=== PATIENT | female | born 1940 | race Caucasian/White ===

== ENCOUNTER 2016-05-20 08:58 | Inpatient (IN) | payer OTHER, MEDICARE ==
[2016-05-20 09:25] VITALS: BMI 26.4
--- NOTE | 2016-05-20 09:25 | PDOC ---
History of Present Illness - History of Present Illness Initial Comments: 05/20/16 10:02 The patient is a 76 year old female with a past medical hx of afib, who presents to the ED complaining of shortness of breath since this morning. The patient reports she went shopping when she noticed the onset of her SOB. She reports associated chest pain, non radiating, 4/10. She notes she went home and was putting her groceries on the shelf when she became short of breath again. She states she called her sister who told her to call 911. She notes one wave of nausea, but denies recent travel, back pain, and jaw pain. The patient denies vomiting, diarrhea The patient denies fever, chills The patient denies dysuria, frequency Allergies: Naproxen Social: No toxic habits reported Surgical: thyroid removed, hysterectomy, fractured femur, knee surgery. Residential Building Inspector: Dr. Moran PCP: Dr. 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) Cardiac Disorders: Yes (AFIB) CVA: No COPD: No CHF: No Dementia: No Diabetes: No GI Disorders: No HTN: No Hypercholesterolemia: No Liver Disease: No Seizures: No Thyroid Disease: Yes - Surgical History Orthopedic Surgery: Yes (CANDIE KNEE REPLACEMENT WITH FEMUR REJI LEFT) - Psycho/Social/Smoking Cessation Hx Suicidal Ideation: No Smoking History: Never smoked Information on smoking cessation initiated: No Hx Alcohol Use: No Drug/Substance Use Hx: No Substance Use Type: None <Brandi Bynum - Last Filed: 05/21/16 07:52> - Past Medical History Allergies/Adverse Reactions: Allergies Allergy/AdvReac Type Severity Reaction Status Date / Time naproxen [From Naprosyn] Allergy Intermediate Swelling Verified 05/20/16 09:23 Home Medications: Ambulatory Orders Apixaban [Eliquis] 5 mg PO BID 05/20/16 Levothyroxine [Synthroid -] 112 mcg PO DAILY 05/20/16 Metoprolol Succinate [Toprol Xl -] 12.5 mg PO DAILY 05/20/16 Review of Systems - Review of Systems Able to Perform ROS?: Yes Comments:: 05/20/16 10:03 GENERAL/CONSTITUTIONAL: No: fever, chills, weakness, loss of appetite. HEAD, EYES, EARS, NOSE AND THROAT: No: change in vision, ear pain, discharge, sore throat, throat swelling. CARDIOVASCULAR: +Chest pain. No: lightheadedness, palpitations, syncope RESPIRATORY: + Shortness of breath. No: cough, wheezing, hemoptysis, stridor. GASTROINTESTINAL: +Nausea. No: vomiting, abdominal cramping, diarrhea, rectal bleeding, constipation. GENITOURINARY: No: dysuria, hematuria, frequency, urgency, flank pain. MUSCULOSKELETAL: No: back pain, neck pain, joint pain, jaw pain, muscle swelling or pain SKIN: No: lesions, pallor, rash or easy bruising. NEUROLOGIC: No: headache, vertigo, paresthesias, weakness ENDOCRINE: No: unexplained weight gain or loss HEMATOLOGIC/LYMPHATIC: No: anemia, easy bleeding, swelling nodes <Jade Hyde - Last Filed: 05/20/16 12:51> *Physical Exam - Vital Signs Last Vital Signs Temp Pulse Resp BP Pulse Ox 98.1 F 151 H 18 115/62 96 05/20/16 09:20 05/20/16 09:38 05/20/16 09:20 05/20/16 09:38 05/20/16 09:20 - Physical Exam Comments: 05/20/16 10:03 GENERAL: The patient is in no acute distress. HEAD: Normal with no signs of trauma. EYES: PERRLA, EOMI, sclera anicteric, conjunctiva clear. ENT: Ears normal, nares patent, oropharynx clear without exudates. Moist mucous membranes. NECK: Normal range of motion, supple without lymphadenopathy, JVD, or masses. LUNGS: Breath sounds equal, clear to auscultation bilaterally. No wheezes, and no crackles. HEART +Irregularly irregular, without murmur, rub or gallop. ABDOMEN: Soft, nontender, normoactive bowel sounds. No guarding, no rebound. EXTREMITIES: Normal range of motion, no edema. No clubbing or cyanosis. No erythema, or tenderness. NEUROLOGICAL: Cranial nerves II through XII grossly intact. Normal speech. No focal neurological deficits. MUSCULOSKELETAL: Back nontender to palpation, no CVA tenderness SKIN: Warm, Dry, normal turgor, no rashes or lesions noted. <Jade Hyde - Last Filed: 05/20/16 12:51> - Vital Signs Last Vital Signs Temp Pulse Resp BP Pulse Ox 98.1 F 149 H 18 119/90 96 05/20/16 09:20 05/20/16 09:20 05/20/16 09:20 05/20/16 09:20 05/20/16 09:20 <Brandi Bynum - Last Filed: 05/21/16 07:52> Heart Score/ECG Review #1 ECG reviewed & interpreted by me at: 10:23 05/20/16 10:23 Twelve-lead EKG was performed and reviewed by me. Afib with a tachycardiac rate of 154. The axis is normal. The intervals are normal. There are no ST elevations or depression. T wave inversions noter v3-v6, II, III, aVF. <Brandi Bynum - Last Filed: 05/21/16 07:52> ED Treatment Course - LABORATORY CBC & Chemistry Diagram: 05/20/16 09:40 05/20/16 09:40 - RADIOLOGY Radiograph Interpretation: 05/20/16 12:02 Chest X-Ray A single view reveals a large heart, hiatal hernia with possible retrocardiac atelectasis or infiltrate with some pleural fluid. There is a prominent knob. The right lung is clear. There are degenerative changes. Since 07/03/2009, the left base changes have developed. The hiatal hernia appears larger. Follow-up recommended. Impression : Large heart. Hiatal hernia. Left base findings. Scoliosis. Reported By: Dilip Meyer MD 05/20/16 1103 <Jade Hyde - Last Filed: 05/20/16 12:51> - LABORATORY CBC & Chemistry Diagram: 05/20/16 09:40 05/20/16 09:40 <Brandi Bynum - Last Filed: 05/21/16 07:52> Medical Decision Making - Medical Decision Making 05/20/16 10:[address] Moran via answering machine at [phone], awaiting call back. Dr. Moran called back at 0945, patients case was discussed. Paged Dr. Girard at [phone], awaiting call back. Paged Dr. Girard for the second time at [phone], awaiting call back. 05/20/16 11:[address] Aiken via cell phone. Patients case was discussed. <CristyaprilCelyJade - Last Filed: 05/20/16 12:51> - Critical Care Time Total Critical Care Time (minutes): 35 Critical Care Statement: The care of this patient involved high complexity decision making to prevent further life threatening deterioration of the patient 's condition and/or to evalute & treat vital organ system(s) failure or risk of failure. - Medical Decision Making A portion of this note was documented by scribe services under my direction. I have reviewed the details of the note, within reason, and agree with the documentation with the following case summary and management plan written by me. Nursing documentation reviewed and incorporated into medical decision making 05/20/16 11:38 This is a 76-year-old female with a history of new-onset A. fib, started on low- dose metoprolol and Eliquis, hypertension, LVH (normal ejection fraction), tricuspid insufficiency, mitral prolapse, hypothyroidism status post thyroidectomy for thyroid cancer. Patient presents emergency department with a complaint of shortness of breath Patient states that while shopping she noted left-sided chest tightness and shortness of breath 05/20/16 11:41 05/20/16 11:41 No fevers, chills, cough. No lower extremity edema. No recent travel. Patient taking her medications as prescribed. Heart Rate 150s at triage. Patient rapidly assessed, states she would like me to contact Dr. Moran and would rather no meds be given until we speak with him Pt EKG Afib Will do: Labs, TSH, CXR will give medications EKG 05/20/16 11:43 Laboratory Tests 05/20/16 05/20/16 05/20/16 09:40 09:40 09:40 WBC 9.1 Hgb 15.9 H Hct 47.9 H Plt Count 235 Neutrophils % 82.5 Lymphocytes % 6.2 L INR 1.27 H Sodium 142 Potassium 4.3 Chloride 106 Carbon Dioxide 28 BUN 14 Creatinine 0.8 Random Glucose 106 Creatine Kinase 120 Troponin I 0.03 Pt Residential Building Inspector called back Recommends [facility] They were called Pt HR still elevated I have had a discussion with this patient re getting medications Pt agreeable to Lopressor 5mg IV Then states she would like the lowest possible dose Will start with 2.[address] Aiken Will place on Telemetry Clinical Impression: Afib RVR <Brandi Bynum - Last Filed: 05/21/16 07:52> *DC/Admit/Observation/Transfer - Attestations Scribe Attestion: 05/20/16 10:02 Documentation prepared by Jade Hyde, acting as biomedical engineering internship for Brandi Bynum MD/DO. <Jade Hyde - Last Filed: 05/20/16 12:51> - Discharge Dispostion Admit: Yes <Brandi Bynum - Last Filed: 05/21/16 07:52> Diagnosis at time of Disposition: Afib Qualifiers: Atrial fibrillation type: unspecified Qualified Code(s): I48.91 - Unspecified atrial fibrillation - Discharge Dispostion Condition at time of disposition: Good
[2016-05-20 09:54] LABS: BASOPHIL 0.9 % (0-2.0); EOSINOPHIL 4.2 % (0-4.5); MCHC 33.1 g/dl (32.0-36.0); MEAN CELL VOLUME 93.5 fl (80-96); MEAN PLT VOLUME 8.6 fl (7.5-11.1); NEUTROPHILS 82.5 % (42.8-82.8); PLATELET COUNT 235 K/MM3 (134-434); RDW 14.7 % (11.6-15.6); WHITE BLOOD COUNT 9.1 K/mm3 (4.0-10.0)
[2016-05-20 10:15] LABS: ALBUMIN 3.6 g/dl (3.4-5.0); ANION GAP 8 (8-16); CALCIUM 9.7 mg/dL (8.5-10.1); CO2 28 mmol/L (21-32); CREATININE 0.8 mg/dL (0.55-1.02); GLUCOSE,RANDOM 106 mg/dL (74-106); MAGNESIUM 1.9 mg/dL (1.8-2.4); SGOT/AST 51 U/L (15-37); SGPT/ALT 46 U/L (12-78)
[2016-05-20 10:21] LABS: ALK PHOS 100 U/L (45-117); BILIRUBIN,TOTAL 0.8 mg/dL (0.2-1.0); TOT PROT 6.4 g/dl (6.4-8.2); TROPONIN I 0.03 ng/ml (0.00-0.05)
[2016-05-20 10:46] LABS: INR 1.27 (0.82-1.09)
[2016-05-20] MEDS ORDERED: METOPROLOL TARTRATE 5 MG/5 ML VIAL IVPUSH ONE ×2 (11:14→12:14)
[2016-05-20] MEDS ORDERED: METOPROLOL TARTRATE 5 MG/5 ML VIAL ONE (11:26)
--- NOTE | 2016-05-20 12:28 | CONSULT ---
Consult Consult Specialty:: Cardiology Referred by:: Ebonie Bynum MD Reason for Consultation:: Rapid atrial fibrillation - History of Present Illness Chief Complaint: Dyspnea History of Present Illness: The patient is a 76 year old female with a past medical hx of afib, RA, hypothyroidism presented to the ED complaining of shortness of breath, chest tightness, palpitations fatigue and weakness in context of rapid afib. She denies near or true syncope, orthopnea, PND, LE edema, compliant with meds, reports intolerance to nadolol. Allergies: Naproxen Social: No toxic habits reported Surgical: thyroid removed, hysterectomy, fractured femur, knee surgery. General Road Production Manager: Dr. Moran PCP: Dr. Oliver - History Source History Provided By: Patient Limitations to Obtaining History: No Limitations - Past Medical History Cardio/Vascular: Yes: AFIB, HTN Rheumatology: Yes: Rheumatoid Arthritis Endocrine: Yes: Hypothyroidism - Alcohol/Substance Use Hx Alcohol Use: No - Smoking History Smoking history: Never smoked Home Medications - Allergies Allergies/Adverse Reactions: Allergies Allergy/AdvReac Type Severity Reaction Status Date / Time naproxen [From Naprosyn] Allergy Intermediate Swelling Verified 05/20/16 09:23 - Home Medications Home Medications: Ambulatory Orders Apixaban [Eliquis] 5 mg PO BID 05/20/16 Levothyroxine [Synthroid -] 112 mcg PO DAILY 05/20/16 Metoprolol Succinate [Toprol Xl -] 12.5 mg PO DAILY 05/20/16 Review of Systems - Review of Systems Constitutional: reports: Weakness Cardiovascular: reports: Chest Pain, Palpitations, Shortness of Breath Vital Signs: Vital Signs Temperature 98.1 F 05/20/16 09:20 Pulse Rate 122 H 05/20/16 12:20 Respiratory Rate 18 05/20/16 09:20 Blood Pressure 111/84 05/20/16 12:20 O2 Sat by Pulse Oximetry (%) 98 05/20/16 11:52 Constitutional: Yes: No Distress, Calm Neck: Yes: Supple Respiratory: Yes: Regular, CTA Bilaterally Gastrointestinal: Yes: Normal Bowel Sounds, Soft Cardiovascular: Yes: Tachycardia, Pulse Irregular JVD: No Carotid Bruit: No Heart Sounds: Yes: S1, S2 Murmur: Yes: Systolic Murmur, Grade 2 Edema: No - Other Data Labs, Other Data: INR, PTT INR 1.27 (0.82-1.09) H 05/20/16 09:40 Rapid afib @ [address]-T changes Ejection Fraction %: LVEF > or = 40 % Imaging - Results Chest X-ray: Report Reviewed (Cardiomegaly, hiatal hernia) Problem List - Problems (1) Rapid atrial fibrillation Code(s): I48.91 - UNSPECIFIED ATRIAL FIBRILLATION (2) Hypothyroidism Code(s): E03.9 - HYPOTHYROIDISM, UNSPECIFIED Qualifiers: Hypothyroidism type: unspecified Qualified Code(s): E03.9 - Hypothyroidism, unspecified (3) Left ventricular hypertrophy due to hypertensive disease Code(s): I11.9 - HYPERTENSIVE HEART DISEASE WITHOUT HEART FAILURE Qualifiers: Heart failure presence: without heart failure Qualified Code(s): I11.9 - Hypertensive heart disease without heart failure (4) Mitral valve prolapse Code(s): I34.1 - NONRHEUMATIC MITRAL (VALVE) PROLAPSE (5) Rheumatoid arthritis Code(s): M06.9 - RHEUMATOID ARTHRITIS, UNSPECIFIED Qualifiers: Rheumatoid arthritis location: unspecified site Assessment/Plan 09/17/2015 Regadenoson Sestamibi: No ischemia, normal LV size and fxn, LVEF 78% 09/16/2015 Echo: Hyperdynamic LV with mild-mod septal hypertrophy and end- systolic cavity obliteration mid LV to apex, severe LAE, mild MV prolapse, mid MR, AR, mild-mod dilated RV, severe KRYSTYNA, severe TR, tr [place], RVSP 36 mmHg 1. Persistent atrial fibrillation with RVR 2. HTN/HCVD 3. LV hypertrophy 4. Hypothyroidism 5. Rheumatoid arthritis 6. MV prolapse 7. Nadolol intolerance P:1. Rate control with IV Cardizem, Lopressor, increase Toprol XL 25 qd, continue Eliquis 5 bid, check TSH 2. Echocardiogram to assess ventricular and valve fxn 3. Patient to f/u with Dr. Moran of [facility] upon d/c
[2016-05-20] MEDS ORDERED: dilTIAZem HCL 50 MG/10 ML - 10 ML VIAL IVPUSH ONE (12:40)
[2016-05-20] MEDS ORDERED: METOPROLOL SUCCINATE 25 MG TAB.SR.24H (FP) PO SCH (12:45)
[2016-05-20] MEDS ORDERED: METOPROLOL SUCCINATE 50 MG TAB.SR.24H (FP) ONE (13:02)
[2016-05-20] MEDS ORDERED: dilTIAZem HCL 125 MG/25 ML - 25 ML VIAL ONE (13:02)
[2016-05-20] MEDS ORDERED: dilTIAZem HCL 50 MG/10 ML - 10 ML VIAL IVPUSH STA (15:15)
[2016-05-20] MEDS ORDERED: METOPROLOL SUCCINATE 25 MG TAB.SR.24H (FP) PO ONE (16:00)
--- NOTE | 2016-05-20 16:37 | EKG ---
Test Reason : Blood Pressure : / mmHG Vent. Rate : 154 BPM Atrial Rate : 150 BPM P-R Int : 000 ms QRS Dur : 082 ms QT Int : 298 ms P-R-T Axes : 000 000 257 degrees QTc Int : 477 ms ATRIAL FIBRILLATION WITH RAPID VENTRICULAR RESPONSE ABNORMAL ECG WHEN COMPARED WITH ECG OF 24-SEP-2015 06:23, ATRIAL FIBRILLATION HAS REPLACED SINUS RHYTHM VENT. RATE HAS INCREASED BY 56 BPM RSR' PATTERN IN V1 IS NO LONGER PRESENT MINIMAL CRITERIA FOR SEPTAL INFARCT ARE NO LONGER PRESENT Confirmed by CHRIS CONROY MD ([id number]) on 05/20/2016 4:36:47 PM Referred By: Confirmed By:CHRIS CONROY MD
[2016-05-20 17:55] LABS: TROPONIN I 0.09 ng/ml (0.00-0.05)
[2016-05-20] MEDS ORDERED: HEPARIN NA (PORCINE) 5,000 UNITS/ML 1ML VIAL SQ SCH (22:00)
[2016-05-20] MEDS ORDERED: APIXABAN 5 MG TABLET PO SCH (22:00)
[2016-05-20 22:19] LABS: TROPONIN I 0.08 ng/ml (0.00-0.05)
[2016-05-20] MEDS: APIXABAN 5 MG TABLET PO SCH (22:37)
[2016-05-21] MEDS: LEVOTHYROXINE NA 112 MCG TABLET (FP) PO SCH (06:29)
[2016-05-21 08:22] LABS: BASOPHIL 0.8 % (0-2.0); EOSINOPHIL 7.3 % (0-4.5); MCH 30.6 pg (25.7-33.7); MCHC 32.7 g/dl (32.0-36.0); MEAN CELL VOLUME 93.7 fl (80-96); NEUTROPHILS 68.2 % (42.8-82.8); PLATELET COUNT 229 K/MM3 (134-434); RDW 14.7 % (11.6-15.6); WHITE BLOOD COUNT 8.5 K/mm3 (4.0-10.0)
[2016-05-21 08:39] LABS: ALBUMIN 3.3 g/dl (3.4-5.0)
[2016-05-21 08:44] LABS: ALK PHOS 76 U/L (45-117); ANION GAP -2 (8-16); BILIRUBIN,TOTAL 1.1 mg/dL (0.2-1.0); CALCIUM 9.3 mg/dL (8.5-10.1); CO2 29 mmol/L (21-32); CREATININE 0.8 mg/dL (0.55-1.02); GLUCOSE,RANDOM 79 mg/dL (74-106); SGOT/AST 41 U/L (15-37); SGPT/ALT 39 U/L (12-78); TOT PROT 5.7 g/dl (6.4-8.2)
--- NOTE | 2016-05-21 09:10 | HP ---
Admitting History and Physical - Admission History of Present Illness: 76 year old female with a past medical hx of afib, who presents to the ED complaining of shortness of breath since this morning. The patient reports she went shopping when she noticed the onset of her SOB. She reports associated chest pain, non radiating, 08/23. She notes she went home and was putting her groceries on the shelf when she became short of breath again. patient jw had chest pain that was persistent associated with sob.. pt was noted to be in rapid afib This am denies any chest pain but c/o sob with minimal exertion - Past Medical History Cardiovascular: Yes: AFIB, HTN ...: No Rheumatology: Yes: Rheumatoid Arthritis Endocrine: Yes: Hypothyroidism - Past Surgical History Past Surgical History: Yes: Joint Replacement - Advance Directives Advance Directives: Yes: Health Care Proxy - Smoking History Smoking history: Never smoked - Alcohol/Substance Use Hx Alcohol Use: No Home Medications - Allergies Allergies/Adverse Reactions: Allergies Allergy/AdvReac Type Severity Reaction Status Date / Time naproxen [From Naprosyn] Allergy Intermediate Swelling Verified 05/20/16 09:23 - Home Medications Home Medications: Ambulatory Orders Apixaban [Eliquis] 5 mg PO BID 05/20/16 Levothyroxine [Synthroid -] 112 mcg PO DAILY 05/20/16 Metoprolol Succinate [Toprol Xl -] 12.5 mg PO DAILY 05/20/16 Review of Systems - Review of Systems Cardiovascular: reports: Chest Pain, Shortness of Breath. denies: Edema Respiratory: reports: SOB, SOB on Exertion Gastrointestinal: reports: No Symptoms Genitourinary: reports: No Symptoms Neurological: reports: No Symptoms Physical Examination Vital Signs: Vital Signs Temperature 98.0 F 05/21/16 06:00 Pulse Rate 74 05/21/16 06:00 Respiratory Rate 20 05/21/16 06:00 Blood Pressure 122/80 05/21/16 06:00 O2 Sat by Pulse Oximetry (%) 98 05/20/16 20:43 Neck: Yes: Supple Cardiovascular: Yes: Regular Rate and Rhythm Respiratory: Yes: Rales (at the bases>>>>left) Labs: CBC, BMP 05/21/16 06:05 05/21/16 06:05 Imaging - Results Chest X-ray: Report Reviewed EKG: Report Reviewed Problem List - Problems (1) Afib Assessment/Plan: CONTINUE WITH ELIQUIS/LOPRESSOR Code(s): I48.91 - UNSPECIFIED ATRIAL FIBRILLATION Qualifiers: Atrial fibrillation type: paroxysmal Qualified Code(s): I48.0 - Paroxysmal atrial fibrillation (2) HTN (hypertension) Assessment/Plan: CONTINUE WITH MEDS MONITOR Code(s): I10 - ESSENTIAL (PRIMARY) HYPERTENSION Qualifiers: Hypertension type: essential hypertension Qualified Code(s): I10 - Essential (primary) hypertension (3) Hypothyroidism Assessment/Plan: TSH 4 SAME DOSE Code(s): E03.9 - HYPOTHYROIDISM, UNSPECIFIED Qualifiers: Hypothyroidism type: unspecified Qualified Code(s): E03.9 - Hypothyroidism, unspecified (4) Chest pain as manifestation of blood transfusion reaction Assessment/Plan: REPEAT EKG/CE MONITOR ON TEL D/W DR HURST--PT HAD NEGATIVE STRESS TEST IN SEPTEMBER/2015 Code(s): R07.9 - CHEST PAIN, UNSPECIFIED T80.89XA - OTH COMP FOL INFUSION, TRANSFUSE AND THERAPUTC INJECT, INIT Y84.8 - OTH MEDICAL PROCEDURES CAUSE ABN REACT/COMPL, W/O MISADVNT Assessment/Plan - Problems (1) Rapid atrial fibrillation CONTINUE WIT LOPRESSOR CONTINUE WITH ELIQUIS Code(s): I48.91 - UNSPECIFIED ATRIAL FIBRILLATION (2) Hypothyroidism Code(s): E03.9 - HYPOTHYROIDISM, UNSPECIFIED Qualifiers: Hypothyroidism type: unspecified Qualified Code(s): E03.9 - Hypothyroidism, unspecified (3) Left ventricular hypertrophy due to hypertensive disease Code(s): I11.9 - HYPERTENSIVE HEART DISEASE WITHOUT HEART FAILURE Qualifiers: Heart failure presence: without heart failure Qualified Code(s): I11.9 - Hypertensive heart disease without heart failure (4) Mitral valve prolapse Code(s): I34.1 - NONRHEUMATIC MITRAL (VALVE) PROLAPSE (5) Rheumatoid arthritis Code(s): M06.9 - RHEUMATOID ARTHRITIS, UNSPECIFIED Qualifiers: Rheumatoid arthritis location: unspecified
--- NOTE | 2016-05-21 09:12 | PN ---
Progress Note, Physician Chief Complaint: Events noted Appears to be in sinus rhythm this am Generally feels better Shortness of breath improved compared to yesterday History of Present Illness: Patient was seen and examined. Awake and alert. Chart was reviewed Denies chest pain or palpitations - Current Medication List Current Medications: Active Medications Apixaban (Eliquis -) 5 mg PO BID [facility] Last Admin: 05/20/16 22:37 Dose: 5 mg Levothyroxine Sodium (Synthroid -) 112 mcg PO DAILY@0600 [facility] Last Admin: 05/21/16 06:29 Dose: 112 mcg Metoprolol Succinate (Toprol Xl -) 25 mg PO DAILY [facility] Last Admin: 05/20/16 13:09 Dose: 25 mg - Objective Vital Signs: Vital Signs Temperature 98.0 F 05/21/16 06:00 Pulse Rate 74 05/21/16 06:00 Respiratory Rate 20 05/21/16 06:00 Blood Pressure 122/80 05/21/16 06:00 O2 Sat by Pulse Oximetry (%) 98 05/20/16 20:43 Neck: Yes: Supple Cardiovascular: Yes: Regular Rate and Rhythm, S1, S2 Respiratory: Yes: CTA Bilaterally Gastrointestinal: Yes: Normal Bowel Sounds, Soft. No: Tenderness Edema: No Additional Findings/Remarks: - Review of Systems Constitutional: denies: Chills, Fever Cardiovascular: denies: Chest Pain, Palpitations, Shortness of Breath Respiratory: reports: SOB. denies: Cough, Hemoptysis, Orthopnea, PND Gastrointestinal: denies: Abdominal Pain, Constipation, Diarrhea, Melena, Nausea , Rectal Bleeding, Vomiting Genitourinary: denies: Dysuria Musculoskeletal: denies: Joint Pain Neurological: denies: Dizziness, Headache, Seizure, Syncope Labs: CBC, BMP 05/21/16 06:05 05/21/16 06:05 INR, PTT INR 1.27 (0.82-1.09) H 05/20/16 09:40 Problem List - Problems (1) Afib Code(s): I48.91 - UNSPECIFIED ATRIAL FIBRILLATION Qualifiers: Qualified Code(s): I48.0 - Paroxysmal atrial fibrillation (2) Hypothyroidism Code(s): E03.9 - HYPOTHYROIDISM, UNSPECIFIED Qualifiers: Qualified Code(s): E03.9 - Hypothyroidism, unspecified (3) Left ventricular hypertrophy due to hypertensive disease Code(s): I11.9 - HYPERTENSIVE HEART DISEASE WITHOUT HEART FAILURE Qualifiers: Qualified Code(s): I11.9 - Hypertensive heart disease without heart failure (4) Mitral valve prolapse Code(s): I34.1 - NONRHEUMATIC MITRAL (VALVE) PROLAPSE (5) HTN (hypertension) Code(s): I10 - ESSENTIAL (PRIMARY) HYPERTENSION Qualifiers: Qualified Code(s): I10 - Essential (primary) hypertension Assessment/Plan 1. Paroxysmal atrial fibrillation now in sinus rhythm 2. HTN/HCVD 3. Hypothyroidism 4. Rheumatoid arthritis 5. MV prolapse PLAN: 1. Increase Toprol XL to 50 mg QD and continue Eliquis 5 mg BID 2. Transthoracic echocardiography reveals normal left ventricular systolic function, mild MR and moderate TR 3. Nuclear stress test in September of 2015 showed no evidence of ischemia. Mild elevation of troponin likely is due to the rapid ventricular response yesterday. If she is symptom freee after ambulating, she can be discharged home and follow up with Dr. Piotr Moran of [facility] Further plans are to follow Jose De Jesus Girard MD
[2016-05-21] MEDS: METOPROLOL SUCCINATE 25 MG TAB.SR.24H (FP) PO SCH (09:25)
[2016-05-21] MEDS: APIXABAN 5 MG TABLET PO SCH ×2 (09:25→21:50)
[2016-05-21 09:45] LABS: TROPONIN I 0.05 ng/ml (0.00-0.05)
[2016-05-21] MEDS ORDERED: METOPROLOL SUCCINATE 25 MG TAB.SR.24H (FP) PO SCH (10:00)
--- NOTE | 2016-05-21 12:14 | EKG ---
Test Reason : Blood Pressure : / mmHG Vent. Rate : 063 BPM Atrial Rate : 063 BPM P-R Int : 156 ms QRS Dur : 080 ms QT Int : 464 ms P-R-T Axes : 073 009 268 degrees QTc Int : 474 ms SINUS RHYTHM WITH PREMATURE ATRIAL COMPLEXES MINIMAL VOLTAGE CRITERIA FOR LVH, MAY BE NORMAL VARIANT PROLONGED QT ABNORMAL ECG WHEN COMPARED WITH ECG OF 20-MAY-2016 09:23, SINUS RHYTHM HAS REPLACED ATRIAL FIBRILLATION VENT. RATE HAS DECREASED BY 91 BPM Confirmed by LUIS E LYONS MD ([id number]) on 05/21/2016 12:14:18 PM Referred By: DAYANARA SCHMITT DR Confirmed By:LUIS E LYONS MD
[2016-05-22 05:50] VITALS: BP 130/83; PULSE 68; TEMP 98.2
[2016-05-22] MEDS: LEVOTHYROXINE NA 112 MCG TABLET (FP) PO SCH (05:50)
--- NOTE | 2016-05-22 08:04 | PN ---
Progress Note (short form) - Note Progress Note: Chief Complaint: Events noted, notes reviewed, Denies any chest pain, dyspnea or palpitations, remains in sinus rhythm History of Present Illness: Seen and examined on telemetry. Events noted, notes reviewed, Denies any chest pain, dyspnea or palpitations, remains in sinus rhythm Echocardiography revealed normal LV size and function, mild bi-atrial dilatation , mild MR and moderate TR - Current Medication List Current Medications Apixaban (Eliquis -) 5 mg PO BID [facility] Last Admin: 05/22/16 10:32 Dose: 5 mg Levothyroxine Sodium (Synthroid -) 112 mcg PO DAILY@0600 [facility] Last Admin: 05/22/16 05:50 Dose: 112 mcg Metoprolol Succinate (Toprol Xl -) 50 mg PO DAILY [facility] Last Admin: 05/22/16 10:32 Dose: 50 mg Review of Systems Constitutional: denies: Chills Cardiovascular: As noted above Respiratory: denies: Cough or Sputum Production Gastrointestinal: denies: Nausea, Vomiting, Diarrhea, Constipation or Abdominal Pain Musculoskeletal: denies: Joint Pain Neurological: denies: Dizziness or Headache - Objective Vital Signs: Last Vital Signs Temp Pulse Resp BP Pulse Ox 98.2 F 68 20 130/83 96 05/22/16 05:47 05/22/16 05:47 05/22/16 05:47 05/22/16 05:47 05/21/16 21:00 Neck: Supple Negative JVD No bruit Cardiovascular: S1 S2 Regular Rate and Rhythm Respiratory: Clear to A&P Bilaterally Gastrointestinal: Soft Benign Normal Bowel Sounds Ext: No Edema Labs: CBC, BMP 05/21/16 06:05 05/21/16 06:05 Hepatic Panel Total Bilirubin 1.1 mg/dL (0.2-1.0) H D 05/21/16 06:05 AST 41 U/L (15-37) H 05/21/16 06:05 ALT 39 U/L (12-78) 05/21/16 06:05 Alkaline Phosphatase 76 U/L (45-117) D 05/21/16 06:05 Albumin 3.3 g/dl (3.4-5.0) L 05/21/16 06:05 INR, PTT INR 1.27 (0.82-1.09) H 05/20/16 09:40 Assessment/Plan ASSESSMENT: 1. Paroxysmal atrial fibrillation [id number] score of 4 on NOAC's, currently in sinus rhythm 2. CAD with evidence of demand ischemia in context of the above noted paroxysmal atrial fibrillation with rapid ventricular response 3. HTN/HCVD 4. MV prolapse syndrome 5. Hypothyroidism 6. History of rheumatoid arthritis PLAN: 1. Continue Toprol XL 2. Continue Eliquis considering the above noted [id number] score of 4 3. Further evaluation can be performed as outpatient with her seam closer at [facility] Dr. Piotr Moran Above was reviewed in detail with the patient Manolo Armijo MD
[2016-05-22] MEDS: METOPROLOL SUCCINATE 25 MG TAB.SR.24H (FP) PO SCH (10:32)
[2016-05-22] MEDS: APIXABAN 5 MG TABLET PO SCH (10:32)
--- NOTE | 2016-05-22 13:21 | DS ---
Physical Examination Vital Signs: Vital Signs Temperature 98.2 F 05/22/16 05:47 Pulse Rate 68 05/22/16 05:47 Respiratory Rate 20 05/22/16 05:47 Blood Pressure 130/83 05/22/16 05:47 O2 Sat by Pulse Oximetry (%) 96 05/21/16 21:00 Findings/Remarks: ANXIOUS TO GO HOME Constitutional: Yes: Calm Cardiovascular: Yes: S1, S2 Respiratory: Yes: CTA Bilaterally Gastrointestinal: Yes: Normal Bowel Sounds, Soft Edema: No Labs: CBC, BMP 05/21/16 06:05 05/21/16 06:05 Discharge Summary Reason For Visit: ATRIAL FIB Current Active Problems Afib (Acute) Chest pain as manifestation of blood transfusion reaction (Acute) HTN (hypertension) (Acute) Hypothyroidism (Acute) Left ventricular hypertrophy due to hypertensive disease (Acute) Mitral valve prolapse (Acute) Rapid atrial fibrillation (Acute) Rheumatoid arthritis (Acute) Hospital Course: (1) Afib Assessment/Plan: CONTINUE WITH ELIQUIS/BB APPRECIATE CARDIO CONSULT Code(s): I48.91 - UNSPECIFIED ATRIAL FIBRILLATION Qualifiers: Atrial fibrillation type: paroxysmal Qualified Code(s): I48.0 - Paroxysmal atrial fibrillation (2) HTN (hypertension) Assessment/Plan: CONTINUE WITH MEDS MONITOR Code(s): I10 - ESSENTIAL (PRIMARY) HYPERTENSION Qualifiers: Hypertension type: essential hypertension Qualified Code(s): I10 - Essential (primary) hypertension (3) Hypothyroidism Assessment/Plan: TSH 4 SAME DOSE Code(s): E03.9 - HYPOTHYROIDISM, UNSPECIFIED Qualifiers: Hypothyroidism type: unspecified Qualified Code(s): E03.9 - Hypothyroidism, unspecified (4) Chest pain as manifestation of blood transfusion reaction Assessment/Plan: D/W DR HURST--PT HAD NEGATIVE STRESS TEST IN SEPTEMBER/2015 Code(s): R07.9 - CHEST PAIN, UNSPECIFIED T80.89XA - OTH COMP FOL INFUSION, TRANSFUSE AND THERAPUTC INJECT, INIT Y84.8 - OTH MEDICAL PROCEDURES CAUSE ABN REACT/COMPL, W/O MISADVNT (5) Left ventricular hypertrophy due to hypertensive disease Code(s): I11.9 - HYPERTENSIVE HEART DISEASE WITHOUT HEART FAILURE Qualifiers: Heart failure presence: without heart failure Qualified Code(s): I11.9 - Hypertensive heart disease without heart failure (6) Mitral valve prolapse Code(s): I34.1 - NONRHEUMATIC MITRAL (VALVE) PROLAPSE (7) Rheumatoid arthritis Code(s): M06.9 - RHEUMATOID ARTHRITIS, UNSPECIFIED Qualifiers: Rheumatoid arthritis location: unspecified 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
== END 2016-05-22 14:28 | disposition home or self-care (01) | DRG 310 ==
LOC: JER 08:58 → JERBED 11:48 → OBSVTOIN 12:39 → J4W 15:06
PROVIDERS: ADMIT Family Medicine; ATTEND Family Medicine
DX: I48.0 Paroxysmal atrial fibrillation (principal); I11.9 Hypertensive heart disease without heart failure; M06.80 Other specified rheumatoid arthritis, unspecified site; I34.1 Nonrheumatic mitral (valve) prolapse; E03.9 Hypothyroidism, unspecified; Z96.653 Presence of artificial knee joint, bilateral; Z85.850 Personal history of malignant neoplasm of thyroid; Z85.43 Personal history of malignant neoplasm of ovary
CPT/HCPCS: 36415; 71010-TC; 71020-TC; 80053; 82550; 83735; 84443; 84484; 85025; 85379; 85610; 93005; 93010; 93306-TC; 99284-25; G0378

== ENCOUNTER 2017-07-09 11:59 | Inpatient (IN) | payer OTHER, MEDICARE ==
--- NOTE | 2017-07-09 12:03 | PDOC ---
History of Present Illness - General Chief Complaint: Shortness of Breath Stated Complaint: DIFFICULTY BREATHING Time Seen by Provider: 07/09/17 12:02 History Source: Patient Exam Limitations: No Limitations - History of Present Illness Initial Comments: 07/09/17 12:28 77F with pmh of A-fib and htn on Eliquis, hypothyroidism (2/2 to resection) and RA, presents to the ED after a 20min episode of shortness of breath after coming out of the shower this morning. She lives alone but her nieces live 2 blocks away from her and called 911 for her. Patient describes a similar episode last year where she was admitted for paroxysmal atrial fibrillation by Dr. Weathers. Normal heart is supposed to be controlled in the 70-80's. Patient presently asymptomatic. 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) Cardiac Disorders: Yes (AFIB) CVA: No COPD: No CHF: No Dementia: No Diabetes: No GI Disorders: No HTN: No Hypercholesterolemia: No Liver Disease: No Seizures: No Thyroid Disease: Yes - Surgical History Orthopedic Surgery: Yes (CANDIE KNEE REPLACEMENT WITH FEMUR REJI LEFT) - Suicide/Smoking/Psychosocial Hx Smoking History: Never smoked Hx Alcohol Use: No Drug/Substance Use Hx: No Substance Use Type: None Review of Systems - Review of Systems Able to Perform ROS?: Yes Is the patient limited Mongolian proficient: No Constitutional: Yes: Weakness HEENTM: No: Symptoms Reported Respiratory: Yes: Shortness of Breath Cardiac (ROS): No: Symptoms Reported ABD/GI: No: Symptoms Reported : No: Symptoms Reported Musculoskeletal: No: Symptoms Reported Integumentary: No: Symptoms Reported Neurological: No: Symptoms reported All Other Systems: Reviewed and Negative *Physical Exam - Physical Exam General Appearance: Yes: Nourished, Appropriately Dressed. No: Apparent Distress HEENT: positive: EOMI, ORTEGA, Normal ENT Inspection Neck: positive: Trachea midline. negative: Tender Respiratory/Chest: positive: Lungs Clear, Normal Breath Sounds. negative: Chest Tender, Respiratory Distress Cardiovascular: positive: Regular Rhythm, Regular Rate, S1, S2 Gastrointestinal/Abdominal: positive: Normal Bowel Sounds, Flat, Soft. negative : Tender Musculoskeletal: positive: Normal Inspection, CVA Tenderness Extremity: positive: Normal Capillary Refill, Normal Inspection, Normal Range of Motion Integumentary: positive: Normal Color, Dry, Warm Neurologic: positive: Fully Oriented, Alert, Normal Mood/Affect ED Treatment Course - LABORATORY CBC & Chemistry Diagram: 07/09/17 13:00 07/09/17 13:00 Medical Decision Making - Medical Decision Making 07/09/17 12:38 EKG: Atrial flutter with 2:1 AV conduction Septal infarct, age undertermined. ST amd T wave abnormality, consider inferolateral ischemia basic labs, cardiac enzymes, UA pending 07/09/17 14:[address] Armijo. UTi treated with Keflex 07/09/17 15:07 Gave patient Cardizem per Dr. Espitia to control HR 07/09/17 15:09 TSH elevated, will re-adjust levothyroxine will be admitted for tele obs as per dr. Espitia 07/09/17 16:29 *DC/Admit/Observation/Transfer Diagnosis at time of Disposition: AF (paroxysmal atrial fibrillation) - Discharge Dispostion Condition at time of disposition: Stable Admit: Yes - Referrals Referrals: Cory López [Primary Care Provider] - - Patient Instructions - Post Discharge Activity
--- NOTE | 2017-07-09 12:16 | PDOC ---
Attending Attestation - Resident Resident Name: Justin Dawkins - HPI HPI: 07/09/17 17:18 77 y/o female c/o 20 min of feeling dizzy after coming out of the shower today lasted about 20 min, pt reports similar incident occurring yesterday lasting only about 5 min. 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 In Ed pt in atrial flutter, labs, ekg, cbc, cmp, trop, tsh noted. Pt seen in ED by cardiology who recommended observation admission, pt agreed to admission. Pt in stable condition at time of this note. 07/09/17 17:24
[2017-07-09 13:09] LABS: BASO % 0.7 % (0-2.0); EOS % 0.8 % (0-4.5); HEMATOCRIT 42.3 % (32.4-45.2); HEMOGLOBIN 13.6 GM/dL (10.7-15.3); LYMPH % 4.7 % (8-40); MCH 29.3 pg (25.7-33.7); MCHC 32.2 g/dl (32.0-36.0); MEAN PLT VOLUME 7.2 fl (7.5-11.1); MONO % 5.2 % (3.8-10.2); NEUT % 88.6 % (42.8-82.8); PLATELET COUNT 351 K/MM3 (134-434); RBC 4.65 M/mm3 (3.60-5.2); RDW 15.2 % (11.6-15.6); WHITE BLOOD COUNT 9.3 K/mm3 (4.0-10.0)
[2017-07-09 13:18] LABS: INR 1.83 (0.82-1.09); PROTHROMBIN TIME (PATIENT) 20.7 SEC (9.98-11.88); URINE APPEARANCE SLCLOUDY; URINE BILIRUBIN NEGATIVE (NEGATIVE); URINE BLOOD NEGATIVE (NEGATIVE); URINE COLOR YELLOW; URINE GLUCOSE (UA) NEGATIVE (NEGATIVE); URINE KETONE NEGATIVE (NEGATIVE); URINE NITRITE POSITIVE (NEGATIVE); URINE PROTEIN NEGATIVE (NEGATIVE); URINE UROBILINOGEN NEGATIVE mg/dL (0.2-1.0)
[2017-07-09 13:25] LABS: URINE LEUK ESTERASE 2+ (NEGATIVE)
[2017-07-09 13:26] LABS: EPI CELLS RARE /HPF (FEW); URINE BACTERIA FEW /hpf (NONE SEEN); URINE HYALINE CAST 14 /lpf; URINE MUCUS RARE
[2017-07-09 13:31] LABS: ALBUMIN 3.1 g/dl (3.4-5.0); ANION GAP 11 (8-16); BLOOD UREA NITROGEN 16 mg/dL (7-18); CALCIUM 10.3 mg/dL (8.5-10.1); CHLORIDE 107 mmol/L (98-107); CO2 26 mmol/L (21-32); CREATININE 0.9 mg/dL (0.55-1.02); GLUCOSE,RANDOM 113 mg/dL (74-106); POTASSIUM 4.8 mmol/L (3.5-5.1); SGOT/AST 26 U/L (15-37); SGPT/ALT 33 U/L (12-78); SODIUM 144 mmol/L (136-145)
[2017-07-09] MEDS ORDERED: CEPHALEXIN MONOHYDRATE 500 MG CAPSULE (UD) PO ONE (13:31)
[2017-07-09 13:35] LABS: ALK PHOS 102 U/L (45-117); BILIRUBIN,TOTAL 0.4 mg/dL (0.2-1.0); TOT PROT 6.1 g/dl (6.4-8.2)
[2017-07-09] MEDS ORDERED: CEPHALEXIN MONOHYDRATE 250 MG CAPSULE (FP) ONE (13:42)
[2017-07-09] MEDS ORDERED: dilTIAZem HCL 30 MG TABLET (FP) PO ONE (14:18)
--- NOTE | 2017-07-09 14:46 | CON.CARD ---
Consult Consult Specialty:: Cardiology Referred by:: Emergency Medicine Reason for Consultation:: PAF - History of Present Illness Chief Complaint: Dyspnea, palpitations History of Present Illness: The patient is a 77 year old female with a past medical hx of paroxysmal afib, RA, hypothyroidism presented to the ED complaining of shortness of breath, chest tightness, palpitations fatigue and weakness in context of rapid afib. She denies near or true syncope, orthopnea, PND, LE edema, compliant with meds, reports Toprol makes her tired and causes digital numbness in cold climates. Allergies: Naproxen Social: No toxic habits reported Surgical: thyroid removed, hysterectomy, fractured femur, knee surgery. English Instructor: Dr. Moran PCP: Dr. Oliver - History Source History Provided By: Patient Limitations to Obtaining History: No Limitations - Past Medical History Cardio/Vascular: Yes: AFIB, HTN Rheumatology: Yes: Rheumatoid Arthritis Endocrine: Yes: Hypothyroidism - Past Surgical History Past Surgical History: Yes: Joint Replacement - Alcohol/Substance Use Hx Alcohol Use: No - Smoking History Smoking history: Never smoked Have you smoked in the past 12 months: No Home Medications - Allergies Allergies/Adverse Reactions: Allergies Allergy/AdvReac Type Severity Reaction Status Date / Time naproxen [From Naprosyn] Allergy Intermediate Swelling Verified 07/09/17 12:21 - Home Medications Home Medications: Ambulatory Orders Apixaban [Eliquis] 5 mg PO BID 05/20/16 Levothyroxine [Synthroid -] 112 mcg PO DAILY 05/20/16 Metoprolol Succinate [Toprol XL -] 50 mg PO DAILY #60 tab.sr.24h 05/22/16 Review of Systems - Review of Systems Cardiovascular: reports: Palpitations Respiratory: reports: SOB Vital Signs: Vital Signs Temperature 97.8 F 07/09/17 12:13 Pulse Rate 113 H 07/09/17 12:13 Respiratory Rate 18 07/09/17 12:13 Blood Pressure 115/83 07/09/17 12:13 O2 Sat by Pulse Oximetry (%) 98 07/09/17 12:13 Constitutional: Yes: No Distress, Calm Neck: Yes: Supple Respiratory: Yes: Regular, Diminished Gastrointestinal: Yes: Normal Bowel Sounds, Soft Cardiovascular: Yes: Tachycardia, Pulse Irregular JVD: No Carotid Bruit: No Heart Sounds: Yes: S1, S2 Murmur: Yes: Systolic Murmur, Grade 1 Edema: No - Other Data Labs, Other Data: CBC, BMP 07/09/17 13:00 07/09/17 13:00 INR, PTT INR 1.83 (0.82-1.09) H D 07/09/17 13:00 Troponin, BNP 07/09/17 13:00 Troponin I 0.02 Troponin, BNP 07/09/17 13:00 Troponin I 0.02 Afib @ 113 Ejection Fraction %: LVEF > or = 40 % Problem List - Problems (1) Raynauds phenomenon Code(s): I73.00 - RAYNAUD'S SYNDROME WITHOUT GANGRENE Qualifiers: Raynaud?s-associated gangrene presence: without gangrene Qualified Code(s) : I73.00 - Raynaud's syndrome without gangrene (2) HTN (hypertension) Code(s): I10 - ESSENTIAL (PRIMARY) HYPERTENSION Qualifiers: Hypertension type: essential hypertension Qualified Code(s): I10 - Essential (primary) hypertension (3) Hypothyroidism Code(s): E03.9 - HYPOTHYROIDISM, UNSPECIFIED Qualifiers: Hypothyroidism type: unspecified Qualified Code(s): E03.9 - Hypothyroidism , unspecified (4) Left ventricular hypertrophy due to hypertensive disease Code(s): I11.9 - HYPERTENSIVE HEART DISEASE WITHOUT HEART FAILURE Qualifiers: Heart failure presence: without heart failure Qualified Code(s): I11.9 - Hypertensive heart disease without heart failure (5) Mitral valve prolapse Code(s): I34.1 - NONRHEUMATIC MITRAL (VALVE) PROLAPSE (6) Rapid atrial fibrillation Code(s): I48.91 - UNSPECIFIED ATRIAL FIBRILLATION (7) Rheumatoid arthritis Code(s): M06.9 - RHEUMATOID ARTHRITIS, UNSPECIFIED Qualifiers: Rheumatoid arthritis location: unspecified site Assessment/Plan 05/21/2016 Echocardiography revealed normal LV size and function, mild bi-atrial dilatation, mild MR and moderate TR 1. Paroxysmal atrial fibrillation [id number] score of 4 on NOAC's 2. CAD with h/o demand ischemia in context of previous paroxysmal atrial fibrillation with rapid ventricular response 3. HTN/HCVD 4. MV prolapse syndrome 5. Hypothyroidism 6. History of rheumatoid arthritis, possible Raynauds phenomenon 7. Fatigue referable to metoprolol vs PAF PLAN: 1. Change Toprol XL to Cardizem 30 q6 and eventual long-acting formulation, hopefully will spontaneously convert with rate-control 2. Continue Eliquis 5 bid considering elevated [id number] score of 4 3. Further evaluation can be performed as outpatient with her aquatics specialist at [facility] Dr. Piotr Moran 4. Thank you for consultative opportunity, uptitrate Synthroid 125 qd per TSH requires branded formulation
[2017-07-09] MEDS ORDERED: dilTIAZem HCL 30 MG TABLET (FP) ONE (14:48)
[2017-07-09] MEDS ORDERED: dilTIAZem HCL 50 MG/10 ML - 10 ML VIAL IVPUSH ONE (14:58)
--- NOTE | 2017-07-09 16:44 | HP ---
Admitting History and Physical - Admission Chief Complaint: breathlessless History of Present Illness: HPI This is a 77 year old female with his of HTN, PAF, thyroid ca, thyroidectomy hypothyroidism, uterine cancer s/p TAA, femur fx w kishore replacement, b/l knee replacement, vein ligation in both legs, presented to the ED with increased breathlessness, no chest pain, fatigue and palpitations. The patient reported having a brief episode of breathlessness at rest yesterday and then today while doing small activities such as dishes started to feeling breathless for a longer time. When she ascended the stairs her niece called and noted she sounded short of breath on the phone and she told her niece she should go to hospital. Currently, she reports feeling tired, however denies sob or palpitations, chest pain, abdominal pain, n/v, changes in bowel or urinary habits, fever, chills. 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 Moran PCP: Dr. Oliver History Source: Patient Limitations to Obtaining History: No Limitations - Past Medical History Cardiovascular: Yes: AFIB, HTN Rheumatology: Yes: Rheumatoid Arthritis Endocrine: Yes: Hypothyroidism - Past Surgical History Past Surgical History: Yes: Hysterectomy, Joint Replacement, Vein Stripping/ Ligation - Smoking History Smoking history: Never smoked Have you smoked in the past 12 months: No - Alcohol/Substance Use Hx Alcohol Use: No - Social History Usual Living Arrangement: Yes: Alone ADL: Independent Home Medications - Allergies Allergies/Adverse Reactions: Allergies Allergy/AdvReac Type Severity Reaction Status Date / Time naproxen [From Naprosyn] Allergy Intermediate Swelling Verified 07/09/17 12:21 - Home Medications Home Medications: Ambulatory Orders Apixaban [Eliquis] 5 mg PO BID 05/20/16 Levothyroxine [Synthroid -] 112 mcg PO DAILY 05/20/16 Metoprolol Succinate [Toprol XL -] 50 mg PO DAILY #60 tab.sr.24h 05/22/16 Review of Systems - Review of Systems Constitutional: reports: No Symptoms Eyes: reports: No Symptoms HENT: reports: No Symptoms Neck: reports: No Symptoms Cardiovascular: reports: Shortness of Breath Respiratory: reports: SOB, SOB on Exertion Gastrointestinal: reports: No Symptoms Genitourinary: reports: No Symptoms Musculoskeletal: reports: No Symptoms Integumentary: reports: No Symptoms Neurological: reports: No Symptoms Endocrine: reports: No Symptoms Hematology/Lymphatic: reports: No Symptoms Psychiatric: reports: No Symptoms Physical Examination Vital Signs: Vital Signs Temperature 97.8 F 07/09/17 12:13 Pulse Rate 113 H 07/09/17 12:13 Respiratory Rate 18 07/09/17 12:13 Blood Pressure 115/83 07/09/17 12:13 O2 Sat by Pulse Oximetry (%) 98 07/09/17 12:13 Constitutional: Yes: No Distress Eyes: Yes: Conjunctiva Clear HENT: Yes: Atraumatic Neck: Yes: Supple Cardiovascular: Yes: Tachycardia, S1, S2 Respiratory: Yes: Regular, CTA Bilaterally Gastrointestinal: Yes: Normal Bowel Sounds, Soft Renal/: Yes: WNL Musculoskeletal: Yes: WNL Edema: LLE: Trace, RLE: Trace Neurological: Yes: Alert, Oriented, Cran Nerves II-XII Intact Psychiatric: Yes: Alert, Oriented Labs: CBC, BMP 07/09/17 13:00 07/09/17 13:00 Problem List - Problems (1) AF (paroxysmal atrial fibrillation) Code(s): I48.0 - PAROXYSMAL ATRIAL FIBRILLATION (2) Afib Code(s): I48.91 - UNSPECIFIED ATRIAL FIBRILLATION Qualifiers: Atrial fibrillation type: paroxysmal Qualified Code(s): I48.0 - Paroxysmal atrial fibrillation (3) HTN (hypertension) Code(s): I10 - ESSENTIAL (PRIMARY) HYPERTENSION Qualifiers: Hypertension type: essential hypertension Qualified Code(s): I10 - Essential (primary) hypertension (4) Hypothyroidism Code(s): E03.9 - HYPOTHYROIDISM, UNSPECIFIED Qualifiers: Hypothyroidism type: unspecified Qualified Code(s): E03.9 - Hypothyroidism , unspecified (5) Rapid atrial fibrillation Code(s): I48.91 - UNSPECIFIED ATRIAL FIBRILLATION Assessment/Plan Assessment: 77 year old female admitted with PAF Plan: 1. PAF - Telemetry monitoring - Continue eliquis 5mg BID - Change toprol xl to cardizem 30mg q6 for rate control - ECHO 05/21/16 normal LV size and function, mild bi-atrial dilatation, mild MR and moderate TR - Appreciate cardiology assistance 2. Hypothyroid - TSH noted - Increased synthroid to 125mcg, will need tsh rechecked in 6 weeks 3. HTN - On cardizem 4. UTI - Started keflex in ED - Continue 500mg BID x5 days - Send urine cx 5. DVT - on eliquis Visit type - Emergency Visit Emergency Visit: Yes Care time: The patient presented to the Emergency Department on the above date and was hospitalized for further evaluation of their emergent condition. - New Patient This patient is new to me today: Yes Date on this admission: 07/09/17 - Critical Care Critical Care patient: No Hospitalist Screening - Colonoscopy Questionnaire Colonoscopy Questionnaire: Colonoscopy Questionnaire - Patient: 50 - 75 years old and never had a screening colonoscopy: Unknown History of colon or rectal polyps, or CA: Unknown History of IBD, Crohn's disease or UC: Unknown History of abdominal radiation therapy as a child: Unknown - Relative: 1 with colon or rectal CA, or polyps at age 60 or younger: Unknown Colon or rectal CA diagnosed at age 45 or younger: Unknown Multiple relatives with colon or rectal CA: Unknown - Outcome: Screening Result: Negative Screen
[2017-07-09 20:18] VITALS: BMI 23.6
[2017-07-09] MEDS ORDERED: PT OWN MED DRAWER 7, Y5N ONE (21:17)
[2017-07-09] MEDS: APIXABAN 5 MG TABLET PO SCH (21:19)
[2017-07-09] MEDS: CEPHALEXIN MONOHYDRATE 500 MG CAPSULE (UD) PO SCH (21:19)
--- NOTE | 2017-07-09 22:35 | EKG ---
Test Reason : Blood Pressure : / mmHG Vent. Rate : 113 BPM Atrial Rate : 226 BPM P-R Int : 000 ms QRS Dur : 080 ms QT Int : 348 ms P-R-T Axes : 216 -12 265 degrees QTc Int : 477 ms ATRIAL FLUTTER WITH 2:1 A-V CONDUCTION ABNORMAL ECG WHEN COMPARED WITH ECG OF 21-MAY-2016 10:27, ATRIAL FLUTTER HAS REPLACED SINUS RHYTHM VENT. RATE HAS INCREASED BY 50 BPM SEPTAL INFARCT IS NOW PRESENT Confirmed by MD GARETH, RISA ([id number]) on 07/09/2017 10:34:39 PM Referred By: Confirmed By:RISA SERVIN MD
[2017-07-10] MEDS: dilTIAZem HCL 30 MG TABLET (FP) PO SCH ×2 (00:20→06:33)
[2017-07-10] MEDS: LEVOTHYROXINE NA 125 MCG TABLET (FP) PO SCH (06:33)
[2017-07-10 06:37] LABS: BASO % 0.9 % (0-2.0); EOS % 6.6 % (0-4.5); HEMATOCRIT 41.5 % (32.4-45.2); HEMOGLOBIN 13.9 GM/dL (10.7-15.3); LYMPH % 8.4 % (8-40); MCH 29.9 pg (25.7-33.7); MCHC 33.4 g/dl (32.0-36.0); MEAN CELL VOLUME 89.4 fl (80-96); MEAN PLT VOLUME 7.7 fl (7.5-11.1); MONO % 10.6 % (3.8-10.2); NEUT % 73.5 % (42.8-82.8); PLATELET COUNT 354 K/MM3 (134-434); RBC 4.65 M/mm3 (3.60-5.2); RDW 15.7 % (11.6-15.6); WHITE BLOOD COUNT 8.1 K/mm3 (4.0-10.0)
[2017-07-10 06:47] LABS: ALBUMIN 2.8 g/dl (3.4-5.0); ANION GAP 10 (8-16); BLOOD UREA NITROGEN 17 mg/dL (7-18); CALCIUM 9.1 mg/dL (8.5-10.1); CHLORIDE 106 mmol/L (98-107); CO2 27 mmol/L (21-32); GLUCOSE,RANDOM 85 mg/dL (74-106); POTASSIUM 4.1 mmol/L (3.5-5.1); SGOT/AST 25 U/L (15-37); SGPT/ALT 31 U/L (12-78); SODIUM 143 mmol/L (136-145)
[2017-07-10 06:50] LABS: ALK PHOS 88 U/L (45-117); BILIRUBIN,TOTAL 0.7 mg/dL (0.2-1.0); CREATININE 0.9 mg/dL (0.55-1.02); TOT PROT 5.3 g/dl (6.4-8.2)
[2017-07-10] MEDS ORDERED: dilTIAZem HCL 50 MG/10 ML - 10 ML VIAL IVPUSH ONE (08:38)
[2017-07-10] MEDS: predniSONE 5 MG TABLET (UD) PO SCH (09:05)
[2017-07-10] MEDS: APIXABAN 5 MG TABLET PO SCH ×2 (09:06→21:26)
[2017-07-10] MEDS: CEPHALEXIN MONOHYDRATE 500 MG CAPSULE (UD) PO SCH ×2 (09:06→21:26)
--- NOTE | 2017-07-10 09:55 | PN ---
Physical Exam: SUBJECTIVE: Patient seen and examined. She is oob, she denies breathlessness, cp , palpitations. OBJECTIVE: Vital Signs Period Temp Pulse Resp BP Sys/[place] Pulse Ox Last 24 Hr 97.6 F-98.7 F 88-114 17-20 112-128/65-84 95-99 PE Neuro: alert, awake, cn 2-12intact Pulm: CTAB CV: s1 s2 irregular rate and rhythm Abd: s nt nd +s Ext: Warm, no le edema Laboratory Results - last 24 hr 07/09/17 07/09/17 07/10/17 13:00 13:25 05:05 WBC 8.1 RBC 4.65 Hgb 13.9 Hct 41.5 MCV 89.4 MCH 29.9 MCHC 33.4 RDW 15.7 H Plt Count 354 MPV 7.7 Neutrophils % 73.5 Lymphocytes % 8.4 D Monocytes % 10.6 H D Eosinophils % 6.6 H D Basophils % 0.9 PT with INR INR Sodium 144 Potassium 4.8 Chloride 107 Carbon Dioxide 26 Anion Gap 11 BUN 16 Creatinine 0.9 Creat Clearance w eGFR > 60 Random Glucose 113 H Calcium 10.3 H Magnesium Total Bilirubin 0.4 D AST 26 ALT 33 Alkaline Phosphatase 102 Creatine Kinase 45 Troponin I 0.02 Total Protein 6.1 L Albumin 3.1 L TSH 7.03 H Cancelled Urine Color Urine Appearance Urine pH Ur Specific [place] Urine Protein Urine Glucose (UA) Urine Ketones Urine Blood Urine Nitrite Urine Bilirubin Urine Urobilinogen Ur Leukocyte Esterase Urine WBC (Auto) Urine RBC (Auto) Ur Epithelial Cells Urine Bacteria Hyaline Casts Urine Mucus 07/10/17 05:05 WBC RBC Hgb Hct MCV MCH MCHC RDW Plt Count MPV Neutrophils % Lymphocytes % Monocytes % Eosinophils % Basophils % PT with INR INR Sodium 143 Potassium 4.1 Chloride 106 Carbon Dioxide 27 Anion Gap 10 BUN 17 Creatinine 0.9 Creat Clearance w eGFR > 60 Random Glucose 85 Calcium 9.1 Magnesium 2.0 Total Bilirubin 0.7 D AST 25 ALT 31 Alkaline Phosphatase 88 Creatine Kinase Troponin I Total Protein 5.3 L Albumin 2.8 L TSH Urine Color Urine Appearance Urine pH Ur Specific [place] Urine Protein Urine Glucose (UA) Urine Ketones Urine Blood Urine Nitrite Urine Bilirubin Urine Urobilinogen Ur Leukocyte Esterase Urine WBC (Auto) Urine RBC (Auto) Ur Epithelial Cells Urine Bacteria Hyaline Casts Urine Mucus Active Medications Generic Name Dose Route Start Last Admin Trade Name Freq PRN Reason Stop Dose Admin Acetaminophen 650 mg 07/10/17 00:45 Tylenol - PO Q6H PRN PAIN LEVEL 1 - 3 Apixaban 5 mg 07/09/17 22:00 07/10/17 09:06 Eliquis - PO 5 mg BID ALIE Administration Cephalexin HCl 500 mg 07/09/17 22:00 07/10/17 09:06 Keflex - PO 500 mg BID ALIE Administration Diltiazem HCl 60 mg 07/10/17 12:00 Cardizem - PO Q6HPO ALIE Levothyroxine Sodium 125 mcg 07/10/17 07:00 07/10/17 06:33 Synthroid - PO 125 mcg DAILY@0700 ALIE Administration Prednisone 5 mg 07/10/17 10:00 07/10/17 09:05 Deltasone - PO 5 mg DAILY ALIE Administration Imaging: - ECHO 05/21/16 normal LV size and function, mild bi-atrial dilatation, mild MR and moderate TR Assessment: 77 year old female admitted with PAF Plan: 1. Rapid A flutter; 3:1 conduction - Cardizem 10mg IVP given, with appropriate rate response - Increase cardizem 60mg qh for rate controll - Eliquis 5mg BID - Keep NPO tonight for tentative cardioversion in AM - Note, discontinuation of toprol, pt reports numbness and fatigue 2. Hypothyroid - TSH noted - Increased synthroid to 125mcg, will need tsh rechecked in 6 weeks - Will follow up with out[facility] in [facility] 3. HTN - Controlled - Cardizem 4. UTI - Continue 500mg BID x5 days (Day 2) - Send urine cx 5. OA - Daily prednisone 5mg 6. DVT - on eliquis Problem List - Problems (1) AF (paroxysmal atrial fibrillation) Code(s): I48.0 - PAROXYSMAL ATRIAL FIBRILLATION (2) Afib Code(s): I48.91 - UNSPECIFIED ATRIAL FIBRILLATION Qualifiers: Atrial fibrillation type: paroxysmal Qualified Code(s): I48.0 - Paroxysmal atrial fibrillation (3) HTN (hypertension) Code(s): I10 - ESSENTIAL (PRIMARY) HYPERTENSION Qualifiers: Hypertension type: essential hypertension Qualified Code(s): I10 - Essential (primary) hypertension (4) Hypothyroidism Code(s): E03.9 - HYPOTHYROIDISM, UNSPECIFIED Qualifiers: Hypothyroidism type: unspecified Qualified Code(s): E03.9 - Hypothyroidism , unspecified (5) Rapid atrial fibrillation Code(s): I48.91 - UNSPECIFIED ATRIAL FIBRILLATION Visit type - Emergency Visit Emergency Visit: Yes ED Registration Date: 07/09/17 Care time: The patient presented to the Emergency Department on the above date and was hospitalized for further evaluation of their emergent condition. - New Patient This patient is new to me today: No - Critical Care Critical Care patient: No
[2017-07-10] MEDS: dilTIAZem HCL 60 MG TABLET (FP) PO SCH ×2 (11:36→17:06)
--- NOTE | 2017-07-10 13:43 | PN ---
Progress Note, Physician History of Present Illness: Shortness of breath, chest tightness, palpitations fatigue and weakness improved with rate-control. - Current Medication List Current Medications: Active Medications Acetaminophen (Tylenol -) 650 mg PO Q6H PRN PRN Reason: PAIN LEVEL 1 - 3 Apixaban (Eliquis -) 5 mg PO BID [facility] Last Admin: 07/10/17 09:06 Dose: 5 mg Cephalexin HCl (Keflex -) 500 mg PO BID [facility] Last Admin: 07/10/17 09:06 Dose: 500 mg Diltiazem HCl (Cardizem -) 60 mg PO Q6HPO [facility] Last Admin: 07/10/17 11:36 Dose: 60 mg Levothyroxine Sodium (Synthroid -) 125 mcg PO DAILY@0700 [facility] Last Admin: 07/10/17 06:33 Dose: 125 mcg Prednisone (Deltasone -) 5 mg PO DAILY [facility] Last Admin: 07/10/17 09:05 Dose: 5 mg - Objective Vital Signs: Vital Signs Temperature 98.4 F 07/10/17 13:39 Pulse Rate 92 H 07/10/17 13:39 Respiratory Rate 18 07/10/17 13:39 Blood Pressure 98/55 07/10/17 13:39 O2 Sat by Pulse Oximetry (%) 95 07/09/17 21:00 Constitutional: Yes: No Distress, Calm, Thin Neck: Yes: Supple Cardiovascular: Yes: Regular Rate and Rhythm Respiratory: Yes: Regular, CTA Bilaterally Gastrointestinal: Yes: Normal Bowel Sounds, Soft Edema: No Labs: CBC, BMP 07/10/17 05:05 07/10/17 05:05 INR, PTT INR 1.83 (0.82-1.09) H D 07/09/17 13:00 - ....Imaging EKG: Report Reviewed (07/10/2017 Aflutter @ 75 4:1 AV block) Problem List - Problems (1) Raynauds phenomenon Code(s): I73.00 - RAYNAUD'S SYNDROME WITHOUT GANGRENE Qualifiers: Raynaud?s-associated gangrene presence: without gangrene Qualified Code(s) : I73.00 - Raynaud's syndrome without gangrene (2) HTN (hypertension) Code(s): I10 - ESSENTIAL (PRIMARY) HYPERTENSION Qualifiers: Hypertension type: essential hypertension Qualified Code(s): I10 - Essential (primary) hypertension (3) Hypothyroidism Code(s): E03.9 - HYPOTHYROIDISM, UNSPECIFIED Qualifiers: Hypothyroidism type: unspecified Qualified Code(s): E03.9 - Hypothyroidism , unspecified (4) Left ventricular hypertrophy due to hypertensive disease Code(s): I11.9 - HYPERTENSIVE HEART DISEASE WITHOUT HEART FAILURE Qualifiers: Heart failure presence: without heart failure Qualified Code(s): I11.9 - Hypertensive heart disease without heart failure (5) Mitral valve prolapse Code(s): I34.1 - NONRHEUMATIC MITRAL (VALVE) PROLAPSE (6) Rapid atrial fibrillation Code(s): I48.91 - UNSPECIFIED ATRIAL FIBRILLATION (7) Rheumatoid arthritis Code(s): M06.9 - RHEUMATOID ARTHRITIS, UNSPECIFIED Qualifiers: Rheumatoid arthritis location: unspecified site Assessment/Plan 05/21/2016 Echocardiography revealed normal LV size and function, mild bi-atrial dilatation, mild MR and moderate TR 1. Paroxysmal atrial fibrillation/flutter [id number] score of 4 on NOAC's 2. CAD with h/o demand ischemia in context of previous paroxysmal atrial fibrillation with rapid ventricular response 3. HTN/HCVD 4. MV prolapse syndrome 5. Hypothyroidism 6. History of rheumatoid arthritis, possible Raynauds phenomenon 7. Fatigue referable to metoprolol vs PAF PLAN: 1. Increased Cardizem 60 q6 and eventual long-acting formulation, hopefully will spontaneously convert with rate-control 2. Continue Eliquis 5 bid considering elevated [id number] score of 4 3. NPO in AM for DCCV, MURRAY-guidance not warranted as Eliquis compliance confirmed, patient requests input from Dr. Moran prior to proceeding 4. Outpatient f/u with her dot compliance manager at [facility] Dr. Piotr Moran
--- NOTE | 2017-07-10 18:33 | EKG ---
Test Reason : Blood Pressure : / mmHG Vent. Rate : 076 BPM Atrial Rate : 228 BPM P-R Int : 000 ms QRS Dur : 080 ms QT Int : 402 ms P-R-T Axes : 000 000 -81 degrees QTc Int : 452 ms ATRIAL FLUTTER WITH VARIABLE A-V BLOCK SEPTAL INFARCT (CITED ON OR BEFORE 09-JUL-2017) ABNORMAL ECG WHEN COMPARED WITH ECG OF 09-JUL-2017 12:14, VENT. RATE HAS DECREASED BY 37 BPM SERIAL CHANGES OF SEPTAL INFARCT PRESENT Confirmed by MD GARETH, RISA ([id number]) on 07/10/2017 6:33:07 PM Referred By: Lisha FALCON Confirmed By:RISA SERVIN MD
[2017-07-10] MEDS: ACETAMINOPHEN 325 MG TABLET (FP) PO PRN (19:42)
[2017-07-11] MEDS: dilTIAZem HCL 60 MG TABLET (FP) PO SCH ×4 (00:07→17:38)
[2017-07-11] MEDS: LEVOTHYROXINE NA 125 MCG TABLET (FP) PO SCH ×2 (06:01→08:00)
[2017-07-11] MEDS: APIXABAN 5 MG TABLET PO SCH ×3 (08:00→21:32)
[2017-07-11] MEDS: predniSONE 5 MG TABLET (UD) PO SCH ×2 (08:00→09:14)
--- NOTE | 2017-07-11 08:40 | PN ---
Progress Note (short form) - Note Progress Note: Subjective: The patient was seen and examined at the bedside, she has no complaints at this time. NPO except meds For cardioversion today Current Medications Generic Name Dose Route Start Last Admin Trade Name Freq PRN Reason Stop Dose Admin Acetaminophen 650 mg 07/10/17 00:45 07/10/17 19:42 Tylenol - PO 650 mg Q6H PRN Administration PAIN LEVEL 1 - 3 Apixaban 5 mg 07/09/17 22:00 07/11/17 08:00 Eliquis - PO 5 mg BID ALIE Administration Cephalexin HCl 500 mg 07/09/17 22:00 07/10/17 21:26 Keflex - PO 500 mg BID ALIE Administration Diltiazem HCl 60 mg 07/10/17 12:00 07/11/17 05:29 Cardizem - PO Not Given Q6HPO ALIE Levothyroxine Sodium 125 mcg 07/10/17 07:00 07/11/17 08:00 Synthroid - PO 125 mcg DAILY@0700 ALIE Administration Prednisone 5 mg 07/10/17 10:00 07/11/17 08:00 Deltasone - PO 5 mg DAILY ALIE Administration Objective: Vital Signs Period Temp Pulse Resp BP Sys/Magallon Pulse Ox Last 24 Hr 97.5 F-98.5 F 76-120 18-20 96-120/55-72 97-98 Physical Exam: General: NAD, A&Ox3 Lungs: CTA bilaterally Heart: RRR, S1S2 Abd: Soft, non-tender, non-distended. Normoactive bowel sounds Ext: Warm, well-perfused. 2+ DP/PT bilaterally Neuro: CN 2-12 intact CBCD WBC 8.1 K/mm3 (4.0-10.0) 07/10/17 05:05 RBC 4.65 M/mm3 (3.60-5.2) 07/10/17 05:05 Hgb 13.9 GM/dL (10.7-15.3) 07/10/17 05:05 Hct 41.5 % (32.4-45.2) 07/10/17 05:05 MCV 89.4 fl (80-96) 07/10/17 05:05 MCHC 33.4 g/dl (32.0-36.0) 07/10/17 05:05 RDW 15.7 % (11.6-15.6) H 07/10/17 05:05 Plt Count 354 K/MM3 (134-434) 07/10/17 05:05 MPV 7.7 fl (7.5-11.1) 07/10/17 05:05 CMP Sodium 143 mmol/L (136-145) 07/10/17 05:05 Potassium 4.1 mmol/L (3.5-5.1) 07/10/17 05:05 Chloride 106 mmol/L (98-107) 07/10/17 05:05 Carbon Dioxide 27 mmol/L (21-32) 07/10/17 05:05 Anion Gap 10 (8-16) 07/10/17 05:05 BUN 17 mg/dL (7-18) 07/10/17 05:05 Creatinine 0.9 mg/dL (0.55-1.02) 07/10/17 05:05 Creat Clearance w eGFR > 60 (>60) 07/10/17 05:05 Random Glucose 85 mg/dL (74-106) 07/10/17 05:05 Calcium 9.1 mg/dL (8.5-10.1) 07/10/17 05:05 Total Bilirubin 0.7 mg/dL (0.2-1.0) D 07/10/17 05:05 AST 25 U/L (15-37) 07/10/17 05:05 ALT 31 U/L (12-78) 07/10/17 05:05 Alkaline Phosphatase 88 U/L (45-117) 07/10/17 05:05 Total Protein 5.3 g/dl (6.4-8.2) L 07/10/17 05:05 Albumin 2.8 g/dl (3.4-5.0) L 07/10/17 05:05 CARDIAC ENZYMES Creatine Kinase 45 IU/L (26-192) 07/09/17 13:00 Troponin I 0.02 ng/ml (0.00-0.05) 07/09/17 13:00 Laboratory Tests 07/09/17 13:00 TSH 7.03 H Assessment: This is a 77 year old female with PMHx of HTN, paroxysmal a.fib/ a.flutter on Eliquis, thyroid cancer, s/p thyroidectomy, uterine cancer s/p ROSALEE , femur fracture with kishore replacement, b/l knee replacement, vein ligation in both legs, who presented to the ED with increased breathlessness, no chest pain , fatigue and palpitations. Plan: 1) Cardiology: Rapid a.flutter with 2:1 conduction - [id number] score of 4 - Continue Eliquis - For cardioversion today - Continue Cardizem 60mg q6h for rate control - Toprol XL discontinued as patient had itching - Appreciate cardiology consult 2) Thyroid cancer, s/p thyroidectomy; hypothyroidism - TSH 7.03 - Synthroid increased to 125mcg daily - F/u outpatient pcp for repeat testing in 4-6 weeks 3) UTI - UA with 2+ Leuks, 52 WBC - F/u urine culture - Continue Keflex (07/09- ) 4) Osteoarthritis - Continue Prednisone 5) F/E/N: - Monitor electrolytes - NPO for cardioversion today 6) Prophylaxis: - Continue Eliquis 7) Dispo: - Once condition improves CODE STATUS: FULL CODE Visit type - Emergency Visit Emergency Visit: Yes ED Registration Date: 07/09/17 Care time: The patient presented to the Emergency Department on the above date and was hospitalized for further evaluation of their emergent condition. - New Patient This patient is new to me today: Yes Date on this admission: 07/11/17 - Critical Care Critical Care patient: No
--- NOTE | 2017-07-11 10:25 | PN ---
Progress Note, Physician Chief Complaint: Events noted Atrial fibrillation with RVR History of Present Illness: Patient was seen and examined. - Current Medication List Current Medications: Active Medications Acetaminophen (Tylenol -) 650 mg PO Q6H PRN PRN Reason: PAIN LEVEL 1 - 3 Last Admin: 07/10/17 19:42 Dose: 650 mg Apixaban (Eliquis -) 5 mg PO BID [facility] Last Admin: 07/11/17 09:14 Dose: Not Given Cephalexin HCl (Keflex -) 500 mg PO BID [facility] Last Admin: 07/10/17 21:26 Dose: 500 mg Diltiazem HCl (Cardizem -) 60 mg PO Q6HPO [facility] Last Admin: 07/11/17 05:29 Dose: Not Given Levothyroxine Sodium (Synthroid -) 125 mcg PO DAILY@0700 [facility] Last Admin: 07/11/17 08:00 Dose: 125 mcg Prednisone (Deltasone -) 5 mg PO DAILY [facility] Last Admin: 07/11/17 09:14 Dose: Not Given - Objective Vital Signs: Vital Signs Temperature 98.7 F 07/11/17 09:00 Pulse Rate 116 H 07/11/17 09:00 Respiratory Rate 18 07/11/17 09:00 Blood Pressure 120/62 07/11/17 09:00 O2 Sat by Pulse Oximetry (%) 98 07/11/17 09:00 Constitutional: Yes: Well Nourished Eyes: Yes: PERRL HENT: Yes: Atraumatic Neck: Yes: Supple Cardiovascular: Yes: Tachycardia, Pulse Irregular, S1, S2 Respiratory: Yes: CTA Bilaterally Gastrointestinal: Yes: Normal Bowel Sounds, Soft. No: Tenderness Edema: No Additional Findings/Remarks: - Review of Systems Constitutional: denies: Chills, Fever Cardiovascular: denies: Shortness of Breath. denies: Chest Pain, Palpitations Respiratory: denies: Cough, SOB, SOB on Exertion. denies: Hemoptysis, Orthopnea , PND, Wheezing Gastrointestinal: denies: Abdominal Pain, Constipation, Diarrhea, Melena, Nausea , Rectal Bleeding, Vomiting Genitourinary: denies: Dysuria, Hematuria Neurological: denies: Dizziness, Headache, Seizure, Syncope Labs: CBC, BMP 07/10/17 05:05 07/10/17 05:05 Problem List - Problems (1) AF (paroxysmal atrial fibrillation) Code(s): I48.0 - PAROXYSMAL ATRIAL FIBRILLATION (2) Raynauds phenomenon Code(s): I73.00 - RAYNAUD'S SYNDROME WITHOUT GANGRENE Qualifiers: Raynaud?s-associated gangrene presence: without gangrene Qualified Code(s) : I73.00 - Raynaud's syndrome without gangrene (3) HTN (hypertension) Code(s): I10 - ESSENTIAL (PRIMARY) HYPERTENSION Qualifiers: Hypertension type: essential hypertension Qualified Code(s): I10 - Essential (primary) hypertension (4) Hypothyroidism Code(s): E03.9 - HYPOTHYROIDISM, UNSPECIFIED Qualifiers: Hypothyroidism type: unspecified Qualified Code(s): E03.9 - Hypothyroidism , unspecified (5) Mitral valve prolapse Code(s): I34.1 - NONRHEUMATIC MITRAL (VALVE) PROLAPSE (6) Rheumatoid arthritis Code(s): M06.9 - RHEUMATOID ARTHRITIS, UNSPECIFIED Qualifiers: Rheumatoid arthritis location: unspecified site Assessment/Plan 1. Paroxysmal atrial fibrillation/flutter [id number] score of 4 on NOAC 2. CAD with h/o demand ischemia in context of previous paroxysmal atrial fibrillation with rapid ventricular response 3. HTN/HCVD 4. MV prolapse syndrome 5. Hypothyroidism 6. History of rheumatoid arthritis - possible Raynauds phenomenon PLAN: 1. Continue Cardizem 60 q6 and eventual long-acting formulation 2. Continue Eliquis 5 bid considering elevated [id number] score of 4 3. NPO for DCCV today 4. Outpatient f/u with her svp programmatic tv at [facility] Dr. Piotr Moran Further plans are to follow Jose De Jesus Girard MD
[2017-07-11] MEDS ORDERED: ETOMIDATE 20 MG/10 ML AMPUL IVPUSH ONE (13:14)
[2017-07-11] MEDS: SOTALOL HCL 80 MG TABLET (FP) PO SCH ×2 (15:14→21:14)
[2017-07-11] MEDS: CEPHALEXIN MONOHYDRATE 500 MG CAPSULE (UD) PO SCH ×2 (15:14→21:32)
--- NOTE | 2017-07-11 16:52 | EKG ---
Test Reason : Blood Pressure : / mmHG Vent. Rate : 086 BPM Atrial Rate : 086 BPM P-R Int : 000 ms QRS Dur : 078 ms QT Int : 410 ms P-R-T Axes : 092 002 264 degrees QTc Int : 490 ms SINUS RHYTHM WITH MARKED SINUS ARRHYTHMIA WITH PREMATURE ATRIAL COMPLEXES PROLONGED QT ABNORMAL ECG WHEN COMPARED WITH ECG OF 10-JUL-2017 09:42, SINUS RHYTHM HAS REPLACED ATRIAL FLUTTER CRITERIA FOR SEPTAL INFARCT ARE NO LONGER PRESENT Confirmed by JB EVANS MD ([id number]) on 07/11/2017 4:52:33 PM Referred By: Confirmed By:JB EVANS MD
[2017-07-11] MEDS: ACETAMINOPHEN 325 MG TABLET (FP) PO PRN (21:32)
[2017-07-12] MEDS: dilTIAZem HCL 60 MG TABLET (FP) PO SCH ×2 (00:04→06:07)
[2017-07-12] MEDS: LEVOTHYROXINE NA 125 MCG TABLET (FP) PO SCH (06:06)
--- NOTE | 2017-07-12 08:10 | PN ---
Progress Note (short form) - Note Progress Note: Chief Complaint: Events noted, notes reviewed, Denies any chest pain, dyspnea or palpitations, remains in sinus rhythm, EKG from this AM noted/prolonged QTc History of Present Illness: Seen and examined on telemetry. Events noted, notes reviewed, Denies any chest pain, dyspnea or palpitations, remains in sinus rhythm, EKG from this AM noted/ prolonged QTc Plan to D/C Cardizem and continue Betapace with caution, and avoidance of any QTc prolonging agents Echocardiography dated 05/21/2016 revealed normal LV size and function, mild bi- atrial dilatation, mild MR and moderate TR - Current Medication List Current Medications Acetaminophen (Tylenol -) 650 mg PO Q6H PRN PRN Reason: PAIN LEVEL 1 - 3 Last Admin: 07/11/17 21:32 Dose: 650 mg Apixaban (Eliquis -) 5 mg PO BID [facility] Last Admin: 07/12/17 09:20 Dose: 5 mg Cephalexin HCl (Keflex -) 500 mg PO BID [facility] Last Admin: 07/12/17 09:20 Dose: 500 mg Diltiazem HCl (Cardizem -) 60 mg PO Q6HPO [facility] Last Admin: 07/12/17 06:07 Dose: Not Given Levothyroxine Sodium (Synthroid -) 125 mcg PO DAILY@0700 [facility] Last Admin: 07/12/17 06:06 Dose: 125 mcg Prednisone (Deltasone -) 5 mg PO DAILY [facility] Last Admin: 07/12/17 09:20 Dose: 5 mg Sotalol HCl (Betapace -) 80 mg PO BID [facility] Last Admin: 07/12/17 09:20 Dose: 80 mg Review of Systems Constitutional: denies: Chills Cardiovascular: As noted above Respiratory: denies: Cough or Sputum Production Gastrointestinal: denies: Nausea, Vomiting, Diarrhea, Constipation or Abdominal Pain Musculoskeletal: denies: Joint Pain Neurological: denies: Dizziness or Headache - Objective Vital Signs: Last Vital Signs Temp Pulse Resp BP Pulse Ox 98.2 F 68 18 102/58 99 07/12/17 09:04 07/12/17 09:04 07/12/17 09:04 07/12/17 09:04 07/11/17 19:48 Intake & Output 07/09/17 07/10/17 07/11/17 07/12/17 23:59 23:59 23:59 23:59 Intake Total 310 430 0 Balance 310 430 0 Weight 133 lb 6 oz Neck: Supple Negative JVD No bruit Cardiovascular: S1 S2 Regular Rate and Rhythm Respiratory: Clear to A&P Bilaterally Gastrointestinal: Soft Benign Normal Bowel Sounds Ext: No Edema Labs: CBC, BMP 07/10/17 05:05 07/10/17 05:05 Assessment/Plan ASSESSMENT: 1. Paroxysmal atrial fibrillation [id number] score of 5 on NOAC's/Eliquis, currently in sinus rhythm with prolonged QTc 2. CAD with history of demand ischemia in context of paroxysmal atrial fibrillation with rapid ventricular response (May of 2016) 3. Diastolic LV dysfunction with class 0 NYHA classification LV failure 4. HTN/HCVD 5. MV prolapse syndrome 6. Hypothyroidism 7. History of rheumatoid arthritis 8. History of Raynaud's phenomenon PLAN: 1. Continue Betapace with caution as outlined above with close monitoring of QTc interval, repeat EKG in AM 2. Continue NOAC's/Eliquis indefinitely considering the above noted [id number] score of 5 with close monitoring of CBC 3. D/C Cardizem 4. Further evaluation can be performed as outpatient with her barrel cooper at [facility] Dr. Piotr Moran 5. Additional observation in the hospital on telemetry for 24h considering the above noted therapy initiation with Betapace (initiated yesterday) Discussed in detail with the patient Manolo Armijo MD
--- NOTE | 2017-07-12 09:04 | PN ---
Progress Note (short form) - Note Progress Note: Subjective: The patient was seen and examined at the bedside, she has no complaints at this time. Current Medications Generic Name Dose Route Start Last Admin Trade Name Freq PRN Reason Stop Dose Admin Acetaminophen 650 mg 07/10/17 00:45 07/11/17 21:32 Tylenol - PO 650 mg Q6H PRN Administration PAIN LEVEL 1 - 3 Apixaban 5 mg 07/09/17 22:00 07/11/17 21:32 Eliquis - PO 5 mg BID ALIE Administration Cephalexin HCl 500 mg 07/09/17 22:00 07/11/17 21:32 Keflex - PO 500 mg BID ALIE Administration Diltiazem HCl 60 mg 07/10/17 12:00 07/12/17 06:07 Cardizem - PO Not Given Q6HPO ALIE Levothyroxine Sodium 125 mcg 07/10/17 07:00 07/12/17 06:06 Synthroid - PO 125 mcg DAILY@0700 ALIE Administration Prednisone 5 mg 07/10/17 10:00 07/11/17 09:14 Deltasone - PO Not Given DAILY ALIE Sotalol HCl 80 mg 07/11/17 13:45 07/11/17 21:14 Betapace - PO 80 mg BID ALIE Administration Objective: Vital Signs Period Temp Pulse Resp BP Sys/Magallon Pulse Ox Last 24 Hr 97.8 F-98.4 F 58-88 16-18 91-127/54-76 98-100 Physical Exam: General: NAD, A&Ox3 Lungs: CTA bilaterally Heart: RRR, S1S2 Abd: Soft, non-tender, non-distended. Normoactive bowel sounds Ext: Warm, well-perfused. 2+ DP/PT bilaterally Neuro: CN 2-12 intact CBCD WBC 8.1 K/mm3 (4.0-10.0) 07/10/17 05:05 RBC 4.65 M/mm3 (3.60-5.2) 07/10/17 05:05 Hgb 13.9 GM/dL (10.7-15.3) 07/10/17 05:05 Hct 41.5 % (32.4-45.2) 07/10/17 05:05 MCV 89.4 fl (80-96) 07/10/17 05:05 MCHC 33.4 g/dl (32.0-36.0) 07/10/17 05:05 RDW 15.7 % (11.6-15.6) H 07/10/17 05:05 Plt Count 354 K/MM3 (134-434) 07/10/17 05:05 MPV 7.7 fl (7.5-11.1) 07/10/17 05:05 CMP Sodium 143 mmol/L (136-145) 07/10/17 05:05 Potassium 4.1 mmol/L (3.5-5.1) 07/10/17 05:05 Chloride 106 mmol/L (98-107) 07/10/17 05:05 Carbon Dioxide 27 mmol/L (21-32) 07/10/17 05:05 Anion Gap 10 (8-16) 07/10/17 05:05 BUN 17 mg/dL (7-18) 07/10/17 05:05 Creatinine 0.9 mg/dL (0.55-1.02) 07/10/17 05:05 Creat Clearance w eGFR > 60 (>60) 07/10/17 05:05 Random Glucose 85 mg/dL (74-106) 07/10/17 05:05 Calcium 9.1 mg/dL (8.5-10.1) 07/10/17 05:05 Total Bilirubin 0.7 mg/dL (0.2-1.0) D 07/10/17 05:05 AST 25 U/L (15-37) 07/10/17 05:05 ALT 31 U/L (12-78) 07/10/17 05:05 Alkaline Phosphatase 88 U/L (45-117) 07/10/17 05:05 Total Protein 5.3 g/dl (6.4-8.2) L 07/10/17 05:05 Albumin 2.8 g/dl (3.4-5.0) L 07/10/17 05:05 CARDIAC ENZYMES Creatine Kinase 45 IU/L (26-192) 07/09/17 13:00 Troponin I 0.02 ng/ml (0.00-0.05) 07/09/17 13:00 Laboratory Tests 07/09/17 13:00 TSH 7.03 H Assessment: This is a 77 year old female with PMHx of HTN, paroxysmal a.fib/ a.flutter on Eliquis, thyroid cancer, s/p thyroidectomy, uterine cancer s/p ROSALEE , femur fracture with kishore replacement, b/l knee replacement, vein ligation in both legs, who presented to the ED with increased breathlessness, no chest pain , fatigue and palpitations. Plan: 1) Cardiology: Rapid a.flutter with 2:1 conduction - S/p cardioversion on 07/11 - [id number] score of 4 - Continue Eliquis - Continue Cardizem, taper per cardiology (has been held 06/17 hypotension) - Continue Sotalol 80mg bid - Daily EKG - Appreciate cardiology consult 2) Thyroid cancer, s/p thyroidectomy; hypothyroidism - TSH 7.03 - Synthroid increased to 125mcg daily - F/u outpatient pcp for repeat testing in 4-6 weeks 3) UTI - UA with 2+ Leuks, 52 WBC - F/u urine culture - Continue Keflex (07/09- ) 4) Osteoarthritis - Continue Prednisone 5) F/E/N: - Monitor electrolytes - Regular diet 6) Prophylaxis: - Continue Eliquis 7) Dispo: - Requires continued inpatient care CODE STATUS: FULL CODE Visit type - Emergency Visit Emergency Visit: Yes ED Registration Date: 07/11/17 Care time: The patient presented to the Emergency Department on the above date and was hospitalized for further evaluation of their emergent condition. - New Patient This patient is new to me today: No - Critical Care Critical Care patient: No
[2017-07-12] MEDS: APIXABAN 5 MG TABLET PO SCH ×2 (09:20→21:06)
[2017-07-12] MEDS: CEPHALEXIN MONOHYDRATE 500 MG CAPSULE (UD) PO SCH ×2 (09:20→21:06)
[2017-07-12] MEDS: SOTALOL HCL 80 MG TABLET (FP) PO SCH ×2 (09:20→21:06)
[2017-07-12] MEDS: predniSONE 5 MG TABLET (UD) PO SCH (09:20)
--- NOTE | 2017-07-12 11:28 | EKG ---
Test Reason : Blood Pressure : / mmHG Vent. Rate : 061 BPM Atrial Rate : 061 BPM P-R Int : 170 ms QRS Dur : 082 ms QT Int : 528 ms P-R-T Axes : 074 015 -83 degrees QTc Int : 531 ms SINUS RHYTHM WITH PREMATURE ATRIAL COMPLEXES MARKED T WAVE ABNORMALITY, CONSIDER ANTEROLATERAL ISCHEMIA PROLONGED QT ABNORMAL ECG WHEN COMPARED WITH ECG OF 11-JUL-2017 14:12, NO SIGNIFICANT CHANGE WAS FOUND Confirmed by MD Thomas, Aquiles ([id number]) on 07/12/2017 11:27:55 AM Referred By: MARGIE THOMAS Confirmed By:Aquiles Guzman MD
[2017-07-12] MEDS: ACETAMINOPHEN 325 MG TABLET (FP) PO PRN (21:06)
[2017-07-13 05:32] VITALS: TEMP 98
[2017-07-13] MEDS: LEVOTHYROXINE NA 125 MCG TABLET (FP) PO SCH (06:04)
[2017-07-13] MEDS: predniSONE 5 MG TABLET (UD) PO SCH (09:36)
[2017-07-13] MEDS: CEPHALEXIN MONOHYDRATE 500 MG CAPSULE (UD) PO SCH (09:36)
[2017-07-13] MEDS: APIXABAN 5 MG TABLET PO SCH (09:36)
--- NOTE | 2017-07-13 09:44 | PN ---
Progress Note, Physician History of Present Illness: Remains in SR with bursts of PAF, reports mild dyspnea on exertion. - Current Medication List Current Medications: Active Medications Acetaminophen (Tylenol -) 650 mg PO Q6H PRN PRN Reason: PAIN LEVEL 1 - 3 Last Admin: 07/12/17 21:06 Dose: 650 mg Apixaban (Eliquis -) 5 mg PO BID [facility] Last Admin: 07/13/17 09:36 Dose: 5 mg Cephalexin HCl (Keflex -) 500 mg PO BID [facility] Last Admin: 07/13/17 09:36 Dose: 500 mg Levothyroxine Sodium (Synthroid -) 125 mcg PO DAILY@0700 [facility] Last Admin: 07/13/17 06:04 Dose: 125 mcg Prednisone (Deltasone -) 5 mg PO DAILY [facility] Last Admin: 07/13/17 09:36 Dose: 5 mg Sotalol HCl (Betapace -) 80 mg PO BID [facility] Last Admin: 07/12/17 21:06 Dose: 80 mg - Objective Vital Signs: Vital Signs Temperature 98.0 F 07/13/17 05:32 Pulse Rate 57 L 07/13/17 05:32 Respiratory Rate 18 07/13/17 05:32 Blood Pressure 106/47 07/13/17 05:32 O2 Sat by Pulse Oximetry (%) 99 07/12/17 20:25 Constitutional: Yes: No Distress, Calm, Thin Neck: Yes: Supple Cardiovascular: Yes: Regular Rate and Rhythm, Murmur (2/6 SM) Respiratory: Yes: Regular, Diminished Gastrointestinal: Yes: Normal Bowel Sounds, Soft Edema: Yes Edema: LLE: Trace, RLE: Trace Labs: CBC, BMP 07/10/17 05:05 07/10/17 05:05 INR, PTT INR 1.83 (0.82-1.09) H D 07/09/17 13:00 - ....Imaging EKG: Report Reviewed (NSR @ 64 QTc improved c/w 07/12/2017 Tele: PAF->SR, no TdP) Problem List - Problems (1) Raynauds phenomenon Code(s): I73.00 - RAYNAUD'S SYNDROME WITHOUT GANGRENE Qualifiers: Raynaud?s-associated gangrene presence: without gangrene Qualified Code(s) : I73.00 - Raynaud's syndrome without gangrene (2) HTN (hypertension) Code(s): I10 - ESSENTIAL (PRIMARY) HYPERTENSION Qualifiers: Hypertension type: essential hypertension Qualified Code(s): I10 - Essential (primary) hypertension (3) Hypothyroidism Code(s): E03.9 - HYPOTHYROIDISM, UNSPECIFIED Qualifiers: Hypothyroidism type: unspecified Qualified Code(s): E03.9 - Hypothyroidism , unspecified (4) Left ventricular hypertrophy due to hypertensive disease Code(s): I11.9 - HYPERTENSIVE HEART DISEASE WITHOUT HEART FAILURE Qualifiers: Heart failure presence: without heart failure Qualified Code(s): I11.9 - Hypertensive heart disease without heart failure (5) Mitral valve prolapse Code(s): I34.1 - NONRHEUMATIC MITRAL (VALVE) PROLAPSE (6) Rapid atrial fibrillation Code(s): I48.91 - UNSPECIFIED ATRIAL FIBRILLATION (7) Rheumatoid arthritis Code(s): M06.9 - RHEUMATOID ARTHRITIS, UNSPECIFIED Qualifiers: Rheumatoid arthritis location: unspecified site Assessment/Plan 05/21/2016 Echocardiography revealed normal LV size and function, mild bi-atrial dilatation, mild MR and moderate TR 1. Paroxysmal atrial fibrillation [id number] score of 5 on NOAC's/Eliquis, currently in sinus rhythm with improved prolonged QTc 2. CAD with history of demand ischemia in context of paroxysmal atrial fibrillation with rapid ventricular response (May of 2016) 3. Diastolic LV dysfunction with class 0 NYHA classification LV failure 4. HTN/HCVD 5. MV prolapse syndrome 6. Hypothyroidism 7. History of rheumatoid arthritis 8. History of Raynaud's phenomenon PLAN: 1. Continue Betapace 80 bid with close monitoring of QTc interval 2. Continue NOAC's/Eliquis indefinitely considering the above noted [id number] score of 5 with close monitoring of CBC 3. Further evaluation can be performed as outpatient with her ruling technician at [facility] Dr. Piotr Moran 4. D/c planning
[2017-07-13 10:04] VITALS: BP 81/48; PULSE 64
--- NOTE | 2017-07-13 11:05 | DS ---
Physical Examination Vital Signs: Vital Signs Temperature 98.0 F 07/13/17 05:32 Pulse Rate 64 07/13/17 10:00 Respiratory Rate 18 07/13/17 10:00 Blood Pressure 81/48 07/13/17 10:00 O2 Sat by Pulse Oximetry (%) 99 07/13/17 09:00 Findings/Remarks: Physical Exam: General: NAD, A&Ox3 Lungs: CTA bilaterally Heart: RRR, S1S2 Abd: Soft, non-tender, non-distended. Normoactive bowel sounds Ext: Warm, well-perfused. 2+ DP/PT bilaterally Neuro: CN 2-12 intact Labs: CBC, BMP 07/10/17 05:05 07/10/17 05:05 Discharge Summary Reason For Visit: PAROXYSMAL ATRIAL FIBRILLATION Current Active Problems AF (paroxysmal atrial fibrillation) (Acute) Raynauds phenomenon (Acute) Hospital Course: This is a 77 year old female with PMHx of HTN, paroxysmal a.fib/a.flutter on Eliquis, thyroid cancer, s/p thyroidectomy, uterine cancer s/p ROSALEE, femur fracture with kishore replacement, b/l knee replacement, vein ligation in both legs , who presented to the ED with increased breathlessness, no chest pain, fatigue and palpitations. Plan: 1) Cardiology: Rapid a.flutter with 2:1 conduction - S/p cardioversion on 07/11 - [id number] score of 5 - Continue Eliquis - Continue Sotalol 80mg bid - Daily EKG - Appreciate cardiology consult 2) Thyroid cancer, s/p thyroidectomy; hypothyroidism - TSH 7.03 - Synthroid increased to 125mcg daily - F/u outpatient pcp for repeat testing in 4-6 weeks 3) UTI - UA with 2+ Leuks, 52 WBC - Continue Keflex (07/09-07/15) 4) Osteoarthritis - Continue Prednisone and follow-up with your primary care for further recommendations regarding taper This discharge took 45 minutes to complete Condition: Improved - Instructions Diet, Activity, Other Instructions: Please return to the ED with new, persistent, or worsening symptoms. Please follow-up with providers as indicated. New Medications: Betapace 80mg by mouth twice daily. Please follow-up with your linen manager ( Dr. Moran) within 1-2 days to have a repeat EKG to check your Qtc interval and for further management of your paroxysmal a.fib Continue taking Keflex through 07/15. Referrals: Cory López [Primary Care Provider] - 1 Week Disposition: HOME - Home Medications Comprehensive Discharge Medication List: Ambulatory Orders Apixaban [Eliquis] 5 mg PO BID 05/20/16 Acetaminophen [Tylenol .Regular Strength -] 650 mg PO Q6H PRN tablet 07/13/17 Cephalexin Monohydrate [Keflex -] 500 mg PO BID #5 capsule 07/13/17 Sotalol HCl [Betapace -] 80 mg PO BID #60 tablet 07/13/17 This patient is new to me today: No Emergency Visit: Yes ED Registration Date: 07/11/17 Care time: The patient presented to the Emergency Department on the above date and was hospitalized for further evaluation of their emergent condition. Critical Care patient: No - Discharge Referral Referred to [facility] Med [facility].C.: No
--- NOTE | 2017-07-13 11:39 | EKG ---
Test Reason : Blood Pressure : / mmHG Vent. Rate : 064 BPM Atrial Rate : 064 BPM P-R Int : 172 ms QRS Dur : 084 ms QT Int : 492 ms P-R-T Axes : 099 019 -41 degrees QTc Int : 507 ms SINUS RHYTHM WITH PREMATURE ATRIAL COMPLEXES SEPTAL INFARCT , AGE UNDETERMINED ABNORMAL ECG WHEN COMPARED WITH ECG OF 12-JUL-2017 10:03, SEPTAL INFARCT IS NOW PRESENT Confirmed by TRISTA MCFADDEN, JOANNE ([id number]) on 07/13/2017 11:39:22 AM Referred By: MIKY PADILLA Confirmed By:JOANNE WESTON MD
[2017-07-13] MEDS: SOTALOL HCL 80 MG TABLET (FP) PO SCH ×2 (11:43→12:51)
== END 2017-07-13 16:52 | disposition home or self-care (01) | DRG 309 ==
LOC: JER 11:59 → JERBED 16:29 → J4W 18:20 → OBSVTOIN 07-11 14:23
PROVIDERS: ADMIT Internal Medicine; ATTEND Registered Nurse
PROC: 5A2204Z Restoration of Cardiac Rhythm, Single (ICD-10-PCS; principal; 2017-07-11 13:00)
DX: I48.0 Paroxysmal atrial fibrillation (principal); N39.0 Urinary tract infection, site not specified; E03.9 Hypothyroidism, unspecified; M06.80 Other specified rheumatoid arthritis, unspecified site; I10 Essential (primary) hypertension; I25.10 Atherosclerotic heart disease of native coronary artery without angina pectoris; I11.9 Hypertensive heart disease without heart failure; I34.1 Nonrheumatic mitral (valve) prolapse; I73.00 Raynaud's syndrome without gangrene; M19.90 Unspecified osteoarthritis, unspecified site; I44.1 Atrioventricular block, second degree; Z85.42 Personal history of malignant neoplasm of other parts of uterus; Z96.653 Presence of artificial knee joint, bilateral; Z85.850 Personal history of malignant neoplasm of thyroid
CPT/HCPCS: 36415; 80053; 81003; 81015; 82550; 83735; 84443; 84484; 85025; 85610; 87086; 87186; 93005; 93010; 99284-25; G0378

== ENCOUNTER 2017-08-07 18:19 | Emergency (ER) | payer OTHER, MEDICARE ==
[2017-08-07 18:44] VITALS: BP 122/69; PULSE 99; TEMP 98.1; BMI 24.7
--- NOTE | 2017-08-07 20:54 | PDOC ---
History of Present Illness - General History Source: Patient Exam Limitations: No Limitations - History of Present Illness Initial Comments: 08/07/17 20:55 The patient is a 77 year old female with a significant past medical history of Afib (on Eliquis), HTN, hypothyroidism, and RA who presents to the ED s/p fall and bruising several days ago. The patient reports she was rushing to answer the phone when she slipped and fell onto the hardwood floor on Tuesday. She states she saw her opthamologist on and was sent to get a Facial Bones X-ray on Tuesday. Patient notes her X-ray was normal. She now comes into the ED for increased bruising. She reports bruising around her bilateral eyes, throughout her face, neck and states it is now radiating down her chest. Denies hematochezia. Denies fever or chills. Denies changes in mental status. Denies lightheadedness or dizziness. Denies chest pain or shortness of breath. Denies abdominal pain, nausea, vomiting, or diarrhea. Denies focal numbness/ weakness/or tingling. Denies any other symptoms. Opthamologist: Dr. Irving Chavez <Imelda Barcenas - Last Filed: 08/07/17 20:55> <Sharon Abraham - Last Filed: 08/07/17 21:16> - General Chief Complaint: Injury Stated Complaint: FALL/INJURY Time Seen by Provider: 08/07/17 19:37 Past History <Imelda Barcenas - Last Filed: 08/07/17 20:55> - Past Medical History Anemia: No Asthma: No Cancer: Yes (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) Cardiac Disorders: Yes (AFIB) CVA: No COPD: No CHF: No Dementia: No Diabetes: No GI Disorders: No HTN: No Hypercholesterolemia: No Liver Disease: No Seizures: No Thyroid Disease: Yes - Surgical History Orthopedic Surgery: Yes (CANDIE KNEE REPLACEMENT WITH FEMUR REJI LEFT) - Suicide/Smoking/Psychosocial Hx Smoking History: Never smoked Have you smoked in the past 12 months: No Information on smoking cessation initiated: No Hx Alcohol Use: No Drug/Substance Use Hx: No Substance Use Type: None Hx Substance Use Treatment: No <Sharon Abraham - Last Filed: 08/07/17 21:16> - Past Medical History Allergies/Adverse Reactions: Allergies Allergy/AdvReac Type Severity Reaction Status Date / Time naproxen [From Naprosyn] Allergy Intermediate Swelling Verified 08/07/17 18:41 Home Medications: Ambulatory Orders Apixaban [Eliquis] 5 mg PO BID 05/20/16 Acetaminophen [Tylenol .Regular Strength -] 650 mg PO Q6H PRN tablet 07/13/17 Cephalexin Monohydrate [Keflex -] 500 mg PO BID #5 capsule 07/13/17 Prednisone 5 mg PO DAILY #10 tablet 07/13/17 Sotalol HCl [Betapace -] 80 mg PO BID #60 tablet 07/13/17 Review of Systems - Review of Systems Able to Perform ROS?: Yes Comments:: 08/07/17 20:55 CONSTITUTIONAL: Absent: fever, chills, diaphoresis, generalized weakness, malaise, loss of appetite HEENT: Absent: rhinorrhea, nasal congestion, throat pain, throat swelling, difficulty swallowing, mouth swelling, ear pain, eye pain, visual Changes CARDIOVASCULAR: Absent: chest pain, syncope, palpitations, irregular heart rate, lightheadedness , peripheral edema RESPIRATORY: Absent: cough, shortness of breath, dyspnea with exertion, orthopnea, wheezing, stridor, hemoptysis GASTROINTESTINAL: Absent: abdominal pain, abdominal distension, nausea, vomiting, diarrhea, constipation, melena, hematochezia GENITOURINARY: Absent: dysuria, frequency, urgency, hesitancy, hematuria, flank pain, genital pain MUSCULOSKELETAL: Absent: myalgia, arthralgia, joint swelling SKIN: + bruising Absent: rash, itching, pallor HEMATOLOGIC/IMMUNOLOGIC: Absent: easy bleeding, easy bruising, lymphadenopathy, frequent infections ENDOCRINE: Absent: unexplained weight gain, unexplained weight loss, heat intolerance, cold intolerance NEUROLOGIC: Absent: headache, focal weakness or paresthesias, dizziness, unsteady gait, seizure, mental status changes, bladder or bowel incontinence PSYCHIATRIC: Absent: anxiety, depression, suicidal or homicidal ideation, hallucinations. All Other Systems: Reviewed and Negative <Imelda Barcenas - Last Filed: 08/07/17 20:55> *Physical Exam - Vital Signs Last Vital Signs Temp Pulse Resp BP Pulse Ox 98.1 F 99 H 20 122/69 97 08/07/17 18:42 08/07/17 18:42 08/07/17 18:42 08/07/17 18:42 08/07/17 18:42 - Physical Exam Comments: 08/07/17 20:56 GENERAL: Well developed, well nourished. Awake and alert. No acute distress. HEENT: Normocephalic, atraumatic. PERRLA, EOMI. No conjunctival pallor. Sclera are non- icteric. Moist mucous membranes. Oropharynx is clear. NECK: Supple. Full ROM. No JVD. Carotid pulses 2+ and symmetric, without bruits. No thyromegaly. NCo lymphadenopathy. CARDIOVASCULAR: Regular rate and rhythm. No murmurs, rubs, or gallops. Distal pulses are 2+ and symmetric. PULMONARY: No evidence of respiratory distress. Lungs clear to auscultation bilaterally. No wheezing, rales or rhonchi. ABDOMINAL: Soft. Non-tender. Non-distended. No rebound or guarding. No organomegaly. Normoactive bowel sounds. MUSCULOSKELETAL Normal range of motion at all joints. No bony deformities or tenderness. No CVA tenderness. EXTREMITIES: + On the left knee there are several partially healed abrasions around 1 cm each. No cyanosis. No clubbing. No edema. No calf tenderness. SKIN: + There is ecchymosis around bilateral eyes. On the left forehead there is a large 3 cm hematoma. There is generalized ecchymosis on bilateral cheeks that goes all the down her neck. Warm and dry. No rashes. No jaundice. NEUROLOGICAL: Alert, awake, appropriate. Cranial nerves 2-12 intact. No deficits to light touch and temperature in face, upper extremities and lower extremities. No motor deficits in the in face, upper extremities and lower extremities. Normoreflexic in the upper and lower extremities. Normal speech. Toes are down- going bilaterally. Gait is normal without ataxia. PSYCHIATRIC: Cooperative. Good eye contact. Appropriate mood and affect. <Imelda Barcenas - Last Filed: 08/07/17 20:55> - Vital Signs Last Vital Signs Temp Pulse Resp BP Pulse Ox 98.1 F 99 H 20 122/69 97 08/07/17 18:42 08/07/17 18:42 08/07/17 18:42 08/07/17 18:42 08/07/17 18:42 <Sharon Abraham - Last Filed: 08/07/17 21:16> ED Treatment Course - RADIOLOGY Radiograph Interpretation: 08/07/17 20:56 EXAM: CT Head wo IMPRESSION: Focal scalp hematoma superficial to the left side of the frontal bone, measuring 3.4 cm in width, and 1 cm in depth. Dense atherosclerotic calcifications are seen within both vertebral arteries as they course over the foramen magnum. The study is otherwise unremarkable. No calvarial, facial or skull base fractures imaged on the current exam. No intracranial hemorrhages or brain parenchymal contusion injuries. Reported by: Imaging director of retail operations <Imelda Barcenas - Last Filed: 08/07/17 20:55> - RADIOLOGY Radiology Studies Ordered: Category Date Time Status HEAD CT WITHOUT CONTRAST [CT] Stat CT Scan 08/07/17 19:40 Taken <Sharon Abraham - Last Filed: 08/07/17 21:16> Medical Decision Making - Medical Decision Making 08/07/17 21:13 77-year-old female fell last Tuesday and presents today because she is concerned about her extensive ecchymosis to her face and neck. -She is on elquist for her atrial fibrillation She denies any confusion, severe headache, nausea OR Vomiting -SHE Has a significant left forehead hematoma, periorbital ecchymosis, and ecchymosis on her face extending onto the neck extending to her cLAVICLE -She has an abrasion on her left knee -There are no areas of ecchymosis to any of her extremities, abdomen or her back CAT scan of the head was negative for any acute intracranial pathology. There was no skull fracture, no intracranial bleed, sinuses were clear. <Sharon Abraham - Last Filed: 08/07/17 21:16> *DC/Admit/Observation/Transfer - Attestations Scribe Attestion: 08/07/17 20:56 Documentation prepared by Imelda Barcenas, acting as medical radiation tech for Sharon Abraham MD <Imelda Barcenas - Last Filed: 08/07/17 20:55> <Sharon Abraham - Last Filed: 08/07/17 21:16> Diagnosis at time of Disposition: Closed head injury Qualifiers: Encounter type: initial encounter Qualified Code(s): S09.90XA - Unspecified injury of head, initial encounter Scalp hematoma Qualifiers: Encounter type: initial encounter Qualified Code(s): S00.03XA - Contusion of scalp, initial encounter - Discharge Dispostion Disposition: HOME Condition at time of disposition: Stable - Patient Instructions Printed Discharge Instructions: DI for Closed Head Injury Additional Instructions: If you develop any unusual lethargy or confusion,return to the emergency department
== END 2017-08-07 21:59 | disposition home or self-care (01) ==
LOC: JER 18:19
DX: S05.11XA Contusion of eyeball and orbital tissues, right eye, initial encounter (principal); S05.12XA Contusion of eyeball and orbital tissues, left eye, initial encounter; S00.83XA Contusion of other part of head, initial encounter; W01.198A Fall on same level from slipping, tripping and stumbling with subsequent striking against other object, initial encounter; Y93.89 Activity, other specified; Y92.018 Other place in single-family (private) house as the place of occurrence of the external cause; I48.91 Unspecified atrial fibrillation; Z79.01 Long term (current) use of anticoagulants; I10 Essential (primary) hypertension; E03.9 Hypothyroidism, unspecified; M06.9 Rheumatoid arthritis, unspecified; E07.9 Disorder of thyroid, unspecified; Z85.43 Personal history of malignant neoplasm of ovary; Z96.653 Presence of artificial knee joint, bilateral
CPT/HCPCS: 70450-TC; 99282-25

== ENCOUNTER 2017-11-04 09:46 | Inpatient (IN) | payer OTHER, MEDICARE ==
[2017-11-04 09:54] VITALS: BMI 24.1
[2017-11-04] MEDS ORDERED: SODIUM CHLORIDE 1,000 ML IV STA (10:06)
[2017-11-04] MEDS ORDERED: METOPROLOL TARTRATE 5 MG/5 ML VIAL IVPUSH ONE (10:25)
[2017-11-04] MEDS ORDERED: METOPROLOL TARTRATE 25 MG TABLET (FP) PO ONE (10:27)
--- NOTE | 2017-11-04 10:33 | PDOC ---
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 She states that this feels similar to her prior episodes of RVR and she did not come into the ED yesterday at the onset because she thought she might be able to get it under control by herself. She denies any lightheadedness, headache, vision change, numbness, tingling, focal weakness, nausea, vomiting, diarrhea, constipation, or other symptoms. She denies any recent changes in her medications and states that she takes all her medications adherently. Past History - Past Medical History Allergies/Adverse Reactions: Allergies Allergy/AdvReac Type Severity Reaction Status Date / Time naproxen [From Naprosyn] Allergy Intermediate Swelling Verified 11/04/17 09:48 Home Medications: Ambulatory Orders Apixaban [Eliquis] 5 mg PO BID 05/20/16 Prednisone 5 mg PO DAILY #10 tablet 07/13/17 Levothyroxine Sodium [Synthroid] 112 mcg PO DAILY 11/05/17 Metoprolol Succinate [Toprol Xl] 25 mg PO BID 11/05/17 Anemia: No Asthma: No Cancer: Yes (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) Cardiac Disorders: Yes (AFIB) CVA: No COPD: No CHF: No Dementia: No Diabetes: No GI Disorders: No HTN: No Hypercholesterolemia: No Liver Disease: No Seizures: No Thyroid Disease: Yes - Surgical History Orthopedic Surgery: Yes (CANDIE KNEE REPLACEMENT WITH FEMUR REJI LEFT) - Suicide/Smoking/Psychosocial Hx Smoking History: Never smoked Have you smoked in the past 12 months: No Hx Alcohol Use: No Drug/Substance Use Hx: No Substance Use Type: None Hx Substance Use Treatment: No Cardiac Specific PMH - Complaint Specific PMHX Pacemaker: No Review of Systems - Review of Systems Able to Perform ROS?: Yes Constitutional: Yes: Weakness, Other (fatigue). No: Chills, Fever, Unexplained wgt Loss HEENTM: No: Nose Congestion, Throat Pain Respiratory: Yes: Shortness of Breath, SOB with Exertion, SOB at Rest. No: Cough Cardiac (ROS): Yes: Lightheadedness, Other (chest heaviness). No: Palpitations ABD/GI: No: Constipated, Diarrhea, Nausea, Vomiting : No: Burning, Dysuria Musculoskeletal: No: Back Pain, Neck Pain Integumentary: No: Bruising, Rash Neurological: No: Headache, Numbness, Tingling, Weakness Endocrine: No: Unexplained Weight Gain, Unexplained Weight Loss *Physical Exam - Vital Signs Last Vital Signs Temp Pulse Resp BP Pulse Ox 97.7 F 102 H 20 102/60 95 11/08/17 14:00 11/08/17 14:00 11/08/17 10:00 11/08/17 14:00 11/07/17 20:00 - Physical Exam General Appearance: Yes: Nourished, Thin, Other (very pleasant elderly female in no distress, answers questions appropriately). No: Apparent Distress HEENT: positive: EOMI, Normal Voice, Hearing Grossly Normal. negative: Scleral Icterus (R), Scleral Icterus (L), Nasal Congestion Neck: positive: Trachea midline, Supple. negative: Tender, Rigid Respiratory/Chest: positive: Lungs Clear, Normal Breath Sounds. negative: Respiratory Distress, Crackles, Rhonchi, Stridor, Wheezing Cardiovascular: positive: Tachycardia, Irregularly Irregular. negative: Murmur Gastrointestinal/Abdominal: positive: Normal Bowel Sounds, Soft. negative: Tender, Organomegaly, Pulsatile Mass, Guarding Musculoskeletal: positive: Normal Inspection. negative: Decreased Range of Motion, Vertebral Tenderness Extremity: positive: Normal Capillary Refill, Normal Inspection, Normal Range of Motion. negative: Tender, Cyanosis Integumentary: positive: Normal Color, Dry, Warm. negative: Erythema, Rash, Bruising Neurologic: positive: slumber room attendant II-XII NML intact, Fully Oriented, Alert, Normal Mood/ Affect, Normal Response, Motor Strength /5 ED Treatment Course - LABORATORY CBC & Chemistry Diagram: 11/08/17 05:30 11/08/17 05:30 - ADDITIONAL ORDERS Additional order review: 11/04/17 10:46 RBC 5.45 H MCV 90.4 MCHC 32.9 RDW 14.7 MPV 8.8 D Neutrophils % 87.8 H Lymphocytes % 6.2 L D Monocytes % 4.3 Eosinophils % 1.0 D Basophils % 0.7 - RADIOLOGY Radiology Studies Ordered: Category Date Time Status CHEST X-RAY PORTABLE* [RAD] Stat Radiology 11/04/17 10:12 Completed - Medications Given in the ED: ED Medications Discontinued Medications Generic Name Dose Route Start Last Admin Trade Name Freq PRN Reason Stop Dose Admin Diltiazem HCl 10 mg 11/05/17 08:57 11/05/17 09:29 Cardizem Injection - IVPUSH 11/05/17 08:58 10 mg ONCE ONE Administration Diltiazem HCl 10 mg 11/06/17 09:30 11/06/17 09:07 Cardizem Injection - IVPUSH 11/06/17 09:31 10 mg ONCE ONE Administration Furosemide 20 mg 11/05/17 08:45 11/05/17 14:48 Lasix Injection - IVPUSH 11/05/17 08:46 20 mg ONCE STA Administration Sodium Chloride 1,000 mls @ 1,000 mls/hr 11/04/17 10:06 11/04/17 10:48 Normal Saline - IV 11/04/17 11:05 1,000 mls/hr ASDIR STA Administration Metoprolol Succinate 25 mg 11/05/17 10:00 11/05/17 21:55 Toprol Xl - PO 25 mg BID ALIE Administration Metoprolol Succinate 50 mg 11/06/17 08:47 11/08/17 09:50 Toprol Xl - PO 50 mg BID ALIE Administration Metoprolol Tartrate 5 mg 11/04/17 10:25 11/04/17 10:54 Lopressor Injection - IVPUSH 11/04/17 10:26 5 mg ONCE ONE Administration Metoprolol Tartrate 25 mg 11/04/17 10:27 11/04/17 10:48 Lopressor - PO 11/04/17 10:28 25 mg ONCE ONE Administration Metoprolol Tartrate 5 mg 11/04/17 18:25 11/04/17 19:20 Lopressor Injection - IVPUSH 5 mg Q4H PRN Administration TACHYCARDIA Sotalol HCl 80 mg 11/04/17 22:00 11/04/17 23:17 Betapace - PO 80 mg BID ALIE Administration Medical Decision Making - Medical Decision Making Adult female Pt p/w rapid palpitations. Initial Vital Signs Temp Pulse Resp BP Pulse Ox 97.8 F 168 H 17 130/100 100 11/04/17 09:49 11/04/17 09:49 11/04/17 09:49 11/04/17 09:49 11/04/17 09:49 Exam: DDX IBNLT: tachyarrhythmia (e.g. SVT, re-entrant tachycardia, WPW, Brugada, long QT, AF/AFL w/ RVR, MAT, ventricular dysrhythmia), ischemia (ACS), structural heart condition (MVP, mitral stenosis, atrial enlargement, HOCM), anxiety/panic, hypoxia, anemia (e.g. hemorrhage from heavy menstruation, ruptured ectopic, etc), PE, PTX, bronchitis/PNA, sepsis/shock, tamponade, metabolic (e.g. DKA, hypoglycemia), thyroid condition, catecholamine surge ( e.g. pheochromocytoma), anxiety/panic disorder, medication effect, substance use , etc. W/U ordered: Monitor EKG CXR CBCD CMP Mg Phos TSH Cardiac Panel UA UCx hCG EKG: A-fib with RVR rate of TX ordered: IV O2 Monitor IVF Metoprolol IV push and PO carlos. The Pt is stable currently (no AMS, pulmonary edema, chest pain, or sBP<90). Therefore they do not require defibrillation or DC cardioversion at this time. The symptoms started <48 hours ago and therefore the Pt does not require AC before cardioversion. The symptoms started >48 hours ago and therefore the Pt requires 4 wks AC before cardioversion. Repeat EKG: CXR: Labs: CT: Repeat VS: Repeat EKG: Reassessment: ADMIT The Pt is unsafe for discharge at this time. She requires further hospital observation, workup, and treatment. Microblog sent to [facility] for admission. Spoke with [facility], in agreement Pt to be admitted to Decision to Admit order placed to covering attending DISCHARGE The Pt has gotten significant relief of symptoms with ED medications. She does not have EKG or other workup findings concerning for life-threatening arrhythmia. She is appropriate for discharge with close outpatient follow up. She is comfortable with this plan and will follow up with her PCP in 1-3 days. Specific return precautions are discussed and she will come back to the ER if necessary. *DC/Admit/Observation/Transfer Diagnosis at time of Disposition: Atrial fibrillation with rapid ventricular response, Troponin level elevated CHF exacerbation Qualifiers: Heart failure type: unspecified Qualified Code(s): I50.9 - Heart failure, unspecified - Discharge Dispostion Condition at time of disposition: Guarded Decision to Admit order: Yes - Referrals - Patient Instructions - Post Discharge Activity
[2017-11-04] MEDS ORDERED: METOPROLOL TARTRATE 25 MG TABLET (FP) ONE (10:37)
[2017-11-04] MEDS ORDERED: METOPROLOL TARTRATE 5 MG/5 ML VIAL ONE (10:37)
--- NOTE | 2017-11-04 10:52 | PDOC ---
Attending Attestation - Resident Resident Name: Chrystal Guerin - ED Attending Attestation I have performed the following: I have examined & evaluated the patient, The case was reviewed & discussed with the resident, I agree w/resident's findings & plan, Exceptions are as noted - HPI HPI: 11/04/17 10:51 The patient is a 77 year old female with PMH of HTN, PAF on metoprolol and eliquis, thyroid ca, thyroidectomy, hypothyroidism, uterine cancer s/p TAA who presents to the emergency department with an onset of shortness of breath yesterday. The patient reports that she experienced shortness of breath upon awakening yesterday. The patient reports associated chest heaviness and palpitations. She states that these symptoms are consistent with her previous episodes of rapid afib. Pt is on metoprolol 25mg BID and has been compliant. The patient denies any other complaints. She denies any fever, chills, nausea, vomit, diarrhea, constipation or urinary symptoms. She denies any headache or dizziness. Allergies: Naproxen - Physicial Exam PE: 11/04/17 10:54 "GENERAL: Awake, alert, and fully oriented, in no acute distress. HEAD: No signs of trauma EYES: PERRLA, EOMI, sclera anicteric, conjunctiva clear ENT: Auricles normal inspection, hearing grossly normal, nares patent, oropharynx clear without exudates. Moist mucosa NECK: Nontender, no stepoffs, Normal ROM, supple, no lymphadenopathy, JVD, or masses LUNGS: Breath sounds equal, clear to auscultation bilaterally. No wheezes, and no crackles HEART: irregular, rapid, no murmurs, rubs or gallops ABDOMEN: Soft, nontender, normoactive bowel sounds. No guarding, no rebound. No masses EXTREMITIES: Normal range of motion, no edema. No clubbing or cyanosis. No cords, erythema, or tenderness NEUROLOGICAL: Cranial nerves II through XII intact. 5/5 strength and sensation in all extremities, Normal speech, normal gait, normal cerebellar function SKIN: Warm, Dry, normal turgor, no rashes or lesions noted. " - Medical Decision Making 11/04/17 10:55 77 F with chest pressure, SOB, palpitations. Found to be in rapid afib. Pt with stable BP. Will evaluate for infectious process. Pt clinically appears euvolemic but will trial small fluid bolus. Will attempt rate control with metoprolol. - Labs, trop, BNP - CXR, UA - 500 cc NS - Metoprolol 5mg IV + 25mg PO 11/04/17 15:44 Labs notable for mild troponin 0.06, likely demand 2/2 tachycardia Pt with normalizing vitals, HR now 100s. Pt reassessed - feels much better Will admit tele obs for trending troponin.
[2017-11-04 11:02] LABS: BASO % 0.7 % (0-2.0); HEMATOCRIT 49.3 % (32.4-45.2); HEMOGLOBIN 16.2 GM/dL (10.7-15.3); LYMPH % 6.2 % (8-40); MCH 29.8 pg (25.7-33.7); MCHC 32.9 g/dl (32.0-36.0); MEAN CELL VOLUME 90.4 fl (80-96); MEAN PLT VOLUME 8.8 fl (7.5-11.1); MONO % 4.3 % (3.8-10.2); NEUT % 87.8 % (42.8-82.8); PLATELET COUNT 363 K/MM3 (134-434); RBC 5.45 M/mm3 (3.60-5.2); RDW 14.7 % (11.6-15.6)
[2017-11-04 11:22] LABS: INR 1.68 (0.82-1.09)
[2017-11-04 13:46] LABS: ANION GAP 7 (8-16); BILIRUBIN,TOTAL 0.7 mg/dL (0.2-1.0); BLOOD UREA NITROGEN 20 mg/dL (7-18); CALCIUM 8.9 mg/dL (8.5-10.1); CHLORIDE 112 mmol/L (98-107); CO2 26 mmol/L (21-32); CREATININE 0.9 mg/dL (0.55-1.02); GLUCOSE,RANDOM 109 mg/dL (74-106); POTASSIUM 4.5 mmol/L (3.5-5.1); SGOT/AST 27 U/L (15-37); SGPT/ALT 35 U/L (12-78); SODIUM 145 mmol/L (136-145); TOT PROT 6.1 g/dl (6.4-8.2)
[2017-11-04 13:55] LABS: ALK PHOS 70 U/L (45-117); N-TERMINAL BNP 10066.85 pg/ml (5-450)
--- NOTE | 2017-11-04 18:21 | HP ---
CHIEF COMPLAINT: SOB, chest pressure PCP: Dr. Oliver Molder Sweep: Dr. 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 Patient presented to the ED today with a complaint of SOB, chest heaviness, and palpitations which started yesterday upon wakening. The symptoms are similar to her previous episodes of afib. Patient has noticed worsening bilateral lower extremity edema. She denies orthopnea, PND. Patient was given lopressor in the ED with relief of symptoms. She presently deniesw SOB and chest pressure. ER course was notable for: (1) BP 121/82, p160 (2) ECG afib @ 168bpm; QTc 514 Recent Travel: No PAST MEDICAL HISTORY: Hypertension Paroxysmal atrial fibrillation Diastolic heart dysfunction Hypothyroidism Thyroid cancer Uterine cancer PAST SURGICAL HISTORY: Thyroidectomy ROSALEE Femur fracture repair with fixation Bilateral knee replacement Bilateral vein ligation Social History: Smoking: no Alcohol: no Drugs: no Family History: Allergies naproxen [From Naprosyn] Allergy (Intermediate, Verified 11/04/17 09:48) Swelling HOME MEDICATIONS: Meds verified with patient. Medication Instructions Recorded Apixaban [Eliquis] 5 mg PO BID 05/20/16 Prednisone 5 mg PO DAILY #10 tablet 07/13/17 Levothyroxine Sodium [Synthroid] 112 mcg PO DAILY 11/05/17 Metoprolol Succinate [Toprol Xl] 25 mg PO BID 11/05/17 REVIEW OF SYSTEMS CONSTITUTIONAL: Absent: fever, chills, diaphoresis, generalized weakness, malaise, loss of appetite, weight change HEENT: Absent: rhinorrhea, nasal congestion, throat pain, throat swelling, difficulty swallowing, mouth swelling, ear pain, eye pain, visual changes CARDIOVASCULAR: +chest pressure, SOB, lower extremity edema Absent: syncope, palpitations, irregular heart rate, lightheadedness, RESPIRATORY: Absent: cough, dyspnea with exertion, orthopnea, wheezing, stridor, hemoptysis GASTROINTESTINAL: Absent: abdominal pain, abdominal distension, nausea, vomiting, diarrhea, constipation, melena, hematochezia GENITOURINARY: Absent: dysuria, frequency, urgency, hesitancy, hematuria, flank pain, genital pain MUSCULOSKELETAL: Absent: myalgia, arthralgia, joint swelling, back pain, neck pain SKIN: Absent: rash, itching, pallor HEMATOLOGIC/IMMUNOLOGIC: Absent: easy bleeding, easy bruising, lymphadenopathy, frequent infections ENDOCRINE: Absent: unexplained weight gain, unexplained weight loss, heat intolerance, cold intolerance NEUROLOGIC: Absent: headache, focal weakness or paresthesias, dizziness, unsteady gait, seizure, mental status changes, bladder or bowel incontinence PSYCHIATRIC: Absent: anxiety, depression, suicidal or homicidal ideation, hallucinations. PHYSICAL EXAMINATION Vital Signs - 24 hr 11/04/17 11/04/17 11/04/17 09:49 10:54 15:22 Temperature 97.8 F Pulse Rate 168 H Pulse Rate [ 132 H Left Radial] Respiratory 17 25 H Rate Blood Pressure 130/100 130/100 Blood Pressure 105/65 [Left Arm] O2 Sat by Pulse 100 97 Oximetry (%) GENERAL: Awake, alert, and fully oriented, in no acute distress. HEAD: Normal with no signs of trauma. EYES: Pupils equal, round and reactive to light, extraocular movements intact, sclera anicteric, conjunctiva clear. No lid lag. EARS, NOSE, THROAT: Ears normal, nares patent, oropharynx clear without exudates. Moist mucous membranes. NECK: Normal range of motion, supple without lymphadenopathy, JVD, or masses. LUNGS: Breath sounds equal, clear to auscultation bilaterally. No wheezes, and no crackles. No accessory muscle use. HEART: Irregular, S1, S2 ABDOMEN: Soft, nontender, not distended, normoactive bowel sounds, no guarding, no rebound, no masses. MUSCULOSKELETAL: Normal range of motion at all joints. No bony deformities or tenderness. No CVA tenderness. UPPER EXTREMITIES: 2+ pulses, warm, well-perfused. No cyanosis. No clubbing. No peripheral edema. LOWER EXTREMITIES: 2+ pulses, warm, well-perfused. No calf tenderness. 2+ edema bilaterally NEUROLOGICAL: Cranial nerves II-XII intact. Normal speech. Laboratory Results - last 24 hr 11/04/17 11/04/17 11/04/17 10:46 10:46 10:46 WBC 11.0 H D RBC 5.45 H Hgb 16.2 H D Hct 49.3 H D MCV 90.4 MCH 29.8 MCHC 32.9 RDW 14.7 Plt Count 363 MPV 8.8 D Absolute Neuts (auto) 9.6 Neutrophils % 87.8 H Lymphocytes % 6.2 L D Monocytes % 4.3 Eosinophils % 1.0 D Basophils % 0.7 Nucleated RBC % 0 PT with INR 19.00 H INR 1.68 H Sodium Cancelled Potassium Cancelled Chloride Cancelled Carbon Dioxide Cancelled Anion Gap Cancelled BUN Cancelled Creatinine Cancelled Creat Clearance w eGFR Cancelled Random Glucose Cancelled Calcium Cancelled Magnesium Cancelled Total Bilirubin Cancelled AST Cancelled ALT Cancelled Alkaline Phosphatase Cancelled Creatine Kinase Cancelled Troponin I Cancelled B-Natriuretic Peptide Total Protein Cancelled Albumin Cancelled TSH Blood Type Antibody Screen 11/04/17 11/04/17 11/04/17 10:46 13:03 13:05 WBC RBC Hgb Hct MCV MCH MCHC RDW Plt Count MPV Absolute Neuts (auto) Neutrophils % Lymphocytes % Monocytes % Eosinophils % Basophils % Nucleated RBC % PT with INR INR Sodium 145 Potassium 4.5 Chloride 112 H Carbon Dioxide 26 Anion Gap 7 L BUN 20 H Creatinine 0.9 Creat Clearance w eGFR > 60 Random Glucose 109 H Calcium 8.9 Magnesium 2.0 Total Bilirubin 0.7 AST 27 ALT 35 Alkaline Phosphatase 70 Creatine Kinase 43 Troponin I 0.06 H B-Natriuretic Peptide Cancelled 28815.85 H Total Protein 6.1 L Albumin 3.0 L TSH 2.07 Blood Type O POSITIVE Antibody Screen Negative ASSESSMENT/PLAN: 77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 Admitted for acute on chronic diastolic heart failure and afib with RVR. Acute on chronic diastolic heart failure --BNP >10,000 with bilateral lower extremity edema --CXR clear, lungs clear on exam --last echo 05/2016: normal LV size and function, mild bi-atrial dilatation, mild MR and moderate TR; will get repeat --concern for hemoglobinemia, will reassess starting lasix in am after repeat cbc Hemoglobinemia --Hgb 16.2 --previous elevated Hgb seen during May 2016 admission --will repeat in am, if still elevated will need workup Atrial fibrillation with RVR Prolonged QT interval --rate now in 120s, clinically improved --continue home dose Toprol XL 25mg BID and titrate as tolerated --continue Eliquis --per patient, 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 Full code. Visit type - Emergency Visit Emergency Visit: Yes ED Registration Date: 11/04/17 Care time: The patient presented to the Emergency Department on the above date and was hospitalized for further evaluation of their emergent condition. - New Patient This patient is new to me today: Yes Date on this admission: 11/05/17 - Critical Care Critical Care patient: No Hospitalist Screening - Colonoscopy Questionnaire Colonoscopy Questionnaire: Colonoscopy Questionnaire - Patient: 50 - 75 years old and never had a screening colonoscopy: No History of colon or rectal polyps, or CA: No History of IBD, Crohn's disease or UC: No History of abdominal radiation therapy as a child: No - Relative: 1 with colon or rectal CA, or polyps at age 60 or younger: Unknown Colon or rectal CA diagnosed at age 45 or younger: Unknown Multiple relatives with colon or rectal CA: Unknown - Outcome: Screening Result: Negative Screen
[2017-11-04] MEDS ORDERED: METOPROLOL TARTRATE 5 MG/5 ML VIAL IVPUSH PRN (18:25)
[2017-11-04] MEDS ORDERED: ACETAMINOPHEN 325 MG TABLET (FP) PO PRN (21:33)
[2017-11-04] MEDS ORDERED: SOTALOL HCL 80 MG TABLET (FP) PO SCH (22:00)
[2017-11-04] MEDS: APIXABAN 5 MG TABLET PO SCH (23:17)
[2017-11-05] MEDS ORDERED: FUROSEMIDE 40 MG/4 ML INJECTABLE VIAL IVPUSH STA (08:45)
--- NOTE | 2017-11-05 08:55 | CON.CARD ---
Consult Consult Specialty:: Cardiology Referred by:: Hospitalist Reason for Consultation:: Cardiac evaluation - History of Present Illness Chief Complaint: AF with RVR History of Present Illness: Patient is a 77 year old female with underlying history of PAF, RA and hypothyroidism who presents with RVR at 140's. She complained of shortness of breath and generalized weakness. Previously she was successfully cardioverted to sinus rhythm. She follows with Dr. Piotr Moran of [facility]. She was not given Sotalol due to risk of QT prolongation. She denies chest pain. She denies paroxysmal nocturnal dyspnea or orthopnea. She denies fever or chills. She denies headache or lightheadedness. She denies nausea, vomiting, diarrhea or abdominal pain. - History Source History Provided By: Patient, Medical Record Limitations to Obtaining History: No Limitations - Past Medical History Cardio/Vascular: Yes: AFIB, HTN Rheumatology: Yes: Rheumatoid Arthritis Endocrine: Yes: Hypothyroidism - Past Surgical History Past Surgical History: Yes: Hysterectomy, Joint Replacement, Vein Stripping/ Ligation - Alcohol/Substance Use Hx Alcohol Use: No - Smoking History Smoking history: Never smoked Have you smoked in the past 12 months: No - Social History ADL: Independent Home Medications - Allergies Allergies/Adverse Reactions: Allergies Allergy/AdvReac Type Severity Reaction Status Date / Time naproxen [From Naprosyn] Allergy Intermediate Swelling Verified 11/04/17 09:48 - Home Medications Home Medications: Ambulatory Orders Apixaban [Eliquis] 5 mg PO BID 05/20/16 Prednisone 5 mg PO DAILY #10 tablet 07/13/17 Levothyroxine Sodium [Synthroid] 112 mcg PO DAILY 11/05/17 Metoprolol Succinate [Toprol Xl] 25 mg PO BID 11/05/17 Review of Systems - Review of Systems Constitutional: reports: Weakness. denies: Chills, Fever Cardiovascular: reports: Palpitations, Shortness of Breath. denies: Chest Pain Respiratory: reports: SOB. denies: Cough, Hemoptysis, Orthopnea, PND Gastrointestinal: denies: Abdominal Pain, Diarrhea, Dysphagia, Melena, Nausea, Rectal Bleeding, Vomiting Genitourinary: denies: Dysuria, Hematuria Musculoskeletal: denies: Joint Pain Neurological: reports: Weakness. denies: Dizziness, Headache, Seizure, Syncope Vital Signs: Vital Signs Temperature 97.9 F 06/23/18 05:58 Pulse Rate 100 H 11/05/17 05:58 Respiratory Rate 18 11/05/17 05:58 Blood Pressure 110/66 11/05/17 05:58 O2 Sat by Pulse Oximetry (%) 95 11/05/17 05:42 Eyes: Yes: PERRL HENT: Yes: Atraumatic Neck: Yes: Supple Respiratory: Yes: CTA Bilaterally Gastrointestinal: Yes: Normal Bowel Sounds, Soft. No: Tenderness Cardiovascular: Yes: Tachycardia, Pulse Irregular JVD: No Carotid Bruit: No PMI: Non-Displaced Heart Sounds: Yes: S1, S2 Murmur: Yes: Systolic Murmur, Grade 1 Edema: No - Other Data Labs, Other Data: CBC, BMP 11/04/17 10:46 INR, PTT INR 1.68 (0.82-1.09) H 11/04/17 10:46 Troponin, BNP 11/04/17 11/04/17 11/04/17 10:46 10:46 13:03 Troponin I Cancelled 0.06 H B-Natriuretic Peptide Cancelled 93034.85 H 11/05/17 01:30 Troponin I 0.05 B-Natriuretic Peptide Atrial fibrillation with RVR Problem List - Problems (1) Atrial fibrillation with rapid ventricular response Code(s): I48.91 - UNSPECIFIED ATRIAL FIBRILLATION (2) HTN (hypertension) Code(s): I10 - ESSENTIAL (PRIMARY) HYPERTENSION Qualifiers: Hypertension type: essential hypertension Qualified Code(s): I10 - Essential (primary) hypertension (3) Hypothyroidism Code(s): E03.9 - HYPOTHYROIDISM, UNSPECIFIED Qualifiers: Hypothyroidism type: unspecified Qualified Code(s): E03.9 - Hypothyroidism , unspecified (4) Mitral valve prolapse Code(s): I34.1 - NONRHEUMATIC MITRAL (VALVE) PROLAPSE (5) Rheumatoid arthritis Code(s): M06.9 - RHEUMATOID ARTHRITIS, UNSPECIFIED Qualifiers: Rheumatoid arthritis location: unspecified site Assessment/Plan 1. AF with RVR previously cardioverted to sinus now with recurrence, [id number] score of 4 on NOAC 2. CAD, angina pectoris 3. HTN 4. MVP 5. Hypothyroidism 6. RA PLAN: 1. Uptitrate Metoprolol as BP tolerates 2. IV Cardizem as needed 3. Consider synchronized cardioversion on Tuesday once rate controlled 4. Continue Eliquis 5. Thyroid replacement therapy and follow TFT Further plans are to follow Jose De Jesus Girard MD
[2017-11-05] MEDS ORDERED: dilTIAZem HCL 50 MG/10 ML - 10 ML VIAL IVPUSH ONE (08:57)
[2017-11-05 08:59] LABS: BASO % 0.9 % (0-2.0); EOS % 4.1 % (0-4.5); HEMATOCRIT 45.8 % (32.4-45.2); HEMOGLOBIN 14.8 GM/dL (10.7-15.3); LYMPH % 9.1 % (8-40); MCH 29.5 pg (25.7-33.7); MCHC 32.2 g/dl (32.0-36.0); MEAN CELL VOLUME 91.4 fl (80-96); MEAN PLT VOLUME 8.8 fl (7.5-11.1); MONO % 10.1 % (3.8-10.2); NEUT % 75.8 % (42.8-82.8); PLATELET COUNT 314 K/MM3 (134-434); RBC 5.01 M/mm3 (3.60-5.2); RDW 14.8 % (11.6-15.6); WHITE BLOOD COUNT 7.9 K/mm3 (4.0-10.0)
[2017-11-05 09:05] LABS: ALBUMIN 2.8 g/dl (3.4-5.0); ALK PHOS 58 U/L (45-117); ANION GAP 11 (8-16); BILIRUBIN,TOTAL 0.8 mg/dL (0.2-1.0); BLOOD UREA NITROGEN 25 mg/dL (7-18); CALCIUM 8.7 mg/dL (8.5-10.1); CHLORIDE 110 mmol/L (98-107); CO2 23 mmol/L (21-32); CREATININE 0.9 mg/dL (0.55-1.02); GLUCOSE,RANDOM 88 mg/dL (74-106); MAGNESIUM 1.9 mg/dL (1.8-2.4); POTASSIUM 3.8 mmol/L (3.5-5.1); SGOT/AST 28 U/L (15-37); SGPT/ALT 32 U/L (12-78); SODIUM 144 mmol/L (136-145); TOT PROT 5.6 g/dl (6.4-8.2)
[2017-11-05] MEDS: metoPROLOL SUCCINATE 25 MG TAB.SR.24H (FP) PO SCH ×2 (09:29→21:55)
[2017-11-05] MEDS: predniSONE 5 MG TABLET (UD) PO SCH (09:29)
[2017-11-05] MEDS: APIXABAN 5 MG TABLET PO SCH ×2 (09:29→21:55)
[2017-11-05] MEDS ORDERED: LEVOTHYROXINE NA 88 MCG TABLET (FP) PO SCH (10:00)
[2017-11-05] MEDS ORDERED: FUROSEMIDE 40 MG/4 ML INJECTABLE VIAL IVPUSH SCH (10:00)
--- NOTE | 2017-11-05 14:34 | PN ---
Physical Exam: SUBJECTIVE: Patient seen and examined at bedside. No SOB, palpitations, or chest pressure. Feels leg swelling is better. OBJECTIVE: Vital Signs Period Temp Pulse Resp BP Sys/Magallon Pulse Ox Last 24 Hr 97.9 F-98.6 F 88-160 16-25 80-128/50-82 95-97 GENERAL: The patient is awake, alert, and fully oriented, in no acute distress. LUNGS: Breath sounds equal, clear to auscultation bilaterally, no wheezes, no crackles, no accessory muscle use. HEART: Regular rate and rhythm, S1, S2 ABDOMEN: Soft, nontender, nondistended EXTREMITIES: 1+ bilateral lower extremity edema; excoriations on lower legs NEUROLOGICAL: Cranial nerves II through XII grossly intact. Normal speech, steady gait Laboratory Results - last 24 hr 11/04/17 11/05/17 11/05/17 13:05 01:30 05:15 WBC RBC Hgb Hct MCV MCH MCHC RDW Plt Count MPV Absolute Neuts (auto) Neutrophils % Lymphocytes % Monocytes % Eosinophils % Basophils % Nucleated RBC % Sodium 144 Potassium 3.8 Chloride 110 H Carbon Dioxide 23 Anion Gap 11 BUN 25 H Creatinine 0.9 Creat Clearance w eGFR > 60 Random Glucose 88 Calcium 8.7 Magnesium 1.9 Total Bilirubin 0.8 AST 28 ALT 32 Alkaline Phosphatase 58 D Troponin I 0.05 Total Protein 5.6 L Albumin 2.8 L Blood Type O POSITIVE Antibody Screen Negative 11/05/17 11/05/17 05:15 08:40 WBC 7.9 RBC 5.01 Hgb 14.8 Hct 45.8 H MCV 91.4 MCH 29.5 MCHC 32.2 RDW 14.8 Plt Count 314 MPV 8.8 Absolute Neuts (auto) 6.0 Neutrophils % 75.8 Lymphocytes % 9.1 D Monocytes % 10.1 D Eosinophils % 4.1 D Basophils % 0.9 Nucleated RBC % 0 Sodium Potassium Chloride Carbon Dioxide Anion Gap BUN Creatinine Creat Clearance w eGFR Random Glucose Calcium Magnesium Total Bilirubin AST ALT Alkaline Phosphatase Troponin I 0.04 Total Protein Albumin Blood Type Antibody Screen Active Medications Generic Name Dose Route Start Last Admin Trade Name Freq PRN Reason Stop Dose Admin Acetaminophen 650 mg 11/04/17 21:33 Tylenol - PO Q6H PRN PAIN LEVEL 1 - 3 Apixaban 5 mg 11/04/17 22:00 11/05/17 09:29 Eliquis - PO 5 mg BID ALIE Administration Levothyroxine Sodium 112 mcg 11/05/17 10:00 Synthroid - PO DAILY@0700 [facility] Metoprolol Succinate 25 mg 11/05/17 10:00 11/05/17 09:29 Toprol Xl - PO 25 mg BID ALIE Administration Non-Formulary Medication 1 each 11/06/17 10:00 Patient's Own Med PO DAILY ALIE Prednisone 5 mg 11/05/17 10:00 11/05/17 09:29 Deltasone - PO 5 mg DAILY ALIE Administration ASSESSMENT/PLAN 77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 Admitted for acute on chronic diastolic heart failure and afib with RVR. Acute on chronic diastolic heart failure --BNP >10,000 with bilateral lower extremity edema --CXR clear, lungs clear on exam --last echo 05/2016: normal LV size and function, mild bi-atrial dilatation, mild MR and moderate TR; will get repeat --concern for hemoglobinemia, will reassess starting lasix in am after repeat cbc Hemoglobinemia --Hgb down-trending --daily cbc Atrial fibrillation with RVR Prolonged QT interval @ 507 --rate now in 100s at rest --continue home dose Toprol XL 25mg BID and titrate as tolerated --continue Eliquis --cardiology following --avoid QT prolonging agents CAD --with history of demand ischemia in context of paroxysmal afib with RVR --flat-trending troponins Hypothyroidism s/p thyroid cancer s/p thyroidectomy --TSH wnl --continue current home dose of levothyroxine Rheumatoid arthritis --continue daily low-dose prednisone FEN Fluids: PO intake adequate Electrolytes: replete as indicated Nutrition: low sodium diet DVT prophylaxis: on Eliquis Dispo: continues to require inpatient care. Full code. Visit type - Emergency Visit Emergency Visit: Yes ED Registration Date: 11/04/17 Care time: The patient presented to the Emergency Department on the above date and was hospitalized for further evaluation of their emergent condition. - New Patient This patient is new to me today: No - Critical Care Critical Care patient: No
[2017-11-05] MEDS: MUPIROCIN 2% TOPICAL OINTMENT 22 GM TUBE TP SCH (21:59)
[2017-11-06] MEDS: LEVOTHYROXINE NA 112 MCG TABLET (FP) PO SCH (06:22)
[2017-11-06] MEDS ORDERED: PT OWN MED DRAWER 7, Y5N ONE ×2 (06:56→10:40)
--- NOTE | 2017-11-06 08:46 | PN ---
Progress Note, Physician Chief Complaint: Events noted Responded to Cardizem yesterday, but currently with RVR History of Present Illness: Patient was seen and examined. Awake and alert. Chart was reviewed Denies chest pain, SOB or palpitations AF with RVR - Current Medication List Current Medications: Active Medications Acetaminophen (Tylenol -) 650 mg PO Q6H PRN PRN Reason: PAIN LEVEL 1 - 3 Last Admin: 11/05/17 18:48 Dose: 650 mg Apixaban (Eliquis -) 5 mg PO BID [facility] Last Admin: 11/05/17 21:55 Dose: 5 mg Levothyroxine Sodium (Synthroid -) 112 mcg PO DAILY@0700 [facility] Last Admin: 11/06/17 06:22 Dose: 112 mcg Metoprolol Succinate (Toprol Xl -) 25 mg PO BID [facility] Last Admin: 11/05/17 21:55 Dose: 25 mg Mupirocin (Bactroban 2% Ointment -) 1 applic TP BID [facility] Last Admin: 11/05/17 21:59 Dose: 1 applic Prednisone (Deltasone -) 5 mg PO DAILY [facility] Last Admin: 11/05/17 09:29 Dose: 5 mg - Objective Vital Signs: Vital Signs Temperature 98.4 F 11/06/17 08:31 Pulse Rate 140 H 11/06/17 08:31 Respiratory Rate 18 11/06/17 08:32 Blood Pressure 114/69 11/06/17 08:31 O2 Sat by Pulse Oximetry (%) 99 11/06/17 08:32 Eyes: Yes: PERRL HENT: Yes: Atraumatic Neck: Yes: Supple Cardiovascular: Yes: Tachycardia, Pulse Irregular, S1, S2 Respiratory: Yes: CTA Bilaterally Gastrointestinal: Yes: Normal Bowel Sounds, Soft. No: Tenderness Edema: No Additional Findings/Remarks: - Review of Systems Constitutional: reports: Weakness. denies: Chills, Fever Cardiovascular: reports: Palpitations, Shortness of Breath. denies: Chest Pain Respiratory: reports: SOB. denies: Cough, Hemoptysis, Orthopnea, PND Gastrointestinal: denies: Abdominal Pain, Diarrhea, Dysphagia, Melena, Nausea, Rectal Bleeding, Vomiting Genitourinary: denies: Dysuria, Hematuria Musculoskeletal: denies: Joint Pain Neurological: reports: Weakness. denies: Dizziness, Headache, Seizure, Syncope Labs: CBC, BMP 11/05/17 05:15 11/05/17 05:15 INR, PTT INR 1.68 (0.82-1.09) H 11/04/17 10:46 Problem List - Problems (1) Atrial fibrillation with rapid ventricular response Code(s): I48.91 - UNSPECIFIED ATRIAL FIBRILLATION (2) HTN (hypertension) Code(s): I10 - ESSENTIAL (PRIMARY) HYPERTENSION Qualifiers: Hypertension type: essential hypertension Qualified Code(s): I10 - Essential (primary) hypertension (3) Hypothyroidism Code(s): E03.9 - HYPOTHYROIDISM, UNSPECIFIED Qualifiers: Hypothyroidism type: unspecified Qualified Code(s): E03.9 - Hypothyroidism , unspecified (4) Mitral valve prolapse Code(s): I34.1 - NONRHEUMATIC MITRAL (VALVE) PROLAPSE (5) Rheumatoid arthritis Code(s): M06.9 - RHEUMATOID ARTHRITIS, UNSPECIFIED Qualifiers: Rheumatoid arthritis location: unspecified site Assessment/Plan 1. AF with RVR previously cardioverted to sinus now with recurrence, [id number] score of 4 on NOAC 2. CAD, angina pectoris 3. HTN 4. MVP 5. Hypothyroidism 6. RA PLAN: 1. Uptitrate Metoprolol as BP tolerates - Increase Metoprolol ER to 50 mg BID 2. IV Cardizem as needed 3. Schedule synchronized cardioversion tomorrow once rate controlled 4. Continue Eliquis 5. Thyroid replacement therapy 6. Patient is to follow up with Dr. Piotr Moran ([employer] at [facility]) as outpatient Further plans are to follow Jose De Jesus Girard MD
--- NOTE | 2017-11-06 09:28 | PN ---
Physical Exam: SUBJECTIVE: Patient seen and examined sitting on edge of bed. Rate as high as 165 but patient denies symptoms. OBJECTIVE: Vital Signs Period Temp Pulse Resp BP Sys/Magallon Pulse Ox Last 24 Hr 97.6 F-98.4 F 88-140 16-20 80-132/56-88 95-99 GENERAL: The patient is awake, alert, and fully oriented, in no acute distress. LUNGS: Breath sounds equal, clear to auscultation bilaterally, no wheezes, no crackles, no accessory muscle use. HEART: Regular rate and rhythm, S1, S2 ABDOMEN: Soft, nontender, nondistended EXTREMITIES: 1+ bilateral lower extremity edema; excoriations on lower legs NEUROLOGICAL: Cranial nerves II through XII grossly intact. Normal speech, steady gait Laboratory Results - last 24 hr 11/05/17 11/05/17 05:15 08:40 Sodium 144 Potassium 3.8 Chloride 110 H Carbon Dioxide 23 Anion Gap 11 BUN 25 H Creatinine 0.9 Creat Clearance w eGFR > 60 Random Glucose 88 Calcium 8.7 Magnesium 1.9 Total Bilirubin 0.8 AST 28 ALT 32 Alkaline Phosphatase 58 D Troponin I 0.04 Total Protein 5.6 L Albumin 2.8 L Active Medications Generic Name Dose Route Start Last Admin Trade Name Freq PRN Reason Stop Dose Admin Acetaminophen 650 mg 11/04/17 21:33 11/05/17 18:48 Tylenol - PO 650 mg Q6H PRN Administration PAIN LEVEL 1 - 3 Apixaban 5 mg 11/04/17 22:00 11/05/17 21:55 Eliquis - PO 5 mg BID ALIE Administration Diltiazem HCl 10 mg 11/06/17 09:30 11/06/17 09:07 Cardizem Injection - IVPUSH 11/06/17 09:31 10 mg ONCE ONE Administration Levothyroxine Sodium 112 mcg 11/05/17 10:00 11/06/17 06:22 Synthroid - PO 112 mcg DAILY@0700 ALIE Administration Metoprolol Succinate 50 mg 11/06/17 08:47 Toprol Xl - PO BID ALIE Mupirocin 1 applic 11/05/17 22:00 11/05/17 21:59 Bactroban 2% Ointment - TP 1 applic BID ALIE Administration Prednisone 5 mg 11/05/17 10:00 11/05/17 09:29 Deltasone - PO 5 mg DAILY ALIE Administration ASSESSMENT/PLAN: 77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 Admitted for acute on chronic diastolic heart failure and afib with RVR. Acute on chronic diastolic heart failure --BNP >10,000 with bilateral lower extremity edema --CXR clear, lungs clear on exam --last echo 05/2016: normal LV size and function, mild bi-atrial dilatation, mild MR and moderate TR --repeat echo tomorrow Hemoglobinemia --Hgb down-trending --daily cbc Atrial fibrillation with RVR Prolonged QT interval @ 507 --rate now in 100s at rest, up to 165 with exertion --Toprol XL increased to 50mg BID; continue to titrate as tolerated --IV Cardizem PRN --continue Eliquis --avoid QT prolonging agents --plan is for cardioverstion tomorrow if rate-controlled --cardiology following CAD --with history of demand ischemia in context of paroxysmal afib with RVR --flat-trending troponins Hypothyroidism s/p thyroid cancer s/p thyroidectomy --TSH wnl --continue current home dose of levothyroxine Rheumatoid arthritis --continue daily low-dose prednisone FEN Fluids: PO intake adequate Electrolytes: replete as indicated Nutrition: low sodium diet DVT prophylaxis: on Eliquis Dispo: continues to require inpatient care. Full code. Visit type - Emergency Visit Emergency Visit: Yes ED Registration Date: 11/04/17 Care time: The patient presented to the Emergency Department on the above date and was hospitalized for further evaluation of their emergent condition. - New Patient This patient is new to me today: No - Critical Care Critical Care patient: No
[2017-11-06] MEDS ORDERED: dilTIAZem HCL 50 MG/10 ML - 10 ML VIAL IVPUSH ONE (09:30)
[2017-11-06] MEDS ORDERED: LEVOTHYROXINE PO SCH (10:00)
[2017-11-06] MEDS: MUPIROCIN 2% TOPICAL OINTMENT 22 GM TUBE TP SCH ×2 (10:49→21:40)
[2017-11-06] MEDS: APIXABAN 5 MG TABLET PO SCH ×2 (10:49→21:40)
[2017-11-06] MEDS: predniSONE 5 MG TABLET (UD) PO SCH (10:49)
[2017-11-07] MEDS: LEVOTHYROXINE NA 112 MCG TABLET (FP) PO SCH ×2 (06:13→06:18)
[2017-11-07] MEDS: APIXABAN 5 MG TABLET PO SCH ×2 (08:22→21:21)
[2017-11-07] MEDS: predniSONE 5 MG TABLET (UD) PO SCH (08:22)
[2017-11-07] MEDS: MUPIROCIN 2% TOPICAL OINTMENT 22 GM TUBE TP SCH ×2 (09:25→21:23)
--- NOTE | 2017-11-07 10:04 | PN ---
Progress Note, Physician Chief Complaint: Events noted Not in distress, but still with tachycardia History of Present Illness: Patient was seen and examined. Awake and alert. Chart was reviewed Denies chest pain, SOB or palpitations AF with RVR - Current Medication List Current Medications: Active Medications Acetaminophen (Tylenol -) 650 mg PO Q6H PRN PRN Reason: PAIN LEVEL 1 - 3 Last Admin: 11/05/17 18:48 Dose: 650 mg Apixaban (Eliquis -) 5 mg PO BID [facility] Last Admin: 11/07/17 08:22 Dose: 5 mg Levothyroxine Sodium (Synthroid -) 112 mcg PO DAILY@0700 [facility] Last Admin: 11/07/17 06:18 Dose: 112 mcg Metoprolol Succinate (Toprol Xl -) 50 mg PO BID [facility] Last Admin: 11/07/17 08:22 Dose: 50 mg Mupirocin (Bactroban 2% Ointment -) 1 applic TP BID [facility] Last Admin: 11/07/17 09:25 Dose: 1 applic Prednisone (Deltasone -) 5 mg PO DAILY [facility] Last Admin: 11/07/17 08:22 Dose: 5 mg - Objective Vital Signs: Vital Signs Temperature 98.2 F 11/07/17 08:15 Pulse Rate 140 H 11/07/17 08:15 Respiratory Rate 16 11/07/17 08:15 Blood Pressure 114/46 11/07/17 08:15 O2 Sat by Pulse Oximetry (%) 99 11/07/17 04:00 Neck: Yes: Supple Cardiovascular: Yes: Tachycardia, Pulse Irregular, S1, S2 Respiratory: Yes: CTA Bilaterally Gastrointestinal: Yes: Normal Bowel Sounds, Soft. No: Tenderness Edema: No Additional Findings/Remarks: - Review of Systems Constitutional: reports: Weakness. denies: Chills, Fever Cardiovascular: reports: Palpitations, Shortness of Breath. denies: Chest Pain Respiratory: reports: SOB. denies: Cough, Hemoptysis, Orthopnea, PND Gastrointestinal: denies: Abdominal Pain, Diarrhea, Dysphagia, Melena, Nausea, Rectal Bleeding, Vomiting Genitourinary: denies: Dysuria, Hematuria Musculoskeletal: denies: Joint Pain Neurological: reports: Weakness. denies: Dizziness, Headache, Seizure, Syncope Labs: CBC, BMP 11/05/17 05:15 11/05/17 05:15 Problem List - Problems (1) Atrial fibrillation with rapid ventricular response Code(s): I48.91 - UNSPECIFIED ATRIAL FIBRILLATION (2) HTN (hypertension) Code(s): I10 - ESSENTIAL (PRIMARY) HYPERTENSION Qualifiers: Hypertension type: essential hypertension Qualified Code(s): I10 - Essential (primary) hypertension (3) Hypothyroidism Code(s): E03.9 - HYPOTHYROIDISM, UNSPECIFIED Qualifiers: Hypothyroidism type: unspecified Qualified Code(s): E03.9 - Hypothyroidism , unspecified (4) Mitral valve prolapse Code(s): I34.1 - NONRHEUMATIC MITRAL (VALVE) PROLAPSE (5) Rheumatoid arthritis Code(s): M06.9 - RHEUMATOID ARTHRITIS, UNSPECIFIED Qualifiers: Rheumatoid arthritis location: unspecified site Assessment/Plan 1. AF with RVR previously cardioverted to sinus now with recurrence, [id number] score of 4 on NOAC 2. CAD, angina pectoris 3. HTN 4. MVP 5. Hypothyroidism 6. RA PLAN: 1. Continue Metoprolol as BP tolerates - Metoprolol ER to 50 mg BID 2. IV Cardizem as needed 3. Synchronized cardioversion today 4. Continue Eliquis 5. Thyroid replacement therapy 6. Patient is to follow up with Dr. Piotr Moran ([facility]) as outpatient Further plans are to follow Jose De Jesus Girard MD
--- NOTE | 2017-11-07 16:16 | PN ---
Physical Exam: SUBJECTIVE: Patient seen and examined oob to chair. Cardioversion later today. OBJECTIVE: Vital Signs Period Temp Pulse Resp BP Sys/Magallon Pulse Ox Last 24 Hr 97.4 F-98.9 F 71-140 14-20 94-124/46-74 97-100 GENERAL: The patient is awake, alert, and fully oriented, in no acute distress. LUNGS: Breath sounds equal, clear to auscultation bilaterally, no wheezes, no crackles, no accessory muscle use. HEART: Irregular, rapid, S1, S2 ABDOMEN: Soft, nontender, nondistended EXTREMITIES: 1+ bilateral lower extremity edema; excoriations on lower legs NEUROLOGICAL: Cranial nerves II through XII grossly intact. Normal speech, steady gait Active Medications Generic Name Dose Route Start Last Admin Trade Name Freq PRN Reason Stop Dose Admin Acetaminophen 650 mg 11/04/17 21:33 11/05/17 18:48 Tylenol - PO 650 mg Q6H PRN Administration PAIN LEVEL 1 - 3 Apixaban 5 mg 11/04/17 22:00 11/07/17 08:22 Eliquis - PO 5 mg BID ALIE Administration Levothyroxine Sodium 112 mcg 11/05/17 10:00 11/07/17 06:18 Synthroid - PO 112 mcg DAILY@0700 ALIE Administration Metoprolol Succinate 50 mg 11/06/17 08:47 11/07/17 08:22 Toprol Xl - PO 50 mg BID ALIE Administration Mupirocin 1 applic 11/05/17 22:00 11/07/17 09:25 Bactroban 2% Ointment - TP 1 applic BID ALIE Administration Prednisone 5 mg 11/05/17 10:00 11/07/17 08:22 Deltasone - PO 5 mg DAILY ALIE Administration ASSESSMENT/PLAN: 77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 Admitted for acute on chronic diastolic heart failure and afib with RVR. Acute on chronic diastolic heart failure --BNP >10,000 with bilateral lower extremity edema --CXR clear, lungs clear on exam --Echo 05/2016: normal LV size and function, mild bi-atrial dilatation, mild MR and moderate TR --Echo 11/07: moderate cLVH, LV function normal; RV normal; BLAE; mild MR; moderate TR; pHTN; mild aortic stenosis AV area 1.4cm2; trace to mild AI; mild PI --Lasix PRN Hemoglobinemia, resolved Atrial fibrillation with RVR Prolonged QT interval @ 507 --rate now in 100s at rest, up to 165 with exertion --Toprol XL increased to 50mg BID; continue to titrate as tolerated --IV Cardizem PRN --continue Eliquis --avoid QT prolonging agents --cardioversion later today --cardiology following CAD --with history of demand ischemia in context of paroxysmal afib with RVR --flat-trending troponins Hypothyroidism s/p thyroid cancer s/p thyroidectomy --TSH wnl --continue current home dose of levothyroxine Rheumatoid arthritis --continue daily low-dose prednisone FEN Fluids: PO intake adequate Electrolytes: replete as indicated Nutrition: low sodium diet DVT prophylaxis: on Eliquis Dispo: continues to require inpatient care. Full code. Visit type - Emergency Visit Emergency Visit: Yes ED Registration Date: 11/04/17 Care time: The patient presented to the Emergency Department on the above date and was hospitalized for further evaluation of their emergent condition. - New Patient This patient is new to me today: No - Critical Care Critical Care patient: No
--- NOTE | 2017-11-07 21:09 | EKG ---
Test Reason : Blood Pressure : / mmHG Vent. Rate : 079 BPM Atrial Rate : 079 BPM P-R Int : 170 ms QRS Dur : 080 ms QT Int : 426 ms P-R-T Axes : 103 -01 266 degrees QTc Int : 488 ms SINUS RHYTHM WITH PREMATURE ATRIAL COMPLEXES PROLONGED QT ABNORMAL ECG WHEN COMPARED WITH ECG OF 05-NOV-2017 09:44, SINUS RHYTHM HAS REPLACED ATRIAL FIBRILLATION Confirmed by ARIS MCFADDEN, JESSIKA ([id number]) on 11/07/2017 9:08:58 PM Referred By: ANGELA HERNANDEZ DR Confirmed By:JESSIKA HURST MD
--- NOTE | 2017-11-07 21:54 | EKG ---
Test Reason : Blood Pressure : / mmHG Vent. Rate : 100 BPM Atrial Rate : 131 BPM P-R Int : 000 ms QRS Dur : 088 ms QT Int : 388 ms P-R-T Axes : 000 -11 262 degrees QTc Int : 500 ms ATRIAL FIBRILLATION VOLTAGE CRITERIA FOR LEFT VENTRICULAR HYPERTROPHY PROLONGED QT ABNORMAL ECG WHEN COMPARED WITH ECG OF 04-NOV-2017 11:09, NO SIGNIFICANT CHANGE WAS FOUND Confirmed by JESSIKA HURST MD ([id number]) on 11/07/2017 9:54:00 PM Referred By: Odilia SHEARER Confirmed By:JESSIKA HURST MD
--- NOTE | 2017-11-07 22:04 | EKG ---
Test Reason : Blood Pressure : / mmHG Vent. Rate : 106 BPM Atrial Rate : 288 BPM P-R Int : 000 ms QRS Dur : 082 ms QT Int : 368 ms P-R-T Axes : 000 -12 -80 degrees QTc Int : 488 ms ATRIAL FIBRILLATION WITH RAPID VENTRICULAR RESPONSE SEPTAL INFARCT (CITED ON OR BEFORE 13-JUL-2017) ABNORMAL ECG WHEN COMPARED WITH ECG OF 04-NOV-2017 09:48, VENT. RATE HAS DECREASED Confirmed by ARIS MCFADDEN, JESSIKA ([id number]) on 11/07/2017 10:04:21 PM Referred By: Confirmed By:JESSIKA HURST MD
[2017-11-08 06:25] LABS: BASO % 0.9 % (0-2.0); EOS % 4.2 % (0-4.5); HEMATOCRIT 43.3 % (32.4-45.2); HEMOGLOBIN 14.6 GM/dL (10.7-15.3); LYMPH % 10.4 % (8-40); MCH 30.4 pg (25.7-33.7); MCHC 33.6 g/dl (32.0-36.0); MEAN CELL VOLUME 90.3 fl (80-96); MEAN PLT VOLUME 8.3 fl (7.5-11.1); MONO % 9.8 % (3.8-10.2); NEUT % 74.7 % (42.8-82.8); PLATELET COUNT 319 K/MM3 (134-434); RDW 14.8 % (11.6-15.6); WHITE BLOOD COUNT 7.9 K/mm3 (4.0-10.0)
[2017-11-08] MEDS: LEVOTHYROXINE NA 112 MCG TABLET (FP) PO SCH (06:49)
[2017-11-08 07:18] LABS: ALBUMIN 2.8 g/dl (3.4-5.0); ANION GAP 9 (8-16); BLOOD UREA NITROGEN 24 mg/dL (7-18); CALCIUM 8.9 mg/dL (8.5-10.1); CHLORIDE 111 mmol/L (98-107); CO2 24 mmol/L (21-32); GLUCOSE,RANDOM 100 mg/dL (74-106); MAGNESIUM 1.8 mg/dL (1.8-2.4); POTASSIUM 3.9 mmol/L (3.5-5.1); SGOT/AST 28 U/L (15-37); SGPT/ALT 31 U/L (12-78); SODIUM 144 mmol/L (136-145)
[2017-11-08 07:20] LABS: ALK PHOS 64 U/L (45-117); BILIRUBIN,TOTAL 0.7 mg/dL (0.2-1.0); CREATININE 0.9 mg/dL (0.55-1.02); TOT PROT 5.8 g/dl (6.4-8.2)
--- NOTE | 2017-11-08 08:21 | PN ---
Progress Note, Physician - Current Medication List Current Medications: Active Medications Acetaminophen (Tylenol -) 650 mg PO Q6H PRN PRN Reason: PAIN LEVEL 1 - 3 Last Admin: 11/05/17 18:48 Dose: 650 mg Apixaban (Eliquis -) 5 mg PO BID [facility] Last Admin: 11/07/17 21:21 Dose: 5 mg Levothyroxine Sodium (Synthroid -) 112 mcg PO DAILY@0700 [facility] Last Admin: 11/08/17 06:49 Dose: 112 mcg Metoprolol Succinate (Toprol Xl -) 50 mg PO BID [facility] Last Admin: 11/07/17 21:20 Dose: 50 mg Mupirocin (Bactroban 2% Ointment -) 1 applic TP BID [facility] Last Admin: 11/07/17 21:23 Dose: 1 applic Prednisone (Deltasone -) 5 mg PO DAILY [facility] Last Admin: 11/07/17 08:22 Dose: 5 mg - Objective Vital Signs: Vital Signs Temperature 97.4 F L 11/08/17 03:00 Pulse Rate 90 11/08/17 06:08 Respiratory Rate 20 11/08/17 08:17 Blood Pressure 109/70 11/08/17 06:08 O2 Sat by Pulse Oximetry (%) 95 11/07/17 20:00 Labs: CBC, BMP 11/08/17 05:30 11/08/17 05:30 INR, PTT INR 1.68 (0.82-1.09) H 11/04/17 10:46 Problem List - Problems (1) Atrial fibrillation with rapid ventricular response Code(s): I48.91 - UNSPECIFIED ATRIAL FIBRILLATION (2) HTN (hypertension) Code(s): I10 - ESSENTIAL (PRIMARY) HYPERTENSION Qualifiers: Hypertension type: essential hypertension Qualified Code(s): I10 - Essential (primary) hypertension (3) Hypothyroidism Code(s): E03.9 - HYPOTHYROIDISM, UNSPECIFIED Qualifiers: Hypothyroidism type: unspecified Qualified Code(s): E03.9 - Hypothyroidism , unspecified (4) Mitral valve prolapse Code(s): I34.1 - NONRHEUMATIC MITRAL (VALVE) PROLAPSE (5) Rheumatoid arthritis Code(s): M06.9 - RHEUMATOID ARTHRITIS, UNSPECIFIED Qualifiers: Rheumatoid arthritis location: unspecified site
[2017-11-08] MEDS: APIXABAN 5 MG TABLET PO SCH ×2 (09:50→21:35)
[2017-11-08] MEDS: predniSONE 5 MG TABLET (UD) PO SCH (09:50)
[2017-11-08] MEDS: MUPIROCIN 2% TOPICAL OINTMENT 22 GM TUBE TP SCH ×2 (09:50→21:35)
--- NOTE | 2017-11-08 11:23 | PN ---
Progress Note (short form) - Note Progress Note: Chief Complaint: Events noted, notes reviewed, recurrent atrial fibrillation with periods of rapid ventricular response post cardioversion, denies any chest pain, dyspnea or palpitations History of Present Illness: Seen and examined on telemetry. Events noted, notes reviewed, recurrent atrial fibrillation with periods of rapid ventricular response post cardioversion, denies any chest pain, dyspnea or palpitations Patient has a baseline prolonged QTc interval and plan to avoid any antiarrhythmics therapies at this point, as per my discussion with her primary devulcanizer operator Dr. Gurmeet Moran/[facility] Echocardiography dated 05/21/2016 revealed normal LV size and function, mild bi- atrial dilatation, mild MR and moderate TR - Current Medication List Current Medications Acetaminophen (Tylenol -) 650 mg PO Q6H PRN PRN Reason: PAIN LEVEL 1 - 3 Last Admin: 11/05/17 18:48 Dose: 650 mg Apixaban (Eliquis -) 5 mg PO BID [facility] Last Admin: 11/08/17 09:50 Dose: 5 mg Levothyroxine Sodium (Synthroid -) 112 mcg PO DAILY@0700 [facility] Last Admin: 11/08/17 06:49 Dose: 112 mcg Metoprolol Succinate (Toprol Xl -) 50 mg PO BID [facility] Last Admin: 11/08/17 09:50 Dose: 50 mg Mupirocin (Bactroban 2% Ointment -) 1 applic TP BID [facility] Last Admin: 11/08/17 09:50 Dose: 1 applic Prednisone (Deltasone -) 5 mg PO DAILY [facility] Last Admin: 11/08/17 09:50 Dose: 5 mg Review of Systems Constitutional: denies: Chills Cardiovascular: As noted above Respiratory: denies: Cough or Sputum Production Gastrointestinal: denies: Nausea, Vomiting, Diarrhea, Constipation or Abdominal Pain Musculoskeletal: denies: Joint Pain Neurological: denies: Dizziness or Headache - Objective Vital Signs: Last Vital Signs Temp Pulse Resp BP Pulse Ox 97.4 F L 90 20 109/70 95 11/08/17 03:00 11/08/17 06:08 11/08/17 08:17 11/08/17 06:08 11/07/17 20:00 Intake & Output 11/05/17 11/06/17 11/07/17 11/08/17 23:59 23:59 23:59 23:59 Intake Total 300 848 230 Balance 300 848 230 Weight 135 lb 136 lb 6.4 oz 136 lb 4 oz Neck: Supple Negative JVD No bruit Cardiovascular: S1 S2 Irregularly Irregular Respiratory: Clear to A&P Bilaterally Gastrointestinal: Soft Benign Normal Bowel Sounds Ext: No Edema Labs: CBC, BMP 11/08/17 05:30 11/08/17 05:30 INR, PTT INR 1.68 (0.82-1.09) H 11/04/17 10:46 Assessment/Plan ASSESSMENT: 1. Paroxysmal atrial fibrillation [id number] score of 5 on DOAC's/Eliquis, recurrent arrhythmia post cardioversion 2. CAD with history of demand ischemia in context of paroxysmal atrial fibrillation with rapid ventricular response (May of 2016) 3. Diastolic LV dysfunction with class 0 NYHA classification LV failure 4. HTN/HCVD 5. MV prolapse syndrome 6. Hypothyroidism 7. History of rheumatoid arthritis 8. History of Raynaud's phenomenon PLAN: 1. Avoid antiarrhythmics at this point in view of baseline prolonged QTc interval, as per above discussion with her primary devulcanizer operator 2. Continue DOAC's/Eliquis indefinitely considering the above noted [id number] score of 5 with close monitoring of CBC 3. Change Toprol XL to Lopressor to assist with rate control and eventual D/C home 4. Outpatient referral for PVI/RFA, evaluation can be performed as outpatient with her devulcanizer operator at [facility] Dr. Piotr Moran Discussed in detail with the patient Manolo Armijo MD
--- NOTE | 2017-11-08 12:36 | PN ---
Physical Exam: SUBJECTIVE: Patient seen and examined. She feels tired on bb, denies palpitations. OBJECTIVE: Vital Signs Period Temp Pulse Resp BP Sys/Magallon Pulse Ox Last 24 Hr 97.4 F-98 F 71-108 14-20 98-112/37-74 95-100 PE Neuro: alert, awake, cn 2-12intact Pulm: CTAB CV: s1 s2 irregular rate and rhythm Abd: s nt nd + bs Ext: warm, no le edema Laboratory Results - last 24 hr 11/08/17 11/08/17 05:30 05:30 WBC 7.9 RBC 4.80 Hgb 14.6 Hct 43.3 MCV 90.3 MCH 30.4 MCHC 33.6 RDW 14.8 Plt Count 319 MPV 8.3 Absolute Neuts (auto) 5.9 Neutrophils % 74.7 Lymphocytes % 10.4 Monocytes % 9.8 Eosinophils % 4.2 Basophils % 0.9 Nucleated RBC % 0 Sodium 144 Potassium 3.9 Chloride 111 H Carbon Dioxide 24 Anion Gap 9 BUN 24 H Creatinine 0.9 Creat Clearance w eGFR > 60 Random Glucose 100 Calcium 8.9 Magnesium 1.8 Total Bilirubin 0.7 AST 28 ALT 31 Alkaline Phosphatase 64 Total Protein 5.8 L Albumin 2.8 L Active Medications Generic Name Dose Route Start Last Admin Trade Name Freq PRN Reason Stop Dose Admin Acetaminophen 650 mg 11/04/17 21:33 11/05/17 18:48 Tylenol - PO 650 mg Q6H PRN Administration PAIN LEVEL 1 - 3 Apixaban 5 mg 11/04/17 22:00 11/08/17 09:50 Eliquis - PO 5 mg BID ALIE Administration Levothyroxine Sodium 112 mcg 11/05/17 10:00 11/08/17 06:49 Synthroid - PO 112 mcg DAILY@0700 ALIE Administration Metoprolol Tartrate 50 mg 11/08/17 14:00 Lopressor - PO TID ALIE Mupirocin 1 applic 11/05/17 22:00 11/08/17 09:50 Bactroban 2% Ointment - TP 1 applic BID ALIE Administration Prednisone 5 mg 11/05/17 10:00 11/08/17 09:50 Deltasone - PO 5 mg DAILY ALIE Administration Imaging -Echo 11/07: moderate cLVH, LV function normal; RV normal; BLAE; mild MR; moderate TR; pHTN; mild aortic stenosis AV area 1.4cm2; trace to mild AI; mild PI Assessment: 77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 Plan: 1. Atrial fibrillation with RVR, with prolonged QtC - s/p cardioversion 11/07, unsuccessful - Do not start antiarrhythmics per cards and outpt primary cardiology - Increase lopressor TID, stop XL, monitor response - Outpt eval for ablation - Continue Eliquis - Cards seeing 2. Hypothyroidism s/p thyroid cancer s/p thyroidectomy - Continue synthroid 112mcg - TSH wnl 3. CAD - With history of demand ischemia in context of paroxysmal afib with RVR - Trops flat 4. Acute on chronic diastolic heart failure - Resolving - Lasix prn 5. Hemoglobinemia, resolved 6. Rheumatoid arthritis - Continue daily low-dose prednisone 7. DVT prophylaxis: - On Eliquis Dispo: continues to require inpatient care. Full code. Visit type - Emergency Visit Emergency Visit: Yes ED Registration Date: 11/04/17 Care time: The patient presented to the Emergency Department on the above date and was hospitalized for further evaluation of their emergent condition. - New Patient This patient is new to me today: Yes Date on this admission: 11/08/17 - Critical Care Critical Care patient: No
[2017-11-08] MEDS: METOPROLOL TARTRATE 50 MG TABLET (FP) PO SCH ×2 (14:10→21:35)
[2017-11-09 05:50] VITALS: TEMP 98
[2017-11-09] MEDS: LEVOTHYROXINE NA 112 MCG TABLET (FP) PO SCH ×2 (05:51→06:19)
[2017-11-09] MEDS: METOPROLOL TARTRATE 50 MG TABLET (FP) PO SCH (05:51)
[2017-11-09] MEDS: MUPIROCIN 2% TOPICAL OINTMENT 22 GM TUBE TP SCH (09:34)
[2017-11-09] MEDS: predniSONE 5 MG TABLET (UD) PO SCH (09:36)
[2017-11-09] MEDS: APIXABAN 5 MG TABLET PO SCH (09:36)
--- NOTE | 2017-11-09 09:55 | PN ---
Progress Note, Physician History of Present Illness: No chest pain, dyspnea, palpitations, near or true syncope, afib with improved rate-control, DCCV unsuccessful. - Current Medication List Current Medications: Active Medications Acetaminophen (Tylenol -) 650 mg PO Q6H PRN PRN Reason: PAIN LEVEL 1 - 3 Last Admin: 11/05/17 18:48 Dose: 650 mg Apixaban (Eliquis -) 5 mg PO BID [facility] Last Admin: 11/09/17 09:36 Dose: 5 mg Levothyroxine Sodium (Synthroid -) 112 mcg PO DAILY@0700 [facility] Last Admin: 11/09/17 06:19 Dose: Not Given Metoprolol Tartrate (Lopressor -) 50 mg PO TID [facility] Last Admin: 11/09/17 05:51 Dose: 50 mg Mupirocin (Bactroban 2% Ointment -) 1 applic TP BID [facility] Last Admin: 11/09/17 09:34 Dose: 1 applic Prednisone (Deltasone -) 5 mg PO DAILY [facility] Last Admin: 11/09/17 09:36 Dose: 5 mg - Objective Vital Signs: Vital Signs Temperature 98.0 F 11/09/17 05:49 Pulse Rate 94 H 11/09/17 05:49 Respiratory Rate 20 11/09/17 05:49 Blood Pressure 131/85 11/09/17 05:49 O2 Sat by Pulse Oximetry (%) 96 11/09/17 08:35 Constitutional: Yes: No Distress, Calm, Thin Neck: Yes: Supple Cardiovascular: Yes: Pulse Irregular Respiratory: Yes: Regular, CTA Bilaterally Gastrointestinal: Yes: Normal Bowel Sounds, Soft Edema: No Labs: CBC, BMP 11/08/17 05:30 11/08/17 05:30 INR, PTT INR 1.68 (0.82-1.09) H 11/04/17 10:46 - ....Imaging EKG: Report Reviewed (Tele: Afib with episodes of RVR) Problem List - Problems (1) Atrial fibrillation with rapid ventricular response Code(s): I48.91 - UNSPECIFIED ATRIAL FIBRILLATION (2) HTN (hypertension) Code(s): I10 - ESSENTIAL (PRIMARY) HYPERTENSION Qualifiers: Hypertension type: essential hypertension Qualified Code(s): I10 - Essential (primary) hypertension (3) Hypothyroidism Code(s): E03.9 - HYPOTHYROIDISM, UNSPECIFIED Qualifiers: Hypothyroidism type: unspecified Qualified Code(s): E03.9 - Hypothyroidism , unspecified (4) Left ventricular hypertrophy due to hypertensive disease Code(s): I11.9 - HYPERTENSIVE HEART DISEASE WITHOUT HEART FAILURE Qualifiers: Heart failure presence: without heart failure Qualified Code(s): I11.9 - Hypertensive heart disease without heart failure (5) Raynauds phenomenon Code(s): I73.00 - RAYNAUD'S SYNDROME WITHOUT GANGRENE Qualifiers: Raynaud?s-associated gangrene presence: without gangrene Qualified Code(s) : I73.00 - Raynaud's syndrome without gangrene (6) Rheumatoid arthritis Code(s): M06.9 - RHEUMATOID ARTHRITIS, UNSPECIFIED Qualifiers: Rheumatoid arthritis location: unspecified site Assessment/Plan Echocardiography dated 11/07/2017 Normal biventricular size and fxn, mild LAE, mod KRYSTYNA, mild MR, mild MARGUERITE 1.4 cm^2, MG 10 mmHg, mild CO, tr-mild AR Echocardiography dated 05/21/2016 revealed normal LV size and function, mild bi- atrial dilatation, mild MR and moderate TR 1. Persistent atrial fibrillation [id number] score of 5 on DOAC's/Eliquis, recurrent arrhythmia post cardioversion 2. CAD with history of demand ischemia in context of paroxysmal atrial fibrillation with rapid ventricular response (May of 2016) 3. Diastolic LV dysfunction with class 0 NYHA classification LV failure 4. HTN/HCVD 5. MV prolapse syndrome 6. Hypothyroidism 7. History of rheumatoid arthritis 8. History of Raynaud's phenomenon PLAN: 1. Avoid antiarrhythmics at this point in view of baseline prolonged QTc interval, as per above discussion with her primary craft recruiter 2. Continue DOAC's/Eliquis indefinitely considering the above noted [id number] score of 5 with close monitoring of CBC 3. Increased Lopressor 50 tid to assist with rate control and D/C home 4. Outpatient referral for PVI/RFA, evaluation can be performed as outpatient with her craft recruiter at [facility] with Dr. Piotr Moran to assess adequacy of rate-control Discussed in detail with the patient
[2017-11-09 10:13] VITALS: BP 115/60; PULSE 89
--- NOTE | 2017-11-09 10:39 | DS ---
Physical Exam: SUBJECTIVE: Patient seen and examined OBJECTIVE: Vital Signs Period Temp Pulse Resp BP Sys/Magallon Pulse Ox Last 24 Hr 97.3 F-98.0 F 89-107 19-20 99-138/60-85 96-98 PHYSICAL EXAM GENERAL: The patient is awake, alert, and fully oriented, in no acute distress. HEAD: Normal with no signs of trauma. EYES: PERRL, extraocular movements intact, sclera anicteric, conjunctiva clear. ENT: Ears normal, nares patent, oropharynx clear without exudates, moist mucous membranes. NECK: Trachea midline, full range of motion, supple. LUNGS: Breath sounds equal, clear to auscultation bilaterally, no wheezes, no crackles, no accessory muscle use. HEART: Regular rate and rhythm, S1, S2 without murmur, rub or gallop. ABDOMEN: Soft, nontender, nondistended, normoactive bowel sounds, no guarding, no rebound, no hepatosplenomegaly, no masses. EXTREMITIES: 2+ pulses, warm, well-perfused, no edema. NEUROLOGICAL: Cranial nerves II through XII grossly intact. Normal speech, gait not observed. PSYCH: Normal mood, normal affect. SKIN: Warm, dry, normal turgor, no rashes or lesions noted. LABS HOSPITAL COURSE: Date of Admission:11/05/17 Date of Discharge: 11/09/17 Discharge Summary Reason For Visit: ACUTE ON CHRONIC CHF,ELEVATED TROPONIN Current Active Problems Atrial fibrillation with rapid ventricular response (Acute) CHF exacerbation (Acute) Troponin level elevated (Acute) Condition: Stable - Instructions Diet, Activity, Other Instructions: Please return to the ED for any new, persistent, or worsening symptoms. Follow up with your PCP in 1 week Resume home meds as directed, note change: Lopressor 50mg TID, stop toprol XL Follow up with Dr. Moran in 1 week Referrals: Piotr Moran [Non Staff, Medical] - Disposition: HOME - Home Medications Comprehensive Discharge Medication List: Ambulatory Orders Apixaban [Eliquis] 5 mg PO BID 05/20/16 Prednisone 5 mg PO DAILY #10 tablet 07/13/17 Levothyroxine Sodium [Synthroid] 112 mcg PO DAILY 11/05/17 Metoprolol Tartrate [Lopressor -] 50 mg PO TID #90 tablet 11/09/17
== END 2017-11-09 11:00 | disposition home or self-care (01) | DRG 308 ==
LOC: JER 09:46 → JERBED 15:45 → J4W 18:06 → OBSVTOIN 11-05 07:00
PROVIDERS: ADMIT Internal Medicine; ATTEND Nurse Practitioner Acute Care
PROC: 5A2204Z Restoration of Cardiac Rhythm, Single (ICD-10-PCS; principal; 2017-11-07 13:15)
DX: I48.1 Persistent atrial fibrillation (principal); I50.33 Acute on chronic diastolic (congestive) heart failure; D59.9 Acquired hemolytic anemia, unspecified; E03.9 Hypothyroidism, unspecified; I25.10 Atherosclerotic heart disease of native coronary artery without angina pectoris; I11.0 Hypertensive heart disease with heart failure; R00.0 Tachycardia, unspecified; I34.1 Nonrheumatic mitral (valve) prolapse; I73.00 Raynaud's syndrome without gangrene; M06.9 Rheumatoid arthritis, unspecified; Z96.653 Presence of artificial knee joint, bilateral; Z85.850 Personal history of malignant neoplasm of thyroid; Z85.42 Personal history of malignant neoplasm of other parts of uterus
CPT/HCPCS: 36415; 71045-TC-FY; 80053; 82550; 83735; 83880; 84443; 84484; 85025; 85610; 86850; 86900; 86901; 93005; 93010; 93306-TC; 99283-25; G0378; J7030

== ENCOUNTER 2018-03-01 15:12 | Emergency (ER) | payer OTHER, MEDICARE ==
[2018-03-01 15:30] VITALS: BP 129/72; PULSE 86; TEMP 97.7; BMI 25.4
--- NOTE | 2018-03-01 15:48 | PDOC ---
History of Present Illness - General Chief Complaint: Pain Stated Complaint: SWOLLEN LEGS Time Seen by Provider: 03/01/18 15:48 History Source: Patient Exam Limitations: No Limitations - History of Present Illness Initial Comments: 03/01/18 16:03 78 year old female with PMH HTN, RA, atrial fibrillation on Eliquis, diastolic CHF, hypothyroidism, thyroid cancer s/p thyroidectomy, uterine cancer s/p ROSALEE, femur fracture with reji replacement, b/l knee replacement, bilateral lower extremity vein ligation presents to ED for bilateral lower extremity redness/ swelling x1 day and right knee pain x1 week. She states that she fell x1 week ago and x1.5 weeks ago, reporting that she "tripped and fell" onto her right knee, denies chest pain, shortness of breath, palpitations or any other prodromal symptoms. She denies head injury or LOC. She denies fever, chills, nausea, vomiting, abdominal pain, diarrhea, chest pain, shortness of breath, palpitations, weakness, numbness, tingling. Pt states she is able to walk with a walker and bear weight. PCP - Ruth Allergies - Naproxen Past History - Past Medical History Allergies/Adverse Reactions: Allergies Allergy/AdvReac Type Severity Reaction Status Date / Time naproxen [From Naprosyn] Allergy Intermediate Swelling Verified 11/04/17 09:48 Home Medications: Ambulatory Orders Apixaban [Eliquis] 5 mg PO BID 05/20/16 Prednisone 5 mg PO DAILY #10 tablet 07/13/17 Levothyroxine Sodium [Synthroid] 125 mcg PO DAILY 11/05/17 Acetaminophen W/ Codeine #3 [Tylenol # 3] 1 combo PO Q6H PRN #14 tablet MDD 3 Diltiazem [Cardizem -] 50 mg PO BID 03/01/18 Gentamicin 0.1% Ointment [Garamycin 0.1% Ointment -] 1 applic TP TID #1 tube Metoprolol Tartrate [Lopressor -] 50 mg PO BID 03/01/18 Anemia: No Asthma: No Cancer: Yes (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) Cardiac Disorders: Yes (AFIB,cardioversion) CVA: No COPD: No CHF: No Dementia: No Diabetes: No GI Disorders: No HTN: Yes Hypercholesterolemia: No Liver Disease: No Seizures: No Thyroid Disease: Yes - Surgical History Orthopedic Surgery: Yes (CANDIE KNEE REPLACEMENT WITH FEMUR REJI LEFT) - Suicide/Smoking/Psychosocial Hx Smoking History: Never smoked Have you smoked in the past 12 months: No Information on smoking cessation initiated: No Hx Alcohol Use: No Drug/Substance Use Hx: No Substance Use Type: None Hx Substance Use Treatment: No Review of Systems - Review of Systems Able to Perform ROS?: Yes Comments:: 03/01/18 16:13 General: denies fever, chills, night sweats, generalized weakness. HEENT: denies sore throat, rhinorrhea, ear pain. Heart: denies chest pain, palpitations, syncope, diaphoresis. Respiratory: denies shortness of breath, cough, sputum production, hemoptysis. Abdomen: denies abdominal pain, nausea, vomiting, diarrhea, constipation, blood in stool. : denies dysuria, increased urinary frequency, hematuria, urinary incontinence , flank pain. Back: denies back pain. Musculoskeletal: admits to lower extremity pain and swelling. admit to right knee pain. Neurological: denies headache, dizziness, numbness, tingling, weakness. Skin: admits to lower extremity erythema. denies laceration. *Physical Exam - Vital Signs Last Vital Signs Temp Pulse Resp BP Pulse Ox 97.7 F 86 20 129/72 99 03/01/18 15:27 03/01/18 15:27 03/01/18 15:27 03/01/18 15:27 03/01/18 15:27 - Physical Exam Comments: 03/01/18 16:13 Constitutional: Well-nourished, Well-developed, appearing stated age. HEENT: head is normocephalic, atraumatic. EOMI. PERRLA. Neck: supple. Full ROM. Heart: regular rhythm. no murmurs, rubs or gallops. Lungs: clear to auscultation bilaterally. no crackles, rhonchi or wheezing. no stridor. Abdomen: soft, nontender. normal bowel sounds. no rebound, guarding, masses. Extremities: Peripheral pulses intact. 2+ pitting edema to RLE to the trevino, weeping, ulcerations to anterior trevino. chronic stasis dermatitis to LLE. swelling to right knee. abrasion superior to right knee. Neurological: CN 2-12 grossly intact. Moves all four extremities. Psych: awake, alert, oriented x3. Follows commands. Answers questions appropriately. ED Treatment Course - LABORATORY CBC & Chemistry Diagram: 03/01/18 17:08 03/01/18 17:08 Medical Decision Making - Medical Decision Making 03/01/18 16:12 78 year old female with PMH HTN, atrial fibrillation on Eliquis, diastolic CHF, hypothyroidism, thyroid cancer s/p thyroidectomy, uterine cancer s/p ROSALEE, femur fracture with reji replacement, b/l knee replacement, bilateral lower extremity vein ligation presents to ED for bilateral lower extremity redness/swelling x1 day. Initial Vital Signs Temp Pulse Resp BP Pulse Ox 97.7 F 86 20 129/72 99 03/01/18 15:27 03/01/18 15:27 03/01/18 15:27 03/01/18 15:27 03/01/18 15:27 Afebrile. No tachycardia. No tachypnea. No hypotension. No hypoxia on room air. Concern for DVT, cellulitis, SIRS - Pending CBC, CMP, Doppler US, coags Concern for fracture - Pending right knee XR 03/01/18 17:40 CBC WBC 9.7 K/mm3 (4.0-10.0) 03/01/18 17:08 RBC 4.81 M/mm3 (3.60-5.2) 03/01/18 17:08 Hgb 14.1 GM/dL (10.7-15.3) 03/01/18 17:08 Hct 44.6 % (32.4-45.2) 03/01/18 17:08 MCV 92.6 fl (80-96) 03/01/18 17:08 MCH 29.3 pg (25.7-33.7) 03/01/18 17:08 MCHC 31.6 g/dl (32.0-36.0) L 03/01/18 17:08 RDW 15.5 % (11.6-15.6) 03/01/18 17:08 Plt Count 374 K/MM3 (134-434) 03/01/18 17:08 MPV 7.7 fl (7.5-11.1) 03/01/18 17:08 Absolute Neuts (auto) 7.7 K/mm3 (1.5-8.0) 03/01/18 17:08 Neutrophils % 79.5 % (42.8-82.8) 03/01/18 17:08 Lymphocytes % 6.9 % (8-40) L D 03/01/18 17:08 Monocytes % 12.0 % (3.8-10.2) H 03/01/18 17:08 Eosinophils % 0.9 % (0-4.5) 03/01/18 17:08 Basophils % 0.7 % (0-2.0) 03/01/18 17:08 Nucleated RBC % 0 % (0-0) 03/01/18 17:08 No leukocytosis. No anemia. No thrombocytopenia. CMP Sodium 141 mmol/L (136-145) 03/01/18 17:08 Potassium 3.9 mmol/L (3.5-5.1) 03/01/18 17:08 Chloride 107 mmol/L (98-107) 03/01/18 17:08 Carbon Dioxide 26 mmol/L (21-32) 03/01/18 17:08 Anion Gap 8 MMOL/L (8-16) 03/01/18 17:08 BUN 16 mg/dL (7-18) 03/01/18 17:08 Creatinine 0.8 mg/dL (0.55-1.3) 03/01/18 17:08 Creat Clearance w eGFR > 60 (>60) 03/01/18 17:08 Random Glucose 76 mg/dL (74-106) 03/01/18 17:08 Calcium 9.7 mg/dL (8.5-10.1) 03/01/18 17:08 Total Bilirubin 1.4 mg/dL (0.2-1) H 03/01/18 17:08 AST 38 U/L (15-37) H 03/01/18 17:08 ALT 35 U/L (13-61) 03/01/18 17:08 Alkaline Phosphatase 131 U/L (45-117) H 03/01/18 17:08 Total Protein 7.2 g/dl (6.4-8.2) 03/01/18 17:08 Albumin 3.5 g/dl (3.4-5.0) 03/01/18 17:08 No electrolyte abnormalities. No acute kidney injury. INR, PTT INR 1.92 (0.83-1.09) H 03/01/18 17:08 03/01/18 18:12 Right knee XR - S/P total knee replacement with no evidence of fracture or acute pathology. 03/01/18 20:04 Duplex report B/L - hematoma in left calf. no DVT bilaterally. Pt will be discharged with Gentamicin cream prescription, Tylenol with Codeine prescription, return precautions, and follow up instructions. I spoke with the patient about the plan for care, with which she agrees. Pt requests to be discharged. *DC/Admit/Observation/Transfer Diagnosis at time of Disposition: Leg edema - Discharge Dispostion Disposition: HOME Condition at time of disposition: Stable Decision to Admit order: No - Prescriptions Prescriptions: Acetaminophen W/ Codeine #3 [Tylenol # 3] 1 combo PO Q6H PRN #14 tablet MDD 3 PRN Reason: Pain Gentamicin 0.1% Ointment [Garamycin 0.1% Ointment -] 1 applic TP TID #1 tube - Referrals Referrals: Piotr Moran [Primary Care Provider] - - Patient Instructions Additional Instructions: You were seen today for leg swelling. Your blood work was normal, other than decreased clotting in your blood, which is normal if you are taking Eliquis. Your knee X-ray showed no fracture. I have included a copy of the report in your discharge paperwork. Your Ultrasound showed a fluid collection that could be a hematoma (blood collection) in your left calf, you do not have a blood clot in your leg at this time. I have included a copy of the report in your discharge paperwork. I have sent a prescription for an antibiotic cream to your pharmacy. Take as advised on label. I have sent a prescription for a pain medication to your pharmacy. Take as advised on label. Follow up with your primary care doctor within 2 days. Call their office tomorrow morning and make an appointment for the earliest available. Your care is not complete until you follow up. Bring the paperwork given to you today with you to your appointment. Return to the Emergency Department for chest pain, palpitations, shortness of breath, coughing up blood, fever, chills, nausea, vomiting, abdominal pain, increasing pain, inability to bear weight or any other new, worsening or concerning symptoms. - Post Discharge Activity
--- NOTE | 2018-03-01 16:17 | PDOC ---
Attending Attestation - HPI HPI: 03/01/18 16:03 This patient is a 78 year old female with PMHx of HTN, atrial fibrillation on Eliquis, diastolic CHF, hypothyroidism, thyroid cancer s/p thyroidectomy, uterine cancer s/p ROSALEE, femur fracture with kishore replacement, b/l knee replacement, b/l LE vein ligation, who presents to the ED for b/l LE redness/ swelling x1 day and right knee pain x1 week. She states that she fell x1 week ago and x1.5 weeks ago, reporting that she "tripped and fell" onto her right knee. Pt normally ambulates w/ walker and is able to bear weight. She denies chest pain, shortness of breath, palpitations. She denies head trauma or LOC. She denies fever, chills, nausea, vomiting, abdominal pain, diarrhea, weakness, numbness, or tingling. PCP - Ruth Allergies - Naproxen <Patricia Parsons - Last Filed: 03/01/18 16:55> - Resident Resident Name: Yessi Gill - ED Attending Attestation I have performed the following: I have examined & evaluated the patient, The case was reviewed & discussed with the resident, I agree w/resident's findings & plan, Exceptions are as noted - Physicial Exam PE: 03/01/18 18:10 Patient is awake and alert, well-nourished, ambulates without assistance of a cane Normocephalic and atraumatic PERRLA, EOMI CTA Irregularly irregular Pelvis stable Right lower extremity: Extensive suprapatellar ecchymosis and soft tissue swelling, with mild bilateral tenderness to palpation; extensor mechanism is intact; there is no laxity with valgus/varus; Phil's is negative; +3 pitting edema to the pretibial area with several small shallow ulcerations draining clear fluid; dorsalis pedis is +2; left lower extremity: + Minimal soft tissue swelling to the lateral aspect of the lower leg (likely representing subcutaneous hematoma); + hyperpigmentation to the pretibial area consistent with venous stasis dermatitis; dorsalis pedis is +2; + noted are well-healed anterior scars to both knee joints consistent with total knee replacements bilaterally; - Medical Decision Making 03/01/18 18:14 78-year-old female with history of rheumatoid arthritis, atrial fibrillation Melquist, bilateral knee replacements, bilateral vein stripping presents with bilateral leg swelling with ecchymoses and right lower extremity ulcerations draining clear fluid. I suspect traumatic injuries. No evidence of cellulitis at this time. Will obtain right knee x-ray to rule out fracture/dislocation; we' ll rule out DVT with Doppler ultrasound. Will treat ulcerative lesions with topical gentamicin; we will advise compression stockings and leg elevation. Will discharge with pain meds with or so and PMD follow-up. <Sang Evans - Last Filed: 03/01/18 18:15>
[2018-03-01 17:17] LABS: BASO % 0.7 % (0-2.0); EOS % 0.9 % (0-4.5); HEMATOCRIT 44.6 % (32.4-45.2); HEMOGLOBIN 14.1 GM/dL (10.7-15.3); LYMPH % 6.9 % (8-40); MCH 29.3 pg (25.7-33.7); MCHC 31.6 g/dl (32.0-36.0); MEAN CELL VOLUME 92.6 fl (80-96); MEAN PLT VOLUME 7.7 fl (7.5-11.1); NEUT % 79.5 % (42.8-82.8); PLATELET COUNT 374 K/MM3 (134-434); RBC 4.81 M/mm3 (3.60-5.2); RDW 15.5 % (11.6-15.6); WHITE BLOOD COUNT 9.7 K/mm3 (4.0-10.0)
[2018-03-01 17:30] LABS: INR 1.92 (0.83-1.09); PROTHROMBIN TIME (PATIENT) 22.8 SEC (9.7-13.0)
[2018-03-01 17:32] LABS: ACTIVATED PTT 43.5 SECONDS (25.2-36.5)
[2018-03-01 17:45] LABS: ALBUMIN 3.5 g/dl (3.4-5.0); ALK PHOS 131 U/L (45-117); ANION GAP 8 MMOL/L (8-16); BILIRUBIN,TOTAL 1.4 mg/dL (0.2-1); BLOOD UREA NITROGEN 16 mg/dL (7-18); CALCIUM 9.7 mg/dL (8.5-10.1); CHLORIDE 107 mmol/L (98-107); CO2 26 mmol/L (21-32); CREATININE 0.8 mg/dL (0.55-1.3); GLUCOSE,RANDOM 76 mg/dL (74-106); POTASSIUM 3.9 mmol/L (3.5-5.1); SGOT/AST 38 U/L (15-37); SGPT/ALT 35 U/L (13-61); SODIUM 141 mmol/L (136-145); TOT PROT 7.2 g/dl (6.4-8.2)
== END 2018-03-01 20:15 | disposition home or self-care (01) ==
LOC: JER 15:12
DX: R60.0 Localized edema (principal); S80.12XA Contusion of left lower leg, initial encounter; W01.0XXA Fall on same level from slipping, tripping and stumbling without subsequent striking against object, initial encounter; Y93.89 Activity, other specified; Y92.89 Other specified places as the place of occurrence of the external cause; Y99.8 Other external cause status; I48.91 Unspecified atrial fibrillation; Z79.01 Long term (current) use of anticoagulants; I10 Essential (primary) hypertension; M06.80 Other specified rheumatoid arthritis, unspecified site; I50.30 Unspecified diastolic (congestive) heart failure; L97.921 Non-pressure chronic ulcer of unspecified part of left lower leg limited to breakdown of skin; I87.2 Venous insufficiency (chronic) (peripheral); Z85.42 Personal history of malignant neoplasm of other parts of uterus; Z85.850 Personal history of malignant neoplasm of thyroid; Z90.710 Acquired absence of both cervix and uterus; E89.0 Postprocedural hypothyroidism; Z96.653 Presence of artificial knee joint, bilateral
CPT/HCPCS: 36415; 73560-TC-RT-FY; 80053; 85025; 85610; 85730; 93970-TC; 99284-25

== ENCOUNTER 2018-05-04 07:20 | Inpatient (IN) | payer OTHER, MEDICARE ==
[2018-05-04 08:33] LABS: INR 2.05 (0.83-1.09); PROTHROMBIN TIME (PATIENT) 24.4 SEC (9.7-13.0)
[2018-05-04 08:35] LABS: BASO % 0.9 % (0-2.0); EOS % 3.7 % (0-4.5); HEMATOCRIT 42.5 % (32.4-45.2); HEMOGLOBIN 14.2 GM/dL (10.7-15.3); LYMPH % 6.2 % (8-40); MCHC 33.4 g/dl (32.0-36.0); MEAN CELL VOLUME 89.9 fl (80-96); MEAN PLT VOLUME 8.1 fl (7.5-11.1); MONO % 11.1 % (3.8-10.2); NEUT % 78.1 % (42.8-82.8); PLATELET COUNT 355 K/MM3 (134-434); RBC 4.73 M/mm3 (3.60-5.2); RDW 16.4 % (11.6-15.6); WHITE BLOOD COUNT 9.2 K/mm3 (4.0-10.0)
--- NOTE | 2018-05-04 08:39 | PDOC ---
History of Present Illness - General Chief Complaint: Shortness of Breath Stated Complaint: DIFFICULTY BREATHIN,SWELLING HANDS & FEET Time Seen by Provider: 05/04/18 07:40 History Source: Patient Exam Limitations: No Limitations - History of Present Illness Initial Comments: 05/04/18 08:08 78-year-old female presents to ED with worsening shortness of breath since yesterday evening while at rest now also complaining of left upper extremity edema to her hand without weakness, skin discoloration, or sensory changes to area. Patient states is on Eliquis for A. fib and denies any chest pain, palpitations, nausea, or dizziness. Patient denies cough, fever, chills, abdominal pain, urinary complaints, recent injury, recent travel, or recent surgery. Patient does state he has chronic venous stasis ulcers to her lower extremities and goes to wound care weekly. Patient states no recent change in medication. Timing/Duration: getting worse Severity: moderate Associated Symptoms: reports: shortness of breath Past History - Travel Traveled outside of the country in the last 30 days: No - Past Medical History Allergies/Adverse Reactions: Allergies Allergy/AdvReac Type Severity Reaction Status Date / Time naproxen [From Naprosyn] Allergy Intermediate Swelling Verified 05/04/18 07:59 Home Medications: Ambulatory Orders Apixaban [Eliquis] 5 mg PO BID 05/20/16 Prednisone 5 mg PO DAILY #10 tablet 07/13/17 Levothyroxine Sodium [Synthroid] 125 mcg PO DAILY 11/05/17 Diltiazem [Cardizem -] 120 mg PO DAILY 03/01/18 Metoprolol Tartrate [Lopressor -] 50 mg PO DAILY 03/01/18 Furosemide [Lasix] 1 tab PO Q2D 04/05/18 Anemia: No Asthma: No Cancer: Yes (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) Cardiac Disorders: Yes (AFIB,cardioversion x2) CVA: No COPD: No CHF: No Dementia: No Diabetes: No GI Disorders: No HTN: Yes Hypercholesterolemia: No Liver Disease: No Seizures: No Thyroid Disease: Yes - Surgical History Orthopedic Surgery: Yes (CANDIE KNEE REPLACEMENT WITH FEMUR REJI LEFT) - Immunization History Immunization Up to Date: Yes - Suicide/Smoking/Psychosocial Hx Smoking History: Never smoked Have you smoked in the past 12 months: No Information on smoking cessation initiated: No Hx Alcohol Use: No Drug/Substance Use Hx: No Substance Use Type: None Hx Substance Use Treatment: No Patient Lives Alone: Yes Review of Systems - Review of Systems Able to Perform ROS?: Yes Constitutional: No: Symptoms Reported HEENTM: No: Symptoms Reported Respiratory: Yes: Shortness of Breath. No: Cough, Orthopnea Cardiac (ROS): Yes: Edema (lue) ABD/GI: No: Symptoms Reported : No: Symptoms Reported Musculoskeletal: No: Symptoms Reported Integumentary: No: Symptoms Reported Neurological: No: Symptoms reported *Physical Exam - Vital Signs Last Vital Signs Temp Pulse Resp BP Pulse Ox 97.4 F L 103 H 20 134/98 98 05/04/18 07:29 05/04/18 07:29 05/04/18 07:29 05/04/18 07:29 05/04/18 07:29 - Physical Exam General Appearance: Yes: Nourished, Appropriately Dressed. No: Apparent Distress HEENT: negative: Pale Conjunctivae Neck: positive: Supple Respiratory/Chest: positive: Lungs Clear, Normal Breath Sounds. negative: Respiratory Distress, Accessory Muscle Use Cardiovascular: positive: Regular Rhythm, Regular Rate. negative: Murmur Gastrointestinal/Abdominal: positive: Soft. negative: Tenderness Integumentary: positive: Warm, Moist, Swelling (2+ pitting edema to dorsal aspect of left hand and to fingers), Other (dressing noted to lle distal of patella) Neurologic: positive: Motor Strength 5/5 (ambulatory) Moderate Sedation - Procedure Monitoring Vital Signs: Procedure Monitoring Vital Signs Temperature 97.4 F L 05/04/18 07:29 Pulse Rate 103 H 05/04/18 07:29 Respiratory Rate 20 05/04/18 07:29 Blood Pressure 134/98 05/04/18 07:29 O2 Sat by Pulse Oximetry (%) 98 05/04/18 07:29 Heart Score/ECG Review - ECG Intrepretation Rhythm: Regular Rhythm (rate 97, A. fib incomplete RBBB , prolonged QT, inverted T waves lateral leads unchanged from October 2017) ED Treatment Course - LABORATORY CBC & Chemistry Diagram: 05/04/18 08:05 05/04/18 08:05 - ADDITIONAL ORDERS Additional order review: Laboratory Results 05/04/18 08:05 PT with INR 24.40 H INR 2.05 H - RADIOLOGY Radiology Studies Ordered: Category Date Time Status CHEST X-RAY PORTABLE* [RAD] Stat Radiology 05/04/18 07:43 Ordered DUPLEX VASCUL US-1 ARM [US] Stat Ultrasound 05/04/18 08:12 Ordered Medical Decision Making - Medical Decision Making 05/04/18 08:03 Chief complaint: Shortness of breath at rest and with exertion since yesterday worsening this a.m., left upper extremity swelling to the hand and fingers Exam: Rate 97 lungs clear to auscultation bilaterally. Pitting edema to left upper extremity without decrease warmth or skin discoloration Plan : labs, BNP, chest x-ray, EKG, urine, TSH, and duplex of the upper extremity 05/04/18 11:27 Laboratory Tests 05/04/18 05/04/18 05/04/18 08:05 08:05 08:05 WBC 9.2 Hgb 14.2 Hct 42.5 RDW 16.4 H Lymphocytes % 6.2 L Monocytes % 11.1 H PT with INR 24.40 H INR 2.05 H Sodium 143 Potassium 3.9 Chloride 108 H Carbon Dioxide 29 Anion Gap 7 L BUN 18 Creatinine 0.9 Creat Clearance w eGFR > 60 Random Glucose 145 H Calcium 9.6 Magnesium Total Bilirubin 1.0 AST 37 ALT 26 Alkaline Phosphatase 131 H Creatine Kinase 47 Troponin I 0.02 B-Natriuretic Peptide Total Protein 6.4 Albumin 3.2 L TSH 14.60 H 05/04/18 08:05 WBC Hgb Hct RDW Lymphocytes % Monocytes % PT with INR INR Sodium Potassium Chloride Carbon Dioxide Anion Gap BUN Creatinine Creat Clearance w eGFR Random Glucose Calcium Magnesium 2.0 Total Bilirubin AST ALT Alkaline Phosphatase Creatine Kinase Troponin I B-Natriuretic Peptide 5679.2 H Total Protein Albumin TSH Patient continues to complain of shortness of breath with minimal exertion. Will repeat chest x-ray to view the lateral and visualized an optimal PA view. Well-placed dramatic arts historian Dr. Weathers. Ultrasound of the left upper extremity shows no DVT or acute findings except for subcutaneous edema over the wrist and hand. Chest x-ray shows basilar atelectasis. Patient did not have complaints of cough, fever or chills and will treat for CHF. 05/04/18 12:[address] Chava ag and recommending 40 mg of Lasix IV and admit to telemetry. Patient's oxygen saturation was 98% prior to ambulation and after walking approximately 40 yards, patient's oxygen saturation was noted to be 94- 95% on room air. *DC/Admit/Observation/Transfer Diagnosis at time of Disposition: CHF exacerbation Qualifiers: Heart failure type: diastolic Qualified Code(s): I50.33 - Acute on chronic diastolic (congestive) heart failure - Discharge Dispostion Condition at time of disposition: Good Decision to Admit order: Yes - Referrals - Patient Instructions - Post Discharge Activity
[2018-05-04 08:48] LABS: ALBUMIN 3.2 g/dl (3.4-5.0); ALK PHOS 131 U/L (45-117); ANION GAP 7 MMOL/L (8-16); BLOOD UREA NITROGEN 18 mg/dL (7-18); CALCIUM 9.6 mg/dL (8.5-10.1); CHLORIDE 108 mmol/L (98-107); CO2 29 mmol/L (21-32); CREATININE 0.9 mg/dL (0.55-1.3); GLUCOSE,RANDOM 145 mg/dL (74-106); POTASSIUM 3.9 mmol/L (3.5-5.1); SGOT/AST 37 U/L (15-37); SGPT/ALT 26 U/L (13-61); SODIUM 143 mmol/L (136-145); TOT PROT 6.4 g/dl (6.4-8.2)
[2018-05-04 09:50] LABS: N-TERMINAL BNP 5679.2 pg/ml (5-450)
--- NOTE | 2018-05-04 12:02 | EKG ---
Test Reason : Blood Pressure : / mmHG Vent. Rate : 097 BPM Atrial Rate : 098 BPM P-R Int : 000 ms QRS Dur : 092 ms QT Int : 406 ms P-R-T Axes : 000 063 255 degrees QTc Int : 515 ms ATRIAL FIBRILLATION INCOMPLETE RIGHT BUNDLE BRANCH BLOCK SEPTAL INFARCT , AGE UNDETERMINED PROLONGED QT ABNORMAL ECG WHEN COMPARED WITH ECG OF 07-NOV-2017 14:41, ATRIAL FIBRILLATION HAS REPLACED SINUS RHYTHM INCOMPLETE RIGHT BUNDLE BRANCH BLOCK IS NOW PRESENT SEPTAL INFARCT IS NOW PRESENT T WAVE INVERSION NO LONGER EVIDENT IN ANTERIOR LEADS Confirmed by CHRIS CONROY MD ([id number]) on 05/04/2018 12:01:50 PM Referred By: Confirmed By:CHRIS CONROY MD
[2018-05-04] MEDS ORDERED: FUROSEMIDE 40 MG/4 ML INJECTABLE VIAL IVPUSH ONE ×2 (12:13→14:31)
[2018-05-04] MEDS ORDERED: FUROSEMIDE 40 MG/4 ML INJECTABLE VIAL ONE (12:57)
--- NOTE | 2018-05-04 13:20 | CON.CARD ---
Consult Consult Specialty:: Cardiology Referred by:: Emergency Medicine Reason for Consultation:: Dyspnea - History of Present Illness Chief Complaint: Dyspnea History of Present Illness: Patient is a 78 year old female with underlying history of permanent afib on Eliquis, RA and hypothyroidism, venous insufficiency who presents with HINTON and orthopnea without chest pain, palpitations, near or true syncope, palpitations, worsening of chronic bilateral LE edema, has chronic venous stasis ulcers treated by wound care weekly. Vascular US neg for DVT. - History Source History Provided By: Patient Limitations to Obtaining History: No Limitations - Past Medical History Cardio/Vascular: Yes: AFIB, HTN Rheumatology: Yes: Rheumatoid Arthritis Endocrine: Yes: Hypothyroidism - Past Surgical History Past Surgical History: Yes: Hysterectomy, Joint Replacement, Vein Stripping/ Ligation - Alcohol/Substance Use Hx Alcohol Use: No - Smoking History Smoking history: Never smoked Have you smoked in the past 12 months: No - Social History ADL: Independent Home Medications - Allergies Allergies/Adverse Reactions: Allergies Allergy/AdvReac Type Severity Reaction Status Date / Time naproxen [From Naprosyn] Allergy Intermediate Swelling Verified 05/04/18 07:59 - Home Medications Home Medications: Ambulatory Orders Apixaban [Eliquis] 5 mg PO BID 05/20/16 Prednisone 5 mg PO DAILY #10 tablet 07/13/17 Levothyroxine Sodium [Synthroid] 125 mcg PO DAILY 11/05/17 Diltiazem [Cardizem -] 120 mg PO DAILY 03/01/18 Metoprolol Tartrate [Lopressor -] 50 mg PO DAILY 03/01/18 Furosemide [Lasix] 1 tab PO Q2D 04/05/18 Review of Systems - Review of Systems Respiratory: reports: Orthopnea, SOB on Exertion Vital Signs: Vital Signs Temperature 97.1 F L 05/04/18 11:37 Pulse Rate 98 H 05/04/18 11:37 Respiratory Rate 19 05/04/18 11:37 Blood Pressure 125/83 05/04/18 11:37 O2 Sat by Pulse Oximetry (%) 95 05/04/18 11:37 Constitutional: Yes: No Distress, Calm Neck: Yes: Supple Respiratory: Yes: Regular, Diminished Gastrointestinal: Yes: Normal Bowel Sounds, Soft Cardiovascular: Yes: Regular Rate and Rhythm JVD: No Carotid Bruit: No Heart Sounds: Yes: S1, S2 Murmur: Yes: Systolic Murmur, Grade 2 Edema: Yes Edema: LLE: 1+, RLE: 1+ Integumentary: Yes: Venous Stasis Changes - Other Data Labs, Other Data: CBC, BMP 05/04/18 08:05 05/04/18 08:05 INR, PTT INR 2.05 (0.83-1.09) H 05/04/18 08:05 Troponin, BNP 05/04/18 05/04/18 08:05 08:05 Troponin I 0.02 B-Natriuretic Peptide 5679.2 H Troponin, BNP 05/04/18 05/04/18 08:05 08:05 Troponin I 0.02 B-Natriuretic Peptide 5679.2 H Afib @ 97 anterolateral TWI Echo: Report Reviewed Ejection Fraction %: LVEF > or = 40 % Imaging - Results Chest X-ray: Report Reviewed (Right effusion with compressive ATX, no congestion ) Problem List - Problems (1) Venous insufficiency of both lower extremities Code(s): I87.2 - VENOUS INSUFFICIENCY (CHRONIC) (PERIPHERAL) (2) Hypertensive cardiomegaly with heart failure Code(s): I11.0 - HYPERTENSIVE HEART DISEASE WITH HEART FAILURE (3) CHF exacerbation Code(s): I50.9 - HEART FAILURE, UNSPECIFIED Qualifiers: Heart failure type: diastolic Qualified Code(s): I50.33 - Acute on chronic diastolic (congestive) heart failure (4) Afib Code(s): I48.91 - UNSPECIFIED ATRIAL FIBRILLATION Qualifiers: Atrial fibrillation type: permanent Qualified Code(s): I48.2 - Chronic atrial fibrillation (5) HTN (hypertension) Code(s): I10 - ESSENTIAL (PRIMARY) HYPERTENSION Qualifiers: Hypertension type: essential hypertension Qualified Code(s): I10 - Essential (primary) hypertension (6) Hypothyroidism Code(s): E03.9 - HYPOTHYROIDISM, UNSPECIFIED Qualifiers: Hypothyroidism type: unspecified Qualified Code(s): E03.9 - Hypothyroidism , unspecified (7) Left ventricular hypertrophy due to hypertensive disease Code(s): I11.9 - HYPERTENSIVE HEART DISEASE WITHOUT HEART FAILURE Qualifiers: Heart failure presence: with heart failure Qualified Code(s): I11.0 - Hypertensive heart disease with heart failure (8) Leg edema Code(s): R60.0 - LOCALIZED EDEMA (9) Mitral valve prolapse Code(s): I34.1 - NONRHEUMATIC MITRAL (VALVE) PROLAPSE (10) Chronic anticoagulation Code(s): Z79.01 - [employer] (CURRENT) USE OF ANTICOAGULANTS Assessment/Plan Echocardiography dated 11/07/2017 Normal biventricular size and fxn, mild LAE, mod KRYSTYNA, mild MR, mild MARGUERITE 1.4 cm^2, MG 10 mmHg, mild NM, tr-mild AR Echocardiography dated 05/21/2016 revealed normal LV size and function, mild bi- atrial dilatation, mild MR and moderate TR Pharm stress 09/30 No ischemia 1. Permanent atrial fibrillation [id number] score of 5 on DOAC's/Eliquis, recurrent arrhythmia post cardioversion 2. CAD with history of demand ischemia in context of paroxysmal atrial fibrillation with rapid ventricular response (May of 2016) 3. Acute on chronic diastolic heart failure with mild 4. 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 Hypothyroidism 7. Venous insufficiency s/p GSV stripping with wound ulcer 8. History of rheumatoid arthritis 9. History of Raynaud's phenomenon PLAN: 1. IV diuresis with monitor diuretic response, renal function and electrolytes 2. Avoid antiarrhythmics in view of baseline prolonged QTc interval while on sotalol, as notes from primary hand salter 3. Continue DOAC's/Eliquis 5 bid indefinitely considering the above noted [id number] score of 5 with close monitoring of CBC 4. Increased Lopressor 50 bid and Cardizem CD 120 qd to assist with rate control 5. F/u as outpatient with her hand salter at [facility] with Dr. Piotr Moran once volume status improved 6. Thank you for consultative opportunity
--- NOTE | 2018-05-04 18:00 | HP ---
CHIEF COMPLAINT: PCP: Dr. Moran HISTORY OF PRESENT ILLNESS: 78 year old female with Hypothyroidism, Atrial Fibrillation (on Eliquis), MV Prolapse, RA, HTN, Chronic Diastolic CHF, Chronic venous stasis with stasis ulcers LEs, presents with 2 day history of increasing SOB, worse on minimal exertion with PND. Denies Orthopnea/CP/palpitations/cough/hemoptysis/fever/ chills. She has chronic LE edema sec to venous stasis s/p vein stripping/ ligation with chronic ulcers for which she attends wound care as an out-patient. She also reports left facial asymmetry which she has noted for several days along with left hand swelling and tenderness. No visual disturbance/headache. No limb numbness/weakness. No speech disturbance. PAST MEDICAL/SOCIAL HISTORY: Hypothyroidism Atrial Fibrillation (on Eliquis) MV Prolapse RA HTN Chronic Diastolic CHF Chronic venous stasis with stasis ulcers LEs s/p L Hand Surgery for unclear reason s/p Hysterectomy s/p Venin stripping/ligation b/l TKR s/p ORIF L femur Social History: Lives alone. Non-smoker. Denies alcohol use. 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 Mobilizes with cane. Family History: Reviewed and non-contributory. Allergies naproxen [From Naprosyn] Allergy (Intermediate, Verified 05/04/18 07:59) Swelling HOME MEDICATIONS: Home Medications Medication Instructions Recorded Apixaban [Eliquis] 5 mg PO BID 05/20/16 Prednisone 5 mg PO DAILY #10 tablet 07/13/17 Levothyroxine Sodium [Synthroid] 125 mcg PO DAILY 11/05/17 Diltiazem [Cardizem -] 120 mg PO DAILY 03/01/18 Metoprolol Tartrate [Lopressor -] 50 mg PO DAILY 03/01/18 Furosemide [Lasix] 1 tab PO Q2D 04/05/18 REVIEW OF SYSTEMS CONSTITUTIONAL: Absent: fever, chills, diaphoresis, generalized weakness, malaise HEENT: Absent: rhinorrhea, nasal congestion, throat pain, throat swelling, difficulty swallowing CARDIOVASCULAR: Absent: chest pain, syncope, palpitations, irregular heart rate, lightheadedness , peripheral edema RESPIRATORY: SOB on minimal exertion and PND as above. No cough/hemoptysis GASTROINTESTINAL: Absent: abdominal pain, abdominal distension, nausea, vomiting, diarrhea, constipation, melena, hematochezia GENITOURINARY: Absent: dysuria, frequency, urgency, hesitancy, hematuria MUSCULOSKELETAL: Absent: myalgia, arthralgia, joint swelling, back pain, neck pain ENDOCRINE: Absent: unexplained weight gain, unexplained weight loss, heat intolerance, cold intolerance NEUROLOGIC: Absent: headache, focal weakness or paresthesias, dizziness, unsteady gait, seizure, mental status changes, bladder or bowel incontinence. Reports Left facial asymmetry. No visual disturbance. PSYCHIATRIC: Absent: anxiety, depression, suicidal or homicidal ideation, hallucinations. PHYSICAL EXAMINATION Vital Signs - 24 hr 05/04/18 05/04/18 05/04/18 07:29 07:35 11:37 Temperature 97.4 F L 97.1 F L Pulse Rate 103 H Pulse Rate [ 98 H Right Radial] Respiratory 20 19 Rate Blood Pressure 134/98 Blood Pressure 125/83 [Left Arm] O2 Sat by Pulse 98 98 95 Oximetry (%) 05/04/18 15:21 Temperature 97.6 F Pulse Rate Pulse Rate [ 116 H Right Radial] Respiratory 16 Rate Blood Pressure Blood Pressure 123/93 [Left Arm] O2 Sat by Pulse 99 Oximetry (%) GENERAL: Awake, alert, and fully oriented, in no acute distress. HEAD: No pharyngeal erythema/exudate EYES: Pupils equal, round and reactive to light, extraocular movements intact, sclera anicteric, conjunctiva clear. NECK: Normal range of motion, supple without lymphadenopathy, JVD, or masses. LUNGS: Few basal crackles with decreased air entry R> L HEART: Irregular, soft SM ABDOMEN: Soft, nontender, not distended, normoactive bowel sounds, no guarding, no rebound. MUSCULOSKELETAL: Normal range of motion at all joints. No bony deformities or tenderness. No CVA tenderness. UPPER EXTREMITIES: Left hand swelling/mild tenderness. No erythema/warmth. LOWER EXTREMITIES: Extensive chronic venous stasis with dermatitis and ulcerations L>R - unable to fully examine as patient was laying in ED hallway with dressings applied. NEUROLOGICAL: Minimal L facial droop - UMN distribution. Tone/Power normal all 4 extremities. PSYCHIATRIC: Cooperative. Good eye contact. Appropriate mood and affect. Laboratory Results - last 24 hr 05/04/18 05/04/18 05/04/18 08:05 08:05 08:05 WBC 9.2 RBC 4.73 Hgb 14.2 Hct 42.5 MCV 89.9 MCH 30.0 MCHC 33.4 RDW 16.4 H Plt Count 355 MPV 8.1 Absolute Neuts (auto) 7.2 Neutrophils % 78.1 Lymphocytes % 6.2 L Monocytes % 11.1 H Eosinophils % 3.7 D Basophils % 0.9 Nucleated RBC % 0 PT with INR 24.40 H INR 2.05 H Sodium 143 Potassium 3.9 Chloride 108 H Carbon Dioxide 29 Anion Gap 7 L BUN 18 Creatinine 0.9 Creat Clearance w eGFR > 60 Random Glucose 145 H Calcium 9.6 Magnesium Total Bilirubin 1.0 AST 37 ALT 26 Alkaline Phosphatase 131 H Creatine Kinase 47 Troponin I 0.02 B-Natriuretic Peptide Total Protein 6.4 Albumin 3.2 L TSH 14.60 H 05/04/18 08:05 WBC RBC Hgb Hct MCV MCH MCHC RDW Plt Count MPV Absolute Neuts (auto) Neutrophils % Lymphocytes % Monocytes % Eosinophils % Basophils % Nucleated RBC % PT with INR INR Sodium Potassium Chloride Carbon Dioxide Anion Gap BUN Creatinine Creat Clearance w eGFR Random Glucose Calcium Magnesium 2.0 Total Bilirubin AST ALT Alkaline Phosphatase Creatine Kinase Troponin I B-Natriuretic Peptide 5679.2 H Total Protein Albumin TSH ECG - Atrial Fibrillation. Incomplete RBBB. CXR - findings suggestive of bilateral pleural effusions R>L with compressive atelectasis. Cardiomegaly. LUE Duplex - neg for DVT ASSESSMENT/PLAN: 78 year old female with Hypothyroidism, Atrial Fibrillation (on Eliquis), MV Prolapse, RA, HTN, Chronic Diastolic CHF, CAD, Chronic venous stasis with stasis ulcers LEs, presents with 2 day history of increasing SOB, worse on minimal exertion with PND. Denies Orthopnea/CP/palpitations/cough/hemoptysis/ fever/chills. She also complains of facial asymmetry and L hand swelling. No headache/visual disturbance/slurring of speech. No limb numbness/weakness. 1. Acute on Chronic Diastolic CHF Comfortable on RA, no respiratory distress. BNP 5679 CXR - b/l effusions R>L, Cardiomegaly. Echo 10/31 - Moderate concentric LVH, EF 55%, Mild Patient normally on Lasix q2days - will give 40mg daily. Cardiology following. 2. Atrial Fibrillation Rate controlled on Metoprolol and Diltiazem. Continue AC with Eliquis. 3. Hypothyroidism TSH 14.6 Will increase Levothyroxine from 88 mcg to 100mcg. 4. Mild L facial droop - UMN distribution - no other neurological deficits. CT Head to exclude CVA requested. 5. Rheumatoid Arthritis - Continue Prednisone. 6. Chronic Venous Stasis Dermatitis with LE venous ulcers - no signs of superimposed infection. Wound Care requested. 7. L hand swelling - no history of trauma. Patient has RA, unclear whether related. Venous Duplex neg for DVT. Hand Xray requested. 8. HTN - continue Diltiazem, Metoprolol. DVT Px - on Eliquis PT eval Follow up with [facility] with Dr. Piotr Moran on discharge. Visit type - Emergency Visit Emergency Visit: Yes ED Registration Date: 05/04/18 Care time: The patient presented to the Emergency Department on the above date and was hospitalized for further evaluation of their emergent condition. - New Patient This patient is new to me today: Yes Date on this admission: 05/04/18 - Critical Care Critical Care patient: No
[2018-05-04 22:51] VITALS: BMI 27.3
[2018-05-04] MEDS: METOPROLOL TARTRATE 50 MG TABLET (FP) PO SCH (22:54)
[2018-05-04] MEDS: APIXABAN 5 MG TABLET PO SCH (22:54)
[2018-05-05] MEDS ORDERED: LEVOTHYROXINE NA 125 MCG TABLET (FP) PO SCH ×2 (07:00)
[2018-05-05 07:21] LABS: BASO % 0.8 % (0-2.0); HEMATOCRIT 41.6 % (32.4-45.2); HEMOGLOBIN 13.7 GM/dL (10.7-15.3); LYMPH % 5.6 % (8-40); MCH 29.5 pg (25.7-33.7); MEAN CELL VOLUME 89.5 fl (80-96); MEAN PLT VOLUME 8.1 fl (7.5-11.1); MONO % 9.5 % (3.8-10.2); NEUT % 81.1 % (42.8-82.8); PLATELET COUNT 321 K/MM3 (134-434); RBC 4.65 M/mm3 (3.60-5.2); RDW 15.9 % (11.6-15.6); WHITE BLOOD COUNT 10.4 K/mm3 (4.0-10.0)
[2018-05-05 08:45] LABS: ANION GAP 10 MMOL/L (8-16); BLOOD UREA NITROGEN 20 mg/dL (7-18); CALCIUM 9.3 mg/dL (8.5-10.1); CHLORIDE 106 mmol/L (98-107); CO2 28 mmol/L (21-32); CREATININE 0.8 mg/dL (0.55-1.3); GLUCOSE,RANDOM 110 mg/dL (74-106); POTASSIUM 3.6 mmol/L (3.5-5.1); SODIUM 144 mmol/L (136-145)
[2018-05-05] MEDS ORDERED: LEVOTHYROXINE NA 75 MCG TABLET (FP) ONE (09:47)
[2018-05-05] MEDS ORDERED: LEVOTHYROXINE NA 100 MCG TABLET (FP) ONE (09:47)
[2018-05-05] MEDS ORDERED: METOPROLOL TARTRATE 50 MG TABLET (FP) PO SCH (10:00)
[2018-05-05] MEDS: LEVOTHYROXINE PO SCH (10:03)
[2018-05-05] MEDS: APIXABAN 5 MG TABLET PO SCH ×2 (10:05→22:08)
[2018-05-05] MEDS: FUROSEMIDE 40 MG/4 ML INJECTABLE VIAL IVPUSH SCH ×2 (10:05→12:32)
[2018-05-05] MEDS: predniSONE 5 MG TABLET (UD) PO SCH (10:05)
[2018-05-05] MEDS: METOPROLOL TARTRATE 50 MG TABLET (FP) PO SCH ×2 (10:06→22:08)
--- NOTE | 2018-05-05 10:16 | PN ---
Progress Note, Physician History of Present Illness: HINTON, LE edema and orthopnea improving with IV diuresis, remains in rapid afib. - Current Medication List Current Medications: Active Medications Apixaban (Eliquis -) 5 mg PO BID [facility] Last Admin: 05/05/18 10:05 Dose: 5 mg Diltiazem HCl (Cardizem Cd -) 120 mg PO DAILY [facility] Last Admin: 05/05/18 10:05 Dose: 120 mg Furosemide (Lasix Injection -) 40 mg IVPUSH DAILY [facility] Last Admin: 05/05/18 10:05 Dose: Not Given Levothyroxine Sodium 37.5 mcg/ (Levothyroxine Sodium 100 mcg) 137.5 mcg PO DAILY@0700 [facility] Last Admin: 05/05/18 10:03 Dose: 137.5 mcg Metoprolol Tartrate (Lopressor -) 50 mg PO BID [facility] Last Admin: 05/05/18 10:06 Dose: 50 mg Prednisone (Deltasone -) 5 mg PO DAILY [facility] Last Admin: 05/05/18 10:05 Dose: 5 mg - Objective Vital Signs: Vital Signs Temperature 97.7 F 05/05/18 02:00 Pulse Rate 108 H 05/05/18 02:00 Respiratory Rate 16 05/04/18 21:00 Blood Pressure 111/65 05/05/18 02:00 O2 Sat by Pulse Oximetry (%) 98 05/04/18 22:44 Constitutional: Yes: No Distress, Calm Neck: Yes: Supple Cardiovascular: Yes: Tachycardia, Pulse Irregular Respiratory: Yes: Regular, Diminished Gastrointestinal: Yes: Normal Bowel Sounds, Soft Edema: Yes Edema: LLE: 1+, RLE: 1+ Integumentary: Yes: Venous Stasis Changes Labs: CBC, BMP 05/05/18 05:30 05/05/18 06:00 INR, PTT INR 2.05 (0.83-1.09) H 05/04/18 08:05 - ....Imaging EKG: Report Reviewed (Tele: Rapid afib) Problem List - Problems (1) Venous insufficiency of both lower extremities Code(s): I87.2 - VENOUS INSUFFICIENCY (CHRONIC) (PERIPHERAL) (2) Hypertensive cardiomegaly with heart failure Code(s): I11.0 - HYPERTENSIVE HEART DISEASE WITH HEART FAILURE (3) CHF exacerbation Code(s): I50.9 - HEART FAILURE, UNSPECIFIED Qualifiers: Heart failure type: diastolic Qualified Code(s): I50.33 - Acute on chronic diastolic (congestive) heart failure (4) Afib Code(s): I48.91 - UNSPECIFIED ATRIAL FIBRILLATION Qualifiers: Atrial fibrillation type: permanent Qualified Code(s): I48.2 - Chronic atrial fibrillation (5) HTN (hypertension) Code(s): I10 - ESSENTIAL (PRIMARY) HYPERTENSION Qualifiers: Hypertension type: essential hypertension Qualified Code(s): I10 - Essential (primary) hypertension (6) Hypothyroidism Code(s): E03.9 - HYPOTHYROIDISM, UNSPECIFIED Qualifiers: Hypothyroidism type: unspecified Qualified Code(s): E03.9 - Hypothyroidism , unspecified (7) Left ventricular hypertrophy due to hypertensive disease Code(s): I11.9 - HYPERTENSIVE HEART DISEASE WITHOUT HEART FAILURE Qualifiers: Heart failure presence: with heart failure Qualified Code(s): I11.0 - Hypertensive heart disease with heart failure (8) Leg edema Code(s): R60.0 - LOCALIZED EDEMA (9) Mitral valve prolapse Code(s): I34.1 - NONRHEUMATIC MITRAL (VALVE) PROLAPSE (10) Chronic anticoagulation Code(s): Z79.01 - RESIDENTIAL (CURRENT) USE OF ANTICOAGULANTS Assessment/Plan Echocardiography dated 11/07/2017 Normal biventricular size and fxn, mild LAE, mod KRYSTYNA, mild MR, mild MARGUERITE 1.4 cm^2, MG 10 mmHg, mild UT, tr-mild AR Echocardiography dated 05/21/2016 revealed normal LV size and function, mild bi- atrial dilatation, mild MR and moderate TR Pharm stress 09/30 No ischemia 1. Permanent atrial fibrillation [id number] score of 5 on DOAC's/Eliquis, recurrent arrhythmia post cardioversion 2. CAD with history of demand ischemia in context of paroxysmal atrial fibrillation with rapid ventricular response (May of 2016) 3. Acute on chronic diastolic heart failure with mild 4. 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 Hypothyroidism 7. Venous insufficiency s/p GSV stripping with wound ulcer 8. History of rheumatoid arthritis 9. History of Raynaud's phenomenon PLAN: 1. IV diuresis with monitor diuretic response, renal function and electrolytes, synthroid uptitrated 2. Avoid antiarrhythmics in view of baseline prolonged QTc interval while on sotalol, as notes from primary matcher leather parts 3. Continue Eliquis 5 bid indefinitely considering the above noted [id number] score of 5 with close monitoring of CBC 4. Increased Lopressor 50 bid and Cardizem CD 120 qd with IV Cardizem as needed to assist with rate control 5. F/u as outpatient with her matcher leather parts at [facility] with Dr. Piotr Moran once volume status improved
[2018-05-05] MEDS ORDERED: dilTIAZem HCL 50 MG/10 ML - 10 ML VIAL IVPUSH PRN (10:25)
--- NOTE | 2018-05-05 17:06 | PN ---
Progress Note (short form) - Note Progress Note: SUBJECTIVE [place] great this morning. Less SOB, improving LE edema. Called by nursing this afternoon to report patient fall with HI on way to the bathroom Patient denies preceeding CP/paps/lightheadedness - refers mechanical fall - no headache/N/V/visual distrubance or focal numbness/weakness. OBJECTIVE Afebrile, Hemodynamically Stable. Last Vital Signs Temp Pulse Resp BP Pulse Ox 98.2 F 92 H 18 110/67 98 05/05/18 14:25 05/05/18 14:25 05/05/18 14:25 05/05/18 14:25 05/05/18 09:00 HEENT - mild erythema back of head, no hematoma, no pen wounds. EDDIE. EOMI Neuro - AAO x 3. Tone/Power normal all 4 extremities. L hand still swollen. Heart - S1, S2, irregular Lungs - basal crackles Abdomen - Soft, non-tender. Bowel Sound normal. Extremities - bilateral LE edema with chronic venous stasis skin changes with very superficial ulcerations - no superimposed infection. MS - no joint or bone tenderness/deformity. R hand swollen, preceeding fall, not traumatic as per patient. Laboratory Results - last 24 hr 05/05/18 05/05/18 05:30 06:00 WBC 10.4 H RBC 4.65 Hgb 13.7 Hct 41.6 MCV 89.5 MCH 29.5 MCHC 33.0 RDW 15.9 H Plt Count 321 MPV 8.1 Absolute Neuts (auto) 8.5 H Neutrophils % 81.1 Lymphocytes % 5.6 L Monocytes % 9.5 Eosinophils % 3.0 Basophils % 0.8 Nucleated RBC % 0 Sodium 144 Potassium 3.6 Chloride 106 Carbon Dioxide 28 Anion Gap 10 BUN 20 H Creatinine 0.8 Creat Clearance w eGFR > 60 Random Glucose 110 H Calcium 9.3 Current Medications Generic Name Dose Route Start Last Admin Trade Name Freq PRN Reason Stop Dose Admin Apixaban 5 mg 05/04/18 22:00 05/05/18 10:05 Eliquis - PO 5 mg BID ALIE Administration Diltiazem HCl 10 mg 05/05/18 10:25 Cardizem Injection - IVPUSH Q4H PRN TACHYCARDIA Diltiazem HCl 180 mg 05/06/18 10:00 Cardizem Cd - PO DAILY ALIE Furosemide 40 mg 05/05/18 10:00 05/05/18 12:32 Lasix Injection - IVPUSH 40 mg DAILY ALIE Administration Levothyroxine Sodium 37.5 mcg/ 137.5 mcg 05/05/18 07:00 05/05/18 10:03 Levothyroxine Sodium 100 mcg PO 137.5 mcg DAILY@0700 ALIE Administration Metoprolol Tartrate 50 mg 05/04/18 22:00 05/05/18 10:06 Lopressor - PO 50 mg BID ALIE Administration Prednisone 5 mg 05/05/18 10:00 05/05/18 10:05 Deltasone - PO 5 mg DAILY ALIE Administration ASSESSMENT/PLAN 78 year old female with Hypothyroidism, Atrial Fibrillation (on Eliquis), MV Prolapse, RA, HTN, Chronic Diastolic CHF, CAD, Chronic venous stasis s/p vein strippin/ligation, with stasis ulcers LEs, presents with 2 day history of increasing SOB, worse on minimal exertion with PND. Denies Orthopnea/CP/ palpitations/cough/hemoptysis/fever/chills. She also complains of facial asymmetry and L hand swelling. No headache/visual disturbance/slurring of speech. No limb numbness/weakness. 1. Acute on Chronic Diastolic CHF Comfortable on RA, no respiratory distress. BNP 5679 CXR - b/l effusions R>L, Cardiomegaly. Echo 10/31 - Moderate concentric LVH, EF 55%, Mild Patient normally on Lasix q2days - will continue IV 40mg daily. Cardiology following. 2. Atrial Fibrillation Rate controlled on Metoprolol and Diltiazem. Continue AC with Eliquis. 3. Hypothyroidism TSH 14.6 Levothyroxine increased from 125 mcg to 137.5mcg. 4. Mild L facial droop, likely chronic - UMN distribution - no other neurological deficits. CT Head - no acute intracranial findings. 5. Rheumatoid Arthritis - Continue Prednisone. 6. Chronic Venous Stasis Dermatitis with LE venous ulcers - no signs of superimposed infection. 7. L hand swelling - no history of trauma. Patient has RA, unclear whether related. Venous Duplex neg for DVT. Hand Xray requested. 8. HTN - continue Diltiazem, Metoprolol. 9. Fall Mechanical No bruising or hematoma No neuro deficit. CT Head requested as patient on Eliquis. DVT Px - on Eliquis PT eval Follow up with [facility] with Dr. Piotr Moran on discharge. Visit type - Emergency Visit Emergency Visit: Yes ED Registration Date: 05/04/18 Care time: The patient presented to the Emergency Department on the above date and was hospitalized for further evaluation of their emergent condition. - New Patient This patient is new to me today: No - Critical Care Critical Care patient: No - Discharge Referral Referred to [facility] No
[2018-05-05] MEDS ORDERED: ACETAMINOPHEN 325 MG TABLET (FP) PO PRN (19:40)
[2018-05-06] MEDS ORDERED: LEVOTHYROXINE NA 75 MCG TABLET (FP) ONE (05:53)
[2018-05-06] MEDS ORDERED: LEVOTHYROXINE NA 100 MCG TABLET (FP) ONE (05:53)
[2018-05-06] MEDS: LEVOTHYROXINE PO SCH (06:01)
[2018-05-06 08:39] LABS: ANION GAP 6 MMOL/L (8-16); BLOOD UREA NITROGEN 23 mg/dL (7-18); CALCIUM 9.7 mg/dL (8.5-10.1); CHLORIDE 103 mmol/L (98-107); CO2 33 mmol/L (21-32); GLUCOSE,RANDOM 118 mg/dL (74-106); POTASSIUM 4.1 mmol/L (3.5-5.1); SODIUM 142 mmol/L (136-145)
[2018-05-06] MEDS: FUROSEMIDE 40 MG/4 ML INJECTABLE VIAL IVPUSH SCH (10:15)
[2018-05-06] MEDS: predniSONE 5 MG TABLET (UD) PO SCH (10:15)
[2018-05-06] MEDS: APIXABAN 5 MG TABLET PO SCH (10:15)
[2018-05-06] MEDS: METOPROLOL TARTRATE 50 MG TABLET (FP) PO SCH (10:15)
[2018-05-06] MEDS ORDERED: FUROSEMIDE 20 MG TABLET (FP) PO SCH (10:45)
--- NOTE | 2018-05-06 13:58 | PN ---
Progress Note, Physician History of Present Illness: HINTON, LE edema and orthopnea improving with IV diuresis, improved rate-control of afib with Cardizem uptitration. - Current Medication List Current Medications: Active Medications Acetaminophen (Tylenol -) 650 mg PO Q6H PRN PRN Reason: PAIN LEVEL 1 - 3 Apixaban (Eliquis -) 5 mg PO BID [facility] Last Admin: 05/06/18 10:15 Dose: 5 mg Diltiazem HCl (Cardizem Injection -) 10 mg IVPUSH Q4H PRN PRN Reason: TACHYCARDIA Diltiazem HCl (Cardizem Cd -) 180 mg PO DAILY [facility] Last Admin: 05/06/18 10:15 Dose: 180 mg Furosemide (Lasix -) 20 mg PO DAILY [facility] Last Admin: 05/06/18 11:35 Dose: 20 mg Levothyroxine Sodium 37.5 mcg/ (Levothyroxine Sodium 100 mcg) 137.5 mcg PO DAILY@0700 [facility] Last Admin: 05/06/18 06:01 Dose: 137.5 mcg Metoprolol Tartrate (Lopressor -) 50 mg PO BID [facility] Last Admin: 05/06/18 10:15 Dose: 50 mg Prednisone (Deltasone -) 5 mg PO DAILY [facility] Last Admin: 05/06/18 10:15 Dose: 5 mg - Objective Vital Signs: Vital Signs Temperature 98.6 F 05/06/18 09:00 Pulse Rate 124 H 05/06/18 09:00 Respiratory Rate 20 05/06/18 09:00 Blood Pressure 126/78 05/06/18 09:00 O2 Sat by Pulse Oximetry (%) 98 05/05/18 21:00 Constitutional: Yes: No Distress, Calm Neck: Yes: Supple Cardiovascular: Yes: Tachycardia, Pulse Irregular Respiratory: Yes: Regular, Diminished Gastrointestinal: Yes: Normal Bowel Sounds, Soft Edema: Yes Edema: LLE: Trace, RLE: Trace Integumentary: Yes: Venous Stasis Changes Labs: CBC, BMP 05/05/18 05:30 05/06/18 06:30 INR, PTT INR 2.05 (0.83-1.09) H 05/04/18 08:05 - ....Imaging EKG: Report Reviewed (Tele: Afib with improved rate-control) Problem List - Problems (1) Venous insufficiency of both lower extremities Code(s): I87.2 - VENOUS INSUFFICIENCY (CHRONIC) (PERIPHERAL) (2) Hypertensive cardiomegaly with heart failure Code(s): I11.0 - HYPERTENSIVE HEART DISEASE WITH HEART FAILURE (3) CHF exacerbation Code(s): I50.9 - HEART FAILURE, UNSPECIFIED Qualifiers: Heart failure type: diastolic Qualified Code(s): I50.33 - Acute on chronic diastolic (congestive) heart failure (4) Afib Code(s): I48.91 - UNSPECIFIED ATRIAL FIBRILLATION Qualifiers: Atrial fibrillation type: permanent Qualified Code(s): I48.2 - Chronic atrial fibrillation (5) HTN (hypertension) Code(s): I10 - ESSENTIAL (PRIMARY) HYPERTENSION Qualifiers: Hypertension type: essential hypertension Qualified Code(s): I10 - Essential (primary) hypertension (6) Hypothyroidism Code(s): E03.9 - HYPOTHYROIDISM, UNSPECIFIED Qualifiers: Hypothyroidism type: unspecified Qualified Code(s): E03.9 - Hypothyroidism , unspecified (7) Left ventricular hypertrophy due to hypertensive disease Code(s): I11.9 - HYPERTENSIVE HEART DISEASE WITHOUT HEART FAILURE Qualifiers: Heart failure presence: with heart failure Qualified Code(s): I11.0 - Hypertensive heart disease with heart failure (8) Leg edema Code(s): R60.0 - LOCALIZED EDEMA (9) Mitral valve prolapse Code(s): I34.1 - NONRHEUMATIC MITRAL (VALVE) PROLAPSE (10) Chronic anticoagulation Code(s): Z79.01 - [employer] (CURRENT) USE OF ANTICOAGULANTS Assessment/Plan Echocardiography dated 11/07/2017 Normal biventricular size and fxn, mild LAE, mod KRYSTYNA, mild MR, mild MARGUERITE 1.4 cm^2, MG 10 mmHg, mild IA, tr-mild AR Echocardiography dated 05/21/2016 revealed normal LV size and function, mild bi- atrial dilatation, mild MR and moderate TR Pharm stress 09/30 No ischemia 1. Permanent atrial fibrillation [id number] score of 5 on DOAC's/Eliquis, recurrent arrhythmia post cardioversion 2. CAD with history of demand ischemia in context of paroxysmal atrial fibrillation with rapid ventricular response (May of 2016) 3. Acute on chronic diastolic heart failure with mild 4. 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 Hypothyroidism 7. Venous insufficiency s/p GSV stripping with wound ulcer 8. History of rheumatoid arthritis 9. History of Raynaud's phenomenon PLAN: 1. Resume Lasix 20 qd with monitor diuretic response, renal function and electrolytes, synthroid uptitrated 2. Avoid antiarrhythmics in view of baseline prolonged QTc interval while on sotalol, as notes from primary lavatory attendant 3. Continue Eliquis 5 bid indefinitely considering the above noted [id number] score of 5 with close monitoring of CBC 4. Increased Lopressor 50 bid and Cardizem CD 180 qd with IV Cardizem as needed to assist with rate control 5. May d/c home with f/u as outpatient with her lavatory attendant at [facility] (Dr. Piotr Moran) as volume status has improved
[2018-05-06 14:42] VITALS: BP 108/75; PULSE 102; TEMP 98.2
--- NOTE | 2018-05-06 16:48 | DS ---
Physical Exam: SUBJECTIVE: Patient seen and examined - feels well. Dyspnea resolved. No cough/ sputum/hemoptysis/CP/palpitations. No fever/chills. OBJECTIVE: Afebrile, Hemodynamically Stable. Vital Signs Period Temp Pulse Resp BP Sys/[place] Pulse Ox Last 24 Hr 97.8 F-98.6 F 94-124 18-20 101-130/59-78 98-98 PHYSICAL EXAM HEENT - No hematoma, no open wounds. EDDIE. EOMI Neuro - AAO x 3. Tone/Power normal all 4 extremities. L hand still mildly swollen. Heart - S1, S2, irregular Lungs - few bi-basal crackles Abdomen - Soft, non-tender. Bowel Sound normal. Extremities - bilateral LE edema with chronic venous stasis skin changes with very superficial ulcerations - no superimposed infection. MS - no joint or bone tenderness/deformity. R hand swollen, preceeding fall, not traumatic as per patient. LABS Laboratory Results - last 24 hr 05/06/18 06:30 Sodium 142 Potassium 4.1 Chloride 103 Carbon Dioxide 33 H Anion Gap 6 L BUN 23 H Creatinine 1.0 Creat Clearance w eGFR 53.76 Random Glucose 118 H Calcium 9.7 Date of Admission:05/04/18 Date of Discharge: 05/06/18 Minutes to complete discharge: 45 Discharge Summary Reason For Visit: CONGESTIVE HEART FAILURE Current Active Problems CHF exacerbation (Acute) Chronic anticoagulation (Acute) Hypertensive cardiomegaly with heart failure (Acute) Venous insufficiency of both lower extremities (Acute) Hospital Course: 78 year old female with Hypothyroidism, Atrial Fibrillation (on Eliquis), MV Prolapse, RA, HTN, Chronic Diastolic CHF, CAD, Chronic venous stasis s/p vein strippin/ligation, with stasis ulcers LEs, presents with 2 day history of increasing SOB, worse on minimal exertion with PND. Denies Orthopnea/CP/ palpitations/cough/hemoptysis/fever/chills. She also complained of facial asymmetry and L hand swelling. No headache/visual disturbance/slurring of speech. No limb numbness/weakness. CT Head negative for acute infarct. Subsequent CT Head performed after in-patient mechanical fall revealed old infarct. CXR showed bibasal effusions and BNP was elevated to 5679. She was treated for acute on chronic diastolic CHF with IV lasix diuresis with good effect and symptomatic improvement. Her home dose of Lasix was increased to 20mg daily rather than every other day and she will follow with [facility] on discharge. On admission, she was also noted to have elevated TSH. Her Synthorid was increased from 125mcg to 137.5mcg daily. She is medically stable for discharge with Cardiology follow up at [facility] with Dr. Piotr Moran. She will be discharged in the care of her family. 1. Acute on Chronic Diastolic CHF Comfortable on RA, no respiratory distress. BNP 5679 on admission CXR - b/l effusions R>L, Cardiomegaly. Echo 10/31 - Moderate concentric LVH, EF 55%, Mild Patient normally on Lasix q2days - will discharge on 20mg daily. Cardiology evaluated,made above recommendation and patient will follow with [facility] on discharge. 2. Atrial Fibrillation Rate controlled on Metoprolol and Diltiazem. Continue AC with Eliquis. 3. Hypothyroidism TSH 14.6 Levothyroxine increased from 125 mcg to 137.5mcg. 4. Mild L facial droop, likely chronic -no other neurological deficits. CT Head - no acute intracranial findings. Old ischemic lesion. On Eliquis for CVA prophylaxis given underlying Afib. 5. Rheumatoid Arthritis - Continue Prednisone. 6. Chronic Venous Stasis Dermatitis with LE venous ulcers - no signs of superimposed infection. 7. L hand swelling - no history of trauma. Patient has RA, unclear whether related. Venous Duplex neg for DVT. Hand Xray - no bony injury. 8. HTN - continue Diltiazem (dose up to 180mg), Metoprolol (50mg bid). Condition: Good - Instructions Diet, Activity, Other Instructions: Advised to take Lasix daily. Sodium controlled Diet Referrals: Piotr Moran [Primary Care Provider] - Disposition: HOME - Home Medications Comprehensive Discharge Medication List: Ambulatory Orders Apixaban [Eliquis] 5 mg PO BID 05/20/16 Prednisone 5 mg PO DAILY #10 tablet 07/13/17 Diltiazem Cd [Cardizem Cd -] 180 mg PO DAILY 30 Days #30 cap.cd.24h 05/06/18 Furosemide [Lasix] 1 tab PO DAILY 30 Days #30 tablet 05/06/18 Levothyroxine [Synthroid -] 137.5 mcg PO DAILY@0700 #30 tablet 05/06/18 Metoprolol Tartrate [Lopressor -] 50 mg PO BID tablet 05/06/18 Problem List - Problems (1) CHF exacerbation Code(s): I50.9 - HEART FAILURE, UNSPECIFIED Qualifiers: Heart failure type: diastolic Qualified Code(s): I50.33 - Acute on chronic diastolic (congestive) heart failure This patient is new to me today: No Emergency Visit: Yes ED Registration Date: 05/04/18 Care time: The patient presented to the Emergency Department on the above date and was hospitalized for further evaluation of their emergent condition. Critical Care patient: No - Discharge Referral Referred to [facility] No Quality Measures-Exclusions - Heart Failure Reason VERONICA/ARB not ordered during hospital stay: LVEF > 40%
== END 2018-05-06 17:30 | disposition home or self-care (01) | DRG 308 ==
LOC: JER 07:20 → JERBED 12:35 → J4W 22:11
DX: I48.2 Chronic atrial fibrillation (principal); I50.33 Acute on chronic diastolic (congestive) heart failure; L97.821 Non-pressure chronic ulcer of other part of left lower leg limited to breakdown of skin; L97.811 Non-pressure chronic ulcer of other part of right lower leg limited to breakdown of skin; I11.0 Hypertensive heart disease with heart failure; Z96.653 Presence of artificial knee joint, bilateral; Z85.43 Personal history of malignant neoplasm of ovary; Z85.850 Personal history of malignant neoplasm of thyroid; E89.0 Postprocedural hypothyroidism; Z79.01 Long term (current) use of anticoagulants; M06.9 Rheumatoid arthritis, unspecified; I87.8 Other specified disorders of veins; Z90.710 Acquired absence of both cervix and uterus; I73.00 Raynaud's syndrome without gangrene; I36.1 Nonrheumatic tricuspid (valve) insufficiency; I87.2 Venous insufficiency (chronic) (peripheral)
CPT/HCPCS: 11042; 36415; 70450-TC; 71045-TC-FY; 71046-TC-FY; 73130-TC-LT-FY; 80048; 80053; 82550; 83735; 83880; 84443; 84484; 85025; 85027; 85610; 93005; 93010; 93971; 97162-GP; 99285-25

== ENCOUNTER 2018-06-10 09:45 | Inpatient (IN) | payer OTHER, MEDICARE ==
--- NOTE | 2018-06-10 10:57 | PDOC ---
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 pt states she is followed at the wound clinic. by dr elaine, was told to come for admission due to increased weeping from legs. denies fever or chills. no cp no sob. no h/o pe or dvt is on eloquis currently for afib. fluid on dressing has been yellow. no foul odor.mild pain. smal wound to left knee and left anterior trevino. no other current complaints. no current anbiotics. 06/10/18 10:55 06/10/18 11:10 Past History - Past Medical History Allergies/Adverse Reactions: Allergies Allergy/AdvReac Type Severity Reaction Status Date / Time naproxen [From Naprosyn] Allergy Intermediate Swelling Verified 06/10/18 09:52 Home Medications: Ambulatory Orders Apixaban [Eliquis] 5 mg PO BID 05/20/16 Prednisone 5 mg PO DAILY #10 tablet 07/13/17 Diltiazem Cd [Cardizem Cd -] 180 mg PO DAILY 30 Days #30 cap.cd.24h 05/06/18 Furosemide [Lasix] 1 tab PO DAILY 30 Days #30 tablet 05/06/18 Metoprolol Tartrate [Lopressor -] 50 mg PO BID tablet 05/06/18 Levothyroxine [Synthroid -] 125 mcg PO DAILY@0700 06/10/18 Anemia: No Asthma: No Cancer: Yes (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) Cardiac Disorders: Yes (AFIB,cardioversion x2) CVA: No COPD: No CHF: No Dementia: No Diabetes: No GI Disorders: No HTN: Yes Hypercholesterolemia: No Liver Disease: No Seizures: No Thyroid Disease: Yes - Surgical History Orthopedic Surgery: Yes (CANDIE KNEE REPLACEMENT WITH FEMUR REJI LEFT) - Immunization History Immunization Up to Date: Yes - Suicide/Smoking/Psychosocial Hx Smoking History: Never smoked Have you smoked in the past 12 months: No Information on smoking cessation initiated: No Hx Alcohol Use: No Drug/Substance Use Hx: No Substance Use Type: None Hx Substance Use Treatment: No Review of Systems - Review of Systems Constitutional: No: Chills, Diaphoresis, Fever, Unexplained wgt Loss Respiratory: No: Cough, Orthopnea, Shortness of Breath Cardiac (ROS): Yes: Edema : No: Burning, Dysuria, Discharge Integumentary: No: Bruising, Change in Color Neurological: No: Headache, Numbness All Other Systems: Reviewed and Negative *Physical Exam - Vital Signs Last Vital Signs Temp Pulse Resp BP Pulse Ox 98.2 F 107 H 16 123/73 100 06/10/18 09:53 06/10/18 09:53 06/10/18 09:53 06/10/18 09:53 06/10/18 09:53 - Physical Exam Comments: 06/10/18 10:54 awake alert lungs clear bilaterally heart reg no mrg abd soft nt ext wwp. bilat leg edema 2 + braning edema. bilat erythema to calf/ trevino to knee. moist. anterior left knee with dime sized wound draining yellowish fluid. 2 + bilat dp pulses. nuero alert oriented x 3. Moderate Sedation - Procedure Monitoring Vital Signs: Procedure Monitoring Vital Signs Temperature 98.2 F 06/10/18 09:53 Pulse Rate 107 H 06/10/18 09:53 Respiratory Rate 16 06/10/18 09:53 Blood Pressure 123/73 06/10/18 09:53 O2 Sat by Pulse Oximetry (%) 100 06/10/18 09:53 Heart Score/ECG Review #1 General ECG Interpretation: Normal Rate (109), Normal Intervals, No acute ischemic changes Compared to previous ECG there are: Other (afib.) ED Treatment Course - LABORATORY CBC & Chemistry Diagram: 06/10/18 10:58 06/10/18 10:58 Medical Decision Making - Medical Decision Making 06/10/18 10:56 differential chf, cellulitis, venous stasis. pt low risk for dvt as on eloquis. plan labs ecg, cxr cultures. will treat with vanco and zosyn. per pt priro culture positive or staph and strept. will d/w dr darling. pt no pcp currently. *DC/Admit/Observation/Transfer Diagnosis at time of Disposition: Cellulitis - Discharge Dispostion Decision to Admit order: Yes - Referrals Referrals: Luciana Moran MD [Primary Care Provider] - - Patient Instructions - Post Discharge Activity
[2018-06-10] MEDS ORDERED: VANCOMYCIN 1 GM in D5W (PRE-DOCKED) 1,000 MG/250 ML IVPB ONE (11:10)
[2018-06-10] MEDS ORDERED: VANCOMYCIN 1 GRAM (PRE-DOCKED) 1,000 MG/250 ML BAG IVPB ONE (11:15)
[2018-06-10 11:23] LABS: BASO % 0.4 % (0-2.0); EOS % 1.1 % (0-4.5); HEMATOCRIT 35.3 % (32.4-45.2); HEMOGLOBIN 11.7 GM/dL (10.7-15.3); LYMPH % 5.1 % (8-40); MCH 30.5 pg (25.7-33.7); MEAN CELL VOLUME 92.2 fl (80-96); MEAN PLT VOLUME 7.6 fl (7.5-11.1); MONO % 5.8 % (3.8-10.2); NEUT % 87.6 % (42.8-82.8); PLATELET COUNT 305 K/MM3 (134-434); RBC 3.82 M/mm3 (3.60-5.2); RDW 18.2 % (11.6-15.6); WHITE BLOOD COUNT 9.4 K/mm3 (4.0-10.0)
[2018-06-10] MEDS ORDERED: PIPERACILLIN/TAZOB 3.375 GM 3.375 GM in DEXTROSE 5%-WATER - 50 ML IVPB ONE (11:59)
[2018-06-10 12:01] LABS: ALBUMIN 3.2 g/dl (3.4-5.0); ALK PHOS 131 U/L (45-117); ANION GAP 4 MMOL/L (8-16); BILIRUBIN,TOTAL 0.9 mg/dL (0.2-1); BLOOD UREA NITROGEN 21 mg/dL (7-18); CALCIUM 9.4 mg/dL (8.5-10.1); CHLORIDE 110 mmol/L (98-107); CO2 30 mmol/L (21-32); CREATININE 0.8 mg/dL (0.55-1.3); GLUCOSE,RANDOM 141 mg/dL (74-106); N-TERMINAL BNP 4186.8 pg/ml (5-450); POTASSIUM 4.1 mmol/L (3.5-5.1); SGOT/AST 25 U/L (15-37); SGPT/ALT 24 U/L (13-61); SODIUM 144 mmol/L (136-145); TOT PROT 6.2 g/dl (6.4-8.2)
[2018-06-10] MEDS ORDERED: PIPERACILLIN/TAZOB 3.375 GM 3.375 GM/50 ML BAG IVPB ONE (12:13)
--- NOTE | 2018-06-10 12:32 | CON.ID ---
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 Patient has been seen in the wound care clinic and was found to ahve reddened legs with weeping of the legs and increased discomfort with small wounds which have not been healing,and was send here for iv abx and further management wound care cx were noted - History Source History Provided By: Patient Limitations to Obtaining History: No Limitations - Past Medical History Cardio/Vascular: Yes: AFIB, HTN Rheumatology: Yes: Rheumatoid Arthritis Endocrine: Yes: Hypothyroidism - Past Surgical History Past Surgical History: Yes: Hysterectomy, Joint Replacement, Vein Stripping/ Ligation - Alcohol/Substance Use Hx Alcohol Use: No - Smoking History Smoking history: Never smoked Have you smoked in the past 12 months: No - Social History ADL: Independent Home Medications - Allergies Allergies/Adverse Reactions: Allergies Allergy/AdvReac Type Severity Reaction Status Date / Time naproxen [From Naprosyn] Allergy Intermediate Swelling Verified 06/10/18 09:52 - Home Medications Home Medications: Ambulatory Orders RX: Apixaban [Eliquis] 5 mg PO BID 05/20/16 RX: Prednisone 5 mg PO DAILY #10 tablet 07/13/17 RX: Diltiazem Cd [Cardizem Cd -] 180 mg PO DAILY 30 Days #30 cap.cd.24h RX: Furosemide [Lasix] 1 tab PO DAILY 30 Days #30 tablet 05/06/18 RX: Metoprolol Tartrate [Lopressor -] 50 mg PO BID tablet 05/06/18 RX: Levothyroxine [Synthroid -] 125 mcg PO DAILY@0700 06/10/18 Review of Systems - Review of Systems Constitutional: reports: No Symptoms Eyes: reports: No Symptoms HENT: reports: No Symptoms Neck: reports: No Symptoms Cardiovascular: reports: No Symptoms Respiratory: reports: No Symptoms Gastrointestinal: reports: No Symptoms Genitourinary: reports: No Symptoms Musculoskeletal: reports: Other Integumentary: reports: Erythema, Wound, Other (drainage) Neurological: reports: No Symptoms Endocrine: reports: No Symptoms Hematology/Lymphatic: reports: No Symptoms Psychiatric: reports: No Symptoms Physical Exam Vital Signs: Vital Signs Temperature 98.2 F 06/10/18 09:53 Pulse Rate 107 H 06/10/18 09:53 Respiratory Rate 16 06/10/18 09:53 Blood Pressure 123/73 06/10/18 09:53 O2 Sat by Pulse Oximetry (%) 100 06/10/18 09:53 Constitutional: Yes: Well Nourished, No Distress, Calm Eyes: Yes: Conjunctiva Clear HENT: Yes: Atraumatic, Normocephalic Neck: Yes: Supple, Trachea Midline Cardiovascular: Yes: Pulse Irregular Respiratory: Yes: Regular, CTA Bilaterally Gastrointestinal: Yes: Normal Bowel Sounds, Soft Musculoskeletal: Yes: Other Extremities: Yes: Erythema, Other (drainaing small wounds) Edema: LLE: 2+, RLE: 2+ Wound/Incision: Yes: Draining Neurological: Yes: Alert, Oriented Psychiatric: Yes: Alert, Oriented Labs: CBC, BMP 06/10/18 10:58 06/10/18 10:58 Imaging - Results Chest X-ray: Report Reviewed, Image Reviewed Assessment/Plan Problem List - Problems (1) Cellulitis Code(s): L03.90 - CELLULITIS, UNSPECIFIED (2) AF (paroxysmal atrial fibrillation) Code(s): I48.0 - PAROXYSMAL ATRIAL FIBRILLATION (3) HTN (hypertension) Code(s): I10 - ESSENTIAL (PRIMARY) HYPERTENSION Qualifiers: Hypertension type: essential hypertension Qualified Code(s): I10 - Essential (primary) hypertension (4) Hypothyroidism Code(s): E03.9 - HYPOTHYROIDISM, UNSPECIFIED Qualifiers: Hypothyroidism type: unspecified Qualified Code(s): E03.9 - Hypothyroidism , unspecified 5 b/l cellulitis of the legs non healing wounds of the legs infected wounds of the legs plan will start patient on abx cx results noted patient will also need diuresis elevation of legs wound care rest as per the team
[2018-06-10] MEDS ORDERED: ACETAMINOPHEN 325 MG TABLET (FP) PO ONE ×3 (12:39→14:06)
[2018-06-10] MEDS ORDERED: ACETAMINOPHEN 325 MG TABLET (FP) ONE ×2 (12:46→14:08)
--- NOTE | 2018-06-10 15:06 | HP ---
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 pt states she is followed at the wound clinic. by dr elaine, was told to come for admission due to increased weeping from legs. denies fever or chills. no cp no sob. no h/o pe or dvt is on eloquis currently for afib. fluid on dressing has been yellow. no foul odor.mild pain. smal wound to left knee and left anterior trevino. no other current complaints. not on abx - Past Medical History Cardiovascular: Yes: AFIB, HTN Rheumatology: Yes: Rheumatoid Arthritis Endocrine: Yes: Hypothyroidism - Past Surgical History Past Surgical History: Yes: Hysterectomy, Joint Replacement, Vein Stripping/ Ligation - Smoking History Smoking history: Never smoked Have you smoked in the past 12 months: No - Alcohol/Substance Use Hx Alcohol Use: No - Social History ADL: Independent Home Medications - Allergies Allergies/Adverse Reactions: Allergies Allergy/AdvReac Type Severity Reaction Status Date / Time naproxen [From Naprosyn] Allergy Intermediate Swelling Verified 06/10/18 09:52 - Home Medications Home Medications: Ambulatory Orders Apixaban [Eliquis] 5 mg PO BID 05/20/16 Prednisone 5 mg PO DAILY #10 tablet 07/13/17 Diltiazem Cd [Cardizem Cd -] 180 mg PO DAILY 30 Days #30 cap.cd.24h 05/06/18 Furosemide [Lasix] 1 tab PO DAILY 30 Days #30 tablet 05/06/18 Metoprolol Tartrate [Lopressor -] 50 mg PO BID tablet 05/06/18 Levothyroxine [Synthroid -] 125 mcg PO DAILY@0700 06/10/18 Physical Examination Vital Signs: Vital Signs Temperature 98.2 F 06/10/18 09:53 Pulse Rate 98 H 06/10/18 14:39 Respiratory Rate 18 06/10/18 14:39 Blood Pressure 107/77 06/10/18 14:39 O2 Sat by Pulse Oximetry (%) 100 06/10/18 14:39 Constitutional: Yes: No Distress HENT: Yes: Atraumatic Neck: Yes: Supple Cardiovascular: Yes: Regular Rate and Rhythm Respiratory: Yes: CTA Bilaterally Gastrointestinal: Yes: Normal Bowel Sounds Extremities: Yes: Other (b/l mary cellulitis) Edema: Yes Neurological: Yes: Alert, Oriented Labs: CBC, BMP 06/10/18 10:58 06/10/18 10:58 Imaging - Results X-ray: Report Reviewed Problem List - Problems (1) Cellulitis Code(s): L03.90 - CELLULITIS, UNSPECIFIED (2) AF (paroxysmal atrial fibrillation) Code(s): I48.0 - PAROXYSMAL ATRIAL FIBRILLATION (3) HTN (hypertension) Code(s): I10 - ESSENTIAL (PRIMARY) HYPERTENSION Qualifiers: Hypertension type: essential hypertension Qualified Code(s): I10 - Essential (primary) hypertension (4) Hypothyroidism Code(s): E03.9 - HYPOTHYROIDISM, UNSPECIFIED Qualifiers: Hypothyroidism type: unspecified Qualified Code(s): E03.9 - Hypothyroidism , unspecified Assessment/Plan Laboratory Tests 06/10/18 06/10/18 06/10/18 10:58 10:58 11:12 WBC 9.4 RBC 3.82 Hgb 11.7 Hct 35.3 D MCV 92.2 MCH 30.5 MCHC 33.0 RDW 18.2 H Plt Count 305 MPV 7.6 Absolute Neuts (auto) 8.2 H Neutrophils % 87.6 H Lymphocytes % 5.1 L Monocytes % 5.8 Eosinophils % 1.1 Basophils % 0.4 Nucleated RBC % 0 Sodium 144 Potassium 4.1 Chloride 110 H Carbon Dioxide 30 Anion Gap 4 L BUN 21 H Creatinine 0.8 Creat Clearance w eGFR > 60 Random Glucose 141 H Lactic Acid 1.6 Calcium 9.4 Total Bilirubin 0.9 AST 25 ALT 24 Alkaline Phosphatase 131 H Troponin I 0.02 B-Natriuretic Peptide 4186.8 H Total Protein 6.2 L Albumin 3.2 L
[2018-06-10] MEDS ORDERED: ACETAMINOPHEN 325 MG TABLET (FP) PO PRN (15:08)
[2018-06-10] MEDS ORDERED: PIPERACILLIN/TAZOBACTAM 3.375 GM VIAL IVPB ONE (17:21)
[2018-06-10] MEDS ORDERED: DEXTROSE 5%-WATER - 50 ML IVPB ONE (17:21)
[2018-06-10] MEDS ORDERED: PIPERACILLIN/TAZOB 3.375 GM 3.375 GM in DEXTROSE 5%-WATER - 50 ML IVPB SCH (18:00)
[2018-06-10] MEDS ORDERED: PT OWN MED DRAWER 7, Y5N ONE (19:56)
[2018-06-10] MEDS ORDERED: METOPROLOL TARTRATE 50 MG TABLET (FP) PO ONE (19:57)
--- NOTE | 2018-06-10 20:15 | RAPID ---
Physical Examination Vital Signs: Vital Signs Temperature 97.8 F 06/10/18 15:41 Pulse Rate 124 H 06/10/18 15:41 Respiratory Rate 20 06/10/18 15:41 Blood Pressure 122/87 06/10/18 15:41 O2 Sat by Pulse Oximetry (%) 99 06/10/18 15:41 Labs: CBC, BMP 06/10/18 10:58 06/10/18 10:58 Rapid Response - Rapid Response Assessment: Rapid response called at 7:46pm. Team arrived. Patient was noted to have elevated blood pressure and tachycardic, with shortness of breath. Patient has no complaints. VS: BP 207/106, SC 180, RR 99% on NRB General: awake alert NAD Lungs: clear to auscultation bilaterally Heart: tachycardic, no m,r,g On further review of chart, it was noted that patient did not receive her morning dose of Cardizem and Lopressor. Cardizem 180mg and Lopressor 50mg given stat EKG stat Patient put on nonrebreather, saturating well at 99% Dr. Castañeda made aware. Patient transferred to tele. Upon follow-up, on tele, HR 100-110s. Patient saturating well on NC.
[2018-06-10] MEDS ORDERED: APIXABAN 5 MG TABLET PO SCH (22:00)
[2018-06-10] MEDS: METOPROLOL TARTRATE 50 MG TABLET (FP) PO SCH (22:05)
[2018-06-11] MEDS ORDERED: PIPERACILLIN/TAZOBACTAM 3.375 GM VIAL IVPB ONE ×3 (03:12→15:36)
[2018-06-11] MEDS ORDERED: DEXTROSE 5%-WATER - 50 ML IVPB ONE ×3 (03:13→15:36)
[2018-06-11] MEDS: ACETAMINOPHEN 325 MG TABLET (FP) PO PRN (03:15)
[2018-06-11] MEDS: PIPERACILLIN/TAZOB 3.375 GM 3.375 GM in DEXTROSE 5%-WATER - 50 ML IVPB SCH ×3 (03:15→17:03)
[2018-06-11 06:56] LABS: BASO % 0.8 % (0-2.0); EOS % 2.6 % (0-4.5); HEMATOCRIT 34.1 % (32.4-45.2); HEMOGLOBIN 11.2 GM/dL (10.7-15.3); LYMPH % 6.3 % (8-40); MCH 30.2 pg (25.7-33.7); MCHC 32.8 g/dl (32.0-36.0); MEAN CELL VOLUME 92.1 fl (80-96); MEAN PLT VOLUME 7.8 fl (7.5-11.1); MONO % 9.4 % (3.8-10.2); NEUT % 80.9 % (42.8-82.8); PLATELET COUNT 271 K/MM3 (134-434); RDW 17.8 % (11.6-15.6); WHITE BLOOD COUNT 9.2 K/mm3 (4.0-10.0)
[2018-06-11] MEDS ORDERED: LEVOTHYROXINE NA 125 MCG TABLET (FP) PO SCH (07:00)
[2018-06-11] MEDS: LEVOTHYROXINE NA 125 MCG TABLET (FP) PO SCH (07:00)
[2018-06-11 07:15] LABS: ALBUMIN 2.8 g/dl (3.4-5.0); ALK PHOS 105 U/L (45-117); ANION GAP 8 MMOL/L (8-16); BILIRUBIN,TOTAL 1.2 mg/dL (0.2-1); BLOOD UREA NITROGEN 20 mg/dL (7-18); CALCIUM 8.4 mg/dL (8.5-10.1); CHLORIDE 109 mmol/L (98-107); CO2 26 mmol/L (21-32); CREATININE 0.9 mg/dL (0.55-1.3); GLUCOSE,RANDOM 91 mg/dL (74-106); SGOT/AST 23 U/L (15-37); SGPT/ALT 22 U/L (13-61); SODIUM 142 mmol/L (136-145); TOT PROT 5.4 g/dl (6.4-8.2)
[2018-06-11] MEDS: predniSONE 5 MG TABLET (UD) PO SCH (09:05)
[2018-06-11] MEDS: METOPROLOL TARTRATE 50 MG TABLET (FP) PO SCH ×2 (09:05→22:13)
[2018-06-11] MEDS: APIXABAN 5 MG TABLET PO SCH ×2 (09:05→22:13)
[2018-06-11] MEDS: FUROSEMIDE 20 MG TABLET (FP) PO SCH (09:05)
[2018-06-11] MEDS ORDERED: predniSONE 5 MG TABLET (UD) PO SCH (10:00)
[2018-06-11] MEDS ORDERED: FUROSEMIDE 20 MG TABLET (FP) PO SCH (10:00)
--- NOTE | 2018-06-11 11:10 | EKG ---
Test Reason : Blood Pressure : / mmHG Vent. Rate : 164 BPM Atrial Rate : 156 BPM P-R Int : 000 ms QRS Dur : 072 ms QT Int : 274 ms P-R-T Axes : 000 015 243 degrees QTc Int : 452 ms POOR DATA QUALITY, INTERPRETATION MAY BE ADVERSELY AFFECTED ATRIAL FIBRILLATION WITH RAPID VENTRICULAR RESPONSE WITH PREMATURE VENTRICULAR OR ABERRANTLY CONDUCTED COMPLEXES SEPTAL INFARCT (CITED ON OR BEFORE 04-MAY-2018) ABNORMAL ECG Confirmed by LUIS E LYONS MD ([id number]) on 06/11/2018 11:09:48 AM Referred By: Confirmed By:LUIS E LYONS MD
--- NOTE | 2018-06-11 11:23 | EKG ---
Test Reason : Blood Pressure : / mmHG Vent. Rate : 109 BPM Atrial Rate : 065 BPM P-R Int : 000 ms QRS Dur : 082 ms QT Int : 340 ms P-R-T Axes : 000 024 246 degrees QTc Int : 457 ms ATRIAL FIBRILLATION WITH RAPID VENTRICULAR RESPONSE SEPTAL INFARCT (CITED ON OR BEFORE 04-MAY-2018) ABNORMAL ECG Confirmed by LUIS E LYONS MD ([id number]) on 06/11/2018 11:23:35 AM Referred By: Confirmed By:LUIS E LYONS MD
--- NOTE | 2018-06-11 12:52 | PN ---
Progress Note, Physician History of Present Illness: patient stable events noted from last night today she is feeling much better - Current Medication List Current Medications: Active Medications Acetaminophen (Tylenol -) 650 mg PO Q6H PRN PRN Reason: FEVER Last Admin: 06/11/18 03:15 Dose: 650 mg Apixaban (Eliquis -) 5 mg PO BID REPLACED BY [facility] Last Admin: 06/11/18 09:05 Dose: 5 mg Diltiazem HCl (Cardizem Cd -) 180 mg PO DAILY REPLACED BY [facility] Last Admin: 06/11/18 09:05 Dose: 180 mg Furosemide (Lasix -) 20 mg PO DAILY REPLACED BY [facility] Last Admin: 06/11/18 09:05 Dose: 20 mg Piperacillin Sod/Tazobactam (Sod 3.375 gm/ Dextrose) 50 mls @ 100 mls/hr IVPB Q8H-IV REPLACED BY [facility]; Protocol Last Admin: 06/11/18 09:04 Dose: 100 mls/hr Levothyroxine Sodium (Synthroid -) 125 mcg PO DAILY@0700 REPLACED BY [facility] Last Admin: 06/11/18 07:00 Dose: 125 mcg Metoprolol Tartrate (Lopressor -) 50 mg PO BID REPLACED BY [facility] Last Admin: 06/11/18 09:05 Dose: 50 mg Prednisone (Deltasone -) 5 mg PO DAILY REPLACED BY [facility] Last Admin: 06/11/18 09:05 Dose: 5 mg - Objective Vital Signs: Vital Signs Temperature 98.2 F 06/11/18 10:00 Pulse Rate 95 H 06/11/18 10:00 Respiratory Rate 20 06/11/18 10:00 Blood Pressure 98/64 06/11/18 10:00 O2 Sat by Pulse Oximetry (%) 97 06/11/18 09:00 Constitutional: Yes: No Distress, Calm Cardiovascular: Yes: S1, S2 Respiratory: Yes: Regular, CTA Bilaterally Gastrointestinal: Yes: Normal Bowel Sounds, Soft Musculoskeletal: Yes: WNL Extremities: Yes: Erythema, Other Edema: LLE: 1+, RLE: 1+ Integumentary: Yes: Erythema Wound/Incision: Yes: Dressing Dry and Intact Neurological: Yes: Alert, Oriented Psychiatric: Yes: Alert, Oriented Labs: CBC, BMP 06/11/18 05:30 06/11/18 05:30 Assessment/Plan Problem List - Problems (1) Cellulitis Code(s): L03.90 - CELLULITIS, UNSPECIFIED (2) AF (paroxysmal atrial fibrillation) Code(s): I48.0 - PAROXYSMAL ATRIAL FIBRILLATION (3) HTN (hypertension) Code(s): I10 - ESSENTIAL (PRIMARY) HYPERTENSION Qualifiers: Hypertension type: essential hypertension Qualified Code(s): I10 - Essential (primary) hypertension (4) Hypothyroidism Code(s): E03.9 - HYPOTHYROIDISM, UNSPECIFIED Qualifiers: Hypothyroidism type: unspecified Qualified Code(s): E03.9 - Hypothyroidism , unspecified 5 b/l cellulitis of the legs non healing wounds of the legs infected wounds of the legs plan continue abx close monitoring wound care rest as per the team
[2018-06-11] MEDS: IBUPROFEN 600 MG TABLET (FP) PO PRN (14:06)
--- NOTE | 2018-06-11 15:20 | PN ---
Progress Note, Physician Chief Complaint: Lower leg swelling with drainage, Open wound left lower leg, Open wound left knee Patient known to me from Wound clinic, she is being treated for loss of skin over the Left knee/Patella related to SKin necrosis from fall . Hematoma caused skin necrosis. Patient underwent excisional debridement Left knee , wound is under cover with Synthetic dressing...[facility] Laboratory Tests 06/10/18 06/11/18 06/11/18 10:58 05:30 05:30 WBC 9.2 Hgb 11.2 MCV 92.1 RDW 17.8 H Lymphocytes % 6.3 L D Alkaline Phosphatase 131 H 105 B-Natriuretic Peptide 4186.8 H Total Protein 6.2 L 5.4 L Albumin 3.2 L 2.8 L She was seen in wound clinic culture were done, last week. Her leg swelling has increased . Patient major worry is the hardware left knee / infection. Lower leg swelling 3+ Open wound on the Anterior aspect of left lower leg less 0.5cm with serous drainage, no odor No calf tenderness Plan : 1. Wound care left lower leg Elevation Application of diluted betadine ( Mixed with NSS Ration 3:1 ( Nss:Betadine) 2. Cover with dry absorbent gauze 3. Elevation Lower leg 4. Compression using tubi-component inspector or Jefferson bandage 5. Antibiotic as per Infectious disease FU wound clinic [address] Bhardwaj Time 20 min - Current Medication List Current Medications: Active Medications Acetaminophen (Tylenol -) 650 mg PO Q6H PRN PRN Reason: FEVER Last Admin: 06/11/18 03:15 Dose: 650 mg Apixaban (Eliquis -) 5 mg PO BID [facility] Last Admin: 06/11/18 09:05 Dose: 5 mg Diltiazem HCl (Cardizem Cd -) 180 mg PO DAILY [facility] Last Admin: 06/11/18 09:05 Dose: 180 mg Furosemide (Lasix -) 20 mg PO DAILY [facility] Last Admin: 06/11/18 09:05 Dose: 20 mg Piperacillin Sod/Tazobactam (Sod 3.375 gm/ Dextrose) 50 mls @ 100 mls/hr IVPB Q8H-IV [facility]; Protocol Last Admin: 06/11/18 09:04 Dose: 100 mls/hr Ibuprofen (Motrin -) 600 mg PO Q8H PRN PRN Reason: PAIN LEVEL 1-5 Last Admin: 06/11/18 14:06 Dose: 600 mg Levothyroxine Sodium (Synthroid -) 125 mcg PO DAILY@0700 [facility] Last Admin: 06/11/18 07:00 Dose: 125 mcg Metoprolol Tartrate (Lopressor -) 50 mg PO BID [facility] Last Admin: 06/11/18 09:05 Dose: 50 mg Prednisone (Deltasone -) 5 mg PO DAILY [facility] Last Admin: 06/11/18 09:05 Dose: 5 mg - Objective Vital Signs: Vital Signs Temperature 98.2 F 06/11/18 10:00 Pulse Rate 95 H 06/11/18 10:00 Respiratory Rate 20 06/11/18 10:00 Blood Pressure 98/64 06/11/18 10:00 O2 Sat by Pulse Oximetry (%) 97 06/11/18 09:00 Labs: CBC, BMP 06/11/18 05:30 06/11/18 05:30
--- NOTE | 2018-06-11 18:30 | PN ---
Progress Note, Physician History of Present Illness: No new changes - Current Medication List Current Medications: Active Medications Acetaminophen (Tylenol -) 650 mg PO Q6H PRN PRN Reason: FEVER Last Admin: 06/11/18 03:15 Dose: 650 mg Apixaban (Eliquis -) 5 mg PO BID [facility] Last Admin: 06/11/18 09:05 Dose: 5 mg Diltiazem HCl (Cardizem Cd -) 180 mg PO DAILY [facility] Last Admin: 06/11/18 09:05 Dose: 180 mg Furosemide (Lasix -) 20 mg PO DAILY [facility] Last Admin: 06/11/18 09:05 Dose: 20 mg Piperacillin Sod/Tazobactam (Sod 3.375 gm/ Dextrose) 50 mls @ 100 mls/hr IVPB Q8H-IV [facility]; Protocol Last Admin: 06/11/18 17:03 Dose: 100 mls/hr Ibuprofen (Motrin -) 600 mg PO Q8H PRN PRN Reason: PAIN LEVEL 1-5 Last Admin: 06/11/18 14:06 Dose: 600 mg Levothyroxine Sodium (Synthroid -) 125 mcg PO DAILY@0700 [facility] Last Admin: 06/11/18 07:00 Dose: 125 mcg Metoprolol Tartrate (Lopressor -) 50 mg PO BID [facility] Last Admin: 06/11/18 09:05 Dose: 50 mg Prednisone (Deltasone -) 5 mg PO DAILY [facility] Last Admin: 06/11/18 09:05 Dose: 5 mg - Objective Vital Signs: Vital Signs Temperature 97.5 F L 06/11/18 18:00 Pulse Rate 82 06/11/18 18:00 Respiratory Rate 19 06/11/18 18:00 Blood Pressure 100/56 L 06/11/18 18:00 O2 Sat by Pulse Oximetry (%) 97 06/11/18 09:00 Neck: Yes: WNL, Supple Cardiovascular: Yes: WNL, Regular Rate and Rhythm Respiratory: Yes: WNL, Regular, CTA Bilaterally Gastrointestinal: Yes: WNL, Normal Bowel Sounds, Soft Extremities: Yes: Other (Some oozing b/l lower extremities) Labs: CBC, BMP 06/11/18 05:30 06/11/18 05:30 Problem List - Problems (1) Cellulitis Assessment/Plan: Cont wound care Cont IV atnibxs Code(s): L03.90 - CELLULITIS, UNSPECIFIED (2) AF (paroxysmal atrial fibrillation) Assessment/Plan: Cont eliquis Heart rate controlled Code(s): I48.0 - PAROXYSMAL ATRIAL FIBRILLATION (3) HTN (hypertension) Assessment/Plan: BP stable Code(s): I10 - ESSENTIAL (PRIMARY) HYPERTENSION Qualifiers: Hypertension type: essential hypertension Qualified Code(s): I10 - Essential (primary) hypertension (4) Hypothyroidism Assessment/Plan: Cont levothyroxine Code(s): E03.9 - HYPOTHYROIDISM, UNSPECIFIED Qualifiers: Hypothyroidism type: unspecified Qualified Code(s): E03.9 - Hypothyroidism , unspecified
[2018-06-12] MEDS ORDERED: DEXTROSE 5%-WATER - 50 ML IVPB ONE ×3 (01:28→17:32)
[2018-06-12] MEDS ORDERED: PIPERACILLIN/TAZOBACTAM 3.375 GM VIAL IVPB ONE ×3 (01:28→17:32)
[2018-06-12] MEDS: PIPERACILLIN/TAZOB 3.375 GM 3.375 GM in DEXTROSE 5%-WATER - 50 ML IVPB SCH ×3 (01:38→17:51)
[2018-06-12] MEDS: ACETAMINOPHEN 325 MG TABLET (FP) PO PRN ×2 (02:59→21:13)
[2018-06-12] MEDS: LEVOTHYROXINE NA 125 MCG TABLET (FP) PO SCH (06:03)
[2018-06-12] MEDS: predniSONE 5 MG TABLET (UD) PO SCH (09:41)
[2018-06-12] MEDS: METOPROLOL TARTRATE 50 MG TABLET (FP) PO SCH ×2 (09:41→21:11)
[2018-06-12] MEDS: APIXABAN 5 MG TABLET PO SCH ×2 (09:41→21:11)
[2018-06-12] MEDS: FUROSEMIDE 20 MG TABLET (FP) PO SCH (09:41)
--- NOTE | 2018-06-12 11:40 | PN ---
Progress Note, Physician History of Present Illness: feeling good - Current Medication List Current Medications: Active Medications Acetaminophen (Tylenol -) 650 mg PO Q6H PRN PRN Reason: FEVER Last Admin: 06/12/18 02:59 Dose: 325 mg Apixaban (Eliquis -) 5 mg PO BID [facility] Last Admin: 06/12/18 09:41 Dose: 5 mg Diltiazem HCl (Cardizem Cd -) 180 mg PO DAILY [facility] Last Admin: 06/12/18 09:41 Dose: 180 mg Furosemide (Lasix Injection -) 40 mg IVPUSH DAILY [facility] Piperacillin Sod/Tazobactam (Sod 3.375 gm/ Dextrose) 50 mls @ 100 mls/hr IVPB Q8H-IV [facility]; Protocol Last Admin: 06/12/18 09:41 Dose: 100 mls/hr Ibuprofen (Motrin -) 600 mg PO Q8H PRN PRN Reason: PAIN LEVEL 1-5 Last Admin: 06/11/18 14:06 Dose: 600 mg Levothyroxine Sodium (Synthroid -) 125 mcg PO DAILY@0700 [facility] Last Admin: 06/12/18 06:03 Dose: 125 mcg Metoprolol Tartrate (Lopressor -) 50 mg PO BID [facility] Last Admin: 06/12/18 09:41 Dose: 50 mg Prednisone (Deltasone -) 5 mg PO DAILY [facility] Last Admin: 06/12/18 09:41 Dose: 5 mg - Objective Vital Signs: Vital Signs Temperature 98.1 F 06/12/18 08:37 Pulse Rate 83 06/12/18 08:37 Respiratory Rate 18 06/12/18 08:47 Blood Pressure 112/64 06/12/18 08:37 O2 Sat by Pulse Oximetry (%) 98 06/12/18 08:47 Constitutional: Yes: No Distress HENT: Yes: Atraumatic Neck: Yes: Supple Cardiovascular: Yes: Regular Rate and Rhythm Respiratory: Yes: CTA Bilaterally Gastrointestinal: Yes: Normal Bowel Sounds Extremities: Yes: Other (cellulitis b/l mary) Edema: Yes Peripheral Pulses WNL: Yes Neurological: Yes: Alert, Oriented Labs: CBC, BMP 06/11/18 05:30 06/11/18 05:30 Problem List - Problems (1) Cellulitis Assessment/Plan: on iv abx wound care Code(s): L03.90 - CELLULITIS, UNSPECIFIED (2) AF (paroxysmal atrial fibrillation) Assessment/Plan: on meds stable Code(s): I48.0 - PAROXYSMAL ATRIAL FIBRILLATION (3) HTN (hypertension) Assessment/Plan: on meds Code(s): I10 - ESSENTIAL (PRIMARY) HYPERTENSION Qualifiers: Hypertension type: essential hypertension Qualified Code(s): I10 - Essential (primary) hypertension (4) Hypothyroidism Assessment/Plan: on medsiv lasix will get cardiology consult Code(s): E03.9 - HYPOTHYROIDISM, UNSPECIFIED Qualifiers: Hypothyroidism type: unspecified Qualified Code(s): E03.9 - Hypothyroidism , unspecified (5) CHF exacerbation Code(s): I50.9 - HEART FAILURE, UNSPECIFIED Qualifiers: Heart failure type: diastolic Qualified Code(s): I50.33 - Acute on chronic diastolic (congestive) heart failure
[2018-06-12] MEDS: FUROSEMIDE 40 MG/4 ML INJECTABLE VIAL IVPUSH SCH (14:01)
--- NOTE | 2018-06-12 15:13 | CON.CARD ---
Consult Consult Specialty:: Cardiology Referred by:: Dr. Castañeda Reason for Consultation:: Cardiac evaluation - History of Present Illness Chief Complaint: Cellulitis History of Present Illness: Patient is a 78 year old female with underlying history of permanent AF on DOAC (Eliquis), RA, hypothyroidism and venous insufficiency who presents with lower extremity cellulitis for IV antibiotic treatment. She denies chest pain, SOB or palpitations. She denies paroxysmal nocturnal dyspnea or orthopnea. She denies fever or chills. She denies nausea, vomiting, diarrhea or abdominal pain. She denies headache or lightheadedness. Chronic venous stasis ulcer is being treated by wound care. - History Source History Provided By: Patient, Medical Record Limitations to Obtaining History: No Limitations - Past Medical History Cardio/Vascular: Yes: AFIB, HTN Rheumatology: Yes: Rheumatoid Arthritis Endocrine: Yes: Hypothyroidism - Past Surgical History Past Surgical History: Yes: Hysterectomy, Joint Replacement, Vein Stripping/ Ligation - Alcohol/Substance Use Hx Alcohol Use: No - Smoking History Smoking history: Never smoked Have you smoked in the past 12 months: No - Social History ADL: Independent Home Medications - Allergies Allergies/Adverse Reactions: Allergies Allergy/AdvReac Type Severity Reaction Status Date / Time naproxen [From Naprosyn] Allergy Intermediate Swelling Verified 06/10/18 09:52 - Home Medications Home Medications: Ambulatory Orders Apixaban [Eliquis] 5 mg PO BID 05/20/16 Prednisone 5 mg PO DAILY #10 tablet 07/13/17 Diltiazem Cd [Cardizem Cd -] 180 mg PO DAILY 30 Days #30 cap.cd.24h 05/06/18 Furosemide [Lasix] 1 tab PO DAILY 30 Days #30 tablet 05/06/18 Metoprolol Tartrate [Lopressor -] 50 mg PO BID tablet 05/06/18 Levothyroxine [Synthroid -] 125 mcg PO DAILY@0700 06/10/18 Review of Systems - Review of Systems Constitutional: denies: Chills, Fever Cardiovascular: denies: Chest Pain, Palpitations, Shortness of Breath Respiratory: denies: Cough, Hemoptysis, Orthopnea, PND, SOB, SOB on Exertion Gastrointestinal: denies: Abdominal Pain, Constipation, Diarrhea, Melena, Nausea , Rectal Bleeding, Vomiting Genitourinary: denies: Dysuria, Hematuria Neurological: denies: Dizziness, Headache, Seizure, Syncope Vital Signs: Vital Signs Temperature 98.2 F 06/12/18 14:54 Pulse Rate 88 06/12/18 14:54 Respiratory Rate 18 06/12/18 14:54 Blood Pressure 119/65 06/12/18 14:54 O2 Sat by Pulse Oximetry (%) 98 06/12/18 08:47 Eyes: Yes: PERRL HENT: Yes: Atraumatic Neck: Yes: Supple Respiratory: Yes: CTA Bilaterally Gastrointestinal: Yes: Normal Bowel Sounds, Soft. No: Tenderness Cardiovascular: Yes: Pulse Irregular JVD: No PMI: Non-Displaced Heart Sounds: Yes: S1, S2. No: Gallop Murmur: Yes: Systolic Murmur, Grade 2 Extremities: Yes: Erythema Edema: Yes Edema: LLE: 1+, RLE: 1+ - Other Data Labs, Other Data: CBC, BMP 06/11/18 05:30 06/11/18 05:30 Atrial fibrillation with RVR Problem List - Problems (1) Cellulitis Code(s): L03.90 - CELLULITIS, UNSPECIFIED (2) AF (paroxysmal atrial fibrillation) Code(s): I48.0 - PAROXYSMAL ATRIAL FIBRILLATION (3) Chronic anticoagulation Code(s): Z79.01 - HAND GLASS CUTTER (CURRENT) USE OF ANTICOAGULANTS (4) HTN (hypertension) Code(s): I10 - ESSENTIAL (PRIMARY) HYPERTENSION Qualifiers: Hypertension type: essential hypertension Qualified Code(s): I10 - Essential (primary) hypertension (5) Hypothyroidism Code(s): E03.9 - HYPOTHYROIDISM, UNSPECIFIED Qualifiers: Hypothyroidism type: unspecified Qualified Code(s): E03.9 - Hypothyroidism , unspecified (6) Mitral valve prolapse Code(s): I34.1 - NONRHEUMATIC MITRAL (VALVE) PROLAPSE (7) Raynauds phenomenon Code(s): I73.00 - RAYNAUD'S SYNDROME WITHOUT GANGRENE Qualifiers: Raynaud?s-associated gangrene presence: without gangrene Qualified Code(s) : I73.00 - Raynaud's syndrome without gangrene (8) Rheumatoid arthritis Code(s): M06.9 - RHEUMATOID ARTHRITIS, UNSPECIFIED Qualifiers: Rheumatoid arthritis location: unspecified site (9) Venous insufficiency of both lower extremities Code(s): I87.2 - VENOUS INSUFFICIENCY (CHRONIC) (PERIPHERAL) Assessment/Plan 1. Cellulitis 2. Permanent AF [id number] score of 5 on DOAC/Eliquis 3. CAD, angina pectoris 4. Acute on chronic diastolic LV failure with mild 5. HTN 6. Venous stasis ulcer and insufficiency 7. Hypothyroidism 8. Mitral valve disease 9. History of RA PLAN: 1. IV antibiotics as per ID service 2. diuretics 3. Lopressor and Cardizem CD 4. Continue Eliquis Further plans are to follow Jose De Jesus Girard MD
--- NOTE | 2018-06-12 15:32 | PN ---
Progress Note, Physician History of Present Illness: patient stable no new issues - Current Medication List Current Medications: Active Medications Acetaminophen (Tylenol -) 650 mg PO Q6H PRN PRN Reason: FEVER Last Admin: 06/12/18 02:59 Dose: 325 mg Apixaban (Eliquis -) 5 mg PO BID [facility] Last Admin: 06/12/18 09:41 Dose: 5 mg Diltiazem HCl (Cardizem Cd -) 180 mg PO DAILY [facility] Last Admin: 06/12/18 09:41 Dose: 180 mg Furosemide (Lasix Injection -) 40 mg IVPUSH DAILY [facility] Last Admin: 06/12/18 14:01 Dose: 40 mg Piperacillin Sod/Tazobactam (Sod 3.375 gm/ Dextrose) 50 mls @ 100 mls/hr IVPB Q8H-IV [facility]; Protocol Last Admin: 06/12/18 09:41 Dose: 100 mls/hr Ibuprofen (Motrin -) 600 mg PO Q8H PRN PRN Reason: PAIN LEVEL 1-5 Last Admin: 06/11/18 14:06 Dose: 600 mg Levothyroxine Sodium (Synthroid -) 125 mcg PO DAILY@0700 [facility] Last Admin: 06/12/18 06:03 Dose: 125 mcg Metoprolol Tartrate (Lopressor -) 50 mg PO BID [facility] Last Admin: 06/12/18 09:41 Dose: 50 mg Prednisone (Deltasone -) 5 mg PO DAILY [facility] Last Admin: 06/12/18 09:41 Dose: 5 mg - Objective Vital Signs: Vital Signs Temperature 98.2 F 06/12/18 14:54 Pulse Rate 88 06/12/18 14:54 Respiratory Rate 18 06/12/18 14:54 Blood Pressure 119/65 06/12/18 14:54 O2 Sat by Pulse Oximetry (%) 98 06/12/18 08:47 Constitutional: Yes: No Distress, Calm Cardiovascular: Yes: S1, S2 Respiratory: Yes: Regular, CTA Bilaterally Gastrointestinal: Yes: Normal Bowel Sounds, Soft Musculoskeletal: Yes: WNL Extremities: Yes: Erythema (improving), Other Wound/Incision: Yes: Dressing Dry and Intact Neurological: Yes: Alert, Oriented Psychiatric: Yes: Alert, Oriented Labs: CBC, BMP 06/11/18 05:30 06/11/18 05:30 Assessment/Plan Problem List - Problems (1) Cellulitis Code(s): L03.90 - CELLULITIS, UNSPECIFIED (2) AF (paroxysmal atrial fibrillation) Code(s): I48.0 - PAROXYSMAL ATRIAL FIBRILLATION (3) HTN (hypertension) Code(s): I10 - ESSENTIAL (PRIMARY) HYPERTENSION Qualifiers: Hypertension type: essential hypertension Qualified Code(s): I10 - Essential (primary) hypertension (4) Hypothyroidism Code(s): E03.9 - HYPOTHYROIDISM, UNSPECIFIED Qualifiers: Hypothyroidism type: unspecified Qualified Code(s): E03.9 - Hypothyroidism , unspecified 5 b/l cellulitis of the legs non healing wounds of the legs infected wounds of the legs plan continue abx close monitoring wound care rest as per the team
[2018-06-12 22:59] VITALS: BMI 28.0
[2018-06-13] MEDS: PIPERACILLIN/TAZOB 3.375 GM 3.375 GM in DEXTROSE 5%-WATER - 50 ML IVPB SCH ×3 (02:50→17:15)
[2018-06-13] MEDS ORDERED: DEXTROSE 5%-WATER - 50 ML IVPB ONE ×3 (02:51→17:10)
[2018-06-13] MEDS ORDERED: PIPERACILLIN/TAZOBACTAM 3.375 GM VIAL IVPB ONE ×3 (02:51→17:10)
[2018-06-13] MEDS: LEVOTHYROXINE NA 125 MCG TABLET (FP) PO SCH (06:07)
[2018-06-13] MEDS: ACETAMINOPHEN 325 MG TABLET (FP) PO PRN ×2 (06:38→21:04)
[2018-06-13] MEDS: predniSONE 5 MG TABLET (UD) PO SCH (09:44)
[2018-06-13] MEDS: METOPROLOL TARTRATE 50 MG TABLET (FP) PO SCH ×2 (09:44→21:04)
[2018-06-13] MEDS: APIXABAN 5 MG TABLET PO SCH ×2 (09:44→21:04)
[2018-06-13] MEDS: FUROSEMIDE 40 MG/4 ML INJECTABLE VIAL IVPUSH SCH (09:44)
--- NOTE | 2018-06-13 10:27 | PN ---
Progress Note, Physician Chief Complaint: Events noted Not in distress History of Present Illness: Patient was seen and examined. Awake and alert. Chart was reviewed Denies chest pain, SOB or palpitations - Current Medication List Current Medications: Active Medications Acetaminophen (Tylenol -) 650 mg PO Q6H PRN PRN Reason: FEVER Last Admin: 06/13/18 06:38 Dose: 650 mg Apixaban (Eliquis -) 5 mg PO BID [facility] Last Admin: 06/13/18 09:44 Dose: 5 mg Diltiazem HCl (Cardizem Cd -) 180 mg PO DAILY [facility] Last Admin: 06/13/18 09:44 Dose: 180 mg Furosemide (Lasix Injection -) 40 mg IVPUSH DAILY [facility] Last Admin: 06/13/18 09:44 Dose: 40 mg Piperacillin Sod/Tazobactam (Sod 3.375 gm/ Dextrose) 50 mls @ 100 mls/hr IVPB Q8H-IV [facility]; Protocol Last Admin: 06/13/18 09:44 Dose: 100 mls/hr Ibuprofen (Motrin -) 600 mg PO Q8H PRN PRN Reason: PAIN LEVEL 1-5 Last Admin: 06/11/18 14:06 Dose: 600 mg Levothyroxine Sodium (Synthroid -) 125 mcg PO DAILY@0700 [facility] Last Admin: 06/13/18 06:07 Dose: 125 mcg Metoprolol Tartrate (Lopressor -) 50 mg PO BID [facility] Last Admin: 06/13/18 09:44 Dose: 50 mg Prednisone (Deltasone -) 5 mg PO DAILY [facility] Last Admin: 06/13/18 09:44 Dose: 5 mg - Objective Vital Signs: Vital Signs Temperature 98.6 F 06/13/18 08:00 Pulse Rate 106 H 06/13/18 08:00 Respiratory Rate 18 06/13/18 08:03 Blood Pressure 117/72 06/13/18 08:00 O2 Sat by Pulse Oximetry (%) 97 06/13/18 08:03 HENT: Yes: Atraumatic Neck: Yes: Supple Cardiovascular: Yes: Pulse Irregular, Murmur (SM), S1, S2 Respiratory: Yes: CTA Bilaterally Gastrointestinal: Yes: Normal Bowel Sounds, Soft. No: Tenderness Extremities: Yes: Erythema Edema: Yes Edema: LLE: 1+, RLE: 1+ Wound/Incision: Yes: Dressing Dry and Intact Additional Findings/Remarks: - Review of Systems Constitutional: denies: Chills, Fever Cardiovascular: denies: Chest Pain, Palpitations, Shortness of Breath Respiratory: denies: Cough, Hemoptysis, Orthopnea, PND, SOB, SOB on Exertion Gastrointestinal: denies: Abdominal Pain, Constipation, Diarrhea, Melena, Nausea , Rectal Bleeding, Vomiting Genitourinary: denies: Dysuria, Hematuria Neurological: denies: Dizziness, Headache, Seizure, Syncope Problem List - Problems (1) Cellulitis Code(s): L03.90 - CELLULITIS, UNSPECIFIED (2) AF (paroxysmal atrial fibrillation) Code(s): I48.0 - PAROXYSMAL ATRIAL FIBRILLATION (3) Chronic anticoagulation Code(s): Z79.01 - PRISON (CURRENT) USE OF ANTICOAGULANTS (4) HTN (hypertension) Code(s): I10 - ESSENTIAL (PRIMARY) HYPERTENSION Qualifiers: Hypertension type: essential hypertension Qualified Code(s): I10 - Essential (primary) hypertension (5) Hypothyroidism Code(s): E03.9 - HYPOTHYROIDISM, UNSPECIFIED Qualifiers: Hypothyroidism type: unspecified Qualified Code(s): E03.9 - Hypothyroidism , unspecified (6) Mitral valve prolapse Code(s): I34.1 - NONRHEUMATIC MITRAL (VALVE) PROLAPSE (7) Raynauds phenomenon Code(s): I73.00 - RAYNAUD'S SYNDROME WITHOUT GANGRENE Qualifiers: Raynaud?s-associated gangrene presence: without gangrene Qualified Code(s) : I73.00 - Raynaud's syndrome without gangrene (8) Rheumatoid arthritis Code(s): M06.9 - RHEUMATOID ARTHRITIS, UNSPECIFIED Qualifiers: Rheumatoid arthritis location: unspecified site (9) Venous insufficiency of both lower extremities Code(s): I87.2 - VENOUS INSUFFICIENCY (CHRONIC) (PERIPHERAL) Assessment/Plan 1. Cellulitis 2. Permanent AF [id number] score of 5 on DOAC/Eliquis 3. CAD, angina pectoris 4. Acute on chronic diastolic LV failure with mild 5. HTN 6. Venous stasis ulcer and insufficiency 7. Hypothyroidism 8. Mitral valve disease 9. History of RA PLAN: 1. IV antibiotics as per ID service 2. diuretics IV and monitor I/Os and daily weight 3. Lopressor and Cardizem CD 4. Continue Eliquis 5. Thyroid replacement therapy Further plans are to follow Jose De Jesus Girard MD
--- NOTE | 2018-06-13 13:31 | PN ---
Progress Note, Physician History of Present Illness: feeling good - Current Medication List Current Medications: Active Medications Acetaminophen (Tylenol -) 650 mg PO Q6H PRN PRN Reason: FEVER Last Admin: 06/13/18 06:38 Dose: 650 mg Apixaban (Eliquis -) 5 mg PO BID [facility] Last Admin: 06/13/18 09:44 Dose: 5 mg Diltiazem HCl (Cardizem Cd -) 180 mg PO DAILY [facility] Last Admin: 06/13/18 09:44 Dose: 180 mg Furosemide (Lasix Injection -) 40 mg IVPUSH DAILY [facility] Last Admin: 06/13/18 09:44 Dose: 40 mg Piperacillin Sod/Tazobactam (Sod 3.375 gm/ Dextrose) 50 mls @ 100 mls/hr IVPB Q8H-IV [facility]; Protocol Last Admin: 06/13/18 09:44 Dose: 100 mls/hr Ibuprofen (Motrin -) 600 mg PO Q8H PRN PRN Reason: PAIN LEVEL 1-5 Last Admin: 06/11/18 14:06 Dose: 600 mg Levothyroxine Sodium (Synthroid -) 125 mcg PO DAILY@0700 [facility] Last Admin: 06/13/18 06:07 Dose: 125 mcg Metoprolol Tartrate (Lopressor -) 50 mg PO BID [facility] Last Admin: 06/13/18 09:44 Dose: 50 mg Prednisone (Deltasone -) 5 mg PO DAILY [facility] Last Admin: 06/13/18 09:44 Dose: 5 mg - Objective Vital Signs: Vital Signs Temperature 98.6 F 06/13/18 08:00 Pulse Rate 106 H 06/13/18 08:00 Respiratory Rate 18 06/13/18 08:03 Blood Pressure 117/72 06/13/18 08:00 O2 Sat by Pulse Oximetry (%) 97 06/13/18 08:03 Constitutional: Yes: No Distress HENT: Yes: Atraumatic Neck: Yes: Supple Cardiovascular: Yes: Regular Rate and Rhythm Respiratory: Yes: CTA Bilaterally Gastrointestinal: Yes: Normal Bowel Sounds Extremities: Yes: Other (b/l mary cellulitis) Edema: Yes Edema: LLE: 1+, RLE: 1+ Peripheral Pulses WNL: Yes Neurological: Yes: Alert, Oriented Labs: CBC, BMP 06/11/18 05:30 01/27/19 05:30 Problem List - Problems (1) Cellulitis Assessment/Plan: on iv abx wound care Code(s): L03.90 - CELLULITIS, UNSPECIFIED Qualifiers: Site of cellulitis of extremity: lower extremity Laterality: unspecified laterality (2) AF (paroxysmal atrial fibrillation) Assessment/Plan: on meds stable Code(s): I48.0 - PAROXYSMAL ATRIAL FIBRILLATION (3) HTN (hypertension) Assessment/Plan: on meds Code(s): I10 - ESSENTIAL (PRIMARY) HYPERTENSION Qualifiers: Hypertension type: essential hypertension Qualified Code(s): I10 - Essential (primary) hypertension (4) Hypothyroidism Assessment/Plan: on meds Code(s): E03.9 - HYPOTHYROIDISM, UNSPECIFIED Qualifiers: Hypothyroidism type: unspecified Qualified Code(s): E03.9 - Hypothyroidism , unspecified (5) CHF exacerbation Assessment/Plan: on lasix cardio on board Code(s): I50.9 - HEART FAILURE, UNSPECIFIED Qualifiers: Heart failure type: diastolic Qualified Code(s): I50.33 - Acute on chronic diastolic (congestive) heart failure
--- NOTE | 2018-06-13 14:19 | PN ---
Progress Note, Physician History of Present Illness: legs continue to improve wounds better swelling decreased erythema better - Current Medication List Current Medications: Active Medications Acetaminophen (Tylenol -) 650 mg PO Q6H PRN PRN Reason: FEVER Last Admin: 06/13/18 06:38 Dose: 650 mg Apixaban (Eliquis -) 5 mg PO BID [facility] Last Admin: 06/13/18 09:44 Dose: 5 mg Diltiazem HCl (Cardizem Cd -) 180 mg PO DAILY [facility] Last Admin: 06/13/18 09:44 Dose: 180 mg Furosemide (Lasix Injection -) 40 mg IVPUSH DAILY [facility] Last Admin: 06/13/18 09:44 Dose: 40 mg Piperacillin Sod/Tazobactam (Sod 3.375 gm/ Dextrose) 50 mls @ 100 mls/hr IVPB Q8H-IV [facility]; Protocol Last Admin: 06/13/18 09:44 Dose: 100 mls/hr Ibuprofen (Motrin -) 600 mg PO Q8H PRN PRN Reason: PAIN LEVEL 1-5 Last Admin: 06/11/18 14:06 Dose: 600 mg Levothyroxine Sodium (Synthroid -) 125 mcg PO DAILY@0700 [facility] Last Admin: 06/13/18 06:07 Dose: 125 mcg Metoprolol Tartrate (Lopressor -) 50 mg PO BID [facility] Last Admin: 06/13/18 09:44 Dose: 50 mg Prednisone (Deltasone -) 5 mg PO DAILY [facility] Last Admin: 06/13/18 09:44 Dose: 5 mg - Objective Vital Signs: Vital Signs Temperature 97.6 F 06/13/18 13:51 Pulse Rate 97 H 06/13/18 13:51 Respiratory Rate 18 06/13/18 13:51 Blood Pressure 119/67 06/13/18 13:51 O2 Sat by Pulse Oximetry (%) 97 06/13/18 08:03 Constitutional: Yes: No Distress, Calm Cardiovascular: Yes: Pulse Irregular, S1, S2 Respiratory: Yes: Regular, CTA Bilaterally Gastrointestinal: Yes: Normal Bowel Sounds, Soft Musculoskeletal: Yes: WNL Extremities: Yes: Other Neurological: Yes: Alert, Oriented Psychiatric: Yes: Alert, Oriented Labs: CBC, BMP 06/11/18 05:30 06/11/18 05:30 Assessment/Plan Problem List - Problems (1) Cellulitis Code(s): L03.90 - CELLULITIS, UNSPECIFIED (2) AF (paroxysmal atrial fibrillation) Code(s): I48.0 - PAROXYSMAL ATRIAL FIBRILLATION (3) HTN (hypertension) Code(s): I10 - ESSENTIAL (PRIMARY) HYPERTENSION Qualifiers: Hypertension type: essential hypertension Qualified Code(s): I10 - Essential (primary) hypertension (4) Hypothyroidism Code(s): E03.9 - HYPOTHYROIDISM, UNSPECIFIED Qualifiers: Hypothyroidism type: unspecified Qualified Code(s): E03.9 - Hypothyroidism , unspecified 5 b/l cellulitis of the legs non healing wounds of the legs infected wounds of the legs plan continue abx will deescalate tomorrow to oral diuresis rest as per the team
[2018-06-14] MEDS: IBUPROFEN 600 MG TABLET (FP) PO PRN ×2 (01:28→20:07)
[2018-06-14] MEDS ORDERED: DEXTROSE 5%-WATER - 50 ML IVPB ONE ×3 (03:38→18:45)
[2018-06-14] MEDS ORDERED: PIPERACILLIN/TAZOBACTAM 3.375 GM VIAL IVPB ONE ×3 (03:38→18:45)
[2018-06-14] MEDS: PIPERACILLIN/TAZOB 3.375 GM 3.375 GM in DEXTROSE 5%-WATER - 50 ML IVPB SCH ×3 (03:40→18:53)
[2018-06-14 06:37] LABS: EOS % 4.5 % (0-4.5); HEMATOCRIT 35.7 % (32.4-45.2); HEMOGLOBIN 11.7 GM/dL (10.7-15.3); LYMPH % 7.9 % (8-40); MCH 29.9 pg (25.7-33.7); MCHC 32.8 g/dl (32.0-36.0); MEAN CELL VOLUME 91.1 fl (80-96); MEAN PLT VOLUME 7.8 fl (7.5-11.1); MONO % 13.1 % (3.8-10.2); NEUT % 73.5 % (42.8-82.8); PLATELET COUNT 305 K/MM3 (134-434); RBC 3.91 M/mm3 (3.60-5.2); RDW 17.6 % (11.6-15.6); WHITE BLOOD COUNT 7.6 K/mm3 (4.0-10.0)
[2018-06-14] MEDS: LEVOTHYROXINE NA 125 MCG TABLET (FP) PO SCH (07:06)
[2018-06-14 07:34] LABS: ALBUMIN 2.9 g/dl (3.4-5.0); ALK PHOS 116 U/L (45-117); ANION GAP 5 MMOL/L (8-16); BILIRUBIN,TOTAL 0.9 mg/dL (0.2-1); BLOOD UREA NITROGEN 28 mg/dL (7-18); CALCIUM 8.9 mg/dL (8.5-10.1); CHLORIDE 102 mmol/L (98-107); CO2 33 mmol/L (21-32); GLUCOSE,RANDOM 86 mg/dL (74-106); POTASSIUM 3.7 mmol/L (3.5-5.1); SGOT/AST 25 U/L (15-37); SGPT/ALT 22 U/L (13-61); SODIUM 140 mmol/L (136-145); TOT PROT 5.6 g/dl (6.4-8.2)
[2018-06-14] MEDS: APIXABAN 5 MG TABLET PO SCH ×2 (09:37→22:00)
[2018-06-14] MEDS: METOPROLOL TARTRATE 50 MG TABLET (FP) PO SCH ×2 (09:37→22:00)
[2018-06-14] MEDS: predniSONE 5 MG TABLET (UD) PO SCH (09:37)
[2018-06-14] MEDS: FUROSEMIDE 40 MG/4 ML INJECTABLE VIAL IVPUSH SCH (09:38)
--- NOTE | 2018-06-14 12:07 | PN ---
Progress Note, Physician History of Present Illness: Dyspnea and LE edema being wrapped improving. - Current Medication List Current Medications: Active Medications Acetaminophen (Tylenol -) 650 mg PO Q6H PRN PRN Reason: FEVER Last Admin: 06/13/18 21:04 Dose: 650 mg Apixaban (Eliquis -) 5 mg PO BID [facility] Last Admin: 06/14/18 09:37 Dose: 5 mg Diltiazem HCl (Cardizem Cd -) 180 mg PO DAILY [facility] Last Admin: 06/14/18 09:37 Dose: 180 mg Furosemide (Lasix Injection -) 40 mg IVPUSH DAILY [facility] Last Admin: 06/14/18 09:38 Dose: 40 mg Piperacillin Sod/Tazobactam (Sod 3.375 gm/ Dextrose) 50 mls @ 100 mls/hr IVPB Q8H-IV [facility]; Protocol Last Admin: 06/14/18 09:38 Dose: 100 mls/hr Ibuprofen (Motrin -) 600 mg PO Q8H PRN PRN Reason: PAIN LEVEL 1-5 Last Admin: 06/14/18 01:28 Dose: 600 mg Levothyroxine Sodium (Synthroid -) 125 mcg PO DAILY@0700 [facility] Last Admin: 06/14/18 07:06 Dose: 125 mcg Metoprolol Tartrate (Lopressor -) 50 mg PO BID [facility] Last Admin: 06/14/18 09:37 Dose: 50 mg Prednisone (Deltasone -) 5 mg PO DAILY [facility] Last Admin: 06/14/18 09:37 Dose: 5 mg - Objective Vital Signs: Vital Signs Temperature 98.1 F 06/14/18 06:00 Pulse Rate 82 06/14/18 06:00 Respiratory Rate 20 06/14/18 06:00 Blood Pressure 128/67 06/14/18 06:00 O2 Sat by Pulse Oximetry (%) 99 06/13/18 21:43 Constitutional: Yes: No Distress, Calm Neck: Yes: Supple Cardiovascular: Yes: Pulse Irregular Respiratory: Yes: Regular, Diminished Gastrointestinal: Yes: Normal Bowel Sounds, Soft Edema: Yes Labs: CBC, BMP 06/14/18 05:30 06/14/18 05:30 - ....Imaging EKG: Report Reviewed (Tele: Afib) Problem List - Problems (1) Cellulitis Code(s): L03.90 - CELLULITIS, UNSPECIFIED Qualifiers: Site of cellulitis of extremity: lower extremity Laterality: unspecified laterality (2) Afib Code(s): I48.91 - UNSPECIFIED ATRIAL FIBRILLATION Qualifiers: Atrial fibrillation type: permanent Qualified Code(s): I48.2 - Chronic atrial fibrillation (3) CHF exacerbation Code(s): I50.9 - HEART FAILURE, UNSPECIFIED Qualifiers: Heart failure type: diastolic Qualified Code(s): I50.33 - Acute on chronic diastolic (congestive) heart failure (4) Chronic anticoagulation Code(s): Z79.01 - CONSERVATION COORDINATOR (CURRENT) USE OF ANTICOAGULANTS (5) Hypertensive cardiomegaly with heart failure Code(s): I11.0 - HYPERTENSIVE HEART DISEASE WITH HEART FAILURE (6) Hypothyroidism Code(s): E03.9 - HYPOTHYROIDISM, UNSPECIFIED Qualifiers: Hypothyroidism type: unspecified Qualified Code(s): E03.9 - Hypothyroidism , unspecified (7) Leg edema Code(s): R60.0 - LOCALIZED EDEMA (8) Rheumatoid arthritis Code(s): M06.9 - RHEUMATOID ARTHRITIS, UNSPECIFIED Qualifiers: Rheumatoid arthritis location: unspecified site (9) Venous insufficiency of both lower extremities Code(s): I87.2 - VENOUS INSUFFICIENCY (CHRONIC) (PERIPHERAL) Assessment/Plan 1. Cellulitis 2. Permanent AF [id number] score of 5 on DOAC/Eliquis 3. CAD, angina pectoris 4. Acute on chronic diastolic LV failure with mild resolving 5. HTN 6. Venous stasis ulcer and insufficiency 7. Hypothyroidism 8. Mitral valve disease 9. History of RA PLAN: 1. IV antibiotics as per ID service 2. Lasix 40 IV qd with monitor diuretic response, renal fxn and electrolytes, compression therapy 3. Lopressor 50 bid and Cardizem CD 180 qd 4. Continue Eliquis 5 bid 5. Maintenance steroids and thyroid hormone replacement
--- NOTE | 2018-06-14 14:44 | PN ---
Progress Note, Physician History of Present Illness: legs improving rt6 leg still draining - Current Medication List Current Medications: Active Medications Acetaminophen (Tylenol -) 650 mg PO Q6H PRN PRN Reason: FEVER Last Admin: 06/13/18 21:04 Dose: 650 mg Apixaban (Eliquis -) 5 mg PO BID [facility] Last Admin: 06/14/18 09:37 Dose: 5 mg Diltiazem HCl (Cardizem Cd -) 180 mg PO DAILY [facility] Last Admin: 06/14/18 09:37 Dose: 180 mg Furosemide (Lasix Injection -) 40 mg IVPUSH DAILY [facility] Last Admin: 06/14/18 09:38 Dose: 40 mg Piperacillin Sod/Tazobactam (Sod 3.375 gm/ Dextrose) 50 mls @ 100 mls/hr IVPB Q8H-IV [facility]; Protocol Last Admin: 06/14/18 09:38 Dose: 100 mls/hr Ibuprofen (Motrin -) 600 mg PO Q8H PRN PRN Reason: PAIN LEVEL 1-5 Last Admin: 06/14/18 01:28 Dose: 600 mg Levothyroxine Sodium (Synthroid -) 125 mcg PO DAILY@0700 [facility] Last Admin: 06/14/18 07:06 Dose: 125 mcg Metoprolol Tartrate (Lopressor -) 50 mg PO BID [facility] Last Admin: 06/14/18 09:37 Dose: 50 mg Prednisone (Deltasone -) 5 mg PO DAILY [facility] Last Admin: 06/14/18 09:37 Dose: 5 mg - Objective Vital Signs: Vital Signs Temperature 97.6 F 06/14/18 10:00 Pulse Rate 80 06/14/18 10:00 Respiratory Rate 20 06/14/18 10:00 Blood Pressure 122/78 06/14/18 10:00 O2 Sat by Pulse Oximetry (%) 99 06/14/18 10:00 Constitutional: Yes: No Distress, Calm Cardiovascular: Yes: Regular Rate and Rhythm Respiratory: Yes: Regular, CTA Bilaterally Gastrointestinal: Yes: Normal Bowel Sounds, Soft Musculoskeletal: Yes: WNL Extremities: Yes: Other Integumentary: Yes: Other Wound/Incision: Yes: Dressing Dry and Intact Neurological: Yes: Alert, Oriented Psychiatric: Yes: Alert, Oriented Labs: CBC, BMP 06/14/18 05:30 06/14/18 05:30 Assessment/Plan Problem List - Problems (1) Cellulitis Code(s): L03.90 - CELLULITIS, UNSPECIFIED (2) AF (paroxysmal atrial fibrillation) Code(s): I48.0 - PAROXYSMAL ATRIAL FIBRILLATION (3) HTN (hypertension) Code(s): I10 - ESSENTIAL (PRIMARY) HYPERTENSION Qualifiers: Hypertension type: essential hypertension Qualified Code(s): I10 - Essential (primary) hypertension (4) Hypothyroidism Code(s): E03.9 - HYPOTHYROIDISM, UNSPECIFIED Qualifiers: Hypothyroidism type: unspecified Qualified Code(s): E03.9 - Hypothyroidism , unspecified 5 b/l cellulitis of the legs non healing wounds of the legs infected wounds of the legs plan continue abx close monitoring wound care rest as per the team will get vascular on board
--- NOTE | 2018-06-14 15:42 | PN ---
Progress Note, Physician History of Present Illness: feeling good - Current Medication List Current Medications: Active Medications Acetaminophen (Tylenol -) 650 mg PO Q6H PRN PRN Reason: FEVER Last Admin: 06/13/18 21:04 Dose: 650 mg Apixaban (Eliquis -) 5 mg PO BID [facility] Last Admin: 06/14/18 09:37 Dose: 5 mg Diltiazem HCl (Cardizem Cd -) 180 mg PO DAILY [facility] Last Admin: 06/14/18 09:37 Dose: 180 mg Furosemide (Lasix Injection -) 40 mg IVPUSH DAILY [facility] Last Admin: 06/14/18 09:38 Dose: 40 mg Piperacillin Sod/Tazobactam (Sod 3.375 gm/ Dextrose) 50 mls @ 100 mls/hr IVPB Q8H-IV [facility]; Protocol Last Admin: 06/14/18 09:38 Dose: 100 mls/hr Ibuprofen (Motrin -) 600 mg PO Q8H PRN PRN Reason: PAIN LEVEL 1-5 Last Admin: 06/14/18 01:28 Dose: 600 mg Levothyroxine Sodium (Synthroid -) 125 mcg PO DAILY@0700 [facility] Last Admin: 06/14/18 07:06 Dose: 125 mcg Metoprolol Tartrate (Lopressor -) 50 mg PO BID [facility] Last Admin: 06/14/18 09:37 Dose: 50 mg Prednisone (Deltasone -) 5 mg PO DAILY [facility] Last Admin: 06/14/18 09:37 Dose: 5 mg - Objective Vital Signs: Vital Signs Temperature 98.2 F 06/14/18 14:05 Pulse Rate 82 06/14/18 14:05 Respiratory Rate 18 06/14/18 14:05 Blood Pressure 98/62 06/14/18 14:05 O2 Sat by Pulse Oximetry (%) 99 06/14/18 10:00 Constitutional: Yes: No Distress HENT: Yes: Atraumatic Neck: Yes: Supple Cardiovascular: Yes: Regular Rate and Rhythm Respiratory: Yes: CTA Bilaterally Extremities: Yes: WNL Labs: CBC, BMP 06/14/18 05:30 06/14/18 05:30 Problem List - Problems (1) Cellulitis Assessment/Plan: on iv abx wound care Code(s): L03.90 - CELLULITIS, UNSPECIFIED Qualifiers: Site of cellulitis of extremity: lower extremity Laterality: unspecified laterality (2) AF (paroxysmal atrial fibrillation) Assessment/Plan: on meds stable Code(s): I48.0 - PAROXYSMAL ATRIAL FIBRILLATION (3) HTN (hypertension) Assessment/Plan: on meds Code(s): I10 - ESSENTIAL (PRIMARY) HYPERTENSION Qualifiers: Hypertension type: essential hypertension Qualified Code(s): I10 - Essential (primary) hypertension (4) Hypothyroidism Assessment/Plan: on meds Code(s): E03.9 - HYPOTHYROIDISM, UNSPECIFIED Qualifiers: Hypothyroidism type: unspecified Qualified Code(s): E03.9 - Hypothyroidism , unspecified (5) CHF exacerbation Assessment/Plan: on lasix cardio on board Code(s): I50.9 - HEART FAILURE, UNSPECIFIED Qualifiers: Heart failure type: diastolic Qualified Code(s): I50.33 - Acute on chronic diastolic (congestive) heart failure
[2018-06-15] MEDS ORDERED: PIPERACILLIN/TAZOBACTAM 3.375 GM VIAL IVPB ONE ×3 (03:43→19:19)
[2018-06-15] MEDS ORDERED: DEXTROSE 5%-WATER - 50 ML IVPB ONE ×3 (03:44→19:19)
[2018-06-15] MEDS: PIPERACILLIN/TAZOB 3.375 GM 3.375 GM in DEXTROSE 5%-WATER - 50 ML IVPB SCH ×3 (03:51→19:31)
[2018-06-15] MEDS: ACETAMINOPHEN 325 MG TABLET (FP) PO PRN (03:51)
[2018-06-15] MEDS: LEVOTHYROXINE NA 125 MCG TABLET (FP) PO SCH (06:27)
[2018-06-15] MEDS: APIXABAN 5 MG TABLET PO SCH ×2 (10:16→22:32)
[2018-06-15] MEDS: METOPROLOL TARTRATE 50 MG TABLET (FP) PO SCH ×2 (10:16→22:32)
[2018-06-15] MEDS: predniSONE 5 MG TABLET (UD) PO SCH (10:16)
[2018-06-15] MEDS: FUROSEMIDE 40 MG/4 ML INJECTABLE VIAL IVPUSH SCH (10:16)
--- NOTE | 2018-06-15 11:35 | PN ---
Progress Note, Physician History of Present Illness: Dyspnea and LE edema being wrapped improving. - Current Medication List Current Medications: Active Medications Acetaminophen (Tylenol -) 650 mg PO Q6H PRN PRN Reason: FEVER Last Admin: 06/15/18 03:51 Dose: 650 mg Apixaban (Eliquis -) 5 mg PO BID [facility] Last Admin: 06/15/18 10:16 Dose: 5 mg Diltiazem HCl (Cardizem Cd -) 180 mg PO DAILY [facility] Last Admin: 06/15/18 10:16 Dose: 180 mg Furosemide (Lasix Injection -) 40 mg IVPUSH DAILY [facility] Last Admin: 06/15/18 10:16 Dose: 40 mg Piperacillin Sod/Tazobactam (Sod 3.375 gm/ Dextrose) 50 mls @ 100 mls/hr IVPB Q8H-IV [facility]; Protocol Last Admin: 06/15/18 10:16 Dose: 100 mls/hr Ibuprofen (Motrin -) 600 mg PO Q8H PRN PRN Reason: PAIN LEVEL 1-5 Last Admin: 06/14/18 20:07 Dose: 600 mg Levothyroxine Sodium (Synthroid -) 125 mcg PO DAILY@0700 [facility] Last Admin: 06/15/18 06:27 Dose: 125 mcg Metoprolol Tartrate (Lopressor -) 50 mg PO BID [facility] Last Admin: 06/15/18 10:16 Dose: 50 mg Prednisone (Deltasone -) 5 mg PO DAILY [facility] Last Admin: 06/15/18 10:16 Dose: 5 mg - Objective Vital Signs: Vital Signs Temperature 98.4 F 06/15/18 10:00 Pulse Rate 112 H 06/15/18 10:00 Respiratory Rate 20 06/15/18 10:00 Blood Pressure 101/62 06/15/18 10:00 O2 Sat by Pulse Oximetry (%) 99 06/15/18 09:00 Constitutional: Yes: No Distress, Calm, Thin Neck: Yes: Supple Cardiovascular: Yes: Pulse Irregular, Murmur (2/6 SM) Respiratory: Yes: Regular, Diminished Gastrointestinal: Yes: Normal Bowel Sounds, Soft Edema: Yes Edema: LLE: Trace, RLE: Trace Labs: CBC, BMP 06/14/18 05:30 06/14/18 05:30 - ....Imaging EKG: Report Reviewed (Tele: Rate-controlled afib) Problem List - Problems (1) Cellulitis Code(s): L03.90 - CELLULITIS, UNSPECIFIED Qualifiers: Site of cellulitis of extremity: lower extremity Laterality: unspecified laterality (2) Afib Code(s): I48.91 - UNSPECIFIED ATRIAL FIBRILLATION Qualifiers: Atrial fibrillation type: permanent Qualified Code(s): I48.2 - Chronic atrial fibrillation (3) CHF exacerbation Code(s): I50.9 - HEART FAILURE, UNSPECIFIED Qualifiers: Heart failure type: diastolic Qualified Code(s): I50.33 - Acute on chronic diastolic (congestive) heart failure (4) Chronic anticoagulation 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(s): 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 Bilateral LE cellulitis 2. Permanent AF [id number] score of 5 on DOAC/Eliquis 3. CAD, angina pectoris 4. Acute on chronic diastolic LV failure with mild resolving 5. HTN 6. Venous stasis ulcer and insufficiency 7. Hypothyroidism 8. Mitral valve disease 9. History of RA PLAN: 1. IV antibiotics and wound care as per ID service 2. Decrease Lasix 20 po qd with monitor diuretic response, renal fxn and electrolytes, compression therapy 3. Lopressor 50 bid and Cardizem CD 180 qd 4. Continue Eliquis 5 bid 5. Maintenance steroids and thyroid hormone replacement
--- NOTE | 2018-06-15 12:27 | PN ---
Progress Note, Physician History of Present Illness: patient doing well no new issues - Current Medication List Current Medications: Active Medications Acetaminophen (Tylenol -) 650 mg PO Q6H PRN PRN Reason: FEVER Last Admin: 06/15/18 03:51 Dose: 650 mg Apixaban (Eliquis -) 5 mg PO BID [facility] Last Admin: 06/15/18 10:16 Dose: 5 mg Diltiazem HCl (Cardizem Cd -) 180 mg PO DAILY [facility] Last Admin: 06/15/18 10:16 Dose: 180 mg Furosemide (Lasix -) 20 mg PO DAILY [facility] Piperacillin Sod/Tazobactam (Sod 3.375 gm/ Dextrose) 50 mls @ 100 mls/hr IVPB Q8H-IV [facility]; Protocol Last Admin: 06/15/18 10:16 Dose: 100 mls/hr Ibuprofen (Motrin -) 600 mg PO Q8H PRN PRN Reason: PAIN LEVEL 1-5 Last Admin: 06/14/18 20:07 Dose: 600 mg Levothyroxine Sodium (Synthroid -) 125 mcg PO DAILY@0700 [facility] Last Admin: 06/15/18 06:27 Dose: 125 mcg Metoprolol Tartrate (Lopressor -) 50 mg PO BID [facility] Last Admin: 06/15/18 10:16 Dose: 50 mg Prednisone (Deltasone -) 5 mg PO DAILY [facility] Last Admin: 06/15/18 10:16 Dose: 5 mg - Objective Vital Signs: Vital Signs Temperature 98.4 F 06/15/18 10:00 Pulse Rate 112 H 06/15/18 10:00 Respiratory Rate 20 06/15/18 10:00 Blood Pressure 101/62 06/15/18 10:00 O2 Sat by Pulse Oximetry (%) 99 06/15/18 09:00 Constitutional: Yes: No Distress, Calm Cardiovascular: Yes: Pulse Irregular Respiratory: Yes: Regular, CTA Bilaterally Gastrointestinal: Yes: Normal Bowel Sounds, Soft Musculoskeletal: Yes: WNL Extremities: Yes: Other Wound/Incision: Yes: Dressing Dry and Intact, Other (mild drainage noted) Psychiatric: Yes: Alert Labs: CBC, BMP 06/14/18 05:30 06/14/18 05:30 Assessment/Plan Problem List - Problems (1) Cellulitis Code(s): L03.90 - CELLULITIS, UNSPECIFIED (2) AF (paroxysmal atrial fibrillation) Code(s): I48.0 - PAROXYSMAL ATRIAL FIBRILLATION (3) HTN (hypertension) Code(s): I10 - ESSENTIAL (PRIMARY) HYPERTENSION Qualifiers: Hypertension type: essential hypertension Qualified Code(s): I10 - Essential (primary) hypertension (4) Hypothyroidism Code(s): E03.9 - HYPOTHYROIDISM, UNSPECIFIED Qualifiers: Hypothyroidism type: unspecified Qualified Code(s): E03.9 - Hypothyroidism , unspecified 5 b/l cellulitis of the legs non healing wounds of the legs infected wounds of the legs plan continue abx will change to oral tomorrow wound care diuresis rest as per the team
--- NOTE | 2018-06-15 14:23 | PN ---
Progress Note, Physician History of Present Illness: feeling good - Current Medication List Current Medications: Active Medications Acetaminophen (Tylenol -) 650 mg PO Q6H PRN PRN Reason: FEVER Last Admin: 06/15/18 03:51 Dose: 650 mg Apixaban (Eliquis -) 5 mg PO BID [facility] Last Admin: 06/15/18 10:16 Dose: 5 mg Diltiazem HCl (Cardizem Cd -) 180 mg PO DAILY [facility] Last Admin: 06/15/18 10:16 Dose: 180 mg Furosemide (Lasix -) 20 mg PO DAILY [facility] Piperacillin Sod/Tazobactam (Sod 3.375 gm/ Dextrose) 50 mls @ 100 mls/hr IVPB Q8H-IV [facility]; Protocol Last Admin: 06/15/18 10:16 Dose: 100 mls/hr Ibuprofen (Motrin -) 600 mg PO Q8H PRN PRN Reason: PAIN LEVEL 1-5 Last Admin: 06/14/18 20:07 Dose: 600 mg Levothyroxine Sodium (Synthroid -) 125 mcg PO DAILY@0700 [facility] Last Admin: 06/15/18 06:27 Dose: 125 mcg Metoprolol Tartrate (Lopressor -) 50 mg PO BID [facility] Last Admin: 06/15/18 10:16 Dose: 50 mg Prednisone (Deltasone -) 5 mg PO DAILY [facility] Last Admin: 06/15/18 10:16 Dose: 5 mg - Objective Vital Signs: Vital Signs Temperature 98.4 F 06/15/18 10:00 Pulse Rate 112 H 06/15/18 10:00 Respiratory Rate 20 06/15/18 10:00 Blood Pressure 101/62 06/15/18 10:00 O2 Sat by Pulse Oximetry (%) 99 06/15/18 09:00 Constitutional: Yes: No Distress HENT: Yes: Atraumatic Neck: Yes: Supple Cardiovascular: Yes: Regular Rate and Rhythm Respiratory: Yes: CTA Bilaterally Gastrointestinal: Yes: Normal Bowel Sounds Extremities: Yes: Other (cellulitis...improving) Edema: Yes Edema: LLE: Trace, RLE: Trace Peripheral Pulses WNL: Yes Neurological: Yes: Alert, Oriented Labs: CBC, BMP 06/14/18 05:30 06/14/18 05:30 Problem List - Problems (1) Cellulitis Assessment/Plan: on iv abx wound care Code(s): L03.90 - CELLULITIS, UNSPECIFIED Qualifiers: Site of cellulitis of extremity: lower extremity Laterality: unspecified laterality (2) AF (paroxysmal atrial fibrillation) Assessment/Plan: on meds stable Code(s): I48.0 - PAROXYSMAL ATRIAL FIBRILLATION (3) HTN (hypertension) Assessment/Plan: on meds Code(s): I10 - ESSENTIAL (PRIMARY) HYPERTENSION Qualifiers: Hypertension type: essential hypertension Qualified Code(s): I10 - Essential (primary) hypertension (4) Hypothyroidism Assessment/Plan: on meds Code(s): E03.9 - HYPOTHYROIDISM, UNSPECIFIED Qualifiers: Hypothyroidism type: unspecified Qualified Code(s): E03.9 - Hypothyroidism , unspecified (5) CHF exacerbation Code(s): I50.9 - HEART FAILURE, UNSPECIFIED Qualifiers: Heart failure type: diastolic Qualified Code(s): I50.33 - Acute on chronic diastolic (congestive) heart failure
[2018-06-15] MEDS: IBUPROFEN 600 MG TABLET (FP) PO PRN (20:18)
[2018-06-16] MEDS ORDERED: PIPERACILLIN/TAZOBACTAM 3.375 GM VIAL IVPB ONE ×2 (00:02→09:23)
[2018-06-16] MEDS ORDERED: DEXTROSE 5%-WATER - 50 ML IVPB ONE ×2 (00:02→09:23)
[2018-06-16] MEDS: ACETAMINOPHEN 325 MG TABLET (FP) PO PRN ×2 (00:10→09:30)
[2018-06-16] MEDS: PIPERACILLIN/TAZOB 3.375 GM 3.375 GM in DEXTROSE 5%-WATER - 50 ML IVPB SCH ×2 (01:03→09:34)
[2018-06-16] MEDS: IBUPROFEN 600 MG TABLET (FP) PO PRN (06:46)
[2018-06-16] MEDS: LEVOTHYROXINE NA 125 MCG TABLET (FP) PO SCH (06:47)
[2018-06-16] MEDS: METOPROLOL TARTRATE 50 MG TABLET (FP) PO SCH (09:29)
[2018-06-16] MEDS: predniSONE 5 MG TABLET (UD) PO SCH (09:29)
[2018-06-16] MEDS: APIXABAN 5 MG TABLET PO SCH (09:29)
[2018-06-16] MEDS ORDERED: FUROSEMIDE 20 MG TABLET (FP) PO SCH (10:00)
[2018-06-16 10:22] VITALS: BP 96/62; PULSE 109; TEMP 98.4
--- NOTE | 2018-06-16 10:45 | DS ---
Physical Examination Vital Signs: Vital Signs Temperature 98.4 F 06/16/18 10:00 Pulse Rate 109 H 06/16/18 10:00 Respiratory Rate 20 06/16/18 10:00 Blood Pressure 96/62 06/16/18 10:00 O2 Sat by Pulse Oximetry (%) 99 06/15/18 22:00 Constitutional: Yes: No Distress HENT: Yes: Atraumatic Neck: Yes: Supple Cardiovascular: Yes: Regular Rate and Rhythm Respiratory: Yes: CTA Bilaterally Gastrointestinal: Yes: Normal Bowel Sounds Extremities: Yes: Other (dressing in place) Edema: LLE: Trace, RLE: Trace Neurological: Yes: Alert, Oriented Labs: CBC, BMP 06/14/18 05:30 06/14/18 05:30 Discharge Summary Reason For Visit: CELLULITIS Current Active Problems Cellulitis (Acute) - Instructions Diet, Activity, Other Instructions: wound care dressing change Referrals: Luciana Moran MD [Primary Care Provider] - Ezequiel Guido MD [Staff Physician] - Lonnie Orantes MD [Non Staff, Medical] - Disposition: VNS/HOME HEALTH CARE - Home Medications Comprehensive Discharge Medication List: Ambulatory Orders Apixaban [Eliquis] 5 mg PO BID 05/20/16 Prednisone 5 mg PO DAILY #10 tablet 07/13/17 Diltiazem Cd [Cardizem Cd -] 180 mg PO DAILY 30 Days #30 cap.cd.24h 05/06/18 Furosemide [Lasix] 1 tab PO DAILY 30 Days #30 tablet 05/06/18 Metoprolol Tartrate [Lopressor -] 50 mg PO BID tablet 05/06/18 Levothyroxine [Synthroid -] 125 mcg PO DAILY@0700 06/10/18 Amoxicillin/Potassium Clav [Augmentin 875-125 Tablet] 1 each PO BID #14 tablet 06/15/18 [facility]
--- NOTE | 2018-06-16 13:04 | PN ---
Progress Note, Physician History of Present Illness: Dyspnea and LE edema being wrapped improved. - Current Medication List Current Medications: Active Medications Acetaminophen (Tylenol -) 650 mg PO Q6H PRN PRN Reason: FEVER Last Admin: 06/16/18 09:30 Dose: 650 mg Apixaban (Eliquis -) 5 mg PO BID [facility] Last Admin: 06/16/18 09:29 Dose: 5 mg Diltiazem HCl (Cardizem Cd -) 180 mg PO DAILY [facility] Last Admin: 06/16/18 09:29 Dose: 180 mg Furosemide (Lasix -) 20 mg PO DAILY [facility] Last Admin: 06/16/18 09:29 Dose: 20 mg Piperacillin Sod/Tazobactam (Sod 3.375 gm/ Dextrose) 50 mls @ 100 mls/hr IVPB Q8H-IV [facility]; Protocol Last Admin: 06/16/18 09:34 Dose: 100 mls/hr Ibuprofen (Motrin -) 600 mg PO Q8H PRN PRN Reason: PAIN LEVEL 1-5 Last Admin: 06/16/18 06:46 Dose: 600 mg Levothyroxine Sodium (Synthroid -) 125 mcg PO DAILY@0700 [facility] Last Admin: 06/16/18 06:47 Dose: 125 mcg Metoprolol Tartrate (Lopressor -) 50 mg PO BID [facility] Last Admin: 06/16/18 09:29 Dose: 50 mg Prednisone (Deltasone -) 5 mg PO DAILY [facility] Last Admin: 06/16/18 09:29 Dose: 5 mg - Objective Vital Signs: Vital Signs Temperature 98.4 F 06/16/18 10:00 Pulse Rate 109 H 06/16/18 10:00 Respiratory Rate 20 06/16/18 10:00 Blood Pressure 96/62 06/16/18 10:00 O2 Sat by Pulse Oximetry (%) 99 06/16/18 09:00 Constitutional: Yes: No Distress, Calm Neck: Yes: Supple Cardiovascular: Yes: Regular Rate and Rhythm Respiratory: Yes: Regular, Diminished Gastrointestinal: Yes: Normal Bowel Sounds, Soft Edema: Yes Labs: CBC, BMP 06/14/18 05:30 06/14/18 05:30 Problem List - Problems (1) Cellulitis Code(s): L03.90 - CELLULITIS, UNSPECIFIED Qualifiers: Site of cellulitis of extremity: lower extremity Laterality: unspecified laterality (2) Afib Code(s): I48.91 - UNSPECIFIED ATRIAL FIBRILLATION Qualifiers: Atrial fibrillation type: permanent Qualified Code(s): I48.2 - Chronic atrial fibrillation (3) CHF exacerbation Code(s): I50.9 - HEART FAILURE, UNSPECIFIED Qualifiers: Heart failure type: diastolic Qualified Code(s): I50.33 - Acute on chronic diastolic (congestive) heart failure (4) Chronic anticoagulation Code(s): Z79.01 - DIRECTOR OF SOFTWARE ENGINEERING (CURRENT) USE OF ANTICOAGULANTS (5) Hypertensive cardiomegaly with heart failure Code(s): I11.0 - HYPERTENSIVE HEART DISEASE WITH HEART FAILURE (6) Hypothyroidism Code(s): E03.9 - HYPOTHYROIDISM, UNSPECIFIED Qualifiers: Hypothyroidism type: unspecified Qualified Code(s): E03.9 - Hypothyroidism , unspecified (7) Leg edema Code(s): R60.0 - LOCALIZED EDEMA (8) Rheumatoid arthritis Code(s): M06.9 - RHEUMATOID ARTHRITIS, UNSPECIFIED Qualifiers: Rheumatoid arthritis location: unspecified site (9) Venous insufficiency of both lower extremities Code(s): I87.2 - VENOUS INSUFFICIENCY (CHRONIC) (PERIPHERAL) Assessment/Plan 1. Bilateral LE cellulitis 2. Permanent AF [id number] score of 5 on DOAC/Eliquis 3. CAD, angina pectoris 4. Acute on chronic diastolic LV failure with mild resolving 5. HTN 6. Venous stasis ulcer and insufficiency 7. Hypothyroidism 8. Mitral valve disease 9. History of RA PLAN: 1. Complete oral antibiotic course and wound care as per ID service 2. Continue Lasix 20 po qd with monitor diuretic response, renal fxn and electrolytes, compression therapy 3. Lopressor 50 bid and Cardizem CD 180 qd 4. Continue Eliquis 5 bid 5. Maintenance steroids and thyroid hormone replacement
--- NOTE | 2018-06-16 13:04 | PN ---
Progress Note, Physician - Current Medication List Current Medications: Active Medications Acetaminophen (Tylenol -) 650 mg PO Q6H PRN PRN Reason: FEVER Last Admin: 06/16/18 09:30 Dose: 650 mg Apixaban (Eliquis -) 5 mg PO BID [facility] Last Admin: 06/16/18 09:29 Dose: 5 mg Diltiazem HCl (Cardizem Cd -) 180 mg PO DAILY [facility] Last Admin: 06/16/18 09:29 Dose: 180 mg Furosemide (Lasix -) 20 mg PO DAILY [facility] Last Admin: 06/16/18 09:29 Dose: 20 mg Piperacillin Sod/Tazobactam (Sod 3.375 gm/ Dextrose) 50 mls @ 100 mls/hr IVPB Q8H-IV [facility]; Protocol Last Admin: 06/16/18 09:34 Dose: 100 mls/hr Ibuprofen (Motrin -) 600 mg PO Q8H PRN PRN Reason: PAIN LEVEL 1-5 Last Admin: 06/16/18 06:46 Dose: 600 mg Levothyroxine Sodium (Synthroid -) 125 mcg PO DAILY@0700 [facility] Last Admin: 06/16/18 06:47 Dose: 125 mcg Metoprolol Tartrate (Lopressor -) 50 mg PO BID [facility] Last Admin: 06/16/18 09:29 Dose: 50 mg Prednisone (Deltasone -) 5 mg PO DAILY [facility] Last Admin: 06/16/18 09:29 Dose: 5 mg - Objective Vital Signs: Vital Signs Temperature 98.4 F 06/16/18 10:00 Pulse Rate 109 H 06/16/18 10:00 Respiratory Rate 20 06/16/18 10:00 Blood Pressure 96/62 06/16/18 10:00 O2 Sat by Pulse Oximetry (%) 99 06/16/18 09:00 Labs: CBC, BMP 06/14/18 05:30 06/14/18 05:30
== END 2018-06-16 14:31 | disposition home health service (06) | DRG 602 ==
LOC: JER 09:45 → JERBED 12:11 → J7W 15:05 → J4W 21:39 → J6S 06-15 12:09
PROVIDERS: ADMIT Internal Medicine; ATTEND Internal Medicine
DX: L03.115 Cellulitis of right lower limb (principal); I50.33 Acute on chronic diastolic (congestive) heart failure; L03.116 Cellulitis of left lower limb; I48.91 Unspecified atrial fibrillation; E03.9 Hypothyroidism, unspecified; I48.0 Paroxysmal atrial fibrillation; M06.9 Rheumatoid arthritis, unspecified; I11.0 Hypertensive heart disease with heart failure; Z79.01 Long term (current) use of anticoagulants; I34.1 Nonrheumatic mitral (valve) prolapse; I73.00 Raynaud's syndrome without gangrene; I87.2 Venous insufficiency (chronic) (peripheral); I35.0 Nonrheumatic aortic (valve) stenosis; I25.10 Atherosclerotic heart disease of native coronary artery without angina pectoris
CPT/HCPCS: 11042; 29581-LT; 36415; 71045-TC-FY; 80053; 83605; 83880; 84484; 85025; 87040; 87070; 87186; 87205; 93005; 93010; 99282-25; C5271; Q4160

== ENCOUNTER 2019-11-13 14:32 | Emergency (ER) | payer OTHER, MEDICARE ==
--- NOTE | 2019-11-13 14:45 | PDOC ---
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 Pt endorses tripping over plastic rug, fell forward hitting forehead on edge of TV, now has pain over laceration and prior compression fractures. Able to ambulate with walker after incident. Denies LOC, vision changes, li ghtheadedness, n/v, chest pain, SOB, extremity numbness/weakness. Past History - Medical History Allergies/Adverse Reactions: Allergies Allergy/AdvReac Type Severity Reaction Status Date / Time naproxen [From Naprosyn] Allergy Intermediate Swelling Verified 11/13/19 15:01 Home Medications: Ambulatory Orders Apixaban [Eliquis] 5 mg PO BID 05/20/16 Prednisone 5 mg PO DAILY #10 tablet 07/13/17 Diltiazem Cd [Cardizem Cd -] 180 mg PO DAILY 30 Days #30 cap.cd.24h 05/06/18 Furosemide [Lasix] 1 tab PO DAILY 30 Days #30 tablet 05/06/18 Metoprolol Tartrate [Lopressor -] 50 mg PO BID tablet 05/06/18 Levothyroxine [Synthroid -] 125 mcg PO DAILY@0700 06/10/18 Lidocaine 5% Patch [Lidoderm -] 1 patch TP DAILY #7 patch 11/13/19 Anemia: No Asthma: No Cancer: Yes (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) Cardiac Disorders: Yes (AFIB,cardioversion x2) CVA: No COPD: No CHF: No Dementia: No Diabetes: No GI Disorders: No HTN: Yes Hypercholesterolemia: No Liver Disease: No Seizures: No Thyroid Disease: Yes (thyrodectomy, hypo) - Surgical History Appendectomy: Yes Orthopedic Surgery: Yes (CANDIE KNEE REPLACEMENT WITH FEMUR REJI LEFT) - Immunization History Immunization Up to Date: Yes - Psycho-Social/Smoking History Smoking History: Never smoked Have you smoked in the past 12 months: No Review of Systems - Review of Systems Constitutional: No: Chills, Fever HEENTM: No: Eye Pain, Recent change in vision, Nose Congestion Respiratory: No: Cough, Shortness of Breath Cardiac (ROS): No: Chest Pain, Palpitations, Syncope ABD/GI: No: Abdominal Distended, Constipated, Diarrhea, Nausea, Vomiting : No: Burning, Dysuria Musculoskeletal: Yes: Back Pain. No: Joint Pain Integumentary: No: Bruising, Flushing Neurological: No: Headache, Numbness Psychiatric: No: Anxiety, Depression Endocrine: No: Intolerance to Cold, Intolerance to Heat Hematologic/Lymphatic: Yes: Easy Bleeding. No: Blood Clots *Physical Exam - Physical Exam General Appearance: Yes: Nourished, Appropriately Dressed, Mild Distress HEENT: positive: EOMI, ORTEGA, Normal Voice, Hearing Grossly Normal. negative: Scleral Icterus (R), Scleral Icterus (L) Neck: positive: Supple. negative: Tender, Rigid, Decreased range of motion (full ROM) Respiratory/Chest: positive: Lungs Clear, Normal Breath Sounds. negative: Chest Tender, Respiratory Distress, Crackles, Rales, Rhonchi, Stridor, Wheezing Cardiovascular: positive: Regular Rhythm, S1, S2, Irregular. negative: Murmur Musculoskeletal: positive: Normal Inspection, Other (mild L thoracic tenderness). negative: Vertebral Tenderness (no midline posterior tenderness/step-offs) Integumentary: positive: Normal Color, Warm Neurologic: positive: hog scalder II-XII NML intact, Fully Oriented, Alert, Normal Mood/Affect, Normal Response, Motor Strength 5/5, Responsive, Other (full ROM, 5/5 strength, intact sensation all extremities). negative: Numbness, Sensory Deficit, Confused, Disoriented Procedures - Laceration/Wound Repair Anterior Head Wound Length: to 2.5 cm Wound Explored: clean, no foreign body present Wound's Depth, Shape: superficial Irrigated w/ Saline: Yes Betadine Prep: Yes Anesthesia: 1% Lidocaine w/ Epi Amount of Anesthetic (ccs): 1 Wound Repaired With: Sutures Suture Size/Type: 5:0, other (polypropylene) Number of Sutures: 3 Layer Closure: No Sterile Dressing Applied: Yes Medical Decision Making - Medical Decision Making 11/13/19 15:24 Head/c-spine/thoracic/lumbar CT - No acute brain bleed/infarct/mass/spine fx/dislocation. chronic/late subacute T11 compression fx, mod-marked central canal narrowing w spinal cord impingement. 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 Neurovascular intact, no LE numbness/loss of strength, full ROM. No acute brain bleed/infarct/mass/spine fx/dislocation on CT. Low concern for cauda equina (no extremity numbness/pain) Given tylenol, flexeril. Irrigated, sutured 2cm forehead lac w 3 sutures. DC w lido patches, ortho f/u, suture instructions Discharge - Discharge Information Problems reviewed: Yes Clinical Impression/Diagnosis: Accidental fall Qualifiers: Encounter type: initial encounter Qualified Code(s): W19.XXXA - Unspecified fall, initial encounter Forehead laceration Qualifiers: Encounter type: initial encounter Qualified Code(s): S01.81XA - Laceration without foreign body of other part of head, initial encounter Condition: Stable - Additional Discharge Information Prescriptions: Lidocaine 5% Patch [Lidoderm -] 1 patch TP DAILY #7 patch - Follow up/Referral Referrals: Luciana Moran MD [Primary Care Provider] - Yo Armendariz DO [Staff Physician] - - Patient Discharge Instructions Patient Printed Discharge Instructions: DI for Laceration Repair Additional Instructions: Your imaging did not show any new bone fractures or brain bleed. Your forehead wound was closed with 3 sutures Keep the wound dry for 24 hours. You can rinse it after with warm water and soap See your primary care doctor or come to the ED to get your sutures removed in 5 days. Take tylenol or ibuprofen or the prescribed lido patch as directed if you have pain. Please follow up with the referred orthopedic Dr Armendariz if you continue to have pain. Come back to the ED if you start vomiting, cannot control your urine or bowels, or have leg numbness - Post Discharge Activity
[2019-11-13 14:51] VITALS: BP 109/73; PULSE 97; TEMP 98.5; BMI 25.3
[2019-11-13] MEDS ORDERED: ACETAMINOPHEN 500 MG TABLET (FP) PO ONE (15:03)
[2019-11-13] MEDS ORDERED: ACETAMINOPHEN 325 MG TABLET (FP) ONE (15:09)
[2019-11-13] MEDS ORDERED: DIPHTH,PERTUSS(ACELL),TET 0.5 ML DISP.SYRIN IM ONE ×2 (15:48→16:08)
--- NOTE | 2019-11-13 15:48 | PDOC ---
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 Pt was going to get her walker, tripped and struck forehead on TV stand. no LOC, nephew called EMS and jose to ED. pt essentially without complaints other than her usual back pain, no headache/vi brook change/speech change/n/v/focal weakness. on eliquis for afib. - Physicial Exam PE: 11/13/19 15:46 vss alert seated in wheelchair, pleasant and conversant, joking with staff 3cm horizontal linear laceration upper forehead along hairline, no scalp hematoma remainder of trauma exam unremarkable without focal bony ttp/deformity/injury. FROM all joints, 1mm L knee abrasion. kyphotic abd benign, lungs clear 2+ distal pulses, b/l venous stasis dermatitis - Medical Decision Making 11/13/19 15:47 79y/o F on eliquis p/w mechanical trip and fall without LOC, + head injury with scalp laceration. ct head/cspine/tspine update tetanus, lac repair tylenol for pain reassess Discharge - Discharge Information Problems reviewed: Yes Clinical Impression/Diagnosis: Accidental fall Qualifiers: Encounter type: initial encounter Qualified Code(s): W19.XXXA - Unspecified fall, initial encounter Forehead laceration Qualifiers: Encounter type: initial encounter Qualified Code(s): S01.81XA - Laceration without foreign body of other part of head, initial encounter Condition: Stable - Follow up/Referral Referrals: Luciana Moran MD [Primary Care Provider] - - Patient Discharge Instructions - Post Discharge Activity
[2019-11-13] MEDS ORDERED: LIDOCAINE 1%/EPI 1:100000 (20 ML MULTI DOSE VIAL) ONE (16:38)
[2019-11-13] MEDS ORDERED: CYCLOBENZAPRINE HCL 10 MG TABLET (FP) PO ONE (17:09)
[2019-11-13] MEDS ORDERED: CYCLOBENZAPRINE HCL 10 MG TABLET (FP) ONE (17:18)
== END 2019-11-13 17:57 | disposition home or self-care (01) ==
LOC: JER 14:32
PROC: 0JQ10ZZ Repair Face Subcutaneous Tissue and Fascia, Open Approach (ICD-10-PCS; principal; 2019-11-13)
PROC: 3E0234Z Introduction of Serum, Toxoid and Vaccine into Muscle, Percutaneous Approach (ICD-10-PCS; 2019-11-13)
DX: S01.81XA Laceration without foreign body of other part of head, initial encounter (principal); W19.XXXA Unspecified fall, initial encounter
CPT/HCPCS: 12011-25; 70450-TC; 72125-TC; 72128-TC; 72131-TC; 90471; 90715; 99284-25

== ENCOUNTER 2019-11-21 14:08 | Inpatient (IN) | payer OTHER, MEDICARE ==
--- NOTE | 2019-11-21 14:18 | PDOC ---
Rapid Medical Evaluation Chief Complaint: Pain, Acute Time Seen by Provider: 11/21/19 14:16 Medical Evaluation: Allergies Allergy/AdvReac Type Severity Reaction Status Date / Time naproxen [From Naprosyn] Allergy Intermediate Swelling Verified 11/13/19 15:01 11/21/19 14:17 I have performed a brief in-person evaluation of this patient. The patient presents with a chief complaint of:L flank pain w/ trouble urinating . H/o renal stones, afib (recently taken on AC 2/2 bruising per pt), RA, HTN Pertinent physical exam findings:stable, NAD I have ordered the following:labs/ua The patient will proceed to the ED for further evaluation. Discharge Disposition - Diagnosis Flank pain - Referrals - Patient Instructions - Post Discharge Activity
[2019-11-21] MEDS ORDERED: ACETAMINOPHEN 1000 MG/100 ML VIAL (NON FORMULARY) IVPB ONE ×2 (15:23→22:19)
[2019-11-21] MEDS ORDERED: SODIUM CHLORIDE 1,000 ML IV STA (15:24)
[2019-11-21 15:30] LABS: BASO % 0.5 % (0-2.0); EOS % 0.2 % (0-4.5); HEMATOCRIT 41.6 % (32.4-45.2); HEMOGLOBIN 13.7 GM/dL (10.7-15.3); LYMPH % 7.3 % (8-40); MCH 32.5 pg (25.7-33.7); MCHC 32.9 g/dl (32.0-36.0); MEAN CELL VOLUME 98.6 fl (80-96); MEAN PLT VOLUME 7.3 fl (7.5-11.1); MONO % 7.1 % (3.8-10.2); NEUT % 84.9 % (42.8-82.8); PLATELET COUNT 335 K/MM3 (134-434); RBC 4.22 M/mm3 (3.60-5.2); RDW 16.2 % (11.6-15.6); WHITE BLOOD COUNT 8.8 K/mm3 (4.0-10.0)
[2019-11-21] MEDS ORDERED: ACETAMINOPHEN INJECTION 100 ML IVPB ONE ×2 (15:31→22:20)
[2019-11-21] MEDS ORDERED: ONDANSETRON 4 MG/2 ML VIAL IVPUSH ONE (15:41)
[2019-11-21] MEDS ORDERED: SODIUM CHLORIDE 500 ML IV STA (15:41)
--- NOTE | 2019-11-21 15:50 | PDOC ---
History of Present Illness - General Chief Complaint: Pain, Acute Stated Complaint: KIDNEY STONE Time Seen by Provider: 11/21/19 14:16 History Source: Patient Exam Limitations: No Limitations - History of Present Illness Initial Comments: Pt is a 79 yo F, with PMH of HTN, RA, Afib (not on AC), hypothyroidism, and spinal compression fxs, who is presenting with urinary retention and L-sided flank pain x2 days. Pt states the pain started in the L flank and it is now radiating down to the L groin. Pt also endorses constipation x3 days and nausea today. Pt denies any fevers/chills, headache, vision changes, syncope, chest pain, palpitations, SOB, vomiting, abdominal pain, vaginal bleeding or discharge, or leg swelling. Allergies: NKDA PCP: Billy Social: Pt denies any cigarette, alcohol, or drug use. Pt denies any recent travel or sick contacts. Surgical: thyroidectomy Family: no relevant history. 11/21/19 18:31 11/21/19 18:56 11/22/19 07:57 Past History - Travel History Traveled outside of the country in the last 30 days: No Close contact w/someone who was outside of country & ill: No - Medical History Allergies/Adverse Reactions: Allergies Allergy/AdvReac Type Severity Reaction Status Date / Time naproxen [From Naprosyn] Allergy Intermediate Swelling Verified 11/21/19 14:19 Home Medications: Ambulatory Orders Prednisone 5 mg PO DAILY #10 tablet 07/13/17 Diltiazem Cd [Cardizem Cd -] 180 mg PO DAILY 30 Days #30 cap.cd.24h 05/06/18 Furosemide [Lasix] 1 tab PO DAILY 30 Days #30 tablet 05/06/18 Metoprolol Tartrate [Lopressor -] 50 mg PO BID tablet 05/06/18 Levothyroxine [Synthroid -] 125 mcg PO DAILY@0700 06/10/18 Lidocaine 5% Patch [Lidoderm -] 1 patch TP DAILY #7 patch 11/13/19 Anemia: No Asthma: No Cancer: Yes (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) Cardiac Disorders: Yes (AFIB,cardioversion x2) CVA: No COPD: No CHF: No Dementia: No Diabetes: No GI Disorders: No HTN: Yes Hypercholesterolemia: No Liver Disease: No Seizures: No Thyroid Disease: Yes (thyrodectomy, hypo) - Surgical History Appendectomy: Yes Orthopedic Surgery: Yes (CANDIE KNEE REPLACEMENT WITH FEMUR REJI LEFT) - Immunization History Immunization Up to Date: Yes - Psycho-Social/Smoking History Smoking History: Never smoked Have you smoked in the past 12 months: No - Substance Abuse Hx (Audit-C & DAST Scrn) How often the patient has a drink containing alcohol: Never Score: In Men: 4 or > Positive; In Women: 3 or > Positive: 0 Screen Result (Pos requires Nsg. Audit-10AR): Negative Review of Systems - Review of Systems Able to Perform ROS?: Yes Is the patient limited Eritrean proficient: No Constitutional: Yes: Weight Stable. No: Chills, Diaphoresis, Fever, Loss of Appetite, Malaise, Weakness HEENTM: No: Recent change in vision, Nose Congestion, Throat Pain, Throat Swelling, Difficulty Swallowing Respiratory: No: Cough, Orthopnea, Shortness of Breath Cardiac (ROS): No: Chest Pain, Edema, Irregular Heart Rate, Lightheadedness, Palpitations, Syncope, Chest Tightness ABD/GI: Yes: Constipated, Nausea. No: Abdominal Distended, Diarrhea, Poor Appetite, Poor Fluid Intake, Vomiting, Abdominal cramping : Yes: See HPI (flank pain), Burning, Dysuria, Flank Pain, Pain, Urgency. No: Discharge, Frequency, Hematuria, Incontinence Musculoskeletal: No: Back Pain, Muscle Pain Integumentary: No: Rash Neurological: No: Headache, Numbness, Weakness, Unsteady Gait, Dizziness Psychiatric: No: Change in Appetite Endocrine: No: Increased Urine, Change in Weight Hematologic/Lymphatic: No: Anemia, Blood Clots, Easy Bleeding, Easy Bruising All Other Systems: Reviewed and Negative *Physical Exam - Vital Signs Last Vital Signs Temp Pulse Resp BP Pulse Ox 98.6 F 125 H 18 97/58 L 96 11/21/19 14:16 11/21/19 14:16 11/21/19 14:16 11/21/19 14:16 11/21/19 14:16 - Physical Exam Tachycardic, pt afebrile. Pt anxious, holding left flank. Normal body habitus. Pt alert and oriented x3. 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 No midline spinal tenderness, step-offs, or crepitus. Head normocephalic, atraumatic. Eyes PERRLA, EOMI. Oropharynx without erythema or exudates, no LAD b/l. No nasal congestion. Hearing intact. Clear heart sounds, S1/S2, no JVD, b/l pedal edema, or heart murmur. Clear lung sounds, no respiratory distress, wheezes, crackles, or accessory muscle use. +L CVA tenderness. No abdominal to palpation, no rebound, no guarding. Abdomen soft, non-distended, and with normoactive bowel sounds. Skin without jaundice or rash. 11/21/19 18:58 Horvath cath placed with dark, foul-smelling urine 11/22/19 07:57 ED Treatment Course - LABORATORY CBC & Chemistry Diagram: 11/21/19 15:00 11/22/19 06:00 - ADDITIONAL ORDERS Additional order review: 11/21/19 15:00 RBC 4.22 MCV 98.6 H MCHC 32.9 RDW 16.2 H MPV 7.3 L Neutrophils % 84.9 H Lymphocytes % 7.3 L Monocytes % 7.1 Eosinophils % 0.2 D Basophils % 0.5 - RADIOLOGY Radiology Studies Ordered: Category Date Time Status SPIRAL- RENAL-STONE CT [CT] Stat CT Scan 11/21/19 15:39 Ordered - Medications Given in the ED: ED Medications Discontinued Medications Generic Name Dose Route Start Last Admin Trade Name Freq PRN Reason Stop Dose Admin Acetaminophen 1,000 mg 11/21/19 15:23 11/21/19 15:39 Ofirmev Injection - IVPB 11/21/19 15:24 1,000 mg ONCE ONE Administration Medical Decision Making - Medical Decision Making Pt was seen at bedside, also will be seen by attending Dr. Evans. Pt presenting with L flank pain radiating to R groin, tachycardic and hypotension. Will consider AAA vs pyelonephritis vs UTI vs nephrolithiasis with obstruction. Will place horvath cath due to urinary retention. CT abd/pelvis non-contrast to look for stones and AAA. Provided 500 mL IV NS, 1 g ofirmev, 4 mg IV zofran for improvement of pain and hydration. Will continue to reassess pt and monitor for symptomatic improvement. ECG: Afib, incomplete RBBB. No changes from prior EKG. 11/22/19 07:58 UA with UTI -- +nitrite, bacteria, LE -- providing 1 g rocephin; horvath draining dark foul-smelling urine CT shows b/l nephrolithiasis without hydro or obstruction. Severe fecal impaction. Cardiomegaly with small pericardial effusion. Large hiatal hernia. 11/22/19 08:11 Paged hospitalist team for admission. Pt signed out to night team (Dr. Forrester) 11/22/19 08:19 Discharge - Discharge Information Problems reviewed: Yes Clinical Impression/Diagnosis: Flank pain, Pyelonephritis Fecal retention Qualifiers: Constipation type: drug induced constipation Qualified Code(s): K59.03 - Drug induced constipation Condition: Stable - Admission Yes - Follow up/Referral - Patient Discharge Instructions - Post Discharge Activity
[2019-11-21 16:02] LABS: ALBUMIN 3.8 g/dl (3.4-5.0); BILIRUBIN,TOTAL 1.5 mg/dL (0.2-1); BLOOD UREA NITROGEN 15.6 mg/dL (7-18); CALCIUM 9.8 mg/dL (8.5-10.1); CREATININE 0.6 mg/dL (0.55-1.3)
--- NOTE | 2019-11-21 16:31 | PDOC ---
Documentation entered by Ira Tai SCRIBE, acting as scribe for Sang Evans MD. Sang Evans MD: This documentation has been prepared by the Gina flores Nirvannie, SCRIBE, under my direction and personally reviewed by me in its entirety. I confirm that the documentation accurately reflects all work, treatment, procedures, and medical decision making performed by me. Attending Attestation - Resident Resident Name: Elke Nelson - ED Attending Attestation I have performed the following: I have examined & evaluated the patient, The case was reviewed & discussed with the resident, I agree w/resident's findings & plan, Exceptions are as noted - HPI HPI: 11/21/19 15:44 The patient is a 79 year old female with a significant past medical history of HTN, RA, Afib on eliquis, hypothyroidism, prior compression fractures who presents to the emergency department with left flank pain, urinary retention, and post-micturition dribbling. Patient denies any hematuria. Allergies: Naproxen Primary Care Physician: Dr. Cervantes - Physicial Exam PE: 11/21/19 16:27 Awake and alert, normal body habitus, in mild distress Normocephalic, atraumatic PERRLA, EOMI, no scleral icterus Mucous membranes are moist few bleeding in her kidney cta Irregularly irregular with Left CVA tenderness + b/l lower extremity edema - Medical Decision Making 11/21/19 16:28 79-year-old female with history of constipation, A. fib not on anticoagulation, history of nephrolithiasis hypothyroidism presents with atraumatic left flank pain, anuria for 2 days and constipation. Differential diagnosis includes AAA versus nephrolithiasis versus pyelonephritis. Will obtain CBC/CMP/UA. Patient is noted to be hypotensive and tachycardic. Will obtain urine urine cultures. Will aggressively fluid resuscitated. Will administer IV Tylenol initially. Once patient's vital signs stabilized we will consider parenteral narcotics. Will obtain CT of abdomen pelvis. Will reassess. Discharge - Discharge Information Problems reviewed: Yes Clinical Impression/Diagnosis: Flank pain - Follow up/Referral Referrals: Prashant Cervantes MD [Primary Care Provider] - - Patient Discharge Instructions - Post Discharge Activity
[2019-11-21 16:53] LABS: EPI CELLS 2 /uL (0-25.1); HYALINE CASTS 21 /uL (0-3.1); URINE APPEARANCE CLOUDY; URINE BILIRUBIN 1+ (NEGATIVE); URINE COLOR DK YELLOW; URINE GLUCOSE (UA) NEGATIVE (NEGATIVE); URINE KETONE NEGATIVE (NEGATIVE); URINE LEUK ESTERASE 3+ (NEGATIVE); URINE NITRITE POSITIVE (NEGATIVE); URINE PROTEIN NEGATIVE (NEGATIVE); URINE WBC 248 /uL (0-25.8)
[2019-11-21] MEDS ORDERED: CEFTRIAXONE 1,000 MG in DEXTROSE 5%-WATER - 50 ML IVPB ONE (17:13)
[2019-11-21 17:16] LABS: URINE RBC 43.7 /uL (0-23.9)
[2019-11-21] MEDS ORDERED: CEFTRIAXONE 1 GM/50 ML BAG ONE (17:51)
[2019-11-21] MEDS ORDERED: morphine CARPU-JECT 4 MG/1 ML DISP.SYRIN IVPUSH ONE ×2 (18:02→19:51)
[2019-11-21] MEDS ORDERED: MORPHINE SULFATE 2 MG/ML VIAL ONE ×2 (18:05→19:52)
[2019-11-21] MEDS ORDERED: GLYCERIN 1 RECTAL SUPPOSITORY, ADULT PR ONE (18:51)
[2019-11-21] MEDS ORDERED: GLYCERIN 1 RECTAL SUPPOSITORY, PEDIATRIC RC ONE (18:56)
--- NOTE | 2019-11-21 19:35 | PDOC ---
*Physical Exam - Vital Signs Last Vital Signs Temp Pulse Resp BP Pulse Ox 98.6 F 119 H 17 128/88 99 11/21/19 14:16 11/21/19 18:03 11/21/19 18:03 11/21/19 18:03 11/21/19 18:03 ED Treatment Course - LABORATORY CBC & Chemistry Diagram: 11/21/19 15:00 11/21/19 15:00 - ADDITIONAL ORDERS Additional order review: Laboratory Results 11/21/19 11/21/19 16:09 15:00 Sodium 138 Potassium 4.0 Chloride 104 Carbon Dioxide 25 Anion Gap 9 BUN 15.6 Creatinine 0.6 Est GFR (CKD-EPI)AfAm 101.18 Est GFR (CKD-EPI)NonAf 87.30 Random Glucose 110 H Calcium 9.8 Total Bilirubin 1.5 H AST 32 ALT 23 Alkaline Phosphatase 93 Total Protein 7.0 Albumin 3.8 Urine Color Dk yellow Urine Appearance Cloudy Urine pH 5.0 Ur Specific [place] 1.016 Urine Protein Negative Urine Glucose (UA) Negative Urine Ketones Negative Urine Blood 3+ H Urine Nitrite Positive H Urine Bilirubin 1+ H Urine Urobilinogen 2.0 H Ur Leukocyte Esterase 3+ H Urine WBC (Auto) 248 Urine RBC (Auto) 43.7 Urine Casts (Auto) 21 U Pathogenic Cast Auto Few granular U Epithel Cells (Auto) 2 Urine Bacteria (Auto) >10,000 11/21/19 15:00 RBC 4.22 MCV 98.6 H MCHC 32.9 RDW 16.2 H MPV 7.3 L Neutrophils % 84.9 H Lymphocytes % 7.3 L Monocytes % 7.1 Eosinophils % 0.2 D Basophils % 0.5 - Medications Given in the ED: ED Medications Discontinued Medications Generic Name Dose Route Start Last Admin Trade Name Freq PRN Reason Stop Dose Admin Acetaminophen 1,000 mg 11/21/19 15:23 11/21/19 15:39 Ofirmev Injection - IVPB 11/21/19 15:24 1,000 mg ONCE ONE Administration Glycerin 1 each 11/21/19 18:51 11/21/19 19:05 Glycerin Suppository Adult - IA 11/21/19 18:52 1 each ONCE ONE Administration Sodium Chloride 1,000 mls @ 1,000 mls/hr 11/21/19 15:24 07/08/20 15:50 Normal Saline - IV 11/21/19 16:23 Not Given ASDIR STA Sodium Chloride 500 mls @ 1,000 mls/hr 11/21/19 15:41 11/21/19 15:50 Normal Saline - IV 11/21/19 15:53 1,000 mls/hr ASDIR STA Administration Ceftriaxone Sodium 1,000 mg/ 50 mls @ 100 mls/hr 11/21/19 17:13 11/21/19 18:00 Dextrose IVPB 11/21/19 17:42 100 mls/hr ONCE ONE Administration Morphine Sulfate 2 mg 11/21/19 18:02 11/21/19 18:10 Morphine Injection - IVPUSH 11/21/19 18:03 2 mg ONCE ONE Administration Ondansetron HCl 4 mg 11/21/19 15:41 11/21/19 15:50 Zofran Injection IVPUSH 11/21/19 15:42 4 mg ONCE ONE Administration Medical Decision Making - Medical Decision Making 11/21/19 19:28 Signed out to me by Dr. Nelson. Patient has PMH of HTN, RA, Afib (not on AC), hypothyroidism, and spinal compression fxs. Presents with constipation and urinary retention and flank pain to L side. Chronically uses Tylenol with codeine for lower back pain. Found to have UTI, diagnosed with pyelo. CT bilateral renal calculi without hydronephrosis, large stool burden. Likely fecal retention leading to urinary retention and UTI/pyelo. Treated for pyelo wit ceftriaxone, having abd pain, given more morphine but worried about worsening constipation. 11/21/19 19:39 Signed out to night team jayna Whitley for admit to Med/Surg under Dr. Salguero. Discharge - Discharge Information Problems reviewed: Yes Clinical Impression/Diagnosis: Flank pain, Pyelonephritis Fecal retention Qualifiers: Constipation type: drug induced constipation Qualified Code(s): K59.03 - Drug induced constipation - Follow up/Referral - Patient Discharge Instructions - Post Discharge Activity
[2019-11-21] MEDS ORDERED: MINERAL OIL ENEMA 133 ML ENEMA PR ONE (22:06)
[2019-11-21] MEDS ORDERED: DOCUSATE SODIUM 100 MG CAPSULE (FP) PO PRN (22:07)
[2019-11-21] MEDS: SODIUM CHLORIDE 1,000 ML IV SCH (23:00)
--- NOTE | 2019-11-21 23:51 | HP ---
<Aurora Clark - Last Filed: 11/22/19 18:40> CHIEF COMPLAINT: PCP: HISTORY OF PRESENT ILLNESS: ER course was notable for: (1) (2) (3) Recent Travel: PAST MEDICAL HISTORY: PAST SURGICAL HISTORY: Social History: Smoking: Alcohol: Drugs: Allergies naproxen [From Naprosyn] Allergy (Intermediate, Verified 11/21/19 14:19) Swelling HOME MEDICATIONS: Home Medications Medication Instructions Recorded Prednisone 5 mg PO DAILY #10 tablet 07/13/17 Diltiazem Cd [Cardizem Cd -] 180 mg PO DAILY 30 Days #30 05/06/18 cap.cd.24h Metoprolol Tartrate [Lopressor -] 50 mg PO BID tablet 05/06/18 Levothyroxine [Synthroid -] 125 mcg PO DAILY@0700 06/10/18 Lidocaine 5% Patch [Lidoderm -] 1 patch TP DAILY #7 patch 11/13/19 Aspirin 81 mg PO DAILY 11/22/19 Furosemide [Lasix] 1 tab PO ASDIR 11/22/19 REVIEW OF SYSTEMS CONSTITUTIONAL: Absent: fever, chills, diaphoresis, generalized weakness, malaise, loss of appetite, weight change HEENT: Absent: rhinorrhea, nasal congestion, throat pain, throat swelling, difficulty swallowing, mouth swelling, ear pain, eye pain, visual changes CARDIOVASCULAR: Absent: chest pain, syncope, palpitations, irregular heart rate, lightheadedness, peripheral edema RESPIRATORY: Absent: cough, shortness of breath, dyspnea with exertion, orthopnea, wheezing, stridor, hemoptysis GASTROINTESTINAL: Absent: abdominal pain, abdominal distension, nausea, vomiting, diarrhea, constipation, melena, hematochezia GENITOURINARY: Absent: dysuria, frequency, urgency, hesitancy, hematuria, flank pain, genital pain MUSCULOSKELETAL: Absent: myalgia, arthralgia, joint swelling, back pain, neck pain SKIN: Absent: rash, itching, pallor HEMATOLOGIC/IMMUNOLOGIC: Absent: easy bleeding, easy bruising, lymphadenopathy, frequent infections ENDOCRINE: Absent: unexplained weight gain, unexplained weight loss, heat intolerance, cold intolerance NEUROLOGIC: Absent: headache, focal weakness or paresthesias, dizziness, unsteady gait, seizure, mental status changes, bladder or bowel incontinence PSYCHIATRIC: Absent: anxiety, depression, suicidal or homicidal ideation, hallucinations. PHYSICAL EXAMINATION Vital Signs - 24 hr 11/21/19 11/22/19 11/22/19 19:35 05:24 10:07 Temperature 97.4 F L 97.5 F L 98.1 F Pulse Rate [ 121 H 98 H 122 H Left] Respiratory 20 16 18 Rate Blood Pressure 113/79 113/70 116/68 [Right Arm] O2 Sat by Pulse 98 100 98 Oximetry (%) 11/22/19 11/22/19 11/22/19 10:12 12:12 16:07 Temperature 97.6 F Pulse Rate [ 99 H 102 H Left] Respiratory 18 19 Rate Blood Pressure 97/67 110/69 [Right Arm] O2 Sat by Pulse 97 97 Oximetry (%) GENERAL: Awake, alert, and fully oriented, in no acute distress. HEAD: Normal with no signs of trauma. EYES: Pupils equal, round and reactive to light, extraocular movements intact, sclera anicteric, conjunctiva clear. No lid lag. EARS, NOSE, THROAT: Ears normal, nares patent, oropharynx clear without exudates. Moist mucous membranes. NECK: Normal range of motion, supple without lymphadenopathy, JVD, or masses. LUNGS: Breath sounds equal, clear to auscultation bilaterally. No wheezes, and no crackles. No accessory muscle use. HEART: Regular rate and rhythm, normal S1 and S2 without murmur, rub or gallop. ABDOMEN: Soft, nontender, not distended, normoactive bowel sounds, no guarding, no rebound, no masses. No hepatomegaly or splenomegaly. MUSCULOSKELETAL: Normal range of motion at all joints. No bony deformities or tenderness. No CVA tenderness. UPPER EXTREMITIES: 2+ pulses, warm, well-perfused. No cyanosis. No clubbing. No peripheral edema. LOWER EXTREMITIES: 2+ pulses, warm, well-perfused. No calf tenderness. No peripheral edema. NEUROLOGICAL: Cranial nerves II-XII intact. Normal speech. Normal gait. PSYCHIATRIC: Cooperative. Good eye contact. Appropriate mood and affect. SKIN: Warm, dry, normal turgor, no rashes or lesions noted, normal capillary refill. Laboratory Results - last 24 hr 11/21/19 11/22/19 11/22/19 15:00 06:00 06:00 WBC 7.8 RBC 3.92 Hgb 12.5 Hct 38.6 MCV 98.5 H MCH 31.9 MCHC 32.4 RDW 16.4 H Plt Count 289 MPV 7.2 L Sodium 138 141 Potassium 4.0 4.0 Chloride 104 108 H Carbon Dioxide 25 26 Anion Gap 9 7 L BUN 15.6 16.0 Creatinine 0.6 0.6 Est GFR (CKD-EPI)AfAm 101.18 101.18 Est GFR (CKD-EPI)NonAf 87.30 87.30 Random Glucose 110 H 74 Calcium 9.8 8.9 Phosphorus 2.8 Magnesium 1.9 Total Bilirubin 1.5 H 1.6 H Direct Bilirubin 0.8 H AST 32 23 ALT 23 17 Alkaline Phosphatase 93 75 Total Protein 7.0 5.7 L Albumin 3.8 3.2 L TSH 1.29 ASSESSMENT/PLAN: ATTENDING PHYSICIAN STATEMENT I saw and evaluated the patient. I reviewed the resident's note and discussed the case with the resident. I agree with the resident's findings and plan as documented. SUBJECTIVE: OBJECTIVE: ASSESSMENT AND PLAN: <Endy Shirley - Last Filed: 11/22/19 19:01> CHIEF COMPLAINT: L Flank Pain PCP: HISTORY OF PRESENT ILLNESS: 79 y.o. F PMHx of HTN (Metoprolol) , A-Fib (on eloquis but stopped by PCP ~3 days ago due to ecchymosis), Hypothyroidism (synthroid), RA (prednisone), Vertebral compression fractures (Tylenol w/ codeine). Patient states 1.5 days ago she began having left sided flank pain that would occasionally shift to her right flank. The pain was described as "getting punched in the side" and rated at an 8/10 intensity. She states she has also been constipated for a few days and will use home enemas. On Tuesday and Tuesday she tried an enema and manual disimpaction with minimal relief and brown stool. Patient also stated she has been having Foul smelling urine that is a light pink/brown in coloration. ER course was notable for: (1) Ceftriaxone (2) EKG (3) Urine culture Recent Travel: No PAST MEDICAL HISTORY: Hypertension, RA, A-Fib, Hypothyroidism, Vertebral compression fractures PAST SURGICAL HISTORY: Total hysterectomy (1973), Omenectomy, Total thyroidectomy, Tonsillectomy, B/L venous ligation Social History: Smoking: No Alcohol: No Drugs: No Allergies naproxen [From Naprosyn] Allergy (Intermediate, Verified 11/21/19 14:19) Swelling HOME MEDICATIONS: Home Medications Medication Instructions Recorded Apixaban [Eliquis] 5 mg PO BID 05/20/16 Prednisone 5 mg PO DAILY #10 tablet 07/13/17 Diltiazem Cd [Cardizem Cd -] 180 mg PO DAILY 30 Days #30 05/06/18 cap.cd.24h Furosemide [Lasix] 1 tab PO DAILY 30 Days #30 tablet 05/06/18 Metoprolol Tartrate [Lopressor -] 50 mg PO BID tablet 05/06/18 Levothyroxine [Synthroid -] 125 mcg PO DAILY@0700 06/10/18 Lidocaine 5% Patch [Lidoderm -] 1 patch TP DAILY #7 patch 11/13/19 REVIEW OF SYSTEMS CONSTITUTIONAL: Absent: fever, chills, diaphoresis, generalized weakness, malaise, loss of appetite, weight change HEENT: Absent: rhinorrhea, nasal congestion, throat pain, throat swelling, difficulty swallowing, mouth swelling, ear pain, eye pain, visual changes CARDIOVASCULAR: Absent: chest pain, syncope, palpitations, irregular heart rate, lightheadedness, peripheral edema RESPIRATORY: Absent: cough, shortness of breath, dyspnea with exertion, orthopnea, wheezing, stridor, hemoptysis GASTROINTESTINAL: Constipation Absent: abdominal pain, abdominal distension, nausea, vomiting, diarrhea, melena, hematochezia GENITOURINARY: Flank pain Absent: dysuria, frequency, urgency, hesitancy, hematuria, genital pain MUSCULOSKELETAL: Absent: myalgia, arthralgia, joint swelling, back pain, neck pain SKIN: Absent: rash, itching, pallor HEMATOLOGIC/IMMUNOLOGIC: Absent: easy bleeding, easy bruising, lymphadenopathy, frequent infections ENDOCRINE: Absent: unexplained weight gain, unexplained weight loss, heat intolerance, cold intolerance NEUROLOGIC: Absent: headache, focal weakness or paresthesias, dizziness, unsteady gait, seizure, mental status changes, bladder or bowel incontinence PSYCHIATRIC: Absent: anxiety, depression, suicidal or homicidal ideation, hallucinations. PHYSICAL EXAMINATION Vital Signs - 24 hr 11/21/19 11/21/19 11/21/19 14:15 14:16 15:55 Temperature 98.6 F Pulse Rate 125 H Pulse Rate [ 112 H Left] Respiratory 18 17 Rate Blood Pressure 97/58 L Blood Pressure 98/75 [Right Arm] O2 Sat by Pulse 100 96 Oximetry (%) 11/21/19 18:03 Temperature Pulse Rate Pulse Rate [ 119 H Left] Respiratory 17 Rate Blood Pressure Blood Pressure 128/88 [Right Arm] O2 Sat by Pulse 99 Oximetry (%) GENERAL: Awake, alert, and fully oriented, in no acute distress. HEAD: Normal with no signs of trauma. EYES: Pupils equal, round and reactive to light, extraocular movements intact, sclera anicteric, conjunctiva clear. EARS, NOSE, THROAT: Oropharynx clear without exudates. Moist mucous membranes. NECK: No JVD, or masses. LUNGS: Breath sounds equal, clear to auscultation bilaterally. No wheezes, and no crackles. No accessory muscle use. HEART: Irregular rhythm (A-Fib), without murmur, rub or gallop. ABDOMEN: Soft, tender on L upper and lower quadrants, not distended, normoactive bowel sounds, no guarding, no rebound, no masses. MUSCULOSKELETAL: CVA tenderness. UPPER EXTREMITIES: 2+ pulses, warm, well-perfused. No peripheral edema. LOWER EXTREMITIES: 2+ pulses, warm, well-perfused. No calf tenderness. +1 peripheral edema. NEUROLOGICAL: Cranial nerves II-XII intact. Normal speech. PSYCHIATRIC: Cooperative. Good eye contact. Appropriate mood and affect. SKIN: Warm, dry, normal turgor, no rashes or lesions noted. Laboratory Results - last 24 hr 11/21/19 11/21/19 11/21/19 15:00 15:00 16:09 WBC 8.8 RBC 4.22 Hgb 13.7 Hct 41.6 D MCV 98.6 H MCH 32.5 MCHC 32.9 RDW 16.2 H Plt Count 335 MPV 7.3 L Absolute Neuts (auto) 7.5 Neutrophils % 84.9 H Lymphocytes % 7.3 L Monocytes % 7.1 Eosinophils % 0.2 D Basophils % 0.5 Nucleated RBC % 0 Sodium 138 Potassium 4.0 Chloride 104 Carbon Dioxide 25 Anion Gap 9 BUN 15.6 Creatinine 0.6 Est GFR (CKD-EPI)AfAm 101.18 Est GFR (CKD-EPI)NonAf 87.30 Random Glucose 110 H Calcium 9.8 Total Bilirubin 1.5 H AST 32 ALT 23 Alkaline Phosphatase 93 Total Protein 7.0 Albumin 3.8 Urine Color Dk yellow Urine Appearance Cloudy Urine pH 5.0 Ur Specific [place] 1.016 Urine Protein Negative Urine Glucose (UA) Negative Urine Ketones Negative Urine Blood 3+ H Urine Nitrite Positive H Urine Bilirubin 1+ H Urine Urobilinogen 2.0 H Ur Leukocyte Esterase 3+ H Urine WBC (Auto) 248 Urine RBC (Auto) 43.7 Urine Casts (Auto) 21 U Pathogenic Cast Auto Few granular U Epithel Cells (Auto) 2 Urine Bacteria (Auto) >10,000 Imaging: - CT shows 4mm calcification of the left kidney and a 3mm stone within the upper pole of the right kidney. ASSESSMENT/PLAN: 79 y.o. F PMHx of HTN, A-Fib, Hypothyroidism, RA , Vertebral compression fractures. # UTI - Secondary to fecal impaction - UA shows 3+ blood, + nitrites, 3+ leukocyte esterase - Ceftriaxone 1g - NS @ 75ml/hr - Tylenol 1,000mg - Will follow urine cultures # Constipation - Bowel regimen - Enema - Miralax - Colace 100mg PO Q8 - Holding opiods - Tylenol 650 Q4 PRN #A-Fib - Diltiazem 180mg PO daily - Was on eloquis but stopped by PCP ~3 days ago due to ecchymosis # Hypothyroidism - Continue home dose of synthroid # Gallstone - CT shows slight distension of the gallbladder - RUQ ultrasound - UA shows Bilirubin 1+ & urobilogen of 2 - Total bilirubin 1.5 - Direct bilirubin 0.8 # Covid - Covid PCR ordered - PCR ordered due to geographic location - Placed in isolation precautions # FEN - NS @ 75mL/hr - Sodium controlled diet # DVT Prophylaxis - Mechanical SCD's Visit type - Emergency Visit Emergency Visit: Yes ED Registration Date: 11/21/19 Care time: The patient presented to the Emergency Department on the above date and was hospitalized for further evaluation of their emergent condition. - New Patient This patient is new to me today: Yes Date on this admission: 11/22/19 - Critical Care Critical Care patient: No ATTENDING PHYSICIAN STATEMENT I saw and evaluated the patient. I reviewed the resident's note and discussed the case with the resident. I agree with the resident's findings and plan as documented. SUBJECTIVE: OBJECTIVE: ASSESSMENT AND PLAN:
--- NOTE | 2019-11-21 23:57 | PN ---
Teaching Attending Note Name of Resident: Endy Shirley ATTENDING PHYSICIAN STATEMENT I saw and evaluated the patient. I reviewed the resident's note and discussed the case with the resident. I agree with the resident's findings and plan as documented. SUBJECTIVE: This is a 79 year old woman with a history of HTN, atrial fib, hypothyroidism post thyroidectomy, RA, compression fractures who comes to the ED complaining of left flank pain, constipation, and foul-smelling discolored urine. OBJECTIVE: Vital Signs Period Temp Pulse Resp BP Sys/[place] Pulse Ox Last 24 Hr 98.6 F 112-125 17-18 97-128/58-88 96-100 HEART: Irregular, tachycardic LUNGS: Clear ABDOMEN: Soft, non-distended, normal BS, (+) left-sided tenderness, (+) left CVA tenderness EXTREMITIES: Trace edema Laboratory Tests 11/21/19 11/21/19 11/21/19 15:00 15:00 16:09 WBC 8.8 RBC 4.22 Hgb 13.7 Hct 41.6 D MCV 98.6 H MCH 32.5 MCHC 32.9 RDW 16.2 H Plt Count 335 MPV 7.3 L Absolute Neuts (auto) 7.5 Neutrophils % 84.9 H Lymphocytes % 7.3 L Monocytes % 7.1 Eosinophils % 0.2 D Basophils % 0.5 Nucleated RBC % 0 Sodium 138 Potassium 4.0 Chloride 104 Carbon Dioxide 25 Anion Gap 9 BUN 15.6 Creatinine 0.6 Est GFR (CKD-EPI)AfAm 101.18 Est GFR (CKD-EPI)NonAf 87.30 Random Glucose 110 H Calcium 9.8 Total Bilirubin 1.5 H AST 32 ALT 23 Alkaline Phosphatase 93 Total Protein 7.0 Albumin 3.8 Urine Color Dk yellow Urine Appearance Cloudy Urine pH 5.0 Ur Specific [place] 1.016 Urine Protein Negative Urine Glucose (UA) Negative Urine Ketones Negative Urine Blood 3+ H Urine Nitrite Positive H Urine Bilirubin 1+ H Urine Urobilinogen 2.0 H Ur Leukocyte Esterase 3+ H Urine WBC (Auto) 248 Urine RBC (Auto) 43.7 Urine Casts (Auto) 21 U Pathogenic Cast Auto Few granular U Epithel Cells (Auto) 2 Urine Bacteria (Auto) >10,000 Home Medications Medication Instructions Recorded Apixaban [Eliquis] 5 mg PO BID 05/20/16 Prednisone 5 mg PO DAILY #10 tablet 07/13/17 Diltiazem Cd [Cardizem Cd -] 180 mg PO DAILY 30 Days #30 05/06/18 cap.cd.24h Furosemide [Lasix] 1 tab PO DAILY 30 Days #30 tablet 05/06/18 Metoprolol Tartrate [Lopressor -] 50 mg PO BID tablet 05/06/18 Levothyroxine [Synthroid -] 125 mcg PO DAILY@0700 06/10/18 Lidocaine 5% Patch [Lidoderm -] 1 patch TP DAILY #7 patch 11/13/19 ASSESSMENT AND PLAN: This is a 79 year old woman with a history of HTN, atrial fib, hypothyroidism post thyroidectomy, RA, compression fractures who presents to the ED with left flank pain, constipation, and foul smelling urine. 1. UTI secondary to fecal impaction - Rocephin - IV fluid - Fleet enema - Start bowel regimen - Follow-up urine culture
[2019-11-22] MEDS ORDERED: morphine CARPU-JECT 4 MG/1 ML DISP.SYRIN IVPUSH ONE (01:41)
[2019-11-22] MEDS ORDERED: MORPHINE SULFATE 2 MG/ML VIAL ONE ×2 (01:47→11:40)
[2019-11-22 01:57] LABS: BILIRUBIN,DIRECT 0.8 mg/dL (0.0-0.2)
[2019-11-22] MEDS ORDERED: SENNOSIDES 8.6MG TABLET (FP) PO ONE ×2 (06:33→08:18)
[2019-11-22] MEDS: SENNOSIDES 8.6MG TABLET (FP) PO SCH ×3 (06:57→23:14)
[2019-11-22] MEDS: LEVOTHYROXINE NA 125 MCG TABLET (FP) PO SCH (06:57)
[2019-11-22 07:46] LABS: HEMATOCRIT 38.6 % (32.4-45.2); HEMOGLOBIN 12.5 GM/dL (10.7-15.3); MCH 31.9 pg (25.7-33.7); MCHC 32.4 g/dl (32.0-36.0); MEAN CELL VOLUME 98.5 fl (80-96); MEAN PLT VOLUME 7.2 fl (7.5-11.1); PLATELET COUNT 289 K/MM3 (134-434); RBC 3.92 M/mm3 (3.60-5.2); RDW 16.4 % (11.6-15.6); WHITE BLOOD COUNT 7.8 K/mm3 (4.0-10.0)
[2019-11-22 08:02] LABS: ALBUMIN 3.2 g/dl (3.4-5.0); BILIRUBIN,TOTAL 1.6 mg/dL (0.2-1); CALCIUM 8.9 mg/dL (8.5-10.1); CREATININE 0.6 mg/dL (0.55-1.3); MAGNESIUM 1.9 mg/dL (1.8-2.4); PHOSPHOROUS 2.8 mg/dL (2.5-4.9); TOT PROT 5.7 g/dl (6.4-8.2)
[2019-11-22] MEDS ORDERED: METOPROLOL TARTRATE 50 MG TABLET (FP) ONE (08:18)
[2019-11-22] MEDS ORDERED: CEFTRIAXONE 1 GM/50 ML BAG ONE (08:19)
[2019-11-22] MEDS ORDERED: ACETAMINOPHEN 325 MG TABLET (FP) ONE (09:24)
[2019-11-22] MEDS ORDERED: traMADol HCL 50 MG TABLET PO PRN (09:33)
[2019-11-22] MEDS: POLYETHYLENE GLYCOL 3350 119 GM BTL PO SCH (09:57)
[2019-11-22] MEDS: METOPROLOL TARTRATE 50 MG TABLET (FP) PO SCH ×2 (09:57→23:14)
[2019-11-22] MEDS: CEFTRIAXONE 1 GM in DEXTROSE 5%-WATER - 50 ML IVPB SCH (09:57)
[2019-11-22] MEDS: SODIUM CHLORIDE 1,000 ML IV SCH ×3 (09:57→23:14)
[2019-11-22] MEDS ORDERED: MORPHINE SULFATE 2 MG/ML VIAL IVPUSH ONE ×2 (11:39→11:54)
--- NOTE | 2019-11-22 11:51 | EKG ---
Test Reason : Blood Pressure : / mmHG Vent. Rate : 098 BPM Atrial Rate : 119 BPM P-R Int : 000 ms QRS Dur : 092 ms QT Int : 332 ms P-R-T Axes : 000 005 208 degrees QTc Int : 423 ms ATRIAL FIBRILLATION INCOMPLETE RIGHT BUNDLE BRANCH BLOCK ABNORMAL ECG WHEN COMPARED WITH ECG OF 10-JUN-2018 20:11, VENT. RATE HAS DECREASED BY 66 BPM CRITERIA FOR SEPTAL INFARCT ARE NO LONGER PRESENT Confirmed by RAFIQ MCFADDEN, CHRIS ([id number]) on 11/22/2019 11:51:26 AM Referred By: Confirmed By:CHRIS CONROY MD
--- NOTE | 2019-11-22 11:59 | PN ---
Physical Exam: SUBJECTIVE: Patient seen and examined in the ED awaiting bed assignment. Tells me she is having left flank pain, needs stronger pain medications. Patient had a recent all with head trauma. Head sutures removed by her PCP 2 days ago, eliquis was stopped for eccymosis. OBJECTIVE: Patient is a 79 year old female with a significant past medical history of HTN , A-Fib (on eliquis but stopped by PCP ~3 days ago due to ecchymosis), Hypothyroidism. RA, vertebral compression fractures. Patient states that 2 days ago she began having left sided flank pain that would occasionally shift to her right flank 8/10 intensity. She states she has also been constipated for a few days and will use home enemas. On Tuesday and Tuesday she tried an enema and manual disimpaction with minimal relief and brown stool. Patient reported that she has been having foul smelling urine that is a light pink/brown in coloration. imaging: abd/pelvis ct: 11/21/2019: 1. cardiomegaly and small pericardial effusion. 2. large hiatal hernia. 3. bilateral nephrolithiasis with no evidence of hydronephrosis or obstructive uropathy. 4. severe fecal impaction. 5. no acute pathology within the abdomen or pelvis. right upper abdomen u/s 11/21/2019: distended gallbladder that is partially filled with sludge, no acute leesa. Vital Signs Period Temp Pulse Resp BP Sys/Magallon Pulse Ox Last 24 Hr 97.4 F-98.6 F 98-125 16-20 97-128/58-88 96-100 GENERAL: The patient is awake, alert, appears weak and frail HEAD: Normal with no signs of trauma. EYES: PERRL, extraocular movements intact, sclera anicteric, conjunctiva clear. No ptosis. ENT: Ears normal, nares patent, oropharynx clear without exudates NECK: Trachea midline, full range of motion, supple. LUNGS: Breath sounds equal, clear to auscultation bilaterally HEART: Regular rate and rhythm, ABDOMEN: Soft, tender, mildly distended, hypoactive bowel sounds EXTREMITIES:+1 bilateral lower ext edema NEUROLOGICAL: Normal speech, gait not observed. PSYCH: Normal mood, normal affect. SKIN: Warm, dry, normal turgor, no rashes or lesions noted Laboratory Results - last 24 hr 07/08/20 07/08/20 07/08/20 15:00 15:00 16:09 WBC 8.8 RBC 4.22 Hgb 13.7 Hct 41.6 D MCV 98.6 H MCH 32.5 MCHC 32.9 RDW 16.2 H Plt Count 335 MPV 7.3 L Absolute Neuts (auto) 7.5 Neutrophils % 84.9 H Lymphocytes % 7.3 L Monocytes % 7.1 Eosinophils % 0.2 D Basophils % 0.5 Nucleated RBC % 0 Sodium 138 Potassium 4.0 Chloride 104 Carbon Dioxide 25 Anion Gap 9 BUN 15.6 Creatinine 0.6 Est GFR (CKD-EPI)AfAm 101.18 Est GFR (CKD-EPI)NonAf 87.30 Random Glucose 110 H Calcium 9.8 Phosphorus Magnesium Total Bilirubin 1.5 H Direct Bilirubin 0.8 H AST 32 ALT 23 Alkaline Phosphatase 93 Total Protein 7.0 Albumin 3.8 Urine Color Dk yellow Urine Appearance Cloudy Urine pH 5.0 Ur Specific [place] 1.016 Urine Protein Negative Urine Glucose (UA) Negative Urine Ketones Negative Urine Blood 3+ H Urine Nitrite Positive H Urine Bilirubin 1+ H Urine Urobilinogen 2.0 H Ur Leukocyte Esterase 3+ H Urine WBC (Auto) 248 Urine RBC (Auto) 43.7 Urine Casts (Auto) 21 U Pathogenic Cast Auto Few granular U Epithel Cells (Auto) 2 Urine Bacteria (Auto) >10,000 11/22/19 11/22/19 06:00 06:00 WBC 7.8 RBC 3.92 Hgb 12.5 Hct 38.6 MCV 98.5 H MCH 31.9 MCHC 32.4 RDW 16.4 H Plt Count 289 MPV 7.2 L Absolute Neuts (auto) Neutrophils % Lymphocytes % Monocytes % Eosinophils % Basophils % Nucleated RBC % Sodium 141 Potassium 4.0 Chloride 108 H Carbon Dioxide 26 Anion Gap 7 L BUN 16.0 Creatinine 0.6 Est GFR (CKD-EPI)AfAm 101.18 Est GFR (CKD-EPI)NonAf 87.30 Random Glucose 74 Calcium 8.9 Phosphorus 2.8 Magnesium 1.9 Total Bilirubin 1.6 H Direct Bilirubin AST 23 ALT 17 Alkaline Phosphatase 75 Total Protein 5.7 L Albumin 3.2 L Urine Color Urine Appearance Urine pH Ur Specific [place] Urine Protein Urine Glucose (UA) Urine Ketones Urine Blood Urine Nitrite Urine Bilirubin Urine Urobilinogen Ur Leukocyte Esterase Urine WBC (Auto) Urine RBC (Auto) Urine Casts (Auto) U Pathogenic Cast Auto U Epithel Cells (Auto) Urine Bacteria (Auto) Active Medications Generic Name Dose Route Start Last Admin Trade Name Freq PRN Reason Stop Dose Admin Acetaminophen 650 mg 11/21/19 21:50 Tylenol - PO Q4H PRN PAIN LEVEL 7 - 10 Diltiazem HCl 180 mg 11/22/19 10:00 11/22/19 10:10 Cardizem Cd - PO Not Given DAILY ALIE Docusate Sodium 100 mg 11/21/19 22:07 Colace - PO Q8H PRN CONSTIPATION Furosemide 20 mg 11/22/19 12:00 Lasix - PO DAILY ALIE Sodium Chloride 1,000 mls @ 75 mls/hr 11/21/19 22:00 11/22/19 09:57 Normal Saline - IV 75 mls/hr ASDIR ALIE Administration Ceftriaxone Sodium 1 gm/ 50 mls @ 100 mls/hr 11/22/19 10:00 11/22/19 09:57 Dextrose IVPB 100 mls/hr DAILY ALIE Administration Protocol Levothyroxine Sodium 125 mcg 11/22/19 07:00 11/22/19 06:57 Synthroid - PO 125 mcg DAILY@0700 ALIE Administration Metoprolol Tartrate 50 mg 11/22/19 10:00 11/22/19 09:57 Lopressor - PO 50 mg BID LAIE Administration Morphine Sulfate 2 mg 11/22/19 11:54 Morphine Injection - IVPUSH 11/22/19 11:55 ONCE ONE Polyethylene Glycol 17 gm 11/22/19 10:00 11/22/19 09:57 Miralax (For Daily Use) - PO 17 gm DAILY ALIE Administration Prednisone 5 mg 11/22/19 12:00 Deltasone - PO DAILY ALIE Senna 1 tab 11/22/19 06:19 11/22/19 09:57 Senna - PO 1 tab BID ALIE Administration Tramadol HCl 50 mg 11/22/19 09:33 11/22/19 10:00 Ultram - PO 50 mg Q8H PRN Administration PAIN LEVEL 4-6 ASSESSMENT/PLAN: Problem List - Problems (1) Constipation due to opioid therapy Assessment/Plan: patient was taking codiene for back pain at home will start on bowel regimen, tap water enema also noted to have a large hiatal hernia. GI following, will consult surgery Code(s): K59.03 - DRUG INDUCED CONSTIPATION; T40.2X5A - ADVERSE EFFECT OF OTHER OPIOIDS, INITIAL ENCOUNTER (2) Dilated gallbladder Assessment/Plan: distended gallbladder that is partially filled with sludge, no acute leesa. Followed by GI. Code(s): K82.8 - OTHER SPECIFIED DISEASES OF GALLBLADDER (3) Fecal retention Assessment/Plan: start on bowel regimen, CT shows severe constipation Code(s): K59.00 - CONSTIPATION, UNSPECIFIED Qualifiers: Constipation type: drug induced constipation Qualified Code(s): K59.03 - Drug induced constipation (4) Flank pain Code(s): R10.9 - UNSPECIFIED ABDOMINAL PAIN (5) AF (paroxysmal atrial fibrillation) Assessment/Plan: patient on eliquis but d/c by PCP s/p fall and head trauma rate controlled on metoprolol 50mg bid Code(s): I48.0 - PAROXYSMAL ATRIAL FIBRILLATION (6) Accidental fall Assessment/Plan: physical therapy to evaluate Code(s): W19.XXXA - UNSPECIFIED FALL, INITIAL ENCOUNTER Qualifiers: Encounter type: initial encounter Qualified Code(s): W19.XXXA - Unspecified fall, initial encounter (7) Forehead laceration Assessment/Plan: s/p fall with head trauma three days ago, patient had suture recently removed by her PCP Code(s): S01.81XA - LACERATION W/O FOREIGN BODY OF OTH PART OF HEAD, INIT ENCNTR Qualifiers: Encounter type: initial encounter Qualified Code(s): S01.81XA - Laceration without foreign body of other part of head, initial encounter (8) Hiatal hernia Assessment/Plan: large hiatal hernia seen on imaging along with severe constipation will consult surgery Code(s): K44.9 - DIAPHRAGMATIC HERNIA WITHOUT OBSTRUCTION OR GANGRENE Visit type - Emergency Visit Emergency Visit: Yes ED Registration Date: 11/21/19 Care time: The patient presented to the Emergency Department on the above date and was hospitalized for further evaluation of their emergent condition. - New Patient This patient is new to me today: Yes Date on this admission: 11/23/19 - Critical Care Critical Care patient: No - Discharge Referral Referred to [facility] Med P.C.: No
[2019-11-22] MEDS ORDERED: FUROSEMIDE 40 MG TABLET (FP) ONE (12:04)
[2019-11-22] MEDS: FUROSEMIDE 20 MG TABLET (FP) PO SCH ×2 (12:07→12:13)
[2019-11-22] MEDS: predniSONE 5 MG TABLET (UD) PO SCH (12:07)
[2019-11-22] MEDS ORDERED: LORazepam 2 MG/ML SDV VIAL IVPUSH PRN (14:34)
[2019-11-22] MEDS ORDERED: ASPIRIN 81 MG CHEWABLE TABLETS ONE (16:21)
[2019-11-22] MEDS: ASPIRIN 81 MG CHEWABLE TABLETS PO SCH (16:25)
--- NOTE | 2019-11-22 17:24 | CON.GI ---
Consult Consult Specialty:: GI coverage for Dr Bae - History of Present Illness History of Present Illness: This is a 79 year old woman with a history of HTN, atrial fib, hypothyroidism post thyroidectomy, RA, compression fractures who comes to the ED complaining of left flank pain, constipation, and foul-smelling discolored urine. She was taking codeine as an outpatient for shoulder and back pain. She denies nausea, vomiting and RUQ pain Abdominal ultrasound was done which revealed distended GB - Past Medical History Cardio/Vascular: Yes: AFIB, HTN Rheumatology: Yes: Rheumatoid Arthritis Endocrine: Yes: Hypothyroidism - Past Surgical History Past Surgical History: Yes: Hysterectomy, Joint Replacement, Vein Stripping/Ligation - Alcohol/Substance Use Hx Alcohol Use: No - Smoking History Smoking history: Never smoked Have you smoked in the past 12 months: No - Social History ADL: Independent Home Medications - Allergies Allergies/Adverse Reactions: Allergies Allergy/AdvReac Type Severity Reaction Status Date / Time naproxen [From Naprosyn] Allergy Intermediate Swelling Verified 11/21/19 14:19 - Home Medications Home Medications: Ambulatory Orders Prednisone 5 mg PO DAILY #10 tablet 07/13/17 Diltiazem Cd [Cardizem Cd -] 180 mg PO DAILY 30 Days #30 cap.cd.24h 05/06/18 Metoprolol Tartrate [Lopressor -] 50 mg PO BID tablet 05/06/18 Levothyroxine [Synthroid -] 125 mcg PO DAILY@0700 06/10/18 Lidocaine 5% Patch [Lidoderm -] 1 patch TP DAILY #7 patch 11/13/19 Aspirin 81 mg PO DAILY 11/22/19 Furosemide [Lasix] 1 tab PO ASDIR 11/22/19 Physical Exam-GI Vital Signs: Vital Signs Temperature 97.6 F 11/22/19 16:07 Pulse Rate 102 H 11/22/19 16:07 Respiratory Rate 19 11/22/19 16:07 Blood Pressure 110/69 11/22/19 16:07 O2 Sat by Pulse Oximetry (%) 97 11/22/19 12:12 Constitutional: Yes: Well Nourished Eyes: Yes: Conjunctiva Clear HENT: Yes: Atraumatic Neck: Yes: Supple Cardiovascular: Yes: Regular Rate and Rhythm Respiratory: Yes: CTA Bilaterally ...Palpate: Yes: Soft. No: Firm/Rigid, Guarding, Hepatomegaly, Mass, Pulsatile Mass, Splenomegaly, Tenderness Genitourinary: Yes: Hematuria Labs: CBC, BMP 11/22/19 06:00 11/22/19 06:00 CBCD WBC 7.8 K/mm3 (4.0-10.0) 11/22/19 06:00 RBC 3.92 M/mm3 (3.60-5.2) 11/22/19 06:00 Hgb 12.5 GM/dL (10.7-15.3) 11/22/19 06:00 Hct 38.6 % (32.4-45.2) 11/22/19 06:00 MCV 98.5 fl (80-96) H 11/22/19 06:00 MCHC 32.4 g/dl (32.0-36.0) 11/22/19 06:00 RDW 16.4 % (11.6-15.6) H 11/22/19 06:00 Plt Count 289 K/MM3 (134-434) 11/22/19 06:00 MPV 7.2 fl (7.5-11.1) L 11/22/19 06:00 CMP Sodium 141 mmol/L (136-145) 11/22/19 06:00 Potassium 4.0 mmol/L (3.5-5.1) 11/22/19 06:00 Chloride 108 mmol/L (98-107) H 11/22/19 06:00 Carbon Dioxide 26 mmol/L (21-32) 11/22/19 06:00 Anion Gap 7 MMOL/L (8-16) L 11/22/19 06:00 BUN 16.0 mg/dL (7-18) 11/22/19 06:00 Creatinine 0.6 mg/dL (0.55-1.3) 11/22/19 06:00 Calcium 8.9 mg/dL (8.5-10.1) 11/22/19 06:00 Total Bilirubin 1.6 mg/dL (0.2-1) H 11/22/19 06:00 AST 23 U/L (15-37) 11/22/19 06:00 ALT 17 U/L (13-61) 11/22/19 06:00 Alkaline Phosphatase 75 U/L (45-117) 11/22/19 06:00 Total Protein 5.7 g/dl (6.4-8.2) L 11/22/19 06:00 Albumin 3.2 g/dl (3.4-5.0) L 11/22/19 06:00 Problem List - Problems (1) Constipation due to opioid therapy Assessment/Plan: R> relistor 10 sq every other day advance diet Dr Bae will resume care in am Code(s): K59.03 - DRUG INDUCED CONSTIPATION; T40.2X5A - ADVERSE EFFECT OF OTHER OPIOIDS, INITIAL ENCOUNTER (2) Dilated gallbladder Assessment/Plan: associated with sludge, patient is asymptomatic R>advance diet, further w/u if biliary symptoms occur, possibly secondary to poor po intake Code(s): K82.8 - OTHER SPECIFIED DISEASES OF GALLBLADDER
[2019-11-22] MEDS: ACETAMINOPHEN 325 MG TABLET (FP) PO PRN (22:04)
[2019-11-22] MEDS: ACETAMINOPHEN 1000 MG/100 ML VIAL (NON FORMULARY) IVPB PRN (22:23)
[2019-11-23] MEDS: ACETAMINOPHEN 325 MG TABLET (FP) PO PRN ×2 (03:27→18:17)
[2019-11-23] MEDS: ACETAMINOPHEN 1000 MG/100 ML VIAL (NON FORMULARY) IVPB PRN (05:35)
[2019-11-23] MEDS: LEVOTHYROXINE NA 125 MCG TABLET (FP) PO SCH (06:23)
[2019-11-23] MEDS ORDERED: PT OWN MED DRAWER 7, Y5N ONE ×2 (07:44→09:47)
--- NOTE | 2019-11-23 09:22 | PN ---
Physical Exam: SUBJECTIVE: Patient seen and examined patient tells me she was on eliquis, but after she sustained a fall with head trauma, her PCP d/c eliquis and placed on asa 81mg. She has an allergy to Naproxen (facial swelling) but has not had a reaction to asa 81mg since she started it a few days ago. Patient has never been told she had a large hiatal hernia in the past but does not want surgery citing her age. OBJECTIVE: I spoke to PCP Billy Galdamez [phone], patient has been taken off Eliquis after she had fallen with head trauma. Now on ASA 81mg. Her fountain roller assembler is Dr. Era Dela Cruz. No plans at this time to resume eliquis 2/2 to falls. ------- Patient is a 79 year old female with a significant past medical history of HTN , A-Fib (no longer on a/c), hypothyroidism, RA, vertebral compression fractures. Patient states that 2 days ago she began having left sided flank pain that would occasionally shift to her right flank 8/10 intensity. She states she has also been constipated for a few days. On Tuesday and Tuesday she tried an enema and manual disimpaction with minimal relief and brown stool. Patient reported that she has been having foul smelling urine that is a light pink/brown in coloration. covid status: not detected as of 11/22/2019 imaging: abd/pelvis ct: 11/21/2019: 1. cardiomegaly and small pericardial effusion. 2. large hiatal hernia. 3. bilateral nephrolithiasis with no evidence of hydronephrosis or obstructive uropathy. 4. severe fecal impaction. 5. no acute pathology within the abdomen or pelvis. right upper abdomen u/s 11/21/2019: distended gallbladder that is partially filled with sludge, no acute leesa. Period Temp Pulse Resp BP Sys/Magallon Pulse Ox Last 24 Hr 97.2 F-98.1 F 87-122 18-24 96-122/56-86 97-98 GENERAL: The patient is awake, alert, appears weak and frail HEAD: Normal with no signs of trauma. EYES: PERRL, extraocular movements intact, sclera anicteric, conjunctiva clear. No ptosis. ENT: Ears normal, nares patent, oropharynx clear without exudates NECK: Trachea midline, full range of motion, supple. LUNGS: Breath sounds equal, clear to auscultation bilaterally HEART: Regular rate and rhythm, ABDOMEN: Soft, tender, mildly distended, +bowel sounds EXTREMITIES:+1 bilateral lower ext edema NEUROLOGICAL: Normal speech, gait not observed. PSYCH: Normal mood, normal affect. SKIN: Warm, dry, normal turgor, no rashes or lesions noted Laboratory Results - last 24 hr 11/22/19 11/22/19 06:00 10:15 Sodium 141 Potassium 4.0 Chloride 108 H Carbon Dioxide 26 Anion Gap 7 L BUN 16.0 Creatinine 0.6 Est GFR (CKD-EPI)AfAm 101.18 Est GFR (CKD-EPI)NonAf 87.30 Random Glucose 74 Calcium 8.9 Phosphorus 2.8 Magnesium 1.9 Total Bilirubin 1.6 H AST 23 ALT 17 Alkaline Phosphatase 75 Total Protein 5.7 L Albumin 3.2 L TSH 1.29 COVID-19 (REBECA) Not detected Active Medications Generic Name Dose Route Start Last Admin Trade Name Freq PRN Reason Stop Dose Admin Acetaminophen 650 mg 11/21/19 21:50 11/23/19 03:27 Tylenol - PO 650 mg Q4H PRN Administration PAIN LEVEL 7 - 10 Acetaminophen 1,000 mg 11/22/19 22:16 11/23/19 05:35 Ofirmev Injection - IVPB 11/23/19 10:18 1,000 mg Q6H PRN Administration PAIN LEVEL 7 - 10 Aspirin 81 mg 11/22/19 16:15 11/22/19 16:25 Asa - PO 81 mg DAILY ALIE Administration Docusate Sodium 100 mg 11/21/19 22:07 Colace - PO Q8H PRN CONSTIPATION Furosemide 20 mg 11/22/19 12:00 11/22/19 12:13 Lasix - PO Not Given DAILY ALIE Heparin Sodium (Porcine) 5,000 unit 11/23/19 10:00 Heparin - SQ BID ALIE Sodium Chloride 1,000 mls @ 75 mls/hr 11/21/19 22:00 11/22/19 23:14 Normal Saline - IV 75 mls/hr ASDIR ALIE Administration Ceftriaxone Sodium 1 gm/ 50 mls @ 100 mls/hr 11/22/19 10:00 11/22/19 09:57 Dextrose IVPB 100 mls/hr DAILY ALIE Administration Protocol Levothyroxine Sodium 125 mcg 11/22/19 07:00 11/23/19 06:23 Synthroid - PO 125 mcg DAILY@0700 ALIE Administration Lorazepam 0.5 mg 11/22/19 14:34 Ativan Injection - IVPUSH Q6H PRN ANXIETY Methylnaltrexone [place] 8 mg 11/24/19 10:00 Relistor - SQ Q48H ALIE Metoprolol Tartrate 50 mg 11/22/19 10:00 11/22/19 23:14 Lopressor - PO 50 mg BID ALIE Administration Polyethylene Glycol 17 gm 11/22/19 10:00 11/22/19 09:57 Miralax (For Daily Use) - PO 17 gm DAILY ALIE Administration Prednisone 5 mg 11/22/19 12:00 11/22/19 12:07 Deltasone - PO 5 mg DAILY ALIE Administration Senna 1 tab 11/22/19 06:19 11/22/19 23:14 Senna - PO 1 tab BID ALIE Administration ASSESSMENT/PLAN: Problem List - Problems (1) UTI (urinary tract infection) Assessment/Plan: UA + UTI with >10K bacteria. UC pending continue ceftriaxone Code(s): N39.0 - URINARY TRACT INFECTION, SITE NOT SPECIFIED (2) Constipation due to opioid therapy Assessment/Plan: patient was taking codeine for back pain at home which likely caused her constipation. CT scan shows severe constipation. Started on bowel regimen with tap water enemas. also noted to have a large hiatal hernia but patient refusing any interventions for the hernia. GI following Code(s): K59.03 - DRUG INDUCED CONSTIPATION; T40.2X5A - ADVERSE EFFECT OF OTHER OPIOIDS, INITIAL ENCOUNTER (3) Dilated gallbladder Assessment/Plan: distended gallbladder that is partially filled with sludge, no acute leesa. Followed by GI. no acute interventions planned Code(s): K82.8 - OTHER SPECIFIED DISEASES OF GALLBLADDER (4) Fecal retention Assessment/Plan: start on bowel regimen, CT shows severe constipation monitor output, still having abdominal pain Code(s): K59.00 - CONSTIPATION, UNSPECIFIED Qualifiers: Constipation type: drug induced constipation Qualified Code(s): K59.03 - Drug induced constipation (5) Flank pain Code(s): R10.9 - UNSPECIFIED ABDOMINAL PAIN (6) AF (paroxysmal atrial fibrillation) Assessment/Plan: patient on eliquis but d/c by PCP s/p fall and head trauma, on asa 81mg daily rate controlled on metoprolol 50mg bid Code(s): I48.0 - PAROXYSMAL ATRIAL FIBRILLATION (7) Accidental fall Assessment/Plan: physical therapy to evaluate Code(s): W19.XXXA - UNSPECIFIED FALL, INITIAL ENCOUNTER Qualifiers: Encounter type: initial encounter Qualified Code(s): W19.XXXA - Unspecified fall, initial encounter (8) Forehead laceration Assessment/Plan: s/p fall with head trauma three days ago, patient had suture recently removed by her PCP Code(s): S01.81XA - LACERATION W/O FOREIGN BODY OF OTH PART OF HEAD, INIT ENCNTR Qualifiers: Encounter type: initial encounter Qualified Code(s): S01.81XA - Laceration without foreign body of other part of head, initial encounter (9) Hiatal hernia Assessment/Plan: large hiatal hernia seen on imaging along with severe constipation patient refusing surgical intervention, will d/c surgical consult. discussed hernia with PCP Code(s): K44.9 - DIAPHRAGMATIC HERNIA WITHOUT OBSTRUCTION OR GANGRENE (10) Kidney calculi Assessment/Plan: non obstructive calculi, no hydro seen. multiple tiny hyperdense cysts within both kidneys. Code(s): N20.0 - CALCULUS OF KIDNEY (11) DVT prophylaxis Assessment/Plan: SCDs Code(s): Z29.9 - ENCOUNTER FOR PROPHYLACTIC MEASURES, UNSPECIFIED Visit type - Emergency Visit Emergency Visit: Yes ED Registration Date: 11/21/19 Care time: The patient presented to the Emergency Department on the above date and was hospitalized for further evaluation of their emergent condition. - New Patient This patient is new to me today: No - Critical Care Critical Care patient: No
[2019-11-23 09:34] LABS: BASO % 0.6 % (0-2.0); EOS % 2.7 % (0-4.5); HEMATOCRIT 42.9 % (32.4-45.2); HEMOGLOBIN 13.7 GM/dL (10.7-15.3); LYMPH % 9.7 % (8-40); MCH 32.4 pg (25.7-33.7); MEAN CELL VOLUME 101.3 fl (80-96); MEAN PLT VOLUME 7.4 fl (7.5-11.1); MONO % 10.2 % (3.8-10.2); NEUT % 76.8 % (42.8-82.8); PLATELET COUNT 314 K/MM3 (134-434); RBC 4.23 M/mm3 (3.60-5.2); RDW 16.7 % (11.6-15.6); WHITE BLOOD COUNT 8.7 K/mm3 (4.0-10.0)
[2019-11-23] MEDS ORDERED: DEXTROSE 5%-WATER - 50 ML IVPB ONE (09:47)
[2019-11-23] MEDS ORDERED: cefTRIAXone SODIUM 1 GM VIAL ONE (09:47)
[2019-11-23] MEDS: SENNOSIDES 8.6MG TABLET (FP) PO SCH ×2 (09:55→21:13)
[2019-11-23] MEDS: predniSONE 5 MG TABLET (UD) PO SCH (09:56)
[2019-11-23] MEDS: CEFTRIAXONE 1 GM in DEXTROSE 5%-WATER - 50 ML IVPB SCH (09:56)
[2019-11-23] MEDS: FUROSEMIDE 20 MG TABLET (FP) PO SCH (09:56)
[2019-11-23] MEDS: METOPROLOL TARTRATE 50 MG TABLET (FP) PO SCH ×2 (09:56→21:13)
[2019-11-23] MEDS: HEPARIN NA (PORCINE) 5,000 UNITS/ML 1ML VIAL SQ SCH ×3 (09:56→21:12)
[2019-11-23] MEDS: ASPIRIN 81 MG CHEWABLE TABLETS PO SCH (09:56)
[2019-11-23] MEDS: POLYETHYLENE GLYCOL 3350 119 GM BTL PO SCH ×2 (10:03→21:13)
[2019-11-23 10:12] LABS: POTASSIUM 4.1 mmol/L (3.5-5.1)
[2019-11-23 10:26] LABS: ALBUMIN 3.5 g/dl (3.4-5.0); BILIRUBIN,TOTAL 1.4 mg/dL (0.2-1); CALCIUM 9.4 mg/dL (8.5-10.1); CREATININE 0.6 mg/dL (0.55-1.3); MAGNESIUM 1.8 mg/dL (1.8-2.4); TOT PROT 6.4 g/dl (6.4-8.2)
[2019-11-23 12:13] VITALS: BMI 22.4
[2019-11-23] MEDS ORDERED: MINERAL OIL ENEMA 133 ML ENEMA RC ONE (18:14)
--- NOTE | 2019-11-23 18:14 | PN.GI ---
GI Progress Note Subjective: GI NOte: Had small BM only by nurse disempacting her. The nurse describes a a large rectal impaction - Objective Vital Signs: Vital Signs Temperature 98.1 F 11/23/19 15:34 Pulse Rate 107 H 11/23/19 15:34 Respiratory Rate 22 H 11/23/19 15:34 Blood Pressure 116/75 11/23/19 15:34 O2 Sat by Pulse Oximetry (%) 97 11/22/19 21:52 Constitutional: No Distress ...Auscultate: Yes: Hypoactive Bowel Sounds ...Palpate: Yes: Soft, Other (nontender) ...Percussion: Yes: Tympanitic Labs: CBC, BMP 11/23/19 08:42 11/23/19 08:42 Assessment/Plan Impression: Opioid associated constipation and fecal impaction Plan: -- Mineral oil enemas x 2 -- Start Miralax TID Problem List - Problems (1) Constipation due to opioid therapy Code(s): K59.03 - DRUG INDUCED CONSTIPATION; T40.2X5A - ADVERSE EFFECT OF OTHER OPIOIDS, INITIAL ENCOUNTER (2) Fecal retention Code(s): K59.00 - CONSTIPATION, UNSPECIFIED Qualifiers: Constipation type: drug induced constipation Qualified Code(s): K59.03 - Drug induced constipation (3) Atrial fibrillation with rapid ventricular response Code(s): I48.91 - UNSPECIFIED ATRIAL FIBRILLATION (4) CHF exacerbation Code(s): I50.9 - HEART FAILURE, UNSPECIFIED Qualifiers: Heart failure type: diastolic Qualified Code(s): I50.33 - Acute on chronic diastolic (congestive) heart failure (5) Raynauds phenomenon Code(s): I73.00 - RAYNAUD'S SYNDROME WITHOUT GANGRENE Qualifiers: Raynaud?s-associated gangrene presence: without gangrene Qualified Code(s): I73.00 - Raynaud's syndrome without gangrene
[2019-11-23] MEDS: SODIUM CHLORIDE 1,000 ML IV SCH (18:17)
[2019-11-23] MEDS ORDERED: ACETAMINOPHEN 1000 MG/100 ML VIAL (NON FORMULARY) IVPB ONE (18:27)
[2019-11-23] MEDS ORDERED: POLYETHYLENE GLYCOL 3350 119 GM BTL PO SCH (22:00)
[2019-11-24] MEDS: POLYETHYLENE GLYCOL 3350 119 GM BTL PO SCH ×3 (06:40→21:23)
[2019-11-24] MEDS: LEVOTHYROXINE NA 125 MCG TABLET (FP) PO SCH (06:40)
[2019-11-24] MEDS ORDERED: cefTRIAXone SODIUM 1 GM VIAL ONE (09:57)
[2019-11-24] MEDS ORDERED: DEXTROSE 5%-WATER - 50 ML IVPB ONE (09:57)
[2019-11-24] MEDS: CEFTRIAXONE 1 GM in DEXTROSE 5%-WATER - 50 ML IVPB SCH (10:04)
[2019-11-24] MEDS: METOPROLOL TARTRATE 50 MG TABLET (FP) PO SCH ×2 (10:05→21:23)
[2019-11-24] MEDS: SENNOSIDES 8.6MG TABLET (FP) PO SCH ×2 (10:05→21:22)
[2019-11-24] MEDS: FUROSEMIDE 20 MG TABLET (FP) PO SCH (10:05)
[2019-11-24] MEDS: ASPIRIN 81 MG CHEWABLE TABLETS PO SCH (10:05)
[2019-11-24] MEDS: predniSONE 5 MG TABLET (UD) PO SCH (10:05)
[2019-11-24] MEDS: HEPARIN NA (PORCINE) 5,000 UNITS/ML 1ML VIAL SQ SCH ×2 (10:07→21:23)
[2019-11-24 11:39] LABS: EOS % 2.5 % (0-4.5); HEMATOCRIT 40.7 % (32.4-45.2); HEMOGLOBIN 13.4 GM/dL (10.7-15.3); LYMPH % 9.6 % (8-40); MCH 32.8 pg (25.7-33.7); MCHC 32.9 g/dl (32.0-36.0); MEAN CELL VOLUME 99.6 fl (80-96); MEAN PLT VOLUME 7.3 fl (7.5-11.1); MONO % 10.5 % (3.8-10.2); NEUT % 76.4 % (42.8-82.8); PLATELET COUNT 322 K/MM3 (134-434); RBC 4.09 M/mm3 (3.60-5.2); RDW 16.4 % (11.6-15.6); WHITE BLOOD COUNT 7.4 K/mm3 (4.0-10.0)
[2019-11-24 12:09] LABS: ALBUMIN 3.1 g/dl (3.4-5.0); BLOOD UREA NITROGEN 14.9 mg/dL (7-18); CALCIUM 9.7 mg/dL (8.5-10.1); CREATININE 0.8 mg/dL (0.55-1.3); MAGNESIUM 1.7 mg/dL (1.8-2.4)
--- NOTE | 2019-11-24 13:11 | PN ---
Progress Note, Physician History of Present Illness: Patient seen and examined at bedside. endorses constipation. No ABD pain. Tolerating diet. On lasix and fluids. Will hold lasix and put fluids at 42ml/hr. Denies nausea vomiting fever chills chest pain or SOB. endorses easy bruising. RN reports right breast bruising. Patient things it is from laying on it all night. Eliquis held. H/H stable. Plts WNL. - Current Medication List Current Medications: Active Medications Acetaminophen (Tylenol -) 650 mg PO Q4H PRN PRN Reason: PAIN LEVEL 7 - 10 Last Admin: 11/23/19 18:17 Dose: 650 mg Documented by: Aspirin (Asa -) 81 mg PO DAILY [facility] Last Admin: 11/24/19 10:05 Dose: 81 mg Documented by: Docusate Sodium (Colace -) 100 mg PO Q8H PRN PRN Reason: CONSTIPATION Furosemide (Lasix -) 20 mg PO DAILY [facility] Last Admin: 11/24/19 10:05 Dose: 20 mg Documented by: Heparin Sodium (Porcine) (Heparin -) 5,000 unit SQ BID [facility] Last Admin: 11/24/19 10:07 Dose: Not Given Documented by: Sodium Chloride (Normal Saline -) 1,000 mls @ 75 mls/hr IV ASDIR [facility] Last Admin: 11/23/19 18:17 Dose: 75 mls/hr Documented by: Ceftriaxone Sodium 1 gm/ (Dextrose) 50 mls @ 100 mls/hr IVPB DAILY [facility]; Pro tocol Last Admin: 11/24/19 10:04 Dose: 100 mls/hr Documented by: Levothyroxine Sodium (Synthroid -) 125 mcg PO DAILY@0700 [facility] Last Admin: 11/24/19 06:40 Dose: 125 mcg Documented by: Lorazepam (Ativan Injection -) 0.5 mg IVPUSH Q6H PRN PRN Reason: ANXIETY Last Admin: 11/23/19 21:55 Dose: 0.5 mg Documented by: Methylnaltrexone [place] (Relistor -) 8 mg SQ Q48H [facility] Metoprolol Tartrate (Lopressor -) 50 mg PO BID [facility] Last Admin: 11/24/19 10:05 Dose: 50 mg Documented by: Polyethylene Glycol (Miralax (For Daily Use) -) 17 gm PO TID [facility] Last Admin: 11/24/19 06:40 Dose: 17 grams Documented by: Prednisone (Deltasone -) 5 mg PO DAILY [facility] Last Admin: 11/24/19 10:05 Dose: 5 mg Documented by: Senna (Senna -) 1 tab PO BID [facility] Last Admin: 11/24/19 10:05 Dose: 1 tab Documented by: - Objective Vital Signs: Vital Signs Temperature 97.8 F 11/24/19 10:00 Pulse Rate 100 H 11/24/19 10:00 Respiratory Rate 18 11/24/19 10:00 Blood Pressure 118/72 11/24/19 10:00 O2 Sat by Pulse Oximetry (%) 96 11/24/19 09:00 Constitutional: Yes: No Distress, Thin Eyes: Yes: Conjunctiva Clear, EOM Intact HENT: Yes: Atraumatic Neck: Yes: Supple Cardiovascular: Yes: Pulse Irregular Respiratory: Yes: Regular, CTA Bilaterally Gastrointestinal: Yes: Normal Bowel Sounds, Soft ...Rectal Exam: Yes: Sphincter Tone Normal, Other (Soft stool in the rectal vault on my gloved ERICA) Genitourinary: Yes: Horvath Present Breast(s): Yes: Right (brusing of the whole breast.) Edema: Yes Edema: LLE: 1+, RLE: 1+ Labs: CBC, BMP 11/24/19 11:00 11/24/19 11:00 Impression/Plan Impression/Plan: UTI UA + UCx E. Coli sensitive to Rocephin-continue discontinue horvath-passed TOV Fecal impaction/Constipation due to opioid therapy from codeine which she takes for back pain. UTI may be contributing or constipation may have caused the UTI. continue Relistor Miralax TID Bowel regimen Patient given high colonic soap suds enema paroxysmal A fib patient on eliquis but d/c by PCP s/p fall and head trauma, on asa 81mg daily rate controlled on metoprolol 50mg bid Accidental fall PT consult Forehead laceration after fall Sutures removed by PCP Hiatal hernia large hiatal hernia seen on imaging along with severe constipation patient refusing surgical intervention, will d/c surgical consult. Kidney calculi/multiple tiny hyperdense cysts within both kidneys. non obstructive calculi, no hydro seen. Hypothyroidism continue synthroid DVT prophylaxis HSQ BID Visit type - Emergency Visit Emergency Visit: Yes ED Registration Date: 11/21/19 Care time: The patient presented to the Emergency Department on the above date and was hospitalized for further evaluation of their emergent condition. - New Patient This patient is new to me today: Yes Date on this admission: 11/24/19 - Critical Care Critical Care patient: No
[2019-11-24] MEDS: Methylnaltrexone Bromide 12 MG/0.6 ML KIT SQ SCH (13:22)
[2019-11-24] MEDS: SODIUM CHLORIDE 1,000 ML IV SCH (20:41)
[2019-11-24] MEDS: ACETAMINOPHEN 325 MG TABLET (FP) PO PRN (21:22)
[2019-11-24] MEDS ORDERED: ACETAMINOPHEN 1000 MG/100 ML VIAL (NON FORMULARY) IVPB ONE (21:44)
[2019-11-25] MEDS ORDERED: ACETAMINOPHEN 1000 MG/100 ML VIAL (NON FORMULARY) IVPB ONE ×3 (02:00→20:00)
[2019-11-25] MEDS: POLYETHYLENE GLYCOL 3350 119 GM BTL PO SCH ×3 (05:59→21:08)
[2019-11-25] MEDS: LEVOTHYROXINE NA 125 MCG TABLET (FP) PO SCH (06:00)
[2019-11-25] MEDS ORDERED: PT OWN MED DRAWER 7, Y5N ONE (09:41)
[2019-11-25] MEDS ORDERED: cefTRIAXone SODIUM 1 GM VIAL ONE (09:42)
[2019-11-25] MEDS ORDERED: DEXTROSE 5%-WATER - 50 ML IVPB ONE (09:42)
[2019-11-25] MEDS: ACETAMINOPHEN 325 MG TABLET (FP) PO PRN (09:43)
[2019-11-25] MEDS: HEPARIN NA (PORCINE) 5,000 UNITS/ML 1ML VIAL SQ SCH ×2 (09:45→21:10)
[2019-11-25] MEDS: CEFTRIAXONE 1 GM in DEXTROSE 5%-WATER - 50 ML IVPB SCH (09:46)
[2019-11-25] MEDS: SENNOSIDES 8.6MG TABLET (FP) PO SCH ×2 (09:46→21:08)
[2019-11-25] MEDS: predniSONE 5 MG TABLET (UD) PO SCH (09:46)
[2019-11-25] MEDS: METOPROLOL TARTRATE 50 MG TABLET (FP) PO SCH ×2 (09:46→21:11)
[2019-11-25] MEDS: ASPIRIN 81 MG CHEWABLE TABLETS PO SCH (09:46)
--- NOTE | 2019-11-25 13:49 | PN ---
Progress Note, Physician History of Present Illness: Patient seen and examined at bedside. endorses constipation. No ABD pain. Tolerating diet. On lasix and fluids. Will hold lasix and put fluids at 42ml/hr. Denies nausea vomiting fever chills chest pain or SOB. endorses easy bruising. RN reports right breast bruising. Patient things it is from laying on it all night. Eliquis held. H/H stable. Plts WNL. - Current Medication List Current Medications: Active Medications Acetaminophen (Tylenol -) 650 mg PO Q4H PRN PRN Reason: PAIN LEVEL 7 - 10 Last Admin: 11/25/19 09:43 Dose: 650 mg Documented by: Acetaminophen (Ofirmev Injection -) 1,000 mg IVPB ONCE PRN PRN Reason: Pain 1-5 Aspirin (Asa -) 81 mg PO DAILY [facility] Last Admin: 11/25/19 09:46 Dose: 81 mg Documented by: Docusate Sodium (Colace -) 100 mg PO Q8H PRN PRN Reason: CONSTIPATION Furosemide (Lasix -) 20 mg PO DAILY [facility] Last Admin: 11/24/19 10:05 Dose: 20 mg Documented by: Heparin Sodium (Porcine) (Heparin -) 5,000 unit SQ BID [facility] Last Admin: 11/25/19 09:45 Dose: Not Given Documented by: Ceftriaxone Sodium 1 gm/ (Dextrose) 50 mls @ 100 mls/hr IVPB DAILY [facility]; Protocol Last Admin: 11/25/19 09:46 Dose: 100 mls/hr Documented by: Levothyroxine Sodium (Synthroid -) 125 mcg PO DAILY@0700 [facility] Last Admin: 11/25/19 06:00 Dose: 125 mcg Documented by: Methylnaltrexone [place] (Relistor -) 8 mg SQ Q48H [facility] Last Admin: 11/24/19 13:22 Dose: Not Given Documented by: Metoprolol Tartrate (Lopressor -) 50 mg PO BID [facility] Last Admin: 11/25/19 09:46 Dose: 50 mg Documented by: Polyethylene Glycol (Miralax (For Daily Use) -) 17 gm PO TID [facility] Last Admin: 11/25/19 05:59 Dose: 17 grams Documented by: Prednisone (Deltasone -) 5 mg PO DAILY [facility] Last Admin: 11/25/19 09:46 Dose: 5 mg Documented by: Senna (Senna -) 1 tab PO BID [facility] Last Admin: 11/25/19 09:46 Dose: 1 tab Documented by: - Objective Vital Signs: Vital Signs Temperature 98.7 F 11/25/19 06:00 Pulse Rate 108 H 11/25/19 10:00 Respiratory Rate 18 11/25/19 10:00 Blood Pressure 106/64 11/25/19 10:00 O2 Sat by Pulse Oximetry (%) 95 11/25/19 09:00 Constitutional: Yes: No Distress, Thin Eyes: Yes: Conjunctiva Clear, EOM Intact HENT: Yes: Atraumatic Neck: Yes: Supple Cardiovascular: Yes: Pulse Irregular Respiratory: Yes: Regular, CTA Bilaterally Gastrointestinal: Yes: Normal Bowel Sounds, Soft ...Rectal Exam: Yes: Sphincter Tone Normal, Other (Soft stool in the rectal vault on my gloved ERICA) Genitourinary: Yes: [place] Present Breast(s): Yes: Right (bruising of the whole right breast.) Edema: Yes Edema: LLE: 2+, RLE: 2+ with stasis dermatitis Impression/Plan Impression/Plan: UTI UA + UCx E. Coli sensitive to Rocephin-continue discontinue horvath-passed TOV Fecal impaction/Constipation due to opioid therapy from codeine which she takes for back pain. UTI may be contributing or constipation may have caused the UTI. continue Relistor Per GI Miralax TID Bowel regimen Patient given high colonic soap suds enema since then into today she has had 3 small bowel movements. Stop IVF lower extremity Edema: restart home dose of lasix 20mg po daily. paroxysmal A fib patient was on eliquis but d/c by PCP s/p fall and head trauma, on asa 81mg daily rate controlled on metoprolol 50mg bid Accidental fall PT consult Forehead laceration after fall Sutures removed by PCP Hiatal hernia large hiatal hernia seen on imaging along with severe constipation patient refusing surgical intervention, will d/c surgical consult. Kidney calculi/multiple tiny hyperdense cysts within both kidneys. non obstructive calculi, no hydro seen. Hypothyroidism continue synthroid DVT prophylaxis HSQ BID f/u labs-pending Visit type - Emergency Visit Emergency Visit: Yes ED Registration Date: 11/21/19 Care time: The patient presented to the Emergency Department on the above date and was hospitalized for further evaluation of their emergent condition. - New Patient This patient is new to me today: No - Critical Care Critical Care patient: No
[2019-11-25 13:53] LABS: BASO % 0.8 % (0-2.0); HEMATOCRIT 40.2 % (32.4-45.2); HEMOGLOBIN 13.2 GM/dL (10.7-15.3); MCH 32.4 pg (25.7-33.7); MCHC 32.7 g/dl (32.0-36.0); MEAN PLT VOLUME 7.6 fl (7.5-11.1); MONO % 9.3 % (3.8-10.2); NEUT % 81.9 % (42.8-82.8); PLATELET COUNT 308 K/MM3 (134-434); RBC 4.06 M/mm3 (3.60-5.2); RDW 16.1 % (11.6-15.6); WHITE BLOOD COUNT 8.7 K/mm3 (4.0-10.0)
[2019-11-25 14:05] LABS: ALBUMIN 3.1 g/dl (3.4-5.0); BILIRUBIN,TOTAL 0.8 mg/dL (0.2-1); BLOOD UREA NITROGEN 11.8 mg/dL (7-18); CALCIUM 9.4 mg/dL (8.5-10.1); CREATININE 0.7 mg/dL (0.55-1.3); MAGNESIUM 1.8 mg/dL (1.8-2.4); POTASSIUM 3.9 mmol/L (3.5-5.1); TOT PROT 6.1 g/dl (6.4-8.2)
[2019-11-25] MEDS: SODIUM CHLORIDE 1,000 ML IV SCH (14:20)
[2019-11-26] MEDS: ACETAMINOPHEN 325 MG TABLET (FP) PO PRN (02:51)
[2019-11-26] MEDS: POLYETHYLENE GLYCOL 3350 119 GM BTL PO SCH ×2 (06:46→14:18)
[2019-11-26] MEDS: LEVOTHYROXINE NA 125 MCG TABLET (FP) PO SCH (06:46)
--- NOTE | 2019-11-26 07:37 | PN.GI ---
GI Progress Note - Objective Vital Signs: Vital Signs Temperature 97.9 F 11/26/19 06:00 Pulse Rate 100 H 11/26/19 06:00 Respiratory Rate 18 11/26/19 06:00 Blood Pressure 116/70 11/26/19 06:00 O2 Sat by Pulse Oximetry (%) 98 11/25/19 21:00 Labs: CBC, BMP 11/25/19 13:09 11/25/19 13:09
[2019-11-26 08:49] LABS: EOS % 3.5 % (0-4.5); HEMATOCRIT 39.7 % (32.4-45.2); HEMOGLOBIN 12.9 GM/dL (10.7-15.3); LYMPH % 13.3 % (8-40); MCH 31.8 pg (25.7-33.7); MCHC 32.5 g/dl (32.0-36.0); MEAN CELL VOLUME 97.9 fl (80-96); MEAN PLT VOLUME 7.4 fl (7.5-11.1); MONO % 11.4 % (3.8-10.2); NEUT % 70.8 % (42.8-82.8); PLATELET COUNT 292 K/MM3 (134-434); RBC 4.06 M/mm3 (3.60-5.2); RDW 16.2 % (11.6-15.6)
[2019-11-26 09:14] LABS: BLOOD UREA NITROGEN 10.8 mg/dL (7-18); CALCIUM 9.3 mg/dL (8.5-10.1); CREATININE 0.6 mg/dL (0.55-1.3); MAGNESIUM 1.8 mg/dL (1.8-2.4); POTASSIUM 4.3 mmol/L (3.5-5.1); TOT PROT 5.6 g/dl (6.4-8.2)
[2019-11-26] MEDS ORDERED: PT OWN MED DRAWER 7, Y5N ONE ×3 (10:39→13:57)
[2019-11-26] MEDS ORDERED: cefTRIAXone SODIUM 1 GM VIAL ONE (10:40)
[2019-11-26] MEDS ORDERED: DEXTROSE 5%-WATER - 50 ML IVPB ONE (10:41)
[2019-11-26] MEDS: predniSONE 5 MG TABLET (UD) PO SCH (10:53)
[2019-11-26] MEDS: SENNOSIDES 8.6MG TABLET (FP) PO SCH (10:53)
[2019-11-26] MEDS: FUROSEMIDE 20 MG TABLET (FP) PO SCH (10:53)
[2019-11-26] MEDS: METOPROLOL TARTRATE 50 MG TABLET (FP) PO SCH (10:54)
[2019-11-26] MEDS: CEFTRIAXONE 1 GM in DEXTROSE 5%-WATER - 50 ML IVPB SCH (10:54)
[2019-11-26] MEDS: ASPIRIN 81 MG CHEWABLE TABLETS PO SCH (10:54)
[2019-11-26] MEDS: HEPARIN NA (PORCINE) 5,000 UNITS/ML 1ML VIAL SQ SCH (11:03)
--- NOTE | 2019-11-26 12:45 | DS ---
Physical Exam: SUBJECTIVE: Patient seen and examined. No further abdominal pain, had numerous bowel movements over weekend and large BM today. Wants to go home. OBJECTIVE: Patient is a 79 year old female with a significant past medical history of HTN , A-Fib (no longer on a/c), hypothyroidism, RA, vertebral compression fractures. Patient states that 2 days ago she began having left sided flank pain that would occasionally shift to her right flank 8/10 intensity. She states she has also been constipated for a few days. On Tuesday and Tuesday she tried an enema and manual disimpaction with minimal relief and brown stool. Patient reported that she has been having foul smelling urine that is a light pink/brown in coloration. Patient had numerous BMs over the weekend and today. She has completed a full course of IV anbiotics for UTI. She will follow up with her PCP on discharge. SEE HOSPITAL PROBLEM LIST BELOW: covid status: not detected as of 11/22/2019 imaging: abd/pelvis ct: 11/21/2019: 1. cardiomegaly and small pericardial effusion. 2. large hiatal hernia. 3. bilateral nephrolithiasis with no evidence of hydronephrosis or obstructive uropathy. 4. severe fecal impaction. 5. no acute pathology within the abdomen or pelvis. right upper abdomen u/s 11/21/2019: distended gallbladder that is partially filled with sludge, no acute leesa. Period Temp Pulse Resp BP Sys/[place] Pulse Ox Last 24 Hr 97.9 F-99.2 F 88-100 18-18 97-120/63-76 98 PHYSICAL EXAM GENERAL: The patient is awake, alert, appears weak and frail HEAD: Normal with no signs of trauma. EYES: PERRL, extraocular movements intact, sclera anicteric, conjunctiva clear. No ptosis. ENT: Ears normal, nares patent, oropharynx clear without exudates NECK: Trachea midline, full range of motion, supple. LUNGS: Breath sounds equal, clear to auscultation bilaterally HEART: Regular rate and rhythm, ABDOMEN: Soft, tender, mildly distended, +bowel sounds EXTREMITIES:+1 bilateral lower ext edema NEUROLOGICAL: Normal speech, gait not observed. PSYCH: Normal mood, normal affect. SKIN: Warm, dry, normal turgor, no rashes or lesions noted LABS Laboratory Results - last 24 hr 11/25/19 11/25/19 11/26/19 13:09 13:09 07:33 WBC 8.7 7.0 RBC 4.06 4.06 Hgb 13.2 12.9 Hct 40.2 39.7 MCV 99.0 H 97.9 H MCH 32.4 31.8 MCHC 32.7 32.5 RDW 16.1 H 16.2 H Plt Count 308 292 MPV 7.6 7.4 L Absolute Neuts (auto) 7.1 4.9 Neutrophils % 81.9 70.8 Lymphocytes % 6.0 L D 13.3 D Monocytes % 9.3 11.4 H Eosinophils % 2.0 3.5 Basophils % 0.8 1.0 Nucleated RBC % 0 0 Sodium 140 Potassium 3.9 Chloride 104 Carbon Dioxide 28 Anion Gap 9 BUN 11.8 Creatinine 0.7 Est GFR (CKD-EPI)AfAm 96.18 Est GFR (CKD-EPI)NonAf 82.99 Random Glucose 152 H Calcium 9.4 Magnesium 1.8 Total Bilirubin 0.8 AST 29 ALT 21 Alkaline Phosphatase 91 Total Protein 6.1 L Albumin 3.1 L 11/26/19 07:33 WBC RBC Hgb Hct MCV MCH MCHC RDW Plt Count MPV Absolute Neuts (auto) Neutrophils % Lymphocytes % Monocytes % Eosinophils % Basophils % Nucleated RBC % Sodium 140 Potassium 4.3 Chloride 106 Carbon Dioxide 29 Anion Gap 5 L BUN 10.8 Creatinine 0.6 Est GFR (CKD-EPI)AfAm 101.18 Est GFR (CKD-EPI)NonAf 87.30 Random Glucose 77 Calcium 9.3 Magnesium 1.8 Total Bilirubin 1.0 AST 29 ALT 19 Alkaline Phosphatase 85 Total Protein 5.6 L Albumin 3.0 L HOSPITAL COURSE: Date of Admission:11/21/19 Date of Discharge: 11/26/19 Minutes to complete discharge: 60 Discharge Summary Problems reviewed: Yes Reason For Visit: FECAL IMPACTION CALCULUS OF KIDNEY PYELONEPHRITIS Current Active Problems Constipation due to opioid therapy (Acute) DVT prophylaxis (Acute) Dilated gallbladder (Acute) Fecal retention (Acute) Flank pain (Acute) Hiatal hernia (Acute) Kidney calculi (Acute) Pyelonephritis (Acute) UTI (urinary tract infection) (Acute) Condition: Stable - Instructions Diet, Activity, Other Instructions: Mrs Concepcion: You were admitted for abdominal pain and found to have a large hiatal hernia and severe constipation. You also had a urinary tract infection. Here are our discharge instructions: Severe Constipation: Continue taking: Colace 100mg THREE times per day with each meal (can be purchased over the counter) Senna 2 tabs in the evening (can be purchased over the counter) Miralax 17gram once per day (can be purchased over the counter) Avoid narcotics as they make make your constipation worse. Urinary tract infection You have completed 5 days of Ceftriaxone, please have your urine culture repeated with your primary care doctor to assure that your urinary tract infection has fully cleared. We will not send you home with any further antibiotics. Thank you for allowing us to care for you Referrals: Prashant Cervantes MD [Primary Care Provider] - Dandy Linn MD [Staff Physician] - Disposition: HOME - Home Medications Comprehensive Discharge Medication List: Ambulatory Orders Prednisone 5 mg PO DAILY #10 tablet 07/13/17 Metoprolol Tartrate [Lopressor -] 50 mg PO BID tablet 05/06/18 Levothyroxine [Synthroid -] 125 mcg PO DAILY@0700 06/10/18 Lidocaine 5% Patch [Lidoderm -] 1 patch TP DAILY #7 patch 11/13/19 Aspirin 81 mg PO DAILY 11/22/19 Furosemide [Lasix] 1 tab PO ASDIR 11/22/19 Docusate Sodium [Colace -] 100 mg PO Q8H PRN capsule 11/26/19 Furosemide [Lasix -] 20 mg PO DAILY tablet 11/26/19 Polyethylene Glycol 3350 [Miralax 119 gm Btl -] 17 gm PO TID bottle 11/26/19 Sennosides [Senna -] 1 tab PO BID tablet 11/26/19 Problem List - Problems (1) UTI (urinary tract infection) Assessment/Plan: UA + UTI with >10K bacteria. UC + ECOLI. completed 5 days of ceftriaxone. Will need to repeat UC as outpatient. Code(s): N39.0 - URINARY TRACT INFECTION, SITE NOT SPECIFIED (2) Constipation due to opioid therapy Assessment/Plan: patient was taking codeine for back pain at home which likely caused her constipation. CT scan shows severe constipation. Started on bowel regimen with tap water enemas, colace, miralax, relistor and senna. constipation now resolved. also noted to have a large hiatal hernia but patient refusing any interventions for the hernia. Code(s): K59.03 - DRUG INDUCED CONSTIPATION; T40.2X5A - ADVERSE EFFECT OF OTHER OPIOIDS, INITIAL ENCOUNTER (3) Dilated gallbladder Assessment/Plan: distended gallbladder that is partially filled with sludge, no acute leesa. Followed by GI. no acute interventions planned Code(s): K82.8 - OTHER SPECIFIED DISEASES OF GALLBLADDER (4) Fecal retention Assessment/Plan: resolved Code(s): K59.00 - CONSTIPATION, UNSPECIFIED Qualifiers: Constipation type: drug induced constipation Qualified Code(s): K59.03 - Drug induced constipation (5) Flank pain Code(s): R10.9 - UNSPECIFIED ABDOMINAL PAIN (6) AF (paroxysmal atrial fibrillation) Assessment/Plan: patient on eliquis but d/c by PCP s/p fall and head trauma, on asa 81mg daily on metoprolol 50mg bid Code(s): I48.0 - PAROXYSMAL ATRIAL FIBRILLATION (7) Accidental fall Assessment/Plan: physical therapy followed. safety maintained. Code(s): W19.XXXA - UNSPECIFIED FALL, INITIAL ENCOUNTER Qualifiers: Encounter type: initial encounter Qualified Code(s): W19.XXXA - Unspecified fall, initial encounter (8) Forehead laceration Assessment/Plan: s/p fall with head trauma three days ago, patient had suture recently removed by her PCP Code(s): S01.81XA - LACERATION W/O FOREIGN BODY OF OTH PART OF HEAD, INIT ENCNTR Qualifiers: Encounter type: initial encounter Qualified Code(s): S01.81XA - Laceration without foreign body of other part of head, initial encounter (9) Hiatal hernia Assessment/Plan: large hiatal hernia seen on imaging along with severe constipation patient refusing surgical intervention Code(s): K44.9 - DIAPHRAGMATIC HERNIA WITHOUT OBSTRUCTION OR GANGRENE (10) Kidney calculi Assessment/Plan: non obstructive calculi, no hydro seen. multiple tiny hyperdense cysts within both kidneys. Code(s): N20.0 - CALCULUS OF KIDNEY (11) DVT prophylaxis Code(s): Z29.9 - ENCOUNTER FOR PROPHYLACTIC MEASURES, UNSPECIFIED This patient is new to me today: No Emergency Visit: Yes ED Registration Date: 11/21/19 Care time: The patient presented to the Emergency Department on the above date and was hospitalized for further evaluation of their emergent condition. Critical Care patient: No - Discharge Referral Referred to [facility] No
[2019-11-26] MEDS: Methylnaltrexone Bromide 12 MG/0.6 ML KIT SQ SCH (14:19)
[2019-11-26 15:13] VITALS: BP 114/50; PULSE 97; TEMP 98.2
== END 2019-11-26 15:00 | disposition home or self-care (01) | DRG 690 ==
LOC: JER 14:08 → JERBED 19:59 → J5S 11-22 20:25
PROVIDERS: ADMIT Internal Medicine; ATTEND Nurse Practitioner Family
DX: N39.0 Urinary tract infection, site not specified (principal); I31.3 Pericardial effusion (noninflammatory); I50.32 Chronic diastolic (congestive) heart failure; K59.03 Drug induced constipation; K44.9 Diaphragmatic hernia without obstruction or gangrene; B96.20 Unspecified Escherichia coli [E. coli] as the cause of diseases classified elsewhere; I10 Essential (primary) hypertension; M06.9 Rheumatoid arthritis, unspecified; I11.0 Hypertensive heart disease with heart failure; E03.9 Hypothyroidism, unspecified; I45.10 Unspecified right bundle-branch block; I48.0 Paroxysmal atrial fibrillation; T40.2X5A Adverse effect of other opioids, initial encounter; N20.0 Calculus of kidney; R00.0 Tachycardia, unspecified; I95.9 Hypotension, unspecified; R33.9 Retention of urine, unspecified; S01.81XA Laceration without foreign body of other part of head, initial encounter; K82.8 Other specified diseases of gallbladder; I73.00 Raynaud's syndrome without gangrene; W18.30XA Fall on same level, unspecified, initial encounter; Z96.653 Presence of artificial knee joint, bilateral; Z85.43 Personal history of malignant neoplasm of ovary; Z85.850 Personal history of malignant neoplasm of thyroid; Y92.098 Other place in other non-institutional residence as the place of occurrence of the external cause
CPT/HCPCS: 36415; 74176-TC; 76705-TC; 80053; 81003; 82248; 83735; 84100; 84443; 85025; 85027; 87086; 87186; 93005; 93010; 97116-GP; 97161-GP; 99285-25; J0131; J1644; U0003

== ENCOUNTER 2019-12-05 19:51 | Inpatient (IN) | payer OTHER, MEDICARE ==
--- NOTE | 2019-12-05 20:18 | PDOC ---
History of Present Illness - General Chief Complaint: Injury Stated Complaint: FALL Time Seen by Provider: 12/05/19 20:03 Past History - Medical History Allergies/Adverse Reactions: Allergies Allergy/AdvReac Type Severity Reaction Status Date / Time naproxen [From Naprosyn] Allergy Intermediate Swelling Verified 12/05/19 20:08 Home Medications: Ambulatory Orders Prednisone 5 mg PO DAILY #10 tablet 07/13/17 Metoprolol Tartrate [Lopressor -] 50 mg PO BID tablet 05/06/18 Levothyroxine [Synthroid -] 125 mcg PO DAILY@0700 06/10/18 Lidocaine 5% Patch [Lidoderm -] 1 patch TP DAILY #7 patch 11/13/19 Aspirin 81 mg PO DAILY 11/22/19 Furosemide [Lasix] 1 tab PO ASDIR 11/22/19 Docusate Sodium [Colace -] 100 mg PO Q8H PRN capsule 11/26/19 Furosemide [Lasix -] 20 mg PO DAILY tablet 11/26/19 Polyethylene Glycol 3350 [Miralax 119 gm Btl -] 17 gm PO TID bottle 11/26/19 Sennosides [Senna -] 1 tab PO BID tablet 11/26/19 Anemia: No Asthma: No Cancer: Yes (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) Cardiac Disorders: Yes (AFIB,cardioversion x2) CVA: No COPD: No CHF: No Dementia: No Diabetes: No GI Disorders: No HTN: Yes Hypercholesterolemia: No Liver Disease: No Seizures: No Thyroid Disease: Yes (thyroidectomy, hypothyroid) - Surgical History Appendectomy: Yes Orthopedic Surgery: Yes (CANDIE KNEE REPLACEMENT WITH FEMUR REJI LEFT) - Immunization History Immunization Up to Date: Yes - Psycho-Social/Smoking History Smoking History: Never smoked Have you smoked in the past 12 months: No Information on smoking cessation initiated: No - Substance Abuse Hx (Audit-C & DAST Scrn) How often the patient has a drink containing alcohol: Never Score: In Men: 4 or > Positive; In Women: 3 or > Positive: 0 Screen Result (Pos requires Nsg. Audit-10AR): Negative In the last yr the pt used illegal drug/Rx for NonMed reason: No Score: Yes response is considered Positive: 0 Screen Result (Positive result requires Nsg. DAST-10): Negative *Physical Exam - Vital Signs Last Vital Signs Temp Pulse Resp BP Pulse Ox 97.4 F L 110 H 18 113/88 97 12/05/19 19:55 12/05/19 19:55 12/05/19 19:55 12/05/19 19:55 12/05/19 19:55 ED Treatment Course - LABORATORY CBC & Chemistry Diagram: 12/05/19 23:40 12/05/19 23:40 Medical Decision Making - Medical Decision Making 12/05/19 20:37 HPI: 79yo F hx frequent falls (4 this year, last 1mo ago, uses walker but sometimes noncompliant), HTN , A-Fib (on baby aspirin, d/c'd eliquis 2 weeks ago), hypoth yroidism, RA, OA, vertebral compression fractures, spinal stenosis, CHF on lasix (poorly compliant, has not taken today because doesn't want to urinate all night) and recent admission 11/21-11/26/19 for fecal impaction and uti (IV antibiotic course completed) BIBA from home for back pain s/p mechanical unwitnessed fall at 1815. Standing from couch watching tv, tripped on walker, hit back of head and back. Pt unable to stand on own so called son who called ambulance. EMS helped get to couch then she was able to walk with assistance. Denies LOC, numbness/tingling, weakness, vision changes, difficulty walking, urinary or stool incontinence, tongue biting, seizure-like movements, abdominal pain, N/V, F/C, prodromal sx including lightheadedness or CP or SOB or palpitations. Pt in [facility] [place] [place] prior to event. Had normal f/u appt with Dr Cervantes today. Lives alone at home, has walker and stair-seat for stairs, son 5min away. Takes tylenol with codeine 15-150 daily (last at 3pm) and lidocaine patch for pain, switched to voltaren (diclofenac cream) today using now. PCP - Billy at [facility] ROS: Constitutional: Negative for chills, fever, fatigue, diaphoresis. HENT: Positive for bump on back of head. Negative for sore throat, rhinorrhea, congestion. Eyes: Negative for visual disturbance. Respiratory: Negative for shortness of breath, cough, and wheezing. Cardiovascular: Negative for chest pain, palpitations, and leg swelling. Gastrointestinal: Negative for abdominal pain, blood in stool, constipation, diarrhea, nausea, and vomiting. Genitourinary: Negative for dysuria, flank pain, and hematuria. Musculoskeletal: Positive for back pain. Negative for myalgias and neck pain. Skin: Positive for bruising. Negative for rash. Neurological: Negative for light-headedness, dizziness, vertigo, syncope, weakness, numbness and headaches. Psychiatric/Behavioral: Negative for behavioral problems and confusion. PE: Gen: Alert, NAD, comfortable-appearing, frail HEENT: PERRL, EOMI, MMM, NC, small bump to L posterior scalp nontender no fluctuance. No conjunctival pallor. Sclera are non-icteric. CV: Regular rate and rhythm. No murmurs, rubs, or gallops. PULM: No resp distress. CTAB, no wheezes, rales, or rhonchi. ABD: soft, NT/ND, no rebound tenderness or guarding, no CVA tenderness. BACK: No TTP of c-spine. +midline and diffuse t/l-spine TTP. +kyphosis and scoliosis. MSK: No bony deformities. 2+ pulses in all extremities. Pelvis stable intact, no hip/pelvis TTP. Full ROM of all extremities, no long bone ttp. NEURO: AAOx3. PERRL. CN 2-12 intact. 5/5 strength in all extremities. Sensation to light touch intact in all extremities. No abnormal nystagmus. Normal slow gait with 1-person assistance. EXTREMITIES: No cyanosis. No clubbing. 1+ BLE edema. No calf tenderness. PSYCH: Normal mood and thought pattern. SKIN: Warm and dry. Normal capillary refill. No rashes. Bruises diffusely inclu ding large bruise to R ribcage (pt states from prior falls). No jaundice. MDM: 79yo F hx frequent falls (4 this year, last 1mo ago, uses walker but sometimes noncompliant), HTN , A-Fib (on baby aspirin, d/c'd eliquis 2 weeks ago), hypothyroidism, RA, OA, vertebral compression fractures, spinal stenosis, CHF on lasix (poorly compliant, has not taken today because doesn't want to urinate all night) and recent admission 11/21-11/26/19 for fecal impaction and uti (IV antibiotic course completed) BIBA from home for back pain s/p mechanical unwitnessed fall at 1815. Hemodynamically stable, afebrile, neurologically intact, diffuse TTP bakc. Ddx: obtain imaging to r/o fx or dislocations or ICH. No extremity pain or TTP or deformities concerning for extremity injuries. Mechanical fall - no concern for syncope or seizure. -CTH -CT c/t/l-spine -UA/UC to eval for blood in urine or persistent UTI -XR pelvis and chest -Pain management: perocet, lidoderm patch -Pt refuses lasix -Dispo: pending w/u and reassessment, likely d/c home 12/05/19 22:55 Pt remains in pain. -5 Oxycodone 12/06/19 00:01 XRs reviewed: no acute pathology CTH reviewed: no acute pathology C-Spine CT IMPRESSION: No acute fracture or subluxation of the cervical spine. Degenerative disc disease and spondylosis as described T-Spine CT Impression: Endplate irregularity and compression deformity of T11 has progressed with concerns for underlying osteomyelitis. Recommend follow-up with MRI without and with contrast. 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 L-Spine CT IMPRESSION: Degenerative levoscoliosis of the lumbar spine remaining stable with this disease and spondylosis as described. Severe stenosis at L4-5. No acute fracture. Pt still in pain. Pt not comfortable going home. -Labs -Fentanyl 25 -NSGY consult placed for Jarad Zhang -Admit for intractable pain, T11 fx 12/06/19 00:23 Hematuria noted in UA. Possibly due to straight cath, but due to fall, will eval with CTAP. -CTAP w/IV contrast 12/06/19 02:27 20G IV placed in L AC. CT scan tried multiple times but contrast injector failed after only giving small amount of contrast. Parts of scan done. Discussed placing another IV to try again with pt. Pt refusing another IV or CT scan until AM. Discussed risks of refusing CT scan at this time including but not limited to internal bleeding, permanent disability, and . Pt expressed understanding of risks and still refuses CT scan. Admitting team informed. 12/06/19 02:41 CT scan called - able to compile scan mostly without contrast. Will send to [facility]. 12/06/19 05:40 CTAP w/o contrast reviewed: "Limited for trauma without intravenous contrast. Subtle injuries such as small hematomas/lacerations or contusions may not be detectable. Grossly negative for abdominal pelvic visceral injury. No acute abnormalities of the liver, spleen, pancreas, adrenal glands, gallbladder, kidneys urinary tracts or urinary bladder are identified. No perirenal or intra-abdominal hematoma is noted. 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 Note also made of multiple renal cysts including dense cysts on the right. F ollow-up recommended. Nonobstructing left renal stone. No large or small bowel obstruction. However again note is made of fairly severe rectal fecal impaction. Note made of gallstones in the gallbladder fundus (on November 20 it can be seen layering on the dependent portion of the gallbladder). Hiatal hernia. T11 abnormality has been scribed on an earlier CT." Discharge - Discharge Information Problems reviewed: Yes Clinical Impression/Diagnosis: Accidental fall, Venous insufficiency of both lower extremities, Afib, Intractable back pain, Compression fracture of T11 vertebra Condition: Fair - Admission Yes - Follow up/Referral - Patient Discharge Instructions - Post Discharge Activity
[2019-12-05] MEDS ORDERED: ACETAMINOPHEN 500 MG TABLET (FP) PO ONE (20:55)
[2019-12-05] MEDS ORDERED: ACETAMINOPHEN 500 MG TABLET (FP) ONE (21:27)
[2019-12-05] MEDS ORDERED: LIDOCAINE 5% TOPICAL PATCH TP ONE (21:34)
[2019-12-05] MEDS ORDERED: LIDOCAINE 5% TOPICAL PATCH ONE (21:42)
--- NOTE | 2019-12-05 21:52 | PDOC ---
Documentation entered by Wisam Stacy SCRIBE, acting as scribe for Sherice Patton DO. Sherice Patton DO: This documentation has been prepared by the Jose flores inWisam SCRIBE, under my direction and personally reviewed by me in its entirety. I confirm that the documentation accurately reflects all work, treatment, procedures, and medical decision making performed by me. Attending Attestation - Resident Resident Name: Tabitha Barajas - ED Attending Attestation I have performed the following: I have examined & evaluated the patient, The case was reviewed & discussed with the resident, I agree w/resident's findings & plan, Exceptions are as noted - HPI HPI: 12/05/19 21:08 The patient is a 79 year old female with a significant past medical history of HTN, RA, Afib (stopped eliquis 2 weeks ago, now on baby aspirin), CHF (on Lasix, noncompliant tonight) hypothyroidism from thyroidectomy, prior compression fractures, ovarian cancer 40 years ago, who presents to the emergency department [facility] for evaluation of back pain s/p fall tonight. The patient reports she tripped on her walker and hit the back of her head and back. She was initially unable to ambulate after the fall, causing her to call her son. EMS was called, helped her to the couch, and the patient was then able to stand and walk on her own. Per patient, she has a history of falls and has had four this year. Patient last used Tylenol- codeine at 6pm tonight for baseline back pain from prior falls/RA. At baseline, she walks with a walker but uses it inconsistently. The patient denies LOC, urinary or bowel incontinence, fever, chills, sob, or chest pain. The patient denies any other symptoms. Surgical Hx: appendectomy, bilateral knee replacement with left femur kishore) Social Hx: None reported Allergies: Naproxen Primary Care Physician: Dr. Cervantes (last visit today) - Physicial Exam PE: 12/05/19 21:44 Constitutional: Awake, alert, oriented. No acute distress. Head: Normocephalic. Atraumatic Eyes: PERRL. EOMI. Conjunctivae are not pale. ENT: Mucous membranes are moist and intact. Posterior pharynx without exudates or erythema. Uvula midline. Neck: Supple. Full ROM. No lymphadenopathy. Cardiovascular: +irregularly irregular. Distal pulses are 2+ and symmetric. Pulmonary/Chest: No evidence of respiratory distress. Clear to auscultation bilaterally No wheezing, rales or rhonchi. Abdominal: Soft and non-distended. There is no tenderness. No rebound, guarding or rigidity. No organomegaly. No palpable masses. Good bowel sounds. Back: +diffusely tender, kyphotic, scoliotic Musculoskeletal: + bilateral lower extremity 3+ pitting edema. No cyanosis. No clubbing. Full range of motion in all extremities. Nocalf tenderness. Radial/pedal pulses are intact and 2+ bilaterally Skin: +bilateral lower extremity chronic venous stasis and bilateral upper extremity diffuse bruising.Skin is warm and dry. No petechiae. No purpura. Neurological: Alert and oriented to person, place, and time. Cranial nerves II-XII are grossly intact. Normal speech. Strength is grossly symmetric. No sensory deficits. Psychiatric: Good eye contact. Normal interaction, affect and behavior. - Medical Decision Making 12/05/19 21:50 a/p: 79yo female with a mechanical fall at home earlier tonight -did hit her head, no loc -c/o diffuse back pain -pt with scoliosis and kyphosis and diffuse ttp, but no stepoffs or deformities -was on eliquis up until 2 weeks ago when it was stopped secondary to falls -pt with recent uti, will repeat ua -moving all extremities -has walked since her fall -will send for ct -will monitor and reassess 12/05/19 22:[address] neg 12/05/19 23:23 c spine without acute fx, ddd, spondylosis present 12/05/19 23:26 pt with persistent back pain, ct pending will straight cath for urine will give pain meds will send labs pt will most likely need obs for pain control overnight 12/05/19 23:31 C-[address] IMPRESSION: No acute fracture or subluxation of the cervical spine. Degenerative disc disease and spondylosis as described One or more of the following dose reduction techniques were used: automated exposure control, adjustment of the mA and/or kV according to patient size, use of iterative reconstructive technique. Disclaimer: This document was generated using a voice recognition system, which may produce sporadic inaccurate professor of anthropology or nonsensical phrases. T-Spine CT Impression: Endplate irregularity and compression deformity of T11 has progressed with concerns for underlying osteomyelitis. Recommend follow-up with MRI without and with contrast. 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 L-Spine CT IMPRESSION: Degenerative levoscoliosis of the lumbar spine remaining stable with this disease and spondylosis as described. Severe stenosis at L4-5. No acute fracture. Read by: Dr. Lynne Mei 12/06/19 00:16 microblog sent to [facility] for admission for back pain, worsening T11 compression fx will place consult to Dr. Zhang for the AM 12/06/19 00:28 pt with blood in the urine will send for ct abd/pelvis to [facility] 12/06/19 01:04 resident discussed the case with [facility] who accepts pt to service Heart Score/ECG Review - ECG Intrepretation Comment:: 12/05/19 22:46 ekg: afib at 92, nl axis, t wave inversions lateral leads which are unchanged from prior ekg, q waves septally which are age indeterminate, no acute st changes Discharge - Discharge Information Problems reviewed: Yes Clinical Impression/Diagnosis: Accidental fall, Venous insufficiency of both lower extremities, Afib, Intractable back pain, Compression fracture of T11 vertebra Condition: Fair - Admission Yes - Follow up/Referral Referrals: Prashant Cervantes MD [Primary Care Provider] - - Patient Discharge Instructions - Post Discharge Activity
[2019-12-05] MEDS ORDERED: LIDOCAINE PATCH REMOVAL MC SCH (22:00)
[2019-12-05] MEDS ORDERED: oxyCODONE HCL 5 MG TABLET ONE (22:26)
[2019-12-05] MEDS ORDERED: oxyCODONE HCL 5 MG TABLET PO ONE (22:46)
[2019-12-05 23:51] LABS: BASO % 0.8 % (0-2.0); EOS % 3.3 % (0-4.5); HEMATOCRIT 41.9 % (32.4-45.2); HEMOGLOBIN 13.6 GM/dL (10.7-15.3); LYMPH % 10.1 % (8-40); MCH 32.5 pg (25.7-33.7); MCHC 32.4 g/dl (32.0-36.0); MEAN CELL VOLUME 100.3 fl (80-96); MEAN PLT VOLUME 7.7 fl (7.5-11.1); MONO % 11.1 % (3.8-10.2); NEUT % 74.7 % (42.8-82.8); PLATELET COUNT 243 K/MM3 (134-434); RBC 4.17 M/mm3 (3.60-5.2); RDW 16.7 % (11.6-15.6); WHITE BLOOD COUNT 8.3 K/mm3 (4.0-10.0)
[2019-12-06] LABS: INR 1.03 (0.83-1.09); PROTHROMBIN TIME (PATIENT) 12.1 SEC (9.7-13.0)
[2019-12-06 00:18] LABS: EPI CELLS 1 /uL (0-25.1); HYALINE CASTS 0 /uL (0-3.1); PH,URINE 5.5 (5.0-8.0); URINE APPEARANCE CLEAR; URINE BACTERIA 2 /uL (0-1359); URINE BILIRUBIN NEGATIVE (NEGATIVE); URINE COLOR DK YELLOW; URINE GLUCOSE (UA) NEGATIVE (NEGATIVE); URINE KETONE NEGATIVE (NEGATIVE); URINE LEUK ESTERASE NEGATIVE (NEGATIVE); URINE NITRITE NEGATIVE (NEGATIVE); URINE PROTEIN NEGATIVE (NEGATIVE); URINE RBC 221 /uL (0-23.9); URINE WBC 3 /uL (0-25.8)
[2019-12-06 00:18] LABS: ALBUMIN 3.9 g/dl (3.4-5.0); BILIRUBIN,TOTAL 1.3 mg/dL (0.2-1); BLOOD UREA NITROGEN 16.9 mg/dL (7-18); CALCIUM 10.5 mg/dL (8.5-10.1); CREATININE 0.8 mg/dL (0.55-1.3); POTASSIUM 4.2 mmol/L (3.5-5.1); TOT PROT 6.9 g/dl (6.4-8.2)
--- NOTE | 2019-12-06 01:48 | HP ---
<Polo Remy - Last Filed: 12/06/19 05:54> CHIEF COMPLAINT: I fell and my back hurts PCP: Dr. Cervantes HISTORY OF PRESENT ILLNESS: Rebecca Concepcion is a 79 Y F with a significant PMH of Afib (no AC, on ASA 81mg), HTN, HLD, RA, OA, vertebral compression fracture, spinal stenosis, CHF(lasix), hypothyroidism s/p thyroidectomy, and ovarian ca (40 years ago), presents with back pain s/p fall. Patient reports that she was standing up from her couch, when she tripped on her walker and fell back, hitting her head and her back against the couch. She was unable to get up, she called her nephew (who lives 5 min away), who came and called 911 to bring her to ER. She is able to ambulate with her walker normally. She denies any prodromal symptoms of: nausea, vomiting, lightheadedness, changes in vision, seizure like activity, or palpitations/chestpain. She denies any LOC with head trauma. Patient reports that she had about 4-5 falls this year w/ previous fall 1 month ago, when her PCP d/c'd the eliquis, due to head trauma. ABD/pelv CT- severe fecal impaction. Previous admission: Patient presented with 2 dyas of left sided flank pain and constipation for a few days. She was taking codeine as an outpatient for shoulder and back pain. ED she received Lidocain 5% patch, Percocet, and Oxycodone 5mg. She reports some relief of pain after she received oxycodone. ER course was notable for: (1) T-spine CT: Endplate irregularity and compression deformity of T11 has progressed w/concern for underlying osteomyelitis. (2) (3) Recent Travel: denies PAST MEDICAL HISTORY: as above in HPI PAST SURGICAL HISTORY: Total hysterectomy (1973), Omenectomy, Total thyroidectomy, Tonsillectomy, B/L venous ligation Social History: Smoking: denies Alcohol: denies Drugs: denies Allergies naproxen [From Naprosyn] Allergy (Intermediate, Verified 12/05/19 20:08) Swelling HOME MEDICATIONS: Home Medications Medication Instructions Recorded Prednisone 5 mg PO DAILY #10 tablet 07/13/17 Metoprolol Tartrate [Lopressor -] 50 mg PO BID tablet 05/06/18 Levothyroxine [Synthroid -] 125 mcg PO DAILY@0700 06/10/18 Lidocaine 5% Patch [Lidoderm -] 1 patch TP DAILY #7 patch 11/13/19 Aspirin 81 mg PO DAILY 11/22/19 Furosemide [Lasix] 1 tab PO ASDIR 11/22/19 Docusate Sodium [Colace -] 100 mg PO Q8H PRN capsule 11/26/19 Furosemide [Lasix -] 20 mg PO DAILY tablet 11/26/19 Polyethylene Glycol 3350 [Miralax 17 gm PO TID bottle 11/26/19 119 gm Btl -] Sennosides [Senna -] 1 tab PO BID tablet 11/26/19 REVIEW OF SYSTEMS CONSTITUTIONAL: Absent: fever, chills, diaphoresis, generalized weakness, malaise, loss of appetite, weight change HEENT: Absent: rhinorrhea, nasal congestion, throat pain, difficulty swallowing CARDIOVASCULAR: Absent: chest pain, syncope, palpitations, irregular heart rate, lightheadedness, peripheral edema RESPIRATORY: Absent: cough, shortness of breath, dyspnea with exertion, orthopnea, wheezing GASTROINTESTINAL: Absent: abdominal pain, abdominal distension, nausea, vomiting, diarrhea, constipation GENITOURINARY: Absent: dysuria, frequency, urgency, hesitancy, hematuria, flank pain MUSCULOSKELETAL: Present: Mid-Lower back pain L>R Absent: myalgia, arthralgia, joint swelling, back pain, neck pain SKIN: Absent: rash, itching, pallor NEUROLOGIC: Absent: headache, focal weakness or paresthesias, dizziness, unsteady gait, seizure, bladder or bowel incontinence PHYSICAL EXAMINATION Vital Signs - 24 hr 12/05/19 12/05/19 12/05/19 19:55 20:30 23:15 Temperature 97.4 F L Pulse Rate 110 H Pulse Rate [ 90 103 H Left Radial] Respiratory 18 Rate Blood Pressure 113/88 Blood Pressure 120/92 [Right Arm] O2 Sat by Pulse 97 100 Oximetry (%) GENERAL: Awake, alert, and fully oriented, in no acute distress. HEAD: Normal with no signs of trauma. EYES: Pupils equal, round and reactive to light, extraocular movements intact, sclera anicteric, conjunctiva clear. EARS, NOSE, THROAT: Ears normal, nares patent, oropharynx clear without exudates. Moist mucous membranes. NECK: Normal range of motion, supple without lymphadenopathy, JVD, or masses. LUNGS: Breath sounds equal, clear to auscultation bilaterally. No wheezes, and no crackles. No accessory muscle use. HEART: Irregular rate and rhythm, normal S1 and S2 without murmur, rub or gallop. ABDOMEN: Soft, nontender, not distended, normoactive bowel sounds, no guarding, no rebound, no masses. MUSCULOSKELETAL: Tenderness to palpation along the paraspinal muscles thoracic- lumbar region, tenderness to palpation of Left lower lumbar region. kyphotic, scoliotic. UPPER EXTREMITIES: 2+ pulses, warm, well-perfused. No cyanosis. No clubbing. No peripheral edema. LOWER EXTREMITIES: 2+ pulses, warm, well-perfused. No calf tenderness. +2 pitting edema of b/l LE NEUROLOGICAL: Cranial nerves II-XII intact. Normal speech. Normal gait. PSYCHIATRIC: Cooperative. Good eye contact. Appropriate mood and affect. SKIN: b/l upper extremity bruising, chronic venous stasis of b/l LE, Warm, dry, normal turgor, no rashes or lesions noted, normal capillary refill. Laboratory Results - last 24 hr 12/05/19 12/05/19 12/05/19 23:40 23:40 23:40 WBC 8.3 RBC 4.17 Hgb 13.6 Hct 41.9 MCV 100.3 H MCH 32.5 MCHC 32.4 RDW 16.7 H Plt Count 243 MPV 7.7 Absolute Neuts (auto) 6.2 Neutrophils % 74.7 Lymphocytes % 10.1 D Monocytes % 11.1 H Eosinophils % 3.3 Basophils % 0.8 Nucleated RBC % 0 PT with INR 12.10 INR 1.03 PTT (Actin FS) 35.0 Sodium 141 Potassium 4.2 Chloride 107 Carbon Dioxide 29 Anion Gap 5 L BUN 16.9 Creatinine 0.8 Est GFR (CKD-EPI)AfAm 81.84 Est GFR (CKD-EPI)NonAf 70.61 Random Glucose 101 Calcium 10.5 H Total Bilirubin 1.3 H AST 32 ALT 24 Alkaline Phosphatase 114 Total Protein 6.9 Albumin 3.9 Urine Color Urine Appearance Urine pH Ur Specific [place] Urine Protein Urine Glucose (UA) Urine Ketones Urine Blood Urine Nitrite Urine Bilirubin Urine Urobilinogen Ur Leukocyte Esterase Urine WBC (Auto) Urine RBC (Auto) Urine Casts (Auto) U Epithel Cells (Auto) Urine Bacteria (Auto) 12/05/19 23:57 WBC RBC Hgb Hct MCV MCH MCHC RDW Plt Count MPV Absolute Neuts (auto) Neutrophils % Lymphocytes % Monocytes % Eosinophils % Basophils % Nucleated RBC % PT with INR INR PTT (Actin FS) Sodium Potassium Chloride Carbon Dioxide Anion Gap BUN Creatinine Est GFR (CKD-EPI)AfAm Est GFR (CKD-EPI)NonAf Random Glucose Calcium Total Bilirubin AST ALT Alkaline Phosphatase Total Protein Albumin Urine Color Dk yellow Urine Appearance Clear Urine pH 5.5 Ur Specific [place] 1.016 Urine Protein Negative Urine Glucose (UA) Negative Urine Ketones Negative Urine Blood 2+ H Urine Nitrite Negative Urine Bilirubin Negative Urine Urobilinogen 1.0 Ur Leukocyte Esterase Negative Urine WBC (Auto) 3 Urine RBC (Auto) 221 Urine Casts (Auto) 0 U Epithel Cells (Auto) 1 Urine Bacteria (Auto) 2 C-Spine CT IMPRESSION: No acute fracture or subluxation of the cervical spine. Degenerative disc disease and spondylosis as described One or more of the following dose reduction techniques were used: automated exposure control, adjustment of the mA and/or kV according to patient size, use of iterative reconstructive technique. Disclaimer: This document was generated using a voice recognition system, which may produce sporadic inaccurate labor delivery specialist or nonsensical phrases. T-Spine CT Impression: Endplate irregularity and compression deformity of T11 has progressed with concerns for underlying osteomyelitis. Recommend follow-up with MRI without and with contrast. 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 L-Spine CT IMPRESSION: Degenerative levoscoliosis of the lumbar spine remaining stable with this disease and spondylosis as described. Severe stenosis at L4-5. No acute fracture. Head CT: No acute intracranial pathology ASSESSMENT/PLAN:79 Y F with a significant PMH of Afib (no AC, on ASA 81mg), HTN, HLD, RA, OA, vertebral compression fracture, spinal stenosis, CHF(lasix), hypothyroidism s/p thyroidectomy, and ovarian ca (40 years ago), presents with back pain s/p fall. T-spine CT showed Endplate irregularity and compression deformity of T11 has progressed. Admitted to [facility] for management of her intractable pain. #Intractable pain - 2/2 s/p fall - CT: Progressed compression deformity of T11 - f/u with MRI - Consulted neurosurgery, f/u with recs - Ordered ESR, CRP to r/o any infectious etiology - PT is consulted - Pain management: Oxycodone 5mg PO Q4H PRN with Bowel Regimen #AFIB - stable, not on AC, PCP d/c'd the eliquis due to s/p fall w/ head trauma - continue ASA 81mg - Med rec in AM for Home meds. #HTN - BP is stable at this time - Continue home meds: Lopressor #CHF - patient refused to take LASIX today, did not want to urinate all night. - Continue Lasix #Hypothyroidism - continue Synthroid #FEN - No standing fluids - Continue to monitor Electrolytes, f/u with Ca #DVTPPX - Lovenox 40 mg #DISPO - will continue to monitor on MS, pending Neurosurg recs ATTENDING PHYSICIAN STATEMENT I saw and evaluated the patient. I reviewed the resident's note and discussed the case with the resident. I agree with the resident's findings and plan as documented. SUBJECTIVE: OBJECTIVE: ASSESSMENT AND PLAN: <Christopher Hammer - Last Filed: 12/06/19 06:24> CHIEF COMPLAINT: PCP: HISTORY OF PRESENT ILLNESS: ER course was notable for: (1) (2) (3) Recent Travel: PAST MEDICAL HISTORY: PAST SURGICAL HISTORY: Social History: Smoking: Alcohol: Drugs: Allergies naproxen [From Naprosyn] Allergy (Intermediate, Verified 12/05/19 20:08) Swelling HOME MEDICATIONS: Home Medications Medication Instructions Recorded Prednisone 5 mg PO DAILY #10 tablet 07/13/17 Metoprolol Tartrate [Lopressor -] 50 mg PO BID tablet 05/06/18 Levothyroxine [Synthroid -] 125 mcg PO DAILY@0700 06/10/18 Lidocaine 5% Patch [Lidoderm -] 1 patch TP DAILY #7 patch 11/13/19 Aspirin 81 mg PO DAILY 11/22/19 Furosemide [Lasix] 1 tab PO ASDIR 11/22/19 Docusate Sodium [Colace -] 100 mg PO Q8H PRN capsule 11/26/19 Furosemide [Lasix -] 20 mg PO DAILY tablet 11/26/19 Polyethylene Glycol 3350 [Miralax 17 gm PO TID bottle 11/26/19 119 gm Btl -] Sennosides [Senna -] 1 tab PO BID tablet 11/26/19 REVIEW OF SYSTEMS CONSTITUTIONAL: Absent: fever, chills, diaphoresis, generalized weakness, malaise, loss of appetite, weight change HEENT: Absent: rhinorrhea, nasal congestion, throat pain, throat swelling, difficulty swallowing, mouth swelling, ear pain, eye pain, visual changes CARDIOVASCULAR: Absent: chest pain, syncope, palpitations, irregular heart rate, lightheadedness, peripheral edema RESPIRATORY: Absent: cough, shortness of breath, dyspnea with exertion, orthopnea, wheezing, stridor, hemoptysis GASTROINTESTINAL: Absent: abdominal pain, abdominal distension, nausea, vomiting, diarrhea, constipation, melena, hematochezia GENITOURINARY: Absent: dysuria, frequency, urgency, hesitancy, hematuria, flank pain, genital pain MUSCULOSKELETAL: Absent: myalgia, arthralgia, joint swelling, back pain, neck pain SKIN: Absent: rash, itching, pallor HEMATOLOGIC/IMMUNOLOGIC: Absent: easy bleeding, easy bruising, lymphadenopathy, frequent infections ENDOCRINE: Absent: unexplained weight gain, unexplained weight loss, heat intolerance, cold intolerance NEUROLOGIC: Absent: headache, focal weakness or paresthesias, dizziness, unsteady gait, seizure, mental status changes, bladder or bowel incontinence PSYCHIATRIC: Absent: anxiety, depression, suicidal or homicidal ideation, hallucinations. PHYSICAL EXAMINATION Vital Signs - 24 hr 12/05/19 12/05/19 12/05/19 19:55 20:30 23:15 Temperature 97.4 F L Pulse Rate 110 H Pulse Rate [ 90 103 H Left Radial] Respiratory 18 Rate Blood Pressure 113/88 Blood Pressure 120/92 [Right Arm] O2 Sat by Pulse 97 100 Oximetry (%) 12/06/19 03:35 Temperature 97.8 F Pulse Rate Pulse Rate [ 95 H Left Radial] Respiratory 17 Rate Blood Pressure Blood Pressure 134/90 [Right Arm] O2 Sat by Pulse 100 Oximetry (%) GENERAL: Awake, alert, and fully oriented, in no acute distress. HEAD: Normal with no signs of trauma. EYES: Pupils equal, round and reactive to light, extraocular movements intact, sclera anicteric, conjunctiva clear. No lid lag. EARS, NOSE, THROAT: Ears normal, nares patent, oropharynx clear without exudates. Moist mucous membranes. NECK: Normal range of motion, supple without lymphadenopathy, JVD, or masses. LUNGS: Breath sounds equal, clear to auscultation bilaterally. No wheezes, and no crackles. No accessory muscle use. HEART: Regular rate and rhythm, normal S1 and S2 without murmur, rub or gallop. ABDOMEN: Soft, nontender, not distended, normoactive bowel sounds, no guarding, no rebound, no masses. No hepatomegaly or splenomegaly. MUSCULOSKELETAL: Normal range of motion at all joints. No bony deformities or tenderness. No CVA tenderness. UPPER EXTREMITIES: 2+ pulses, warm, well-perfused. No cyanosis. No clubbing. No peripheral edema. LOWER EXTREMITIES: 2+ pulses, warm, well-perfused. No calf tenderness. No peripheral edema. NEUROLOGICAL: Cranial nerves II-XII intact. Normal speech. Normal gait. PSYCHIATRIC: Cooperative. Good eye contact. Appropriate mood and affect. SKIN: Warm, dry, normal turgor, no rashes or lesions noted, normal capillary refill. Laboratory Results - last 24 hr 12/05/19 12/05/19 12/05/19 23:40 23:40 23:40 WBC 8.3 RBC 4.17 Hgb 13.6 Hct 41.9 MCV 100.3 H MCH 32.5 MCHC 32.4 RDW 16.7 H Plt Count 243 MPV 7.7 Absolute Neuts (auto) 6.2 Neutrophils % 74.7 Lymphocytes % 10.1 D Monocytes % 11.1 H Eosinophils % 3.3 Basophils % 0.8 Nucleated RBC % 0 PT with INR 12.10 INR 1.03 PTT (Actin FS) 35.0 Sodium 141 Potassium 4.2 Chloride 107 Carbon Dioxide 29 Anion Gap 5 L BUN 16.9 Creatinine 0.8 Est GFR (CKD-EPI)AfAm 81.84 Est GFR (CKD-EPI)NonAf 70.61 Random Glucose 101 Calcium 10.5 H Total Bilirubin 1.3 H AST 32 ALT 24 Alkaline Phosphatase 114 Total Protein 6.9 Albumin 3.9 Urine Color Urine Appearance Urine pH Ur Specific [place] Urine Protein Urine Glucose (UA) Urine Ketones Urine Blood Urine Nitrite Urine Bilirubin Urine Urobilinogen Ur Leukocyte Esterase Urine WBC (Auto) Urine RBC (Auto) Urine Casts (Auto) U Epithel Cells (Auto) Urine Bacteria (Auto) 12/05/19 23:57 WBC RBC Hgb Hct MCV MCH MCHC RDW Plt Count MPV Absolute Neuts (auto) Neutrophils % Lymphocytes % Monocytes % Eosinophils % Basophils % Nucleated RBC % PT with INR INR PTT (Actin FS) Sodium Potassium Chloride Carbon Dioxide Anion Gap BUN Creatinine Est GFR (CKD-EPI)AfAm Est GFR (CKD-EPI)NonAf Random Glucose Calcium Total Bilirubin AST ALT Alkaline Phosphatase Total Protein Albumin Urine Color Dk yellow Urine Appearance Clear Urine pH 5.5 Ur Specific [place] 1.016 Urine Protein Negative Urine Glucose (UA) Negative Urine Ketones Negative Urine Blood 2+ H Urine Nitrite Negative Urine Bilirubin Negative Urine Urobilinogen 1.0 Ur Leukocyte Esterase Negative Urine WBC (Auto) 3 Urine RBC (Auto) 221 Urine Casts (Auto) 0 U Epithel Cells (Auto) 1 Urine Bacteria (Auto) 2 ASSESSMENT/PLAN: Visit type - Medication Review Med list reviewed for High Risk Meds patients 65 and older: Yes - Emergency Visit Emergency Visit: Yes ED Registration Date: 12/06/19 Care time: The patient presented to the Emergency Department on the above date and was hospitalized for further evaluation of their emergent condition. - New Patient This patient is new to me today: Yes Date on this admission: 12/06/19 - Critical Care Critical Care patient: No ATTENDING PHYSICIAN STATEMENT I saw and evaluated the patient. I reviewed the resident's note and discussed the case with the resident. I agree with the resident's findings and plan as documented. 79 Y F with a significant PMH of Afib (no AC, on ASA 81mg), HTN, HLD, RA, OA, vertebral compression fracture, spinal stenosis, CHF(lasix), hypothyroidism s/p thyroidectomy, and ovarian ca (40 years ago), presented with severe back pain s/p fall. It was a mechanical fall. She denies dizziness, syncope or seizure like activity. CT scan showed - CT: Progressed compression deformity of T11 patient is examined at bed side in moderate distress due to back pain Last Vital Signs Temp Pulse Resp BP Pulse Ox 97.8 F 95 H 17 134/90 100 12/06/19 03:35 12/06/19 03:35 12/06/19 03:35 12/06/19 03:35 12/06/19 03:35 General : In moderate distress, normal built HEENT, NC, At, [place]TE[place], EOMI+ sclera anicteric, conjunctiva clear NECK: Normal range of motion, supple without lymphadenopathy, JVD, or masses. LUNGS: Breath sounds equal, clear to auscultation bilaterally. No wheezes, and no crackles. No accessory muscle use. HEART: Irregular rate and rhythm, normal S1 and S2 without murmur, rub or gallop. ABDOMEN: Soft, nontender, not distended, normoactive bowel sounds, no guarding, no rebound, no masses. Back : Left lower lumbar and para spinal tenderness, decreased ROM of back, Scoliosis Ext : b/l LE 2 + pitting edema, choronic venous stasis dermatitis Neuro : A&o x 3 no focal neurologic deficit Intractable back pain A fib - rate controlled Worsening compression deformity T11 HTN, HLD, RA, OA, CHF Admit to floor pain management MRI thoraco lumbar Neurosurgery was consulted. follow recommendation resume home meds PT/rehab rest of the plan as above in resident's plan discussed in details DVT ppx
[2019-12-06] MEDS ORDERED: oxyCODONE HCL 5 MG TABLET ONE ×3 (02:43→10:16)
[2019-12-06] MEDS: oxyCODONE HCL 5 MG TABLET PO PRN ×4 (02:46→23:48)
[2019-12-06] MEDS ORDERED: ACETAMINOPHEN 325 MG TABLET (FP) PO ONE (05:12)
[2019-12-06] MEDS ORDERED: oxyCODONE HCL 5 MG TABLET PO ONE (05:29)
[2019-12-06] MEDS: POLYETHYLENE GLYCOL 3350 119 GM BTL PO SCH ×3 (06:00→21:00)
[2019-12-06] MEDS ORDERED: MORPHINE SULFATE 2 MG/ML VIAL IVPUSH ONE (06:21)
[2019-12-06] MEDS ORDERED: MORPHINE SULFATE 2 MG/ML VIAL ONE (06:44)
[2019-12-06 07:19] LABS: BASO % 0.7 % (0-2.0); EOS % 5.6 % (0-4.5); HEMATOCRIT 40.9 % (32.4-45.2); HEMOGLOBIN 13.3 GM/dL (10.7-15.3); LYMPH % 11.1 % (8-40); MCH 32.3 pg (25.7-33.7); MCHC 32.5 g/dl (32.0-36.0); MEAN CELL VOLUME 99.3 fl (80-96); MEAN PLT VOLUME 7.7 fl (7.5-11.1); MONO % 11.2 % (3.8-10.2); NEUT % 71.4 % (42.8-82.8); PLATELET COUNT 236 K/MM3 (134-434); RBC 4.12 M/mm3 (3.60-5.2); RDW 16.5 % (11.6-15.6)
[2019-12-06 07:48] LABS: ALBUMIN 3.7 g/dl (3.4-5.0); BILIRUBIN,TOTAL 1.2 mg/dL (0.2-1); BLOOD UREA NITROGEN 16.6 mg/dL (7-18); CALCIUM 9.8 mg/dL (8.5-10.1); CREATININE 0.7 mg/dL (0.55-1.3); MAGNESIUM 2.3 mg/dL (1.8-2.4); PHOSPHOROUS 3.5 mg/dL (2.5-4.9); POTASSIUM 4.7 mmol/L (3.5-5.1); TOT PROT 6.7 g/dl (6.4-8.2)
[2019-12-06] MEDS: LEVOTHYROXINE NA 125 MCG TABLET (FP) PO SCH (08:00)
[2019-12-06] MEDS ORDERED: FUROSEMIDE 40 MG TABLET (FP) ONE (09:49)
[2019-12-06] MEDS ORDERED: METOPROLOL TARTRATE 50 MG TABLET (FP) ONE (09:49)
[2019-12-06] MEDS ORDERED: ENOXAPARIN NA (PORCINE) 40 MG/0.4 ML DISP.SYRIN SQ ONE (09:49)
[2019-12-06] MEDS: FUROSEMIDE 20 MG TABLET (FP) PO SCH (10:27)
[2019-12-06] MEDS: METOPROLOL TARTRATE 50 MG TABLET (FP) PO SCH ×2 (10:27→21:00)
[2019-12-06] MEDS: ENOXAPARIN NA (PORCINE) 40 MG/0.4 ML DISP.SYRIN SQ SCH (10:27)
[2019-12-06 11:42] LABS: EPI CELLS 22 /uL (0-25.1); HYALINE CASTS 7 /uL (0-3.1); URINE APPEARANCE CLOUDY; URINE BACTERIA 40 /uL (0-1359); URINE BILIRUBIN NEGATIVE (NEGATIVE); URINE COLOR DK YELLOW; URINE GLUCOSE (UA) NEGATIVE (NEGATIVE); URINE KETONE NEGATIVE (NEGATIVE); URINE LEUK ESTERASE 1+ (NEGATIVE); URINE NITRITE NEGATIVE (NEGATIVE); URINE PROTEIN NEGATIVE (NEGATIVE); URINE RBC 704 /uL (0-23.9); URINE WBC 87 /uL (0-25.8)
--- NOTE | 2019-12-06 11:43 | PN ---
Progress Note (short form) - Note Progress Note: NEUROSURGERY CONSULT DICTATED Pt examined in ED Chart reviewed CT reviewed Multiple medical issues PE: AF, VSS General- frail, ecchymosis throughout, chronic B LE edema, hunched over CN- intact; Motor- at least 4/5 b UE/LE; Sensation- intact LT; Gait- slow with assistance WCB, ESR, CRP all normal UA +, U culture pending CT T LS spine: extensive spondylosis, heterogeneous marrow signal, T11 vertebral fracture with minimal retropulsion, chronic calcified HNP T9-10; kyphosis T11 vertebral fracture sp fall UTI No neurosurgical intervention indicated Lidoderm patches Nutritional support Pain meds TLSO brace if patient desires Safety/fall precautions Pros and cons of tx approaches discussed
--- NOTE | 2019-12-06 12:13 | EKG ---
Test Reason : Blood Pressure : / mmHG Vent. Rate : 092 BPM Atrial Rate : 312 BPM P-R Int : 000 ms QRS Dur : 088 ms QT Int : 396 ms P-R-T Axes : 000 005 244 degrees QTc Int : 489 ms ATRIAL FIBRILLATION PROLONGED QT ABNORMAL ECG WHEN COMPARED WITH ECG OF 21-NOV-2019 16:24, QT HAS LENGTHENED Confirmed by CHRIS CONROY MD ([id number]) on 12/06/2019 12:13:24 PM Referred By: Confirmed By:CHRIS CONROY MD
[2019-12-06] MEDS ORDERED: morphine CARPU-JECT 4 MG/1 ML DISP.SYRIN IVPUSH ONE (12:37)
[2019-12-06] MEDS ORDERED: morphine SULFATE 4 MG/ML VIAL ONE (12:38)
[2019-12-06] MEDS: ASPIRIN 81 MG CHEWABLE TABLETS PO SCH (13:45)
[2019-12-06] MEDS ORDERED: ASPIRIN 81 MG CHEWABLE TABLETS ONE (13:47)
[2019-12-06 17:04] VITALS: BMI 21.7
--- NOTE | 2019-12-06 17:57 | PN ---
Physical Exam: SUBJECTIVE: Patient seen and examined with her nephew at the bedside. Patient initially tells me she fell on Tuesday when ambulating in her home with the rolling walker, nephew states the fall occurred yesterday and he notices that patient is becoming more forgetful. patient lives alone. Per nephew patient fell yesterday, slipped on something. She did hit her head. she called her nephew who called EMS/fire. they placed patient on chair lift and subsequently in ambulance. She is able to ambulate with her walker normally. She denies any prodromal symptoms, no nausea, vomiting, lightheadedness, changes in vision, palpitations or chest pain. She denies any LOC. Patient has had multiple falls at home apx 4-5, last fall apx 1 month ago. She was on eliquis but it has been d/cd due to falls. Patient previously here a few weeks ago for left sided flank pain and constipation. She was treated for UTI during that hospital stay. In the ED she received Lidocain 5% patch, Percocet, and Oxycodone 5mg. She reports some relief of pain. patient seen by neurosurgery, no surgical interventions recommended. recommend pain management, lidocaine patches PT. and TSLO brace. Pt will also benefit from a life alert. OBJECTIVE: Patient is a 79 year old female with a significant past medical history of HTN , A-Fib (no longer on a/c. only ASA), hypothyroidism, RA, vertebral compression fractures. Patient admitted on 12/05/2019 s/p mechnical fall. T11 fracture on imaging. Family requesting short term rehab. Vital Signs Period Temp Pulse Resp BP Sys/Magallon Pulse Ox Last 24 Hr 97.0 F-97.8 F 90-116 16-18 113-134/70-93 96-100 GENERAL: The patient is awake, alert, appears weak and frail, thin HEAD: Normal with no signs of trauma. EYES: PERRL, extraocular movements intact, sclera anicteric, conjunctiva clear. No ptosis. ENT: Ears normal, nares patent, oropharynx clear without exudates NECK: Trachea midline, full range of motion, supple. LUNGS: Breath sounds equal, clear to auscultation bilaterally HEART: Regular rate and rhythm, ABDOMEN: Soft, tender, mildly distended, +bowel sounds EXTREMITIES:+1 bilateral lower ext edema NEUROLOGICAL: Normal speech, gait not observed. PSYCH: Normal mood, normal affect. SKIN: large purple ecchymosis on anterior chest below both breast. right flank with bruising. arms with scattered bruising. Laboratory Results - last 24 hr 12/05/19 12/05/19 12/05/19 23:40 23:40 23:40 WBC 8.3 RBC 4.17 Hgb 13.6 Hct 41.9 MCV 100.3 H MCH 32.5 MCHC 32.4 RDW 16.7 H Plt Count 243 MPV 7.7 Absolute Neuts (auto) 6.2 Neutrophils % 74.7 Lymphocytes % 10.1 D Monocytes % 11.1 H Eosinophils % 3.3 Basophils % 0.8 Nucleated RBC % 0 ESR PT with INR 12.10 INR 1.03 PTT (Actin FS) 35.0 Sodium 141 Potassium 4.2 Chloride 107 Carbon Dioxide 29 Anion Gap 5 L BUN 16.9 Creatinine 0.8 Est GFR (CKD-EPI)AfAm 81.84 Est GFR (CKD-EPI)NonAf 70.61 Random Glucose 101 Calcium 10.5 H Phosphorus Magnesium Total Bilirubin 1.3 H AST 32 ALT 24 Alkaline Phosphatase 114 C-Reactive Protein Total Protein 6.9 Albumin 3.9 Urine Color Urine Appearance Urine pH Ur Specific Eden Urine Protein Urine Glucose (UA) Urine Ketones Urine Blood Urine Nitrite Urine Bilirubin Urine Urobilinogen Ur Leukocyte Esterase Urine WBC (Auto) Urine RBC (Auto) Urine Casts (Auto) U Pathogenic Cast Auto U Epithel Cells (Auto) Urine Bacteria (Auto) 12/05/19 12/06/19 12/06/19 23:57 06:00 06:00 WBC RBC Hgb Hct MCV MCH MCHC RDW Plt Count MPV Absolute Neuts (auto) Neutrophils % Lymphocytes % Monocytes % Eosinophils % Basophils % Nucleated RBC % ESR PT with INR INR PTT (Actin FS) Sodium 141 Potassium 4.7 Chloride 107 Carbon Dioxide 30 Anion Gap 4 L BUN 16.6 Creatinine 0.7 Est GFR (CKD-EPI)AfAm 96.18 Est GFR (CKD-EPI)NonAf 82.99 Random Glucose 105 Calcium 9.8 Phosphorus 3.5 Magnesium 2.3 Total Bilirubin 1.2 H AST 28 ALT 21 Alkaline Phosphatase 101 C-Reactive Protein < 0.3 Total Protein 6.7 Albumin 3.7 Urine Color Dk yellow Urine Appearance Clear Urine pH 5.5 Ur Specific Eden 1.016 Urine Protein Negative Urine Glucose (UA) Negative Urine Ketones Negative Urine Blood 2+ H Urine Nitrite Negative Urine Bilirubin Negative Urine Urobilinogen 1.0 Ur Leukocyte Esterase Negative Urine WBC (Auto) 3 Urine RBC (Auto) 221 Urine Casts (Auto) 0 U Pathogenic Cast Auto U Epithel Cells (Auto) 1 Urine Bacteria (Auto) 2 12/06/19 12/06/19 12/06/19 06:20 06:20 10:50 WBC 7.0 RBC 4.12 Hgb 13.3 Hct 40.9 MCV 99.3 H MCH 32.3 MCHC 32.5 RDW 16.5 H Plt Count 236 MPV 7.7 Absolute Neuts (auto) 5.0 Neutrophils % 71.4 Lymphocytes % 11.1 Monocytes % 11.2 H Eosinophils % 5.6 H Basophils % 0.7 Nucleated RBC % 0 ESR 2 PT with INR INR PTT (Actin FS) Sodium Potassium Chloride Carbon Dioxide Anion Gap BUN Creatinine Est GFR (CKD-EPI)AfAm Est GFR (CKD-EPI)NonAf Random Glucose Calcium Phosphorus Magnesium Total Bilirubin AST ALT Alkaline Phosphatase C-Reactive Protein Total Protein Albumin Urine Color Dk yellow Urine Appearance Cloudy Urine pH 5.0 Ur Specific Eden 1.020 Urine Protein Negative Urine Glucose (UA) Negative Urine Ketones Negative Urine Blood 2+ H Urine Nitrite Negative Urine Bilirubin Negative Urine Urobilinogen 1.0 Ur Leukocyte Esterase 1+ H Urine WBC (Auto) 87 Urine RBC (Auto) 704 Urine Casts (Auto) 7 U Pathogenic Cast Auto Non seen U Epithel Cells (Auto) 22 Urine Bacteria (Auto) 40 Active Medications Generic Name Dose Route Start Last Admin Trade Name Jsq PRN Reason Stop Dose Admin Aspirin 81 mg 12/06/19 11:45 12/06/19 13:45 Asa - PO 81 mg DAILY ALIE Administration Enoxaparin Sodium 40 mg 12/06/19 10:00 12/06/19 10:27 Lovenox - SQ Not Given DAILY ALIE Furosemide 20 mg 12/06/19 10:00 12/06/19 10:27 Lasix - PO 20 mg DAILY ALIE Administration Levothyroxine Sodium 125 mcg 12/06/19 07:00 12/06/19 08:00 Synthroid - PO 125 mcg DAILY@0700 ALIE Administration Metoprolol Tartrate 50 mg 12/06/19 10:00 12/06/19 10:27 Lopressor - PO 50 mg BID ALIE Administration Miscellaneous 1 each 12/05/19 22:00 Lidoderm Patch Removal MC DAILY@2200 [facility] Oxycodone HCl 5 mg 12/06/19 02:17 12/06/19 10:15 Roxicodone - PO 5 mg Q4H PRN Administration PAIN LEVEL 6-10 Polyethylene Glycol 17 gm 12/06/19 06:00 12/06/19 10:27 Miralax (For Daily Use) - PO Not Given DAILY [facility] ASSESSMENT/PLAN: Problem List - Problems (1) Accidental fall Assessment/Plan: CT thorasic/lumber sacral spine (per neurosx): extensive spondylosis, heterogeneous marrow signal, T11 vertebral fracture with minimal retropulsion, chronic calcified HNP T9-10; kyphosis T11 vertebral fracture sp fall patient with multiple falls at home, lives alone. safety risk. fall precautions pain mamangement for short term rehab head ct negative, will repeat tomorrow a.m. as she is on asa 81mg at home Code(s): W19.XXXA - UNSPECIFIED FALL, INITIAL ENCOUNTER Qualifiers: (2) Afib Assessment/Plan: on metoprolol and ASA (tolerating asa despite naproxen allergy), eliquis discontinued by her primary secondary to multiple falls. Code(s): I48.91 - UNSPECIFIED ATRIAL FIBRILLATION Qualifiers: (3) Compression fracture of T11 vertebra Assessment/Plan: tslo brace recommended physical therapy no neurosx intervention recommended at this time Code(s): S22.080A - WEDGE COMPRESSION FRACTURE OF T11-T12 VERTEBRA, INIT (4) Intractable back pain Assessment/Plan: oxycodone 5 prn, tylenol, lidoderm patches. physical therapy. warm packs. fall precautions bowel regimen Code(s): M54.9 - DORSALGIA, UNSPECIFIED (5) AF (paroxysmal atrial fibrillation) Code(s): I48.0 - PAROXYSMAL ATRIAL FIBRILLATION (6) Fecal retention Assessment/Plan: seen on imaging on a bowel regimen Code(s): K59.00 - CONSTIPATION, UNSPECIFIED Qualifiers: Constipation type: drug induced constipation Qualified Code(s): K59.03 - Drug induced constipation (7) UTI (urinary tract infection) Assessment/Plan: UA +, start on ceftin 250mg bid, UC pending Code(s): N39.0 - URINARY TRACT INFECTION, SITE NOT SPECIFIED (8) Hiatal hernia Assessment/Plan: large hiatal hernia seen on imaging along with severe constipation patient refusing surgical intervention on previous visit Code(s): K44.9 - DIAPHRAGMATIC HERNIA WITHOUT OBSTRUCTION OR GANGRENE (9) Severe protein-calorie malnutrition Assessment/Plan: weight loss, poor caloric intake, also with cardiac disease. multiple falls 2/2 to possible weakness/poor nutrition. patient with multiple falls at home, poor skin bruising/turgor per nephew, weight loss of apx 10 lbs in last 3 months patient lives alone, family involved and lives close by patient appears thinner since last visit a/e/b thinner upper extremities and temporal wasting RD consulted add dietary supplements. add prosource. Code(s): E43 - UNSPECIFIED SEVERE PROTEIN-CALORIE MALNUTRITION (10) DVT prophylaxis Assessment/Plan: SCDs Code(s): Z29.9 - ENCOUNTER FOR PROPHYLACTIC MEASURES, UNSPECIFIED Visit type - Emergency Visit Emergency Visit: Yes ED Registration Date: 12/06/19 Care time: The patient presented to the Emergency Department on the above date and was hospitalized for further evaluation of their emergent condition. - New Patient This patient is new to me today: Yes Date on this admission: 12/06/19 - Critical Care Critical Care patient: No - Discharge Referral Referred to [facility] Med P.C[facility] No - Medication Review Med list reviewed for High Risk Meds patients 65 and older: Yes
[2019-12-06] MEDS ORDERED: SENNOSIDES 8.6MG TABLET (FP) PO PRN (18:14)
[2019-12-06] MEDS: ACETAMINOPHEN 500 MG TABLET (FP) PO PRN (19:48)
[2019-12-06] MEDS: LIDOCAINE 5% TOPICAL PATCH TP SCH (19:50)
[2019-12-06] MEDS: DOCUSATE SODIUM 100 MG CAPSULE (FP) PO SCH (21:00)
[2019-12-06] MEDS ORDERED: CEFUROXIME AXETIL 250 MG TABLET PO SCH (22:00)
[2019-12-07] MEDS: ACETAMINOPHEN 500 MG TABLET (FP) PO PRN ×2 (01:50→11:37)
[2019-12-07] MEDS: LIDOCAINE PATCH REMOVAL MC SCH ×2 (02:02→21:16)
[2019-12-07] MEDS ORDERED: ONDANSETRON 4 MG/2 ML VIAL IVPUSH ONE (02:29)
[2019-12-07] MEDS: oxyCODONE HCL 5 MG TABLET PO PRN ×3 (04:42→20:32)
[2019-12-07] MEDS: LEVOTHYROXINE NA 125 MCG TABLET (FP) PO SCH (06:02)
[2019-12-07] MEDS: DOCUSATE SODIUM 100 MG CAPSULE (FP) PO SCH ×3 (06:02→21:11)
[2019-12-07 08:28] LABS: BASO % 0.7 % (0-2.0); EOS % 5.1 % (0-4.5); HEMOGLOBIN 13.6 GM/dL (10.7-15.3); LYMPH % 8.8 % (8-40); MCH 32.7 pg (25.7-33.7); MCHC 32.4 g/dl (32.0-36.0); MEAN CELL VOLUME 100.9 fl (80-96); MEAN PLT VOLUME 8.4 fl (7.5-11.1); NEUT % 73.4 % (42.8-82.8); PLATELET COUNT 222 K/MM3 (134-434); RBC 4.16 M/mm3 (3.60-5.2); RDW 16.3 % (11.6-15.6); WHITE BLOOD COUNT 8.8 K/mm3 (4.0-10.0)
[2019-12-07 08:57] LABS: ALBUMIN 3.5 g/dl (3.4-5.0); BILIRUBIN,TOTAL 1.8 mg/dL (0.2-1); BLOOD UREA NITROGEN 15.4 mg/dL (7-18); CALCIUM 9.3 mg/dL (8.5-10.1); CREATININE 0.7 mg/dL (0.55-1.3); POTASSIUM 4.2 mmol/L (3.5-5.1); TOT PROT 6.4 g/dl (6.4-8.2)
--- NOTE | 2019-12-07 09:05 | PN ---
Progress Note (short form) - Note Progress Note: NEUROSURGERY Multiple medical issues Her ADL functions have been similar except due to most recent fall, limited by pain c/o low back pain after attempting MRI PE: AF, VSS General- frail, ecchymosis throughout, chronic B LE edema, hunched over CN- intact; Motor- at least 4+/5 b UE/LE; Sensation- intact LT; Gait- slow with assistance WBC, ESR, CRP WNL UA +, U culture no growth CT T LS spine: extensive spondylosis, heterogeneous marrow signal, T11 vertebral fracture with minimal retropulsion, chronic calcified HNP T9-10 with stenosis; T11-12 stenosis; kyphosis; compression fx more settled than prior CT on 11-12 with early bone remodeling Head CT- acute bleed or large stroke T11 vertebral fracture sp fall; multilevel stenosis Doubt discitis or osteo UTI? No neurosurgical intervention indicated Lidoderm patches Nutritional support Pain meds TLSO brace x 3 months whenever OOB Safety/fall precautions
[2019-12-07] MEDS: ASPIRIN 81 MG CHEWABLE TABLETS PO SCH (11:30)
[2019-12-07] MEDS: AMINO ACIDS/PROTEIN HYDROLYS 30 ML LIQUID.PKT PO SCH ×2 (11:30→16:47)
[2019-12-07] MEDS: METOPROLOL TARTRATE 50 MG TABLET (FP) PO SCH ×2 (11:30→21:11)
[2019-12-07] MEDS: FUROSEMIDE 20 MG TABLET (FP) PO SCH (11:30)
[2019-12-07] MEDS: LIDOCAINE 5% TOPICAL PATCH TP SCH (11:42)
[2019-12-07] MEDS: ENOXAPARIN NA (PORCINE) 40 MG/0.4 ML DISP.SYRIN SQ SCH (11:43)
[2019-12-07] MEDS: POLYETHYLENE GLYCOL 3350 119 GM BTL PO SCH ×2 (11:44→21:16)
--- NOTE | 2019-12-07 12:44 | CONS ---
DATE OF CONSULTATION: DATE OF DICTATION: 12/06/2019 REQUESTING PHYSICIAN: Tabitha Barajas OPERATOR VACUUM: Jarad Barrett MD, neurosurgery. CHIEF COMPLAINT: Status post mechanical fall with a thoracic fracture. HISTORY OF PRESENT ILLNESS: The patient is a 79-year-old right-handed female with history of atrial fibrillation, not on anticoagulation; hypertension; rheumatoid arthritis; osteoarthritis; vertebral compression fracture; spinal stenosis; congestive heart failure; hypothyroidism; and ovarian cancer 40 years ago, who complains of mid and lower back pain after a mechanical fall. She has been falling 4-5 times in the past 12 months. She was getting up from her couch and tripped on her walker and fell backwards. She hit her head and back against the couch. She could not get up. She was brought into emergency by the ambulance. She was usually at baseline able to ambulate with a walker. She walked with a hunched-over posture. She denies loss of consciousness or any new neurological deficit. She has been constipated for about a month. Her previous fall was about 1 month ago. She has no incontinence. PAST MEDICAL HISTORY: Significant for vertebral fracture, atrial fibrillation, hypercholesterolemia, hypertension, rheumatoid arthritis, osteoarthritis. CURRENT MEDICATIONS: Include Lidoderm patches, Lovenox, Lopressor, MiraLax, Lasix, baby aspirin, oxycodone, Synthroid. ALLERGIES: There are no known drug allergies. SOCIAL HISTORY: She lives at home. She does not smoke nor drink. She is retired. She did not engage in any recent travel. REVIEW OF SYSTEMS: Otherwise negative for major constitutional, head, neck, cardiovascular, pulmonary, gastrointestinal, genitourinary, endocrinological, neurological, psychological problems except for the above. PHYSICAL EXAMINATION: Vital Signs: Temperature is 97.4. Blood pressure is 123/82 with pulse rate 116. O2 saturation is 97% on room air. HEENT: Examination shows her to be normocephalic, atraumatic, anicteric. Neck: Supple, with no lymphadenopathy, no carotid bruit. Cardiovascular: Coronary examination demonstrated a regular rhythm. Lungs: Clear to auscultation bilaterally. Musculoskeletal: She has a kyphotic posture. Abdomen: Benign. Extremities: Examination shows edema of bilateral lower extremities with chronic venous changes. There are no obvious signs of acute DVT. Skin: Examination demonstrated ecchymosis throughout her upper extremity. Neurologic: Examination shows she is awake and alert, oriented x3. Cranial nerve examination is intact II-XII. Motor examination shows there to be 4/5 strength in the upper and lower extremity. Sensory examination is intact to light touch. Deep tendon reflexes are hyporeflexive throughout. Her gait is hunched over; however, she is able to walk with 1-person assistance. LABORATORY: Examination shows white blood cell count of 7, hemoglobin was 13.3, and platelet count was 236,000. ESR is 2. INR is 1.03 and PTT is 35. BUN is 16.6 and creatinine 0.7. LFTs are generally normal except for marginally elevated bilirubin at 1.2. C-reactive protein is less than 0.3. Urinalysis shows 1+ leukocyte esterase, 87 WBC, and 704 RBCs. COVID serology is pending. Urine culture is also pending. CT scan of the thoracic and lumbar spine demonstrate extensive spondylosis and facet arthrosis. There are heterogeneous signal changes. At T11 there is irregularity of the inferior vertebral body and endplate of the plates. There is like a vertebral compression deformity at T11. There is also a calcified central disk herniation at T9-10 with likely some thecal sac impingement centrally. CT scan of the head demonstrated [id number] cerebral atrophy with periventricular small vessel disease. There is no hydrocephalus or bleed. There is no fracture IMPRESSION: 1. T11 vertebral fracture, chronic appearing, with T11 inferior endplate irregularities. 2. T9-T10 central calcified disk herniation with protrusion, likely chronic. 3. Atrial fibrillation/hypertension. 4. Osteoarthritis/rheumatoid arthritis. 5. Hypothyroidism. RECOMMENDATIONS: The patient presents with another mechanical fall with increasing lower back pain greater than midback pain. She has kyphotic deformity on examination today, which is not unexpected. Neurologic examination if nonfocal. The patient does complain of some constipation which remains a problem for her. CT scan demonstrated the vertebral fracture as well as the clarified disk protrusion. Because the patient has no focal neurologic deficits, neurosurgical intervention is not indicated. The patient also has normal white blood cell count of 7. C- reactive protein is less than 0.3, and ESR 2. These are making any acute osteomyelitis or diskitis unlikely. She should continue to be observed clinically for symptomatology. Lidoderm patches and pain medication could be used to continue treating her pain. Neurosurgical intervention is not recommended in this lady with multiple medical issues. The pros and cons of treatment approaches were discussed, including the possible use of a TLSO brace, which the patient is considering at this time. All questions were answered. JARAD BARRETT M.D. [id number] MTDD
--- NOTE | 2019-12-07 17:54 | PN ---
Physical Exam: SUBJECTIVE: Patient seen and examined. reports lower ext weakness. denies headaches. OBJECTIVE: Patient is a 79 year old female with a significant past medical history of HTN , A-Fib (no longer on a/c. only ASA), hypothyroidism, RA, vertebral compression fractures, multiple falls at home (lives alone). Patient admitted on 12/05/2019 s/p mechanical fall. T11 fracture on imaging. Family requesting short term rehab. covid status: serology pending discharge plan: will need short term rehab, likely Tuesday Vital Signs Period Temp Pulse Resp BP Sys/Magallon Pulse Ox Last 24 Hr 97.4 F-98.3 F 100-118 18-18 106-137/67-90 95-98 GENERAL: The patient is awake, alert, appears weak and frail, thin HEAD: Normal with no signs of trauma. EYES: PERRL, extraocular movements intact, sclera anicteric, conjunctiva clear. No ptosis. ENT: Ears normal, nares patent, oropharynx clear without exudates NECK: Trachea midline, full range of motion, supple. LUNGS: Breath sounds equal, clear to auscultation bilaterally HEART: Regular rate and rhythm, ABDOMEN: Soft, tender, mildly distended, +bowel sounds EXTREMITIES:+1 bilateral lower ext edema NEUROLOGICAL: Normal speech, gait not observed. PSYCH: Normal mood, normal affect. SKIN: large purple ecchymosis on anterior chest below both breast. right flank with bruising. arms with scattered bruising. Laboratory Results - last 24 hr 12/07/19 12/07/19 07:25 07:25 WBC 8.8 RBC 4.16 Hgb 13.6 Hct 42.0 MCV 100.9 H MCH 32.7 MCHC 32.4 RDW 16.3 H Plt Count 222 MPV 8.4 Absolute Neuts (auto) 6.4 Neutrophils % 73.4 Lymphocytes % 8.8 D Monocytes % 12.0 H Eosinophils % 5.1 H Basophils % 0.7 Nucleated RBC % 0 Sodium 138 Potassium 4.2 Chloride 103 Carbon Dioxide 25 Anion Gap 11 BUN 15.4 Creatinine 0.7 Est GFR (CKD-EPI)AfAm 96.18 Est GFR (CKD-EPI)NonAf 82.99 Random Glucose 72 L Calcium 9.3 Magnesium 2.0 Total Bilirubin 1.8 H AST 27 ALT 21 Alkaline Phosphatase 89 Total Protein 6.4 Albumin 3.5 Active Medications Generic Name Dose Route Start Last Admin Trade Name Freq PRN Reason Stop Dose Admin Acetaminophen 500 mg 12/06/19 18:10 12/07/19 11:37 Tylenol - PO 500 mg Q6H PRN Administration PAIN LEVEL 4 - 6 Amino Acids 30 ml 12/07/19 08:00 12/07/19 16:47 Prosource No Carb Liquid Pkt PO Not Given BID@0800,1730 [facility] Aspirin 81 mg 12/06/19 11:45 12/07/19 11:30 Asa - PO 81 mg DAILY [facility] Administration Docusate Sodium 100 mg 12/06/19 22:00 12/07/19 15:08 Colace - PO 100 mg TID ALIE Administration Enoxaparin Sodium 40 mg 12/06/19 10:00 12/07/19 11:43 Lovenox - SQ Not Given DAILY [facility] Furosemide 20 mg 12/06/19 10:00 12/07/19 11:30 Lasix - PO Not Given DAILY [facility] Levothyroxine Sodium 125 mcg 12/06/19 07:00 12/07/19 06:02 Synthroid - PO 125 mcg DAILY@0700 [facility] Administration Lidocaine 1 patch 12/06/19 18:15 12/07/19 11:42 Lidoderm Patch - TP 1 patch DAILY [facility] Administration Metoprolol Tartrate 50 mg 12/06/19 10:00 12/07/19 11:30 Lopressor - PO 50 mg BID ALIE Administration Miscellaneous 1 each 12/06/19 22:00 12/07/19 02:02 Lidoderm Patch Removal MC 1 each DAILY@2200 [facility] Administration Oxycodone HCl 5 mg 12/06/19 02:17 12/07/19 15:08 Roxicodone - PO 5 mg Q4H PRN Administration PAIN LEVEL 6-10 Polyethylene Glycol 17 gm 12/06/19 22:00 12/07/19 11:44 Miralax (For Daily Use) - PO Not Given BID ALIE Senna 2 tab 12/06/19 18:14 Senna - PO HS PRN CONSTIPATION ASSESSMENT/PLAN: Problem List - Problems (1) Accidental fall Assessment/Plan: CT thorasic/lumber sacral spine (per neurosx): extensive spondylosis, heterogeneous marrow signal, T11 vertebral fracture with minimal retropulsion, chronic calcified HNP T9-10; kyphosis T11 vertebral fracture sp fall patient with multiple falls at home, lives alone. safety risk. fall precautions pain management for short term rehab head ct negative x 2 Code(s): W19.XXXA - UNSPECIFIED FALL, INITIAL ENCOUNTER (2) Afib Assessment/Plan: on metoprolol and ASA (tolerating asa despite naproxen allergy), eliquis discontinued by her primary secondary to multiple falls. Code(s): I48.91 - UNSPECIFIED ATRIAL FIBRILLATION (3) Compression fracture of T11 vertebra Assessment/Plan: tslo brace recommended physical therapy no neurosx intervention recommended at this time Code(s): S22.080A - WEDGE COMPRESSION FRACTURE OF T11-T12 VERTEBRA, INIT (4) Intractable back pain Assessment/Plan: oxycodone 5 prn, tylenol, lidoderm patches. physical therapy. warm packs. fall precautions bowel regimen Code(s): M54.9 - DORSALGIA, UNSPECIFIED (5) AF (paroxysmal atrial fibrillation) Code(s): I48.0 - PAROXYSMAL ATRIAL FIBRILLATION (6) Fecal retention Assessment/Plan: seen on imaging on a bowel regimen Code(s): K59.00 - CONSTIPATION, UNSPECIFIED Qualifiers: Constipation type: drug induced constipation Qualified Code(s): K59.03 - Drug induced constipation (7) UTI (urinary tract infection) Assessment/Plan: UA +, started on ceftin, UC negative and ceftin discontinued. patient treated with ceftriaxone on recent admission for UTI Code(s): N39.0 - URINARY TRACT INFECTION, SITE NOT SPECIFIED (8) Hiatal hernia Assessment/Plan: large hiatal hernia seen on imaging along with severe constipation patient refusing surgical intervention on previous visit Code(s): K44.9 - DIAPHRAGMATIC HERNIA WITHOUT OBSTRUCTION OR GANGRENE (9) Severe protein-calorie malnutrition Assessment/Plan: weight loss, poor caloric intake, also with cardiac disease. multiple falls 2/2 to possible weakness/poor nutrition. patient with multiple falls at home, poor skin bruising/turgor per nephew, weight loss of apx 10 lbs in last 3 months patient lives alone, family involved and lives close by patient appears thinner since last visit a/e/b thinner upper extremities and temporal wasting RD consulted add dietary supplements. add prosource. Code(s): E43 - UNSPECIFIED SEVERE PROTEIN-CALORIE MALNUTRITION (10) DVT prophylaxis Assessment/Plan: SCDs Code(s): Z29.9 - ENCOUNTER FOR PROPHYLACTIC MEASURES, UNSPECIFIED Visit type - Emergency Visit Emergency Visit: Yes ED Registration Date: 12/06/19 Care time: The patient presented to the Emergency Department on the above date and was hospitalized for further evaluation of their emergent condition. - New Patient This patient is new to me today: No - Critical Care Critical Care patient: No - Discharge Referral Referred to [facility] Med [facility] No - Medication Review Med list reviewed for High Risk Meds patients 65 and older: Yes
[2019-12-08] MEDS: ACETAMINOPHEN 500 MG TABLET (FP) PO PRN (02:29)
[2019-12-08] MEDS: oxyCODONE HCL 5 MG TABLET PO PRN ×2 (04:05→10:52)
[2019-12-08] MEDS: DOCUSATE SODIUM 100 MG CAPSULE (FP) PO SCH ×3 (06:11→21:03)
[2019-12-08] MEDS: LEVOTHYROXINE NA 125 MCG TABLET (FP) PO SCH (06:11)
[2019-12-08 08:26] LABS: BASO % 0.9 % (0-2.0); EOS % 4.9 % (0-4.5); HEMATOCRIT 41.5 % (32.4-45.2); HEMOGLOBIN 13.6 GM/dL (10.7-15.3); LYMPH % 8.9 % (8-40); MCH 32.7 pg (25.7-33.7); MCHC 32.8 g/dl (32.0-36.0); MEAN CELL VOLUME 99.6 fl (80-96); MONO % 10.7 % (3.8-10.2); NEUT % 74.6 % (42.8-82.8); PLATELET COUNT 226 K/MM3 (134-434); RBC 4.16 M/mm3 (3.60-5.2); RDW 16.3 % (11.6-15.6); WHITE BLOOD COUNT 6.4 K/mm3 (4.0-10.0)
--- NOTE | 2019-12-08 08:40 | PN ---
Progress Note, Physician Chief Complaint: pain in the lower back better, toleratig awaiting to be transferred to short term rehab, - Current Medication List Current Medications: Active Medications Acetaminophen (Tylenol -) 500 mg PO Q6H PRN PRN Reason: PAIN LEVEL 4 - 6 Last Admin: 12/08/19 02:29 Dose: 500 mg Documented by: Amino Acids (Prosource No Carb Liquid Pkt) 30 ml PO BID@0800,1730 [facility] Last Admin: 12/07/19 16:47 Dose: Not Given Documented by: Aspirin (Asa -) 81 mg PO DAILY [facility] Last Admin: 12/07/19 11:30 Dose: 81 mg Documented by: Docusate Sodium (Colace -) 100 mg PO TID [facility] Last Admin: 12/08/19 06:11 Dose: 100 mg Documented by: Enoxaparin Sodium (Lovenox -) 40 mg SQ DAILY [facility] Last Admin: 12/07/19 11:43 Dose: Not Given Documented by: Furosemide (Lasix -) 20 mg PO DAILY [facility] Last Admin: 12/07/19 11:30 Dose: Not Given Documented by: Levothyroxine Sodium (Synthroid -) 125 mcg PO DAILY@0700 [facility] Last Admin: 12/08/19 06:11 Dose: 125 mcg Documented by: Lidocaine (Lidoderm Patch -) 1 patch TP DAILY [facility] Last Admin: 12/07/19 11:42 Dose: 1 patch Documented by: Metoprolol Tartrate (Lopressor -) 50 mg PO BID [facility] Last Admin: 12/07/19 21:11 Dose: 50 mg Documented by: Miscellaneous (Lidoderm Patch Removal) 1 each MC DAILY@2200 [facility] Last Admin: 12/07/19 21:16 Dose: 1 each Documented by: Oxycodone HCl (Roxicodone -) 5 mg PO Q4H PRN PRN Reason: PAIN LEVEL 6-10 Last Admin: 12/08/19 04:05 Dose: 5 mg Documented by: Polyethylene Glycol (Miralax (For Daily Use) -) 17 gm PO BID [facility] Last Admin: 12/07/19 21:16 Dose: 17 gm Documented by: Senna (Senna -) 2 tab PO HS PRN PRN Reason: CONSTIPATION - Objective Vital Signs: Vital Signs Temperature 99.2 F 12/08/19 06:00 Pulse Rate 102 H 12/08/19 06:00 Respiratory Rate 18 12/08/19 06:00 Blood Pressure 106/60 12/08/19 06:00 O2 Sat by Pulse Oximetry (%) 97 12/08/19 06:00 Constitutional: Yes: Well Nourished, No Distress, Calm, Poor Hygeine Eyes: Yes: EOM Intact HENT: Yes: Atraumatic, Normocephalic Neck: Yes: Supple, Trachea Midline Cardiovascular: Yes: Regular Rate and Rhythm Respiratory: Yes: Regular, CTA Bilaterally Gastrointestinal: Yes: Normal Bowel Sounds, Soft Extremities: Yes: Other (chronic venous stasis changes,) Edema: Yes Edema: LLE: Trace, RLE: Trace Neurological: Yes: WNL ...Motor Strength: WNL Labs: CBC, BMP 12/08/19 08:10 INR, PTT INR 1.03 (0.83-1.09) 12/05/19 23:40 Impression/Plan Impression/Plan: - Problems (1) Accidental fall Assessment/Plan: T11 vertebral fracture sp fall; multilevel stenosis patient with multiple falls at home, lives alone. safety risk. continue with TSLO brace, fall precautions pain management for short term rehab head ct negative x 2 discussed with the case investigator, and awaiting to hear from [place], and tyesha santoyo, (2) Afib Assessment/Plan: on metoprolol and ASA (tolerating asa despite naproxen allergy), eliquis discontinued by her primary secondary to multiple falls. Code(s): I48.91 - UNSPECIFIED ATRIAL FIBRILLATION (3) Fecal retention resolved, doing well, (4) UTI (urinary tract infection) reolved. and is doing well, (5) Hiatal hernia Assessment/Plan: is asymtomatic, will continue observation, (6) Severe protein-calorie malnutrition Assessment/Plan: add dietary supplements. add prosource. Code(s): E43 - UNSPECIFIED SEVERE PROTEIN-CALORIE MALNUTRITION (7) DVT prophylaxis Visit type - Emergency Visit Emergency Visit: No - New Patient This patient is new to me today: Yes Date on this admission: 12/08/19 - Critical Care Critical Care patient: No - Discharge Referral Referred to [facility] Med P.C[facility] Yes - Medication Review Med list reviewed for High Risk Meds patients 65 and older: Yes Labs Lab Results: CBCD WBC 6.4 K/mm3 (4.0-10.0) 12/08/19 08:10 RBC 4.16 M/mm3 (3.60-5.2) 12/08/19 08:10 Hgb 13.6 GM/dL (10.7-15.3) 12/08/19 08:10 Hct 41.5 % (32.4-45.2) 12/08/19 08:10 MCV 99.6 fl (80-96) H 12/08/19 08:10 MCHC 32.8 g/dl (32.0-36.0) 12/08/19 08:10 RDW 16.3 % (11.6-15.6) H 12/08/19 08:10 Plt Count 226 K/MM3 (134-434) 12/08/19 08:10 MPV 8.0 fl (7.5-11.1) 12/08/19 08:10 CMP Sodium 140 mmol/L (136-145) 12/08/19 08:10 Potassium 4.7 mmol/L (3.5-5.1) 12/08/19 08:10 Chloride 104 mmol/L (98-107) 12/08/19 08:10 Carbon Dioxide 28 mmol/L (21-32) 12/08/19 08:10 Anion Gap 7 MMOL/L (8-16) L 12/08/19 08:10 BUN 14.5 mg/dL (7-18) 12/08/19 08:10 Creatinine 0.6 mg/dL (0.55-1.3) 12/08/19 08:10 Random Glucose 97 mg/dL (74-106) 12/08/19 08:10 Calcium 9.3 mg/dL (8.5-10.1) 12/08/19 08:10 Total Bilirubin 1.6 mg/dL (0.2-1) H 12/08/19 08:10 AST 28 U/L (15-37) 12/08/19 08:10 ALT 21 U/L (13-61) 12/08/19 08:10 Alkaline Phosphatase 84 U/L (45-117) 12/08/19 08:10 Total Protein 6.0 g/dl (6.4-8.2) L 12/08/19 08:10 Albumin 3.2 g/dl (3.4-5.0) L 12/08/19 08:10
[2019-12-08 08:46] LABS: ALBUMIN 3.2 g/dl (3.4-5.0); BILIRUBIN,TOTAL 1.6 mg/dL (0.2-1); BLOOD UREA NITROGEN 14.5 mg/dL (7-18); CALCIUM 9.3 mg/dL (8.5-10.1); CREATININE 0.6 mg/dL (0.55-1.3); POTASSIUM 4.7 mmol/L (3.5-5.1)
--- NOTE | 2019-12-08 09:57 | PN ---
Progress Note (short form) - Note Progress Note: NEUROSURGERY Multiple medical issues Her ADL functions have been similar except due to most recent fall, limited by pain c/o low back pain after attempting MRI PE: Tmax 99.2, AF, VSS General- frail, ecchymosis throughout, chronic B LE edema, hunched over CN- intact; Motor- at least 4+/5 b UE/LE; Sensation- intact LT; Gait- slow with assistance UA +, U culture no growth CT T LS spine: extensive spondylosis, heterogeneous marrow signal, T11 vertebral fracture with minimal retropulsion, chronic calcified HNP T9-10 with stenosis; T11-12 stenosis; kyphosis; compression fx more settled than prior CT on 11-12 with early bone remodeling Head CT- no acute bleed or large stroke T11 vertebral fracture sp fall; multilevel stenosis Doubt discitis or osteomyelitis given normal WBC, ESR, CRP UTI? No neurosurgical intervention indicated Lidoderm patches Nutritional support Pain meds TLSO brace (small) x 3 months whenever OOB F/u upright T spine x-rays in 4 week to assess T11 stature and spinal alignment Safety/fall precautions Followup plans discussed
[2019-12-08] MEDS: ASPIRIN 81 MG CHEWABLE TABLETS PO SCH (10:51)
[2019-12-08] MEDS: AMINO ACIDS/PROTEIN HYDROLYS 30 ML LIQUID.PKT PO SCH ×2 (10:51→17:52)
[2019-12-08] MEDS: METOPROLOL TARTRATE 50 MG TABLET (FP) PO SCH ×2 (10:52→21:03)
[2019-12-08] MEDS: FUROSEMIDE 20 MG TABLET (FP) PO SCH (10:53)
[2019-12-08] MEDS: ENOXAPARIN NA (PORCINE) 40 MG/0.4 ML DISP.SYRIN SQ SCH ×2 (10:53→12:34)
[2019-12-08] MEDS: LIDOCAINE 5% TOPICAL PATCH TP SCH (10:53)
[2019-12-08] MEDS: POLYETHYLENE GLYCOL 3350 119 GM BTL PO SCH ×2 (10:54→21:03)
[2019-12-08] MEDS: LIDOCAINE PATCH REMOVAL MC SCH (21:03)
[2019-12-09] MEDS: ACETAMINOPHEN 500 MG TABLET (FP) PO PRN ×5 (00:12→20:59)
[2019-12-09] MEDS: LEVOTHYROXINE NA 125 MCG TABLET (FP) PO SCH (06:02)
[2019-12-09] MEDS: DOCUSATE SODIUM 100 MG CAPSULE (FP) PO SCH ×4 (06:02→20:59)
--- NOTE | 2019-12-09 08:56 | PN ---
Progress Note (short form) - Note Progress Note: NEUROSURGERY Some low back pain, better PE: Tmax 99.2, AF, VSS General- frail, ecchymosis throughout, chronic B LE edema, hunched over CN- intact; Motor- at least 4+/5 b UE/LE; Sensation- intact LT; Gait- slow with assistance UA +, U culture no growth CT T LS spine: extensive spondylosis, heterogeneous marrow signal, T11 vertebral fracture with minimal retropulsion, chronic calcified HNP T9-10 with stenosis; T11-12 stenosis; kyphosis; compression fx more settled than prior CT on 11-12 with early bone remodeling Head CT- no acute bleed or large stroke T11 vertebral fracture sp fall; multilevel stenosis Doubt discitis or osteomyelitis given normal WBC, ESR, CRP No neurosurgical intervention indicated Lidoderm patches Nutritional support Pain meds TLSO brace (small) x 3 months whenever OOB F/u upright T spine x-rays in 4 week to assess T11 stature and spinal alignment Followup plans discussed
[2019-12-09] MEDS: AMINO ACIDS/PROTEIN HYDROLYS 30 ML LIQUID.PKT PO SCH ×2 (10:44→16:59)
[2019-12-09] MEDS: FUROSEMIDE 20 MG TABLET (FP) PO SCH (10:45)
[2019-12-09] MEDS: METOPROLOL TARTRATE 50 MG TABLET (FP) PO SCH (10:45)
[2019-12-09] MEDS: ASPIRIN 81 MG CHEWABLE TABLETS PO SCH (10:45)
[2019-12-09] MEDS: LIDOCAINE 5% TOPICAL PATCH TP SCH (10:45)
[2019-12-09] MEDS: ENOXAPARIN NA (PORCINE) 40 MG/0.4 ML DISP.SYRIN SQ SCH (10:46)
[2019-12-09] MEDS: POLYETHYLENE GLYCOL 3350 119 GM BTL PO SCH ×2 (10:46→23:35)
[2019-12-09 13:22] LABS: BASO % 0.8 % (0-2.0); EOS % 6.1 % (0-4.5); HEMATOCRIT 44.1 % (32.4-45.2); HEMOGLOBIN 14.5 GM/dL (10.7-15.3); LYMPH % 10.6 % (8-40); MCH 32.9 pg (25.7-33.7); MCHC 32.8 g/dl (32.0-36.0); MEAN CELL VOLUME 100.5 fl (80-96); MEAN PLT VOLUME 7.9 fl (7.5-11.1); MONO % 10.7 % (3.8-10.2); NEUT % 71.8 % (42.8-82.8); PLATELET COUNT 241 K/MM3 (134-434); RBC 4.39 M/mm3 (3.60-5.2); RDW 16.5 % (11.6-15.6); WHITE BLOOD COUNT 6.2 K/mm3 (4.0-10.0)
[2019-12-09 14:03] LABS: ALBUMIN 3.5 g/dl (3.4-5.0); BILIRUBIN,TOTAL 1.2 mg/dL (0.2-1); BLOOD UREA NITROGEN 16.8 mg/dL (7-18); CALCIUM 9.7 mg/dL (8.5-10.1); CREATININE 0.8 mg/dL (0.55-1.3); MAGNESIUM 2.1 mg/dL (1.8-2.4); POTASSIUM 4.6 mmol/L (3.5-5.1); TOT PROT 6.5 g/dl (6.4-8.2)
--- NOTE | 2019-12-09 14:12 | PN ---
Progress Note, Physician History of Present Illness: Seen and examined at bedside. Accepted to [facility] but pending insurance approval. She denies nausea vomiting fever chills chest pain SOB lightheadedness or dizziness. Endorses lower back pain is improving. Afebrile. - Current Medication List Current Medications: Active Medications Acetaminophen (Tylenol -) 500 mg PO Q6H PRN PRN Reason: PAIN LEVEL 4 - 6 Last Admin: 12/09/19 10:45 Dose: 500 mg Documented by: Amino Acids (Prosource No Carb Liquid Pkt) 30 ml PO BID@0800,1730 [facility] Last Admin: 12/09/19 10:44 Dose: 30 ml Documented by: Aspirin (Asa -) 81 mg PO DAILY [facility] Last Admin: 12/09/19 10:45 Dose: 81 mg Documented by: Docusate Sodium (Colace -) 100 mg PO TID [facility] Last Admin: 12/09/19 06:02 Dose: 100 mg Documented by: Enoxaparin Sodium (Lovenox -) 40 mg SQ DAILY [facility] Last Admin: 12/09/19 10:46 Dose: Not Given Documented by: Furosemide (Lasix -) 20 mg PO DAILY [facility] Last Admin: 12/09/19 10:45 Dose: 20 mg Documented by: Levothyroxine Sodium (Synthroid -) 125 mcg PO DAILY@0700 [facility] Last Admin: 12/09/19 06:02 Dose: 125 mcg Documented by: Lidocaine (Lidoderm Patch -) 1 patch TP DAILY [facility] Last Admin: 12/09/19 10:45 Dose: 1 patch Documented by: Metoprolol Tartrate (Lopressor -) 50 mg PO BID [facility] Last Admin: 12/09/19 10:45 Dose: 50 mg Documented by: Miscellaneous (Lidoderm Patch Removal) 1 each MC DAILY@2200 [facility] Last Admin: 12/08/19 21:03 Dose: 1 each Documented by: Oxycodone HCl (Roxicodone -) 5 mg PO Q4H PRN PRN Reason: PAIN LEVEL 6-10 Last Admin: 12/08/19 10:52 Dose: 5 mg Documented by: Polyethylene Glycol (Miralax (For Daily Use) -) 17 gm PO BID [facility] Last Admin: 12/09/19 10:46 Dose: 17 gm Documented by: Senna (Senna -) 2 tab PO HS PRN PRN Reason: CONSTIPATION - Objective Vital Signs: Vital Signs Temperature 98.3 F 12/09/19 10:00 Pulse Rate 103 H 12/09/19 10:00 Respiratory Rate 18 12/09/19 10:00 Blood Pressure 104/70 12/09/19 10:00 O2 Sat by Pulse Oximetry (%) 97 12/09/19 10:00 Constitutional: Yes: No Distress, Thin Eyes: Yes: EOM Intact HENT: Yes: Atraumatic Cardiovascular: Yes: Pulse Irregular Respiratory: Yes: CTA Bilaterally Gastrointestinal: Yes: Soft. No: Tenderness Musculoskeletal: Yes: Back Pain, Other (kyphosis and scoliosis) Edema: Yes Edema: LLE: 1+, RLE: 1+ Integumentary: Yes: Venous Stasis Changes (bilateral lower extremities) Neurological: Yes: Alert Psychiatric: Yes: Alert Labs: CBC, BMP 12/09/19 12:30 12/09/19 12:30 INR, PTT INR 1.03 (0.83-1.09) 12/05/19 23:40 - ....Imaging Cat Scan: Report Reviewed (Head CT) Impression/Plan Impression/Plan: mechanical fall: Neurosurgery consult noted and appreciated. Per neurisyrgery the following is recommenced: CT T LS spine: extensive spondylosis, heterogeneous marrow signal, T11 vertebral fracture with minimal retropulsion, chronic calcified HNP T9-10 with stenosis; T11-12 stenosis; kyphosis; compression fx more settled than prior CT on 11-12 with early bone remodeling Head CT- no acute bleed or large stroke T11 vertebral fracture sp fall; multilevel stenosis Doubt discitis or osteomyelitis given normal WBC, ESR, CRP No neurosurgical intervention indicated Lidoderm patches Nutritional support Pain control TLSO brace (small) x 3 months whenever OOB F/u upright T spine x-rays in 4 week to assess T11 stature and spinal alignment [facility] offered-pending insurance approval Asymptomatic bacteuria UA + UCx negative no Abx indicaterd lower extremity Edema: continue home dose of lasix 20mg po daily. paroxysmal A fib patient was on eliquis but d/c by PCP after multiple falls and head trauma, on asa 81mg daily so will continue rate controlled on metoprolol 50mg bid-may need to decrease to 25mg po BID if she gets hypotensive. Severe protein calorie malnutrition: continue supplementation constipation: Having BMs everyday per RN continue current regimen with Colace, Miralax, and Senna Hypothyroidism continue synthroid DVT prophylaxis Lovenox daily Visit type - Emergency Visit Emergency Visit: Yes ED Registration Date: 12/06/19 Care time: The patient presented to the Emergency Department on the above date and was hospitalized for further evaluation of their emergent condition. - New Patient This patient is new to me today: Yes Date on this admission: 12/09/19 - Critical Care Critical Care patient: No - Medication Review Med list reviewed for High Risk Meds patients 65 and older: Yes
[2019-12-09] MEDS: LIDOCAINE PATCH REMOVAL MC SCH (23:35)
[2019-12-10] MEDS: ACETAMINOPHEN 500 MG TABLET (FP) PO PRN ×3 (01:05→12:41)
[2019-12-10] MEDS: DOCUSATE SODIUM 100 MG CAPSULE (FP) PO SCH ×2 (06:09→13:03)
[2019-12-10] MEDS: LEVOTHYROXINE NA 125 MCG TABLET (FP) PO SCH (06:09)
[2019-12-10] MEDS: METOPROLOL TARTRATE 50 MG TABLET (FP) PO SCH ×2 (06:10→10:51)
[2019-12-10] MEDS: AMINO ACIDS/PROTEIN HYDROLYS 30 ML LIQUID.PKT PO SCH (09:00)
[2019-12-10 09:18] LABS: BASO % 0.9 % (0-2.0); EOS % 10.9 % (0-4.5); HEMATOCRIT 41.9 % (32.4-45.2); HEMOGLOBIN 13.7 GM/dL (10.7-15.3); LYMPH % 11.2 % (8-40); MCH 32.2 pg (25.7-33.7); MCHC 32.7 g/dl (32.0-36.0); MEAN CELL VOLUME 98.5 fl (80-96); MEAN PLT VOLUME 7.9 fl (7.5-11.1); MONO % 13.7 % (3.8-10.2); NEUT % 63.3 % (42.8-82.8); PLATELET COUNT 241 K/MM3 (134-434); RBC 4.26 M/mm3 (3.60-5.2); WHITE BLOOD COUNT 5.4 K/mm3 (4.0-10.0)
[2019-12-10] MEDS ORDERED: PT OWN MED DRAWER 7, Y5N ONE (09:28)
[2019-12-10 09:39] LABS: BILIRUBIN,TOTAL 1.1 mg/dL (0.2-1); BLOOD UREA NITROGEN 19.3 mg/dL (7-18); CALCIUM 9.2 mg/dL (8.5-10.1); CREATININE 0.6 mg/dL (0.55-1.3); POTASSIUM 4.2 mmol/L (3.5-5.1); TOT PROT 5.6 g/dl (6.4-8.2)
[2019-12-10] MEDS: ASPIRIN 81 MG CHEWABLE TABLETS PO SCH (10:51)
[2019-12-10] MEDS: FUROSEMIDE 20 MG TABLET (FP) PO SCH (10:51)
[2019-12-10] MEDS: LIDOCAINE 5% TOPICAL PATCH TP SCH (10:52)
[2019-12-10] MEDS: ENOXAPARIN NA (PORCINE) 40 MG/0.4 ML DISP.SYRIN SQ SCH (10:57)
[2019-12-10] MEDS: POLYETHYLENE GLYCOL 3350 119 GM BTL PO SCH (11:01)
[2019-12-10] MEDS ORDERED: COLLAGENASE CLOSTRIDIUM HIST. 30 GRAMS TUBE TP SCH (12:15)
--- NOTE | 2019-12-10 13:11 | DS ---
Physical Exam: SUBJECTIVE: Patient seen and examined OBJECTIVE: Patient is a 79 year old female with a significant past medical history of HTN , A-Fib (no longer on a/c. only ASA), hypothyroidism, RA, vertebral compression fractures, multiple falls at home (lives alone). Patient admitted on 12/05/2019 s/p mechanical fall. Patient with multiple falls at home. On admission noted to have T11 fracture on imaging. Family requesting short term rehab. Patient for discharge to [facility] today covid status: negative Vital Signs Period Temp Pulse Resp BP Sys/[place] Pulse Ox Last 24 Hr 97.9 F-99.2 F 90-120 18-18 92-124/51-89 96-98 PHYSICAL EXAM GENERAL: The patient is awake, alert, appears weak and frail, thin HEAD: Normal with no signs of trauma. EYES: PERRL, extraocular movements intact, sclera anicteric, conjunctiva clear. No ptosis. ENT: Ears normal, nares patent, oropharynx clear without exudates NECK: Trachea midline, full range of motion, supple. LUNGS: Breath sounds equal, clear to auscultation bilaterally HEART: Regular rate and rhythm, ABDOMEN: Soft, tender, mildly distended, +bowel sounds EXTREMITIES:+1 bilateral lower ext edema, left planter foot with small 1cm x 1cm open wound on planter of left foot, per patient has been there for quite some time. added santyl. NEUROLOGICAL: Normal speech, gait not observed. PSYCH: Normal mood, normal affect. SKIN: large purple ecchymosis on anterior chest below both breast. right flank with bruising. arms with scattered bruising. LABS Laboratory Results - last 24 hr 12/09/19 12/09/19 12/10/19 12:30 12:30 08:11 WBC 6.2 5.4 RBC 4.39 4.26 Hgb 14.5 13.7 Hct 44.1 41.9 MCV 100.5 H 98.5 H MCH 32.9 32.2 MCHC 32.8 32.7 RDW 16.5 H 16.0 H Plt Count 241 241 MPV 7.9 7.9 Absolute Neuts (auto) 4.5 3.4 Neutrophils % 71.8 63.3 Lymphocytes % 10.6 11.2 Monocytes % 10.7 H 13.7 H Eosinophils % 6.1 H 10.9 H Basophils % 0.8 0.9 Nucleated RBC % 0 0 Sodium 139 Potassium 4.6 Chloride 102 Carbon Dioxide 28 Anion Gap 8 BUN 16.8 Creatinine 0.8 Est GFR (CKD-EPI)AfAm 81.84 Est GFR (CKD-EPI)NonAf 70.61 Random Glucose 121 H Calcium 9.7 Magnesium 2.1 Total Bilirubin 1.2 H AST 32 ALT 25 Alkaline Phosphatase 108 Total Protein 6.5 Albumin 3.5 12/10/19 08:11 WBC RBC Hgb Hct MCV MCH MCHC RDW Plt Count MPV Absolute Neuts (auto) Neutrophils % Lymphocytes % Monocytes % Eosinophils % Basophils % Nucleated RBC % Sodium 140 Potassium 4.2 Chloride 105 Carbon Dioxide 27 Anion Gap 8 BUN 19.3 H Creatinine 0.6 Est GFR (CKD-EPI)AfAm 101.18 Est GFR (CKD-EPI)NonAf 87.30 Random Glucose 85 Calcium 9.2 Magnesium 2.0 Total Bilirubin 1.1 H AST 27 ALT 18 Alkaline Phosphatase 91 Total Protein 5.6 L Albumin 3.0 L HOSPITAL COURSE: Date of Admission:12/06/19 Date of Discharge: 12/10/19 Minutes to complete discharge: 60 Discharge Summary Problems reviewed: Yes Reason For Visit: INTRACTABLE BACK PAIN, ATRIAL FIBRILLATION, VENOUS Current Active Problems Accidental fall (Acute) Afib (Acute) Compression fracture of T11 vertebra (Acute) DVT prophylaxis (Acute) Intractable back pain (Acute) Severe protein-calorie malnutrition (Acute) Venous insufficiency of both lower extremities (Acute) Condition: Fair - Instructions Diet, Activity, Other Instructions: discharge to [facility] Referrals: Jarad Zhang MD [Staff Physician] - Prashant Cervantes MD [Primary Care Provider] - Disposition: ALF FACILITY - Home Medications Comprehensive Discharge Medication List: Ambulatory Orders Prednisone 5 mg PO DAILY #10 tablet 07/13/17 Metoprolol Tartrate [Lopressor -] 50 mg PO BID tablet 05/06/18 Levothyroxine [Synthroid -] 125 mcg PO DAILY@0700 06/10/18 Lidocaine 5% Patch [Lidoderm -] 1 patch TP DAILY #7 patch 11/13/19 Aspirin 81 mg PO DAILY 11/22/19 Docusate Sodium [Colace -] 100 mg PO Q8H PRN capsule 11/26/19 Furosemide [Lasix -] 20 mg PO DAILY tablet 11/26/19 Polyethylene Glycol 3350 [Miralax 119 gm Btl -] 17 gm PO TID bottle 11/26/19 Sennosides [Senna -] 1 tab PO BID tablet 11/26/19 Amino Acids/Protein Hydrolys [Prosource No Carb Liquid Pkt] 30 ml PO BID@0800,1730 packet 12/10/19 Collagenase Clostridium Hist. [Santyl -] 1 applic TP DAILY tube 12/10/19 Docusate Sodium [Colace -] 100 mg PO TID capsule 12/10/19 Enoxaparin [Lovenox -] 40 mg SQ DAILY disp.syrin 12/10/19 Lidocaine 5% Patch [Lidoderm -] 1 patch TP DAILY patch 12/10/19 Lidocaine Patch Removal [Lidoderm Patch Removal] 1 each MC DAILY@2200 each 12/10/19 Polyethylene Glycol 3350 [Miralax 119 gm Btl -] 17 gm PO BID bottle 12/10/19 Sennosides [Senna -] 2 tab PO HS PRN tablet 12/10/19 oxyCODONE HCL [Roxicodone -] 5 mg PO Q4H PRN tablet 12/10/19 Problem List - Problems (1) Accidental fall Assessment/Plan: CT thorasic/lumber sacral spine (per neurosx): extensive spondylosis, heterogeneous marrow signal, T11 vertebral fracture with minimal retropulsion, chronic calcified HNP T9-10; kyphosis T11 vertebral fracture sp fall patient with multiple falls at home, lives alone. safety risk. fall precautions pain management for short term rehab today head ct negative x 2 Code(s): W19.XXXA - UNSPECIFIED FALL, INITIAL ENCOUNTER (2) Afib Assessment/Plan: on metoprolol and ASA (tolerating asa despite naproxen allergy), eliquis discontinued by her primary secondary to multiple falls. Code(s): I48.91 - UNSPECIFIED ATRIAL FIBRILLATION (3) Compression fracture of T11 vertebra Assessment/Plan: tslo brace recommended physical therapy no neurosx intervention recommended at this time Code(s): S22.080A - WEDGE COMPRESSION FRACTURE OF T11-T12 VERTEBRA, INIT (4) Intractable back pain Assessment/Plan: oxycodone 5 prn, tylenol, lidoderm patches. physical therapy. warm packs. fall precautions bowel regimen Code(s): M54.9 - DORSALGIA, UNSPECIFIED (5) AF (paroxysmal atrial fibrillation) Code(s): I48.0 - PAROXYSMAL ATRIAL FIBRILLATION (6) Fecal retention Assessment/Plan: seen on imaging on a bowel regimen Code(s): K59.00 - CONSTIPATION, UNSPECIFIED Qualifiers: Constipation type: drug induced constipation Qualified Code(s): K59.03 - Drug induced constipation (7) UTI (urinary tract infection) Assessment/Plan: UA +, started on ceftin, UC negative and ceftin discontinued. patient treated with ceftriaxone on recent admission for UTI Code(s): N39.0 - URINARY TRACT INFECTION, SITE NOT SPECIFIED (8) Hiatal hernia Assessment/Plan: large hiatal hernia seen on imaging along with severe constipation patient refusing surgical intervention on previous visit Code(s): K44.9 - DIAPHRAGMATIC HERNIA WITHOUT OBSTRUCTION OR GANGRENE (9) Severe protein-calorie malnutrition Assessment/Plan: weight loss, poor caloric intake, also with cardiac disease. multiple falls 2/2 to possible weakness/poor nutrition. patient with multiple falls at home, poor skin bruising/turgor per nephew, weight loss of apx 10 lbs in last 3 months patient lives alone, family involved and lives close by patient appears thinner since last visit a/e/b thinner upper extremities and temporal wasting RD consulted add dietary supplements. add prosource. Code(s): E43 - UNSPECIFIED SEVERE PROTEIN-CALORIE MALNUTRITION (10) DVT prophylaxis Assessment/Plan: SCDs Code(s): Z29.9 - ENCOUNTER FOR PROPHYLACTIC MEASURES, UNSPECIFIED This patient is new to me today: No Emergency Visit: Yes ED Registration Date: 12/06/19 Care time: The patient presented to the Emergency Department on the above date and was hospitalized for further evaluation of their emergent condition. Critical Care patient: No - Discharge Referral Referred to [facility] Med P.C[facility] No
[2019-12-10 15:59] VITALS: BP 100/68; PULSE 101; TEMP 99
== END 2019-12-10 16:35 | DRG 542 ==
LOC: JER 19:51 → JERBED 12-06 00:03 → J5S 12-06 16:37
PROVIDERS: ADMIT Internal Medicine; ATTEND Nurse Practitioner Family
DX: M48.54XA Collapsed vertebra, not elsewhere classified, thoracic region, initial encounter for fracture (principal); E43 Unspecified severe protein-calorie malnutrition; S22.088A Other fracture of T11-T12 vertebra, initial encounter for closed fracture; N39.0 Urinary tract infection, site not specified; I50.32 Chronic diastolic (congestive) heart failure; I73.89 Other specified peripheral vascular diseases; I48.91 Unspecified atrial fibrillation; E03.9 Hypothyroidism, unspecified; K59.03 Drug induced constipation; M48.04 Spinal stenosis, thoracic region; M54.9 Dorsalgia, unspecified; I11.0 Hypertensive heart disease with heart failure; K44.9 Diaphragmatic hernia without obstruction or gangrene; M06.80 Other specified rheumatoid arthritis, unspecified site; R54 Age-related physical debility; R63.4 Abnormal weight loss; M47.897 Other spondylosis, lumbosacral region; M62.58 Muscle wasting and atrophy, not elsewhere classified, other site; Z68.21 Body mass index [BMI] 21.0-21.9, adult; M51.24 Other intervertebral disc displacement, thoracic region; M41.9 Scoliosis, unspecified; W01.0XXA Fall on same level from slipping, tripping and stumbling without subsequent striking against object, initial encounter; Y92.098 Other place in other non-institutional residence as the place of occurrence of the external cause; Z85.850 Personal history of malignant neoplasm of thyroid; Z85.43 Personal history of malignant neoplasm of ovary; Z91.81 History of falling; Z96.653 Presence of artificial knee joint, bilateral
CPT/HCPCS: 36415; 70450-TC; 71045-TC-FY; 72125-TC; 72128-TC; 72131-TC; 72170-TC-FY; 74176-TC; 80053; 81003; 83735; 84100; 85025; 85610; 85651; 85730; 86140; 87086; 93005; 93010; 97116-GP; 97162-GP; 99285-25; U0003

== ENCOUNTER 2020-06-15 19:50 | Emergency (ER) | payer OTHER, MEDICARE ==
[2020-06-15 20:00] VITALS: BMI 25.7
[2020-06-15] MEDS ORDERED: METOPROLOL TARTRATE 5 MG/5 ML VIAL IVPUSH ONE ×2 (20:14→22:30)
[2020-06-15] MEDS ORDERED: ACETAMINOPHEN 1000 MG/100 ML VIAL (NON FORMULARY) IVPB ONE (20:15)
[2020-06-15] MEDS ORDERED: SODIUM CHLORIDE 1,973 ML IV ONE (20:15)
[2020-06-15] MEDS ORDERED: METOPROLOL TARTRATE 5 MG/5 ML VIAL ONE ×2 (20:20→22:40)
[2020-06-15] MEDS ORDERED: ACETAMINOPHEN INJECTION 100 ML IVPB ONE (21:04)
[2020-06-15 21:12] LABS: BASO % 0.4 % (0-2.0); EOS % 0.5 % (0-4.5); HEMATOCRIT 42.2 % (32.4-45.2); LYMPH % 2.8 % (8-40); MCH 28.8 pg (25.7-33.7); MCHC 30.8 g/dl (32.0-36.0); MEAN CELL VOLUME 93.3 fl (80-96); NEUT % 92.3 % (42.8-82.8); PLATELET COUNT 372 K/MM3 (134-434); RBC 4.53 M/mm3 (3.60-5.2); RDW 18.7 % (11.6-15.6); WHITE BLOOD COUNT 14.8 K/mm3 (4.0-10.0)
[2020-06-15 21:19] LABS: INR 1.1 (0.83-1.09); PROTHROMBIN TIME (PATIENT) 13.3 SEC (9.7-13.0)
[2020-06-15 21:22] LABS: ACTIVATED PTT 39.2 SECONDS (25.2-36.5)
[2020-06-15 21:33] LABS: POTASSIUM 4.6 mmol/L (3.5-5.1)
[2020-06-15 21:35] LABS: CALCIUM 9.2 mg/dL (8.5-10.1)
[2020-06-15 21:36] LABS: ALBUMIN 2.9 g/dl (3.4-5.0); BLOOD UREA NITROGEN 21.7 mg/dL (7-18)
[2020-06-15 21:39] LABS: CREATININE 0.7 mg/dL (0.55-1.3)
[2020-06-15 21:40] LABS: BILIRUBIN,TOTAL 2.5 mg/dL (0.2-1); TOT PROT 5.9 g/dl (6.4-8.2)
[2020-06-15] MEDS ORDERED: VANCOMYCIN 1 GM in D5W (PRE-DOCKED) 1,000 MG/250 ML IVPB ONE (21:44)
[2020-06-15] MEDS ORDERED: PIPERACILLIN/TAZOB 3.375 GM 3.375 GM in DEXTROSE 5%-WATER - 50 ML IVPB ONE (21:44)
[2020-06-15 21:54] LABS: EPI CELLS 0 /uL (0-25.1); HYALINE CASTS 1 /uL (0-3.1); PH,URINE 5.5 (5.0-8.0); URINE APPEARANCE CLEAR; URINE BACTERIA 191 /uL (0-1359); URINE BILIRUBIN 2+ (NEGATIVE); URINE COLOR DK YELLOW; URINE GLUCOSE (UA) NEGATIVE (NEGATIVE); URINE KETONE TRACE (NEGATIVE); URINE LEUK ESTERASE 1+ (NEGATIVE); URINE NITRITE NEGATIVE (NEGATIVE); URINE PROTEIN TRACE (NEGATIVE); URINE RBC 35 /uL (0-23.9); URINE WBC 198 /uL (0-25.8)
[2020-06-15] MEDS ORDERED: PIPERACILLIN/TAZOB 3.375 GM 3.375 GM/50 ML BAG IVPB ONE (22:19)
[2020-06-15] MEDS ORDERED: VANCOMYCIN 1 GRAM (PRE-DOCKED) 1,000 MG/250 ML BAG IVPB ONE (22:19)
[2020-06-15 22:25] LABS: ANISOCYTOSIS 2+; MACROCYTOSIS 1+; OVALOCYTE 1+; PLATELET ESTIMATE NORMAL
[2020-06-15 22:39] VITALS: BP 117/55; PULSE 150; TEMP 99.5
[2020-06-16] MEDS ORDERED: METOPROLOL TARTRATE 5 MG/5 ML VIAL IVPUSH ONE (00:11)
[2020-06-16] MEDS ORDERED: METOPROLOL TARTRATE 5 MG/5 ML VIAL ONE (00:16)
== END 2020-06-16 00:47 | disposition short-term general hospital (02) ==
LOC: JER 19:50
DX: K66.8 Other specified disorders of peritoneum (principal); A41.9 Sepsis, unspecified organism
CPT/HCPCS: 36415; 71045-TC-FY; 74177-TC; 80053; 81003; 82550; 83605; 84484; 85025; 85610; 85730; 87040; 87086; 93005; 93010; 99285-25; C9803; J0131; Q9967; U0003